=== PATIENT | male | born 1950 | race Caucasian/White ===

== ENCOUNTER 2019-11-10 11:35 | Inpatient (IN) ==
[2019-11-10] MEDS ORDERED: 0.9 % SODIUM CHLORIDE 1,000 ML IV ONE ×3 (11:50→14:37)
[2019-11-10] MEDS ORDERED: ONDANSETRON 4 MG/2 ML VIAL IV ONE (11:50)
[2019-11-10] MEDS ORDERED: HYDROmorphone 1 MG/ML SYRINGE IV ONE (11:50)
--- NOTE | 2019-11-10 12:04 | Emergency Department Note ---
HPI General Chief complaint: Rib Pain Stated complaint: rib pain Time Seen by Provider: 11/10/19 11:49 Source: patient and family Mode of arrival: ambulatory Limitations: no limitations History of Present Illness HPI Narrative: Narrative: Patient is a 69-year-old male who comes into the emergency department today by EMS. Patient has complaint of right-sided rib pain that developed 2 days ago. Patient is a poor historian, and he is not sure if he had fell or not. He does report drinking bourbon several times a week. Pain is aggravated with palpation of the area and taking a deep breath. He has not had any fevers or chills. He denies any nausea or vomiting. He has not had any constipation, melena, or he matochezia. He denies shortness of breath or difficulty breathing. Patient reports prior history of a CVA, but reports he is otherwise been doing well. He denies any headache, weakness, dizziness, or confusion. He describes his pain today as sharp, aggravating, and rates the pain 10 out of 10 on a 0-10 numerical pain scale. Related Data Home Medications Medication Instructions Recorded Confirmed aspirin 325 mg tablet 325 mg PO QDAY 04/13/18 02/15/19 felodipine 10 mg tablet,extended 10 mg PO QPM tab 04/13/18 02/15/19 release 24 hr metoprolol succinate 50 mg 50 mg PO QDAY 04/13/18 02/15/19 tablet,extended release 24 hr multivitamin PO QDAY 04/13/18 02/15/19 omeprazole 20 mg capsule,delayed 20 mg PO QDAY 04/13/18 02/15/19 release vitamin B complex 1 tab PO QDAY 04/13/18 02/15/19 duloxetine 60 mg capsule,delayed 60 mg PO QDAY 11/15/18 02/15/19 release ascorbate calcium (vitamin C) PO 01/03/19 02/15/19 Previous Rx's Medication Instructions Recorded finasteride 5 mg tablet 5 mg PO QDAY #90 tab 04/19/19 mirabegron 25 mg tablet,extended 25 mg PO QDAY #90 tab 04/19/19 release 24 hr tamsulosin 0.4 mg capsule 0.4 mg PO QDAY #90 cap 04/19/19 Allergies Allergy/AdvReac Type Severity Reaction Status Date / Time bee venom protein (honey bee) Allergy Unknown Unknown Verified 04/19/19 11:58 Review of Systems ROS Narrative: Narrative: Constitutional: Denies fever and chills Eyes: Denies vision change ENT ED: Denies ear pain and throat pain Cardiovascular: Denies chest pain, palpitations and dyspnea on exertion Respiratory: Denies shortness of breath, cough and hemoptysis Gastrointestinal: Denies abdominal pain, nausea and vomiting Genitourinary: Denies dysuria and frequency Musculoskeletal: Reports as per HPI; Denies back pain and joint swelling Integumentary: Denies rash and lesions Neurological: Denies headache, weakness and numbness Psychiatric: Denies anxiety and depression Endocrine: Denies fatigue and heat or cold intolerance Hematological/Lymphatic: Denies easy bleeding and easy bruising PFSH Narrative Patient History Narrative: Narrative: Medical/Surgical/Family History All Active Problems (Updated 11/10/19 @ 15:25 by THEE Watkins) Acute cholecystitis (Acute) Leukocytosis (Acute) Uses wheelchair (Chronic) Overweight (Chronic) Easy bruising (Chronic) Cold intolerance (Chronic) Fatigue (Chronic) Memory loss (Chronic) Sleep disturbance (Chronic) Change of skin color (Chronic) Change in nail appearance (Chronic) Dry skin (Chronic) Itchy skin (Chronic) Muscle ache (Chronic) Incomplete emptying of bladder (Chronic) Frequent diarrhea (Chronic) Nocturnal cough with wheeze (Chronic) Left ankle swelling (Chronic) Sore throat (Chronic) Ringing in right ear (Chronic) Hiatal hernia (Chronic) Pain of left hip joint (Chronic) Urge incontinence of urine (Chronic) Benign prostatic hyperplasia with urinary obstruction (Chronic) Chronic obstructive lung disease (Chronic) 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) (Chronic) Alcohol dependence (Chronic) Hypertriglyceridemia (Chronic) Apraxia (Chronic) Cannabis dependence (Chronic) Cigarette smoker (Chronic) Chronic depression (Chronic) Ankle instability (Chronic) Muscle tenderness (Chronic) Muscle contracture (Chronic) Dependent on walker for ambulation (Chronic) Runny nose (Chronic) Narcotic addiction (Chronic) Mood swings (Chronic) Alcohol abuse (Chronic) Neurologic gait dysfunction (Chronic) Severe headache (Chronic) Dizziness (Chronic) Numbness (Chronic) Weakness (Chronic) Difficulty walking (Chronic) Arthralgia of ankle (Chronic) Diarrhea (Chronic) History of appetite changes (Chronic) Abdominal pain (Chronic) Wheezing (Chronic) Ankle swelling (Chronic) Shortness of breath on exertion (Chronic) Ischemic stroke (Chronic 12/16/08) Trochanteric bursitis, left hip (Chronic) Hemiparesis (Chronic) Hemorrhagic stroke (Chronic 09/25/04) Dysarthria (Chronic 06/27/17) Low back pain (Chronic 09/12/17) Neck pain (Chronic 06/27/17) BPH (benign prostatic hyperplasia) (Chronic 06/27/17) Chronic kidney disease, stage 3 (Chronic 06/27/17) Acid reflux (Chronic 06/27/17) Essential hypertension (Chronic 06/27/17) Blurring of visual image (Chronic 06/27/17) Hemiplegia affecting nondominant side (Chronic 06/27/17) Depressive disorder (Chronic 06/27/17) Hyperlipidemia (Chronic 06/27/17) Urinary incontinence (Chronic 06/27/17) Medical History (Updated 11/10/19 @ 15:25 by THEE Watkins) Abdominal pain (Chronic) Acid reflux (Chronic 06/27/17) Alcohol abuse (Chronic) Alcohol dependence (Chronic) Ankle instability (Chronic) Ankle swelling (Chronic) Apraxia (Chronic) Arthralgia of ankle (Chronic) Benign prostatic hyperplasia with urinary obstruction (Chronic) Blurring of visual image (Chronic 06/27/17) BPH (benign prostatic hyperplasia) (Chronic 06/27/17) Cannabis dependence (Chronic) Change in nail appearance (Chronic) Change of skin color (Chronic) Chronic depression (Chronic) Chronic kidney disease, stage 3 (Chronic 06/27/17) Chronic obstructive lung disease (Chronic) Cigarette smoker (Chronic) Cold intolerance (Chronic) Dependent on walker for ambulation (Chronic) Depressive disorder (Chronic 06/27/17) Diarrhea (Chronic) Difficulty walking (Chronic) Dizziness (Chronic) Dry skin (Chronic) Dysarthria (Chronic 06/27/17) Easy bruising (Chronic) Essential hypertension (Chronic 06/27/17) Fatigue (Chronic) Frequent diarrhea (Chronic) Hemiparesis (Chronic) 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) (Chronic) Hemiplegia affecting nondominant side (Chronic 06/27/17) Hemorrhagic stroke (Chronic 09/25/04) Hiatal hernia (Chronic) History of appetite changes (Chronic) Hyperlipidemia (Chronic 06/27/17) Hypertriglyceridemia (Chronic) Incomplete emptying of bladder (Chronic) Ischemic stroke (Chronic 12/16/08) Itchy skin (Chronic) Left ankle swelling (Chronic) Low back pain (Chronic 09/12/17) Memory loss (Chronic) Mood swings (Chronic) Muscle ache (Chronic) Left Thigh Muscle contracture (Chronic) Muscle tenderness (Chronic) Narcotic addiction (Chronic) Neck pain (Chronic 06/27/17) Neurologic gait dysfunction (Chronic) Nocturnal cough with wheeze (Chronic) Numbness (Chronic) Overweight (Chronic) Pain of left hip joint (Chronic) Ringing in right ear (Chronic) Runny nose (Chronic) Severe headache (Chronic) Shortness of breath on exertion (Chronic) Sleep disturbance (Chronic) Sore throat (Chronic) Trochanteric bursitis, left hip (Chronic) Urge incontinence of urine (Chronic) Urinary incontinence (Chronic 06/27/17) Uses wheelchair (Chronic) Weakness (Chronic) Wheezing (Chronic) Surgical History History of dental surgery (Chronic) Full Extracted History of esophagogastroduodenoscopy (EGD) (Chronic ~07/2011) No pertinent past surgical history (Chronic) Family History Father Myocardial infarction Sister Malignant neoplasm of ovary Family/Other Diabetes mellitus Maternal Aunt Brother Hypertension Mother Stroke Diabetes mellitus Social History Smoking Status: Current every day smoker Alcohol Intake Frequency: 2+ drinks per day Substance Use: former substance user, marijuana and other Exam Narrative Narrative: Narrative: General Limitations: no limitations General appearance: alert and in no apparent distress Head Head: atraumatic, normocephalic and normal inspection Eye Eye: Present normal appearance and PERRL ENT ENT: Present mucous membranes dry Neck Neck: Present normal inspection and full ROM; Absent tenderness and lymphadenopathy Chest Chest: Present normal inspection and tenderness (Outpatient of right lower ribs) Respiratory Respiratory: Present normal lung sounds bilaterally and wheezes (Right lower lobe); Absent respiratory distress and accessory muscle use Cardiovascular Cardiovascular: Present regular rate and normal rhythm; Absent systolic murmur and diastolic murmur Adbominal Abdominal: Present soft and tenderness (Right upper quadrant near the base of the rib.); Absent distention Extremities Extremities: Present full ROM and normal capillary refill; Absent tenderness Back Back: Present normal inspection and full ROM; Absent CVA tenderness (R) and CVA tenderness (L) Neurological Neurological: Present alert and oriented X3 Psychiatric Psychiatric: Present normal affect and normal mood Skin Skin: Present warm, dry and normal color Course Reevaluation(s) Reevaluation #1: Patient received 1 mg of Dilaudid for pain and 4 mg of an answer of her nausea. He received a liter of normal saline. CT scan was completed that shows some inflammation around the gallbladder. I have ordered an ultrasound for further evaluation of the gallbladder and right upper quadrant. Labs currently pending at this time. Patient resting comfortably. Time: 13:23 Reevaluation #2: Zosyn 3.375 dose ordered IV. Patient resting at this time. Phone call consultation has been sent to general surgeon, Dr. Sorto. The ultrasound showed 6 mm hepatic duct, sludge in the gallbladder, a small amount of ascites. Common bile duct is not well visualized. Blood cultures and lactic acid drawn before antibiotic administration. Time: 14:01 Consultations Consultation #1: Consulted with Dr. Oliver Sorto today, and Dr. Sorto will look at the patient's imaging. Dr. Sorto recommended to add CRP, procalcitonin, and try to find source of infection for the leukocytosis. I will order a CT abdomen pelvis with contrast at this time. Time: 14:14 Time: 15:20 Consultation #3: Spoke with Dr. Sorto, and the CT scanning of the abdomen pelvis results were called to me by Dr. Mcnair. Patient has inflammation around the gallbladder and a little bit towards the jejunum. A little free fluid is seen in the right upper quadrant and trace amount in the lower abdomen. No abscesses. Dr. Sorto will accept patient to be admitted to [facility] for cholecystitis. Patient received 1 dose of Zosyn here in the emergency department. He will be admitted as observation at this time. Vital Signs Vital signs: Vital Signs Temperature 97.0 F 11/10/19 11:35 Pulse Rate 104 H 11/10/19 11:35 Respiratory Rate 26 H 11/10/19 11:35 Blood Pressure 144/111 11/10/19 11:35 Pulse Oximetry (%) 97 11/10/19 11:35 Temperature 97.7 F 11/10/19 11:39 Pulse Rate 99 H 11/10/19 12:24 Respiratory Rate 26 H 11/10/19 11:35 Blood Pressure 134/91 11/10/19 12:24 Pulse Oximetry (%) 94 11/10/19 12:24 MDM MDM Narrative Medical decision making narrative: Narrative: Patient's white count today 30.3. Patient resumed Dilaudid for pain management, 4 mg ondansetron, and a liter of normal saline. Pain had been controlled. CT of the chest did not show any abnormalities with rib or significant findings with the lung. Patient does have COPD which is not new for him. Patient has continued to have the right upper quadrant tenderness. Ultrasound was completed that showed some possible sludge and distention over the gallbladder area. Gallbladder wall measured up to 3 mm. I did consult with Dr. Oliver Sorto after the ultrasound was obtained, and Dr. Sorto had recommended CRP, pro calcitonin, lactic acid. Lactic acid today is normal. The CRP is elevated, and procalcitonin is rather unremarkable. He did recommend to proceed with a CT scan of the abdomen and which today shows cholecystitis findings with inflammation around the gallbladder and a little bit towards the jejunum. No abscess. Patient was given a dose of Zosyn here in the emergency department. Dr. Sorto did accept the patient for admission to the hospital, and he will see the patient on the floor today. Lab Data Lab results reviewed: Yes I reviewed the patient's lab results. Result diagrams: 11/10/19 11:58 11/10/19 13:04 Labs: Lab Results 11/10/19 11/10/19 11/10/19 Range/Units 11:58 11:58 13:04 WBC 30.3 H* (4.50-11.00) K/mcL RBC 5.52 (4.63-6.08) M/mcL Hgb 17.9 H (13.7-17.5) g/dL Hct 49.6 (40.1-51.0) % MCV 89.9 (80.0-100.0) fL MCH 32.4 (26.0-34.0) pg MCHC 36.1 H (31.0-36.0) g/dL RDW 12.3 (11.5-14.5) % Plt Count 392 (140-440) K/mcL MPV 12.8 H (7.4-10.4) fL Gran % 87.8 H (38.0-78.0) % Lymph % (Auto) 2.7 L (15.5-49.0) % [place] % (Auto) 9.2 (1.0-12.0) % Eos % (Auto) 0.1 (0.0-7.0) % Baso % (Auto) 0.2 (0.0-2.0) % Gran # 26.57 H (1.80-8.00) K/mcL Lymph # (Auto) 0.83 L (1.50-4.80) K/mcL [place] # (Auto) 2.77 H (0.10-0.90) K/mcL Eos # (Auto) 0.03 (0.00-0.70) K/mcL Baso # (Auto) 0.06 (0.00-0.30) K/mcL Sodium TNP 132 L Potassium TNP 3.9 Chloride TNP 99 Carbon Dioxide TNP 19 L Anion Gap TNP 14.0 BUN TNP 15 Creatinine TNP 1.5 H GFR Calculation TNP 47 Glucose TNP 137 H Calcium TNP 8.5 L Total Bilirubin TNP 0.9 AST TNP 33 ALT TNP 20 Alkaline Phosphatase TNP 101 Total Protein TNP 7.1 Albumin TNP 3.1 L Globulin TNP 4.0 H Albumin/Globulin Ratio TNP 0.8 L Lipase TNP Radiology Data Radiology results narrative: Chest CT without contrast was read by Dr. Mcnair. Dr. cMnair had called me with the results that shows distention and inflammation around the gallbladder, small amount of free fluid near the liver. No peritonitis. No abnormalities with the ribs. No pneumothorax. Lungs are rather unremarkable besides some emphysema. Ultrasound Report Signed Ordering Physician: Ramos Prieto Date of Service: 11/10/19 Procedure(s): US abdomen limited Accession Number(s): [id number] History: Fever, elevated white blood cell count, right upper quadrant pain FINDINGS: The patient was technically difficult to scan due to body habitus. The pancreas is not identified. There is also poor visualization of the liver. No gross mass or abscess are seen in the liver. There is a trace amount of ascites around the liver. The gallbladder is filled with sludge and is somewhat distended. Gallbladder wall measures up to 3 mm. Patient was diffusely tender over the right upper quadrant. A short segment common hepatic duct was visualized which measures 6 mm in diameter. Common bile duct is obscured. IMPRESSION: Sludge versus pus filling a distended gallbladder Small amount of ascites in the right upper quadrant Ramos Prieto was called with the results Interpreted and Authenticated by: Kirby Mcnair 11/10/19 Discharge Plan Patient/Caregiver Discharge Instructions Pt seen by [employer]/PA only: No Clinical Impression: Acute cholecystitis Leukocytosis Qualifiers: Leukocytosis type: unspecified Qualified Code(s): D72.829 - Elevated white blood cell count, unspecified Patient Disposition: Xfer As Outpt/Obs ([facility]) Condition: Fair Follow up with: Mindy Green MD [Primary Care Provider] - Prescriptions: No Action aspirin 325 mg tablet 325 mg PO QDAY RF: 0 felodipine 10 mg tablet extended release 24 hr 10 mg PO QPM RF: 0 metoprolol succinate 50 mg tablet extended release 24 hr 50 mg PO QDAY RF: 0 multivitamin PO QDAY RF: 0 omeprazole 20 mg capsule,delayed release(DR/EC) 20 mg PO QDAY RF: 0 vitamin B complex tablet 1 tab PO QDAY RF: 0 duloxetine 60 mg capsule,delayed release(DR/EC) 60 mg PO QDAY RF: 0 ascorbate calcium (vitamin C) PO RF: 0 mirabegron 25 mg tablet extended release 24 hr 25 mg PO QDAY Qty: 90 RF: 3 finasteride 5 mg tablet 5 mg PO QDAY Qty: 90 RF: 3 tamsulosin 0.4 mg capsule 0.4 mg PO QDAY Qty: 90 RF: 3
[2019-11-10 13:30] LABS: Basophils # (Auto) 0.06 K/mcL (0.00-0.30); Basophils % (Auto) 0.2 % (0.0-2.0); Eosinophils # (Auto) 0.03 K/mcL (0.00-0.70); Eosinophils % (Auto) 0.1 % (0.0-7.0); Granulocytes % (Auto) 87.8 % (38.0-78.0); Hematocrit 49.6 % (40.1-51.0); Hemoglobin 17.9 g/dL (13.7-17.5); Lymphocytes # (Auto) 0.83 K/mcL (1.50-4.80); Lymphocytes % (Auto) 2.7 % (15.5-49.0); Mean Cell Volume 89.9 fL (80.0-100.0); Mean Corpuscular HGB Conc 36.1 g/dL (31.0-36.0); Mean Platelet Volume 12.8 fL (7.4-10.4); Monocytes # (Auto) 2.77 K/mcL (0.10-0.90); Monocytes % (Auto) 9.2 % (1.0-12.0); Platelet Count 392 K/mcL (140-440); RBC 5.52 M/mcL (4.63-6.08); Red Cell Distribution Width 12.3 % (11.5-14.5); WBC 30.3 K/mcL (4.50-11.00)
[2019-11-10 13:49] LABS: ALT/SGPT 20 U/l (0-40); AST/SGOT 33 U/l (0-37); Albumin 3.1 gm/dL (3.2-5.2); Albumin/Globulin Ratio 0.8 (1.0-2.3); Alkaline Phosphatase 101 U/L (39-117); Bilirubin,Total 0.9 mg/dL (0.0-1.0); Blood Urea Nitrogen 15 mg/dl (8-23); Calcium 8.5 mg/dl (8.6-10.4); Carbon Dioxide 19 mmol/L (22-30); Chloride 99 mmol/L (96-108); Glomerular Filtration Rate 47; Glucose 137 mg/dL (70-105)
[2019-11-10] MEDS ORDERED: PIPERACILLIN SODIUM/TAZOBACTAM 3.375 GM in DEXTROSE 5% IN WATER 50 ML IV ONE (13:52)
--- NOTE | 2019-11-10 14:47 | Ultrasound Report ---
History: Fever, elevated white blood cell count, right upper quadrant pain FINDINGS: The patient was technically difficult to scan due to body habitus. The pancreas is not identified. There is also poor visualization of the liver. No gross mass or abscess are seen in the liver. There is a trace amount of ascites around the liver. The gallbladder is filled with sludge and is somewhat distended. Gallbladder wall measures up to 3 mm. Patient was diffusely tender over the right upper quadrant. A short segment common hepatic duct was visualized which measures 6 mm in diameter. Common bile duct is obscured. IMPRESSION: Sludge versus pus filling a distended gallbladder Small amount of ascites in the right upper quadrant Ramos Prieto was called with the results Interpreted and Authenticated by: Kirby Mcnair 11/10/19
[2019-11-10 14:48] LABS: C-Reactive Protein 11.5 mg/dl (0.0-0.8)
--- NOTE | 2019-11-10 14:50 | Cat Scan Report ---
History: Fever, elevated white blood cell count and tenderness in the right lower chest and right upper quadrant TECHNIQUE: The chest was imaged without contrast at 2.5 mm intervals. Sagittal, coronal and axial MIPS images were created. Radiation exposure was limited using dose reduction technology. FINDINGS: Patient has mild to moderate centrilobular emphysema with the greatest involvement in the upper lobes. There is mild pulmonary fibrosis posteriorly in the lower lobes, right greater than left and there is also a band of scar or atelectasis in the inferior segment of lingula. There is no consolidating pulmonary infiltrate. No pneumothorax or pleural effusion are present. There is no evidence of a lung mass. The ribs are normal and there is no evidence of a chest wall lesion. The aorta is normal in caliber. There are scattered plaques in the aorta and coronary arteries. The heart size is normal. Small hiatus hernia is present. There is circumferential thickening of the wall of the mid and distal thoracic esophagus. No discrete mass is seen. Proximal esophagus is not abnormally dilated. The gallbladder is over distended and there is stranding in the surrounding fat. No stones are seen within the lumen. Gallbladder is incompletely visualized. Trace amount of ascites is seen around the liver. IMPRESSION: COPD with mild pulmonary fibrosis Distended gallbladder with surrounding inflammation. Cholecystitis is suspected. Hiatus hernia with thickened esophageal wall. This is probably due to chronic esophagitis and less likely due to neoplasm. Ramos Prieto was called with results Interpreted and Authenticated by: Kirby Mcnair 11/10/19
--- NOTE | 2019-11-10 15:13 | Cat Scan Report ---
History: Fever, right upper quadrant pain, elevated white blood cell count and inflammation in the gallbladder seen on the preceding chest CT TECHNIQUE: The patient was imaged without contrast due to elevated BUN/creatinine, scanning from the diaphragm through the symphysis pubis. Sagittal and coronal reformats were created. The radiation exposure was limited using dose reduction technology. FINDINGS: The left lobe of liver has somewhat of a bulbous contour. The parenchyma appears homogeneous. The patient might have early cirrhosis. No varices are seen. The gallbladder is abnormally distended and there is a large amount of inflammation of the surrounding fat. The inflammation extends to the second portion the duodenum and there is minimal inflammation around the head of the pancreas. No calcified stones are seen within the lumen of the gallbladder. The bile ducts are nondilated. There are couple calcifications in the tail the pancreas which may be related to a prior episode of pancreatitis. Trace amount of ascites is seen around the liver and deep in the pelvis. No intra-abdominal abscess is seen. The bowel gas pattern is normal and there is no evidence of diverticulitis or bowel obstruction. Spleen is normal in size and homogeneous. The adrenals and kidneys are normal. Patient has a small hiatus hernia. The wall of the distal esophagus is thickened. Large amount calcified plaque is present in the arteries throughout the abdomen pelvis and both groin. IMPRESSION: Acute cholecystitis, without evidence of calcified gallstones Ramos Prieto was called with the results Interpreted and Authenticated by: Kirby Mcnair 11/10/19
[2019-11-10] MEDS ORDERED: ONDANSETRON 4 MG/2 ML VIAL IV PRN ×2 (15:25→18:06)
[2019-11-10] MEDS ORDERED: NALOXONE HCL 0.4 MG/ML VIAL IV PRN (15:25)
[2019-11-10] MEDS ORDERED: HYDROmorphone 0.5 MG/0.5 ML SYRINGE IV PRN (15:25)
[2019-11-10] MEDS: 0.9 % SODIUM CHLORIDE 1,000 ML IV SCH ×2 (16:21→22:54)
[2019-11-10 17:05] LABS: Appearance,Urine CLEAR; Bacteria,Urine 0 /hpf (0); Bilirubin,Urine NEG (NEG); Color,Urine AMBER; Culture Indicated,Urine NO; Glucose,Urine (UA) NEGATIVE (NEG); Ketones,Urine 5/TR mg/dL (NEG); Leukocyte Esterase,Urine NEG /uL (NEG); Mucus,Urine MOD /hpf (0); Nitrate,Urine NEG (NEG); Protein,Urine >=500 mg/dL (NEG); Specific Gravity,Urine 1.032 (1.000-1.035); Urine Blood 0.03 mg/dL (<0.03); Urine Hyaline Cast 8 /lpf (0-2); Urine RBC 1 /hpf (0-1); Urine Squamous Epithelial Cell 0 /hpf (0-4); Urine WBC 3 /hpf (0-4)
--- NOTE | 2019-11-10 17:49 | General Surg History&Physical ---
HPI History of Present Illness Patient information: Note initiated : 11/10/19 at 5:48 pm Service Date, if different from initiated Date: [] Patient: Priyank Dueñas a 69 y/o M admitted on 11/10/19 for rib pain. Chief Complaint: [] Chief complaint: abdominal pain History of present illness: Mr. Dueñas is a 69 year old M admitted with acute cholecystitis. The patient has a 3 day history of right upper quadrant pain with nausea and anorexia. It has become progressively worse and finally prompted him to come to the emergency room. He was found to have an edematous gallbladder with pericholecystic fluid. He also has a 30,000 white count. He is afebrile at the present time. Patient has a history of alcoholism and polys ubstance abuse. He is admitted tonight and will be treated with antibiotics with plans for laparoscopic cholecystectomy in the morning. Constitutional Constitutional: Present anorexia, fatigue, lethargy, malaise, weakness and weight loss EENT Eyes: Present blurry vision Ears: Present decreased hearing Nose, mouth and throat: Present abnormal hearing and headache(s) Cardiovascular Cardiovascular: Absent dyspnea on exertion, edema and orthopnea Respiratory Respiratory: Present cough, wheezing and other (shortness of breath) Gastrointestinal Gastrointestinal: Present abdominal pain, bloating, early satiety, heartburn and nausea Genitourinary Genitourinary: change in urinary stream, difficulty urinating, nocturia, post void dribbling, urinary frequency, urinary hesitancy, urinary incontinence and urinary urgency Musculoskeletal Musculoskeletal: Present abnormal gait, arthralgias, back pain, limited range of motion (major decrease range of motion of left upper and left lower extremity), muscle weakness, neck pain and numbness Integumentary Integumentary: Present dry skin and hirsutism Neurological Neurological: Present abnormal gait, abnormal hearing, abnormal movements, abnormal speech, behavioral changes, focal weakness (left hemiparesis with spastic procedure left upper extremity), frequent falls, lack of coordination, numbness and tremor(s) Psychiatric Psychiatric: Present abnormal sleep pattern, behavioral changes, confusion, memory loss and mood swings Hematologic/Lymphatic Hematologic/Lymphatic: Present easy bruising; Absent easy bleeding and lymphadenopathy Allergic/Immunologic Allergic/Immunologic: Absent tongue swelling, throat swelling, uticaria, wheezing and lip swelling [facility] Medical History (Updated 07/04/20 @ 18:04 by Cheyanne Sorto MD) Abdominal pain (Chronic) Acid reflux (Chronic 06/27/17) Alcohol abuse (Chronic) Alcohol dependence (Chronic) Ankle instability (Chronic) Ankle swelling (Chronic) Apraxia (Chronic) Arthralgia of ankle (Chronic) Benign prostatic hyperplasia with urinary obstruction (Chronic) Blurring of visual image (Chronic 06/27/17) BPH (benign prostatic hyperplasia) (Chronic 06/27/17) Cannabis dependence (Chronic) Change in nail appearance (Chronic) Change of skin color (Chronic) Chronic depression (Chronic) Chronic kidney disease, stage 3 (Chronic 06/27/17) Chronic obstructive lung disease (Chronic) Cigarette smoker (Chronic) Cold intolerance (Chronic) Dependent on walker for ambulation (Chronic) Depressive disorder (Chronic 06/27/17) Diarrhea (Chronic) Difficulty walking (Chronic) Dizziness (Chronic) Dry skin (Chronic) Dysarthria (Chronic 06/27/17) Easy bruising (Chronic) Essential hypertension (Chronic 06/27/17) Fatigue (Chronic) Frequent diarrhea (Chronic) Hemiparesis (Chronic) 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) (Chronic) Hemiplegia affecting nondominant side (Chronic 06/27/17) Hemorrhagic stroke (Chronic 09/25/04) Hiatal hernia (Chronic) History of appetite changes (Chronic) Hyperlipidemia (Chronic 06/27/17) Hypertriglyceridemia (Chronic) Incomplete emptying of bladder (Chronic) Ischemic stroke (Chronic 12/16/08) Itchy skin (Chronic) Left ankle swelling (Chronic) Low back pain (Chronic 09/12/17) Memory loss (Chronic) Mood swings (Chronic) Muscle ache (Chronic) Left Thigh Muscle contracture (Chronic) Muscle tenderness (Chronic) Narcotic addiction (Chronic) Neck pain (Chronic 06/27/17) Neurologic gait dysfunction (Chronic) Nocturnal cough with wheeze (Chronic) Numbness (Chronic) Overweight (Chronic) Pain of left hip joint (Chronic) Ringing in right ear (Chronic) Runny nose (Chronic) Severe headache (Chronic) Shortness of breath on exertion (Chronic) Sleep disturbance (Chronic) Sore throat (Chronic) Trochanteric bursitis, left hip (Chronic) Urge incontinence of urine (Chronic) Urinary incontinence (Chronic 06/27/17) Uses wheelchair (Chronic) Weakness (Chronic) Wheezing (Chronic) Surgical History History of dental surgery (Chronic) Full Extracted History of esophagogastroduodenoscopy (EGD) (Chronic ~07/2011) No pertinent past surgical history (Chronic) Family History Father Myocardial infarction Sister Malignant neoplasm of ovary Family/Other Diabetes mellitus Maternal Aunt Brother Hypertension Mother Stroke Diabetes mellitus Social History (Updated 04/19/19 @ 17:31 by THEE Fuentes) household members: alone marital status: 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 smoking status: Current every day smoker alcohol intake frequency: 2+ drinks per day substance use type: former substance user, marijuana and other seatbelt use: always MEDS/ALLERGIES Home Medications and Allergies Home Medications Medication Instructions Recorded Confirmed Type aspirin 325 mg tablet 325 mg PO QDAY 04/13/18 11/10/19 History felodipine 10 mg tablet,extended 10 mg PO QPM tab 04/13/18 11/10/19 History release 24 hr metoprolol succinate 50 mg 50 mg PO QDAY 04/13/18 11/10/19 History tablet,extended release 24 hr multivitamin 1 tab PO QDAY 04/13/18 11/10/19 History omeprazole 20 mg capsule,delayed 20 mg PO QDAY 04/13/18 11/10/19 History release vitamin B complex 1 tab PO QDAY 04/13/18 11/10/19 History ascorbate calcium (vitamin C) 1 tab PO QDAY 01/03/19 11/10/19 History finasteride 5 mg tablet 5 mg PO QDAY #90 tab 04/19/19 11/10/19 Rx mirabegron 25 mg tablet,extended 25 mg PO QDAY #90 tab 04/19/19 11/10/19 Rx release 24 hr tamsulosin 0.4 mg capsule 0.4 mg PO QDAY #90 cap 04/19/19 11/10/19 Rx fluoxetine 40 mg PO QDAY 11/10/19 11/10/19 History Allergies Allergy/AdvReac Type Severity Reaction Status Date / Time bee venom protein (honey bee) Allergy Unknown Unknown Verified 04/19/19 11:58 Physical Examination Vital Signs Vital signs: Temp Pulse Resp BP Pulse Ox 97.9 F 92 H 20 122/82 93 11/10/19 16:21 11/10/19 16:21 11/10/19 16:21 11/10/19 16:21 11/10/19 16:21 General physical appearance General physical exam: moderate distress, chronically ill and other (very poor body hygiene) Eyes Eye exam: PERRL, normal ocular movement and other (poor vision bilaterally) ENT ENT exam: decreased hearing and other (edentulous) Head Head exam IM: Present atraumatic, normal inspection and normocephalic Neck Neck exam: no masses, no bruits, trachea midline, no lymphadenopathy and no venous distension Cardiovascular Cardiovascular exam IM: Present normal rate and rhythm, RRR, +S1 and +S2; Absent gallop and JVD Respiratory Respiratory exam: other (bilateral coarse breath sounds with fine wheezes; decrease in air movement bilaterally) Abdomen Abdomen: Present tender (severe tenderness right upper quadrant and epigastrium) and bowel sounds (active bowel sounds) Integumentary Integumentary: Present no rash, no growths and no abnormal pigmentation Neurologic Neurologic: Present other (left hemiparesis greater in the left upper extremity than left lower extremity) Musculoskeletal Musculoskeletal: Present other (altered gait due to hematemesis) Psychiatric Psychiatric: Present oriented to time and oriented to person Results Labs Result diagrams: 11/10/19 11:58 11/10/19 13:04 Labs: Abnormal lab results 11/10/19 11/10/19 11/10/19 Range/Units 11:58 13:04 13:04 WBC 30.3 H* (4.50-11.00) K/mcL Hgb 17.9 H (13.7-17.5) g/dL MCHC 36.1 H (31.0-36.0) g/dL MPV 12.8 H (7.4-10.4) fL Gran % 87.8 H (38.0-78.0) % Lymph % (Auto) 2.7 L (15.5-49.0) % Gran # 26.57 H (1.80-8.00) K/mcL Lymph # (Auto) 0.83 L (1.50-4.80) K/mcL [place] # (Auto) 2.77 H (0.10-0.90) K/mcL Sodium 132 L (133-145) mmol/L Carbon Dioxide 19 L (22-30) mmol/L Creatinine 1.5 H (0.7-1.2) mg/dl Glucose 137 H (70-105) mg/dL Calcium 8.5 L (8.6-10.4) mg/dl C-Reactive Protein 11.5 H (0.0-0.8) mg/dl Albumin 3.1 L (3.2-5.2) gm/dL Globulin 4.0 H (2.2-3.7) gm/dL Albumin/Globulin Ratio 0.8 L (1.0-2.3) Urine Protein (NEG) mg/dL Urine Ketones (NEG) mg/dL Urine Occult Blood (<0.03) mg/dL Urine Urobilinogen (NEG) mg/dL Hyaline Casts (0-2) /lpf 11/10/19 Range/Units 16:17 WBC (4.50-11.00) K/mcL Hgb (13.7-17.5) g/dL MCHC (31.0-36.0) g/dL MPV (7.4-10.4) fL Gran % (38.0-78.0) % Lymph % (Auto) (15.5-49.0) % Gran # (1.80-8.00) K/mcL Lymph # (Auto) (1.50-4.80) K/mcL [place] # (Auto) (0.10-0.90) K/mcL Sodium (133-145) mmol/L Carbon Dioxide (22-30) mmol/L Creatinine (0.7-1.2) mg/dl Glucose (70-105) mg/dL Calcium (8.6-10.4) mg/dl C-Reactive Protein (0.0-0.8) mg/dl Albumin (3.2-5.2) gm/dL Globulin (2.2-3.7) gm/dL Albumin/Globulin Ratio (1.0-2.3) Urine Protein >=500 A (NEG) mg/dL Urine Ketones 5/tr A (NEG) mg/dL Urine Occult Blood 0.03 A (<0.03) mg/dL Urine Urobilinogen 2.0 A (NEG) mg/dL Hyaline Casts 8 H (0-2) /lpf Diabetes panel 11/10/19 11/10/19 Range/Units 11:58 13:04 Sodium TNP 132 L Potassium TNP 3.9 Chloride TNP 99 Carbon Dioxide TNP 19 L BUN TNP 15 Creatinine TNP 1.5 H Glucose TNP 137 H Calcium TNP 8.5 L AST TNP 33 ALT TNP 20 Alkaline Phosphatase TNP 101 Total Protein TNP 7.1 Albumin TNP 3.1 L Calcium panel 11/10/19 11/10/19 Range/Units 11:58 13:04 Calcium TNP 8.5 L Albumin TNP 3.1 L Pituitary panel 11/10/19 11/10/19 Range/Units 11:58 13:04 Sodium TNP 132 L Potassium TNP 3.9 Chloride TNP 99 Carbon Dioxide TNP 19 L BUN TNP 15 Creatinine TNP 1.5 H Glucose TNP 137 H Calcium TNP 8.5 L Adrenal panel 11/10/19 11/10/19 Range/Units 11:58 13:04 Sodium TNP 132 L Potassium TNP 3.9 Chloride TNP 99 Carbon Dioxide TNP 19 L BUN TNP 15 Creatinine TNP 1.5 H Glucose TNP 137 H Calcium TNP 8.5 L Total Bilirubin TNP 0.9 AST TNP 33 ALT TNP 20 Alkaline Phosphatase TNP 101 Total Protein TNP 7.1 Albumin TNP 3.1 L All other labs normal. A/P Assessment and plan (1) Sepsis: Status: Acute Qualifiers: Sepsis acute organ dysfunction status: with acute organ dysfunction Sepsis type: sepsis due to unspecified organism Severe sepsis shock status: without septic shock (2) Chronic kidney disease: Status: Acute Qualifiers: Chronic kidney disease stage: stage 3 (moderate) Qualified Code(s): N18.3 - Chronic kidney disease, stage 3 (moderate) (3) Hypertension: Status: Acute Qualifiers: Hypertension type: essential hypertension Qualified Code(s): I10 - Essential (primary) hypertension (4) Chronic obstructive lung disease: Status: Chronic Qualifiers: COPD type: chronic bronchitis Chronic bronchitis type: mucopurulent Qualified Code(s): J41.1 - Mucopurulent chronic bronchitis (5) 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): Status: Chronic (6) Alcohol dependence: Status: Chronic Qualifiers: Substance use status: uncomplicated Qualified Code(s): F10.20 - Alcohol dependence, uncomplicated (7) Essential hypertension: Status: Chronic Narrative A/P Narrative: Narrative:Zosyn 3.375 g IV every 6 hours DuoNeb's every 6 hours to night Laparoscopic cholecystectomy tomorrow Supplemental alcohol to prevent delirium tremens Romero catheter to control incontinence Time Spent With Patient Time: Total time spent is greater than 50% in coordination of care (as documented) at patient's floor/unit and/or counseling patient:
[2019-11-10 18:29] LABS: INR 1.1 (0.9-1.1); Prothrombin Time 14.4 sec (11.9-14.5)
[2019-11-10] MEDS ORDERED: NICOTINE 21 MG PATCH TOPICAL ONE (18:43)
[2019-11-10] MEDS: HYDROmorphone 0.5 MG/0.5 ML SYRINGE IV PRN ×2 (19:08→22:47)
[2019-11-10] MEDS: PIPERACILLIN SODIUM/TAZOBACTAM 3.375 GM in DEXTROSE 5% IN WATER 50 ML IV SCH (19:51)
[2019-11-10] MEDS ORDERED: FELODIPINE XR 5 MG TABLET PO SCH (21:00)
[2019-11-10] MEDS ORDERED: ZOLPIDEM 5 MG TABLET PO PRN (21:00)
[2019-11-10] MEDS: 0.9 % SODIUM CHLORIDE 10 ML SYRINGE IV SCH (22:12)
[2019-11-11] MEDS: PIPERACILLIN SODIUM/TAZOBACTAM 3.375 GM in DEXTROSE 5% IN WATER 50 ML IV SCH ×6 (01:24→23:53)
[2019-11-11] MEDS: 0.9 % SODIUM CHLORIDE 1,000 ML IV SCH ×5 (03:38→21:55)
[2019-11-11] MEDS: HYDROmorphone 0.5 MG/0.5 ML SYRINGE IV PRN ×4 (04:47→23:44)
[2019-11-11] MEDS: 0.9 % SODIUM CHLORIDE 10 ML SYRINGE IV SCH ×3 (05:07→23:44)
[2019-11-11] MEDS ORDERED: 0.9 % SODIUM CHLORIDE 2,000 ML IV ONE (06:20)
[2019-11-11 06:25] LABS: Basophils # (Auto) 0.04 K/mcL (0.00-0.30); Basophils % (Auto) 0.2 % (0.0-2.0); Eosinophils # (Auto) 0.03 K/mcL (0.00-0.70); Eosinophils % (Auto) 0.1 % (0.0-7.0); Granulocytes % (Auto) 86.6 % (38.0-78.0); Hematocrit 43.6 % (40.1-51.0); Hemoglobin 14.7 g/dL (13.7-17.5); Lymphocytes % (Auto) 3.4 % (15.5-49.0); Mean Cell Volume 95.8 fL (80.0-100.0); Mean Corpuscular HGB Conc 33.7 g/dL (31.0-36.0); Mean Platelet Volume 11.3 fL (7.4-10.4); Monocytes # (Auto) 2.58 K/mcL (0.10-0.90); Monocytes % (Auto) 9.7 % (1.0-12.0); Platelet Count 285 K/mcL (140-440); RBC 4.55 M/mcL (4.63-6.08); Red Cell Distribution Width 12.3 % (11.5-14.5); WBC 26.6 K/mcL (4.50-11.00)
[2019-11-11 06:45] LABS: ALT/SGPT 18 U/l (0-40); AST/SGOT 29 U/l (0-37); Albumin 2.7 gm/dL (3.2-5.2); Albumin/Globulin Ratio 0.7 (1.0-2.3); Alkaline Phosphatase 75 U/L (39-117); Bilirubin,Direct 0.7 mg/dL (0.0-0.3); Bilirubin,Total 0.9 mg/dL (0.0-1.0); Calcium 8.5 mg/dl (8.6-10.4); Carbon Dioxide 17 mmol/L (22-30); Chloride 103 mmol/L (96-108); Globulin 3.9 gm/dL (2.2-3.7); Glucose 98 mg/dL (70-105); Lactate Dehydrogenase 270 U/L (94-250); Triglycerides 62 mg/dl (<150); Uric Acid 8.5 mg/dL (2.5-8.0)
[2019-11-11 06:46] LABS: Blood Urea Nitrogen 25 mg/dl (8-23); Glomerular Filtration Rate 24
[2019-11-11] MEDS ORDERED: SCOPOLAMINE 1 PATCH PATCH TOPICAL PRN (07:00)
[2019-11-11] MEDS ORDERED: IPRATROPIUM/ALBUTEROL 3 ML AMPUL.NEB NEB PRN ×2 (07:00→10:12)
[2019-11-11] MEDS ORDERED: PANTOPRAZOLE 40 MG VIAL IV SCH (07:30)
[2019-11-11] MEDS ORDERED: METOPROLOL SUCCINATE 50 MG TAB.XL.24H PO SCH (09:00)
[2019-11-11] MEDS ORDERED: FLUoxetine HCL 20 MG CAPSULE PO SCH (09:00)
[2019-11-11] MEDS ORDERED: TAMSULOSIN 0.4 MG CAPSULE PO SCH (09:00)
[2019-11-11] MEDS ORDERED: ROCURONIUM 10 MG/ML ML IV ONE (09:15)
[2019-11-11] MEDS ORDERED: PROPOFOL 200 MG/20 ML VIAL IV ONE (09:15)
[2019-11-11] MEDS ORDERED: SUGAMMADEX SODIUM 200 MG/2 ML VIAL IV ONE (09:15)
[2019-11-11] MEDS ORDERED: ePHEDrine 50 MG/ML AMPUL IV ONE (09:15)
[2019-11-11] MEDS ORDERED: DEXAMETHASONE 10 MG/ML VIAL ONE (09:15)
[2019-11-11] MEDS ORDERED: KETAMINE HCL 50 MG/ML ML ONE (09:15)
[2019-11-11] MEDS ORDERED: fentaNYL 100 MCG/2 ML VIAL IV ONE (09:15)
[2019-11-11] MEDS ORDERED: GLYCOPYRROLATE 0.2 MG/ML VIAL IV ONE (09:15)
[2019-11-11] MEDS ORDERED: ONDANSETRON 4 MG/2 ML VIAL ONE (09:15)
[2019-11-11] MEDS ORDERED: LIDOCAINE HCL/PF 100 MG/5 ML SYRINGE IV ONE (09:15)
[2019-11-11] MEDS ORDERED: NICOTINE 21 MG PATCH TOPICAL SCH (10:00)
[2019-11-11] MEDS ORDERED: PROMETHAZINE 25 MG/ML VIAL IM PRN (10:12)
[2019-11-11] MEDS ORDERED: ONDANSETRON 4 MG/2 ML VIAL IV PRN ×2 (10:12→12:24)
[2019-11-11] MEDS ORDERED: NALOXONE HCL 0.4 MG/ML VIAL IV PRN (10:12)
[2019-11-11] MEDS ORDERED: PROMETHAZINE 25 MG/ML VIAL IV PRN (10:12)
[2019-11-11] MEDS ORDERED: MEPERIDINE 50 MG/ML INJECTION IM PRN (10:12)
[2019-11-11] MEDS ORDERED: diphenhydrAMINE 50 MG/ML VIAL IV PRN (10:12)
[2019-11-11] MEDS ORDERED: MEPERIDINE 25 MG/ML SYRINGE IV PRN (10:12)
[2019-11-11] MEDS ORDERED: LACTATED RINGERS 250 ML IV PRN (10:12)
[2019-11-11] MEDS ORDERED: ACETAMINOPHEN 1,000 MG/100 ML BOTTLE IV ONE (10:12)
[2019-11-11] MEDS ORDERED: LACTATED RINGERS 1,000 ML IV SCH (10:15)
[2019-11-11] MEDS ORDERED: morphine 4 MG/ML VIAL IV PRN ×2 (10:39→12:24)
--- NOTE | 2019-11-11 10:39 | Brief Operative Note ---
Brief Operative Note Date of procedure: 11/11/19 Pre-op diagnosis: acute cholecystitis Post-op diagnosis: other (acute necrotizing cholecystitis) Procedure: open cholecystectomy Grafts/Implants: No (kishore drains x2) Anesthesia: GETA Findings: acute severe necrotizing inflammation of entire gallbladder Complications: none Surgeon: Cheyanne Sorto Estimated blood loss (cc): 20 Specimens Removed/Pathology: other (gallbladder and bile cultures) Condition: stable Disposition: PACU
[2019-11-11] MEDS ORDERED: LORazepam 1 MG TABLET PO PRN ×2 (10:45→12:24)
[2019-11-11] MEDS ORDERED: 0.9 % SODIUM CHLORIDE 1,000 ML IV SCH (10:47)
[2019-11-11] MEDS: fentaNYL 100 MCG/2 ML VIAL IV PRN ×2 (11:14→11:16)
[2019-11-11] MEDS ORDERED: PATIENTS OWN MEDICATION 1 DOSE MISCELL PO SCH ×2 (11:37→17:00)
[2019-11-11] MEDS: IPRATROPIUM/ALBUTEROL 3 ML AMPUL.NEB NEB SCH ×2 (12:39→19:01)
[2019-11-11] MEDS ORDERED: 0.9 % SODIUM CHLORIDE 10 ML SYRINGE IV SCH ×2 (14:00)
[2019-11-11] MEDS ORDERED: METOPROLOL TARTRATE 5 MG/5 ML VIAL IV PRN (15:43)
[2019-11-11] MEDS ORDERED: POTASSIUM CHLORIDE 20 MEQ, MAGNESIUM SULFATE 16.24 MEQ, THIAMINE 100 MG, MVI, ADULT NO.... IV SCH ×2 (16:00)
[2019-11-11] MEDS: PANTOPRAZOLE 40 MG VIAL IV SCH (16:38)
[2019-11-11] MEDS: PATIENTS OWN MEDICATION 1 DOSE MISCELL PO SCH (20:14)
[2019-11-11] MEDS ORDERED: ZOLPIDEM 5 MG TABLET PO PRN (21:00)
[2019-11-11] MEDS ORDERED: FELODIPINE XR 5 MG TABLET PO SCH (21:00)
[2019-11-12] MEDS: IPRATROPIUM/ALBUTEROL 3 ML AMPUL.NEB NEB SCH ×4 (01:14→17:56)
[2019-11-12] MEDS: 0.9 % SODIUM CHLORIDE 1,000 ML IV SCH ×3 (02:11→13:50)
[2019-11-12] MEDS: 0.9 % SODIUM CHLORIDE 10 ML SYRINGE IV SCH ×3 (04:00→21:33)
[2019-11-12] MEDS: PIPERACILLIN SODIUM/TAZOBACTAM 3.375 GM in DEXTROSE 5% IN WATER 50 ML IV SCH ×2 (05:30→12:00)
[2019-11-12 06:23] LABS: Basophils # (Auto) 0.02 K/mcL (0.00-0.30); Basophils % (Auto) 0.1 % (0.0-2.0); Eosinophils # (Auto) 0 K/mcL (0.00-0.70); Eosinophils % (Auto) 0 % (0.0-7.0); Granulocytes % (Auto) 92.7 % (38.0-78.0); Hemoglobin 12.7 g/dL (13.7-17.5); Lymphocytes % (Auto) 1.5 % (15.5-49.0); Mean Cell Volume 97.9 fL (80.0-100.0); Mean Corpuscular HGB Conc 33.4 g/dL (31.0-36.0); Mean Platelet Volume 11.2 fL (7.4-10.4); Monocytes # (Auto) 1.12 K/mcL (0.10-0.90); Monocytes % (Auto) 5.7 % (1.0-12.0); Platelet Count 243 K/mcL (140-440); RBC 3.88 M/mcL (4.63-6.08); Red Cell Distribution Width 12.3 % (11.5-14.5); WBC 19.7 K/mcL (4.50-11.00)
[2019-11-12 06:46] LABS: ALT/SGPT 20 U/l (0-40); AST/SGOT 45 U/l (0-37); Albumin 2.2 gm/dL (3.2-5.2); Albumin/Globulin Ratio 0.6 (1.0-2.3); Alkaline Phosphatase 49 U/L (39-117); Bilirubin,Direct 0.3 mg/dL (0.0-0.3); Bilirubin,Total 0.4 mg/dL (0.0-1.0); Blood Urea Nitrogen 31 mg/dl (8-23); Calcium 7.8 mg/dl (8.6-10.4); Carbon Dioxide 16 mmol/L (22-30); Chloride 109 mmol/L (96-108); Globulin 3.8 gm/dL (2.2-3.7); Glomerular Filtration Rate 19; Glucose 101 mg/dL (70-105); Lactate Dehydrogenase 258 U/L (94-250); Phosphorous 3.8 mg/dL (2.7-4.5); Triglycerides 86 mg/dl (<150); Uric Acid 7.3 mg/dL (2.5-8.0)
[2019-11-12] MEDS: HYDROmorphone 0.5 MG/0.5 ML SYRINGE IV PRN ×3 (07:36→21:32)
[2019-11-12] MEDS: PANTOPRAZOLE 40 MG VIAL IV SCH ×2 (07:37→18:01)
[2019-11-12] MEDS: PATIENTS OWN MEDICATION 1 DOSE MISCELL PO SCH ×2 (08:27→12:00)
[2019-11-12] MEDS ORDERED: METOPROLOL SUCCINATE 50 MG TAB.XL.24H PO SCH (09:00)
[2019-11-12] MEDS ORDERED: TAMSULOSIN 0.4 MG CAPSULE PO SCH (09:00)
[2019-11-12] MEDS ORDERED: FLUoxetine HCL 20 MG CAPSULE PO SCH (09:00)
[2019-11-12] MEDS ORDERED: NICOTINE 21 MG PATCH TOPICAL SCH (10:00)
[2019-11-12] MEDS ORDERED: POTASSIUM CHLORIDE 20 MEQ, MAGNESIUM SULFATE 16.24 MEQ, THIAMINE 100 MG, MVI, ADULT NO.... IV SCH ×2 (10:00→16:22)
--- NOTE | 2019-11-12 11:14 | XRay Report ---
INDICATION: rule out pneumonitis TECHNIQUE: AP semiupright and lateral views. Examination is suboptimal as positioning was difficult. COMPARISON: Chest CT scan dated 11/10/2019 FINDINGS: Lungs: Lungs are not well evaluated due to shallow inspiration and suboptimal positioning. There is a right upper lobe infiltrate consistent with pneumonia. There is peripheral left upper lobe density may also be secondary to pneumonia. Clinical correlation and follow-up radiographs are recommended. Heart, vascular: No significant cardiomegaly. Pulmonary vascularity is normal. No pulmonary edema or pulmonary congestion Mediastinum, eleuterio: No mediastinal widening. No hilar mass Pleura:No definite pleural fluid Thoracic spine, ribs: Thoracic spine is not well-visualized IMPRESSION: 1. Limited evaluation as above 2. Bilateral upper lobe infiltrates consistent with pneumonia. Follow-up necessary Interpreted and Authenticated by: Les Jimenez 11/12/19
[2019-11-12] MEDS ORDERED: MAGNESIUM SULFATE 32.48 MEQ in DEXTROSE 5% IN WATER 50 ML IV ONE (13:01)
[2019-11-12] MEDS ORDERED: MAGNESIUM SULFATE 4 GM/100 ML BAG IV ONE (13:30)
--- NOTE | 2019-11-12 14:10 | Internal Medicine Consult Note ---
HPI Data of Consult Primary Care Provider: Mindy Green Consult Narrative Patient Information: Note initiated : 11/12/19 at 2:07 pm Service Date, if different from initiated Date: [] Patient: Priyank Dueñas 69 y/o M admitted on 11/11/19 for rib pain. Chief Complaint: 69-year-old with gangrenous cholecystitis/medical consult History of chief complaints 69-year-old with history of HTN/BPH/Lt sided CVA/ alcoholism presented with right-sided rib pain and was subsequently diagnosed with gangrenous cholecystitis/severe sepsis with white count over 30,000. Patient underwent open cholecystectomy on 11/10. During the 48-hour hospitalization patient received in excess of 10 L crystalloids. Severe sepsis and associated multiple organ dysfunction was noted including acute renal failure. He was started on broad-spectrum antibiotic. He was noted to be hypoxic and subsequent chest x- ray revealed bilateral upper lobe infiltrates requiring 8 to 10 L oxygen. Hospitalist service was consulted for evaluation of hypoxia/pneumonia. At the time of my evaluation patient is postop. Able to answer Some of the questions. Persistent abdominal discomfort. Currently being medicated on Dilaudid. History of left-sided hemiparesis.Romero is draining dark ur Wants to rest and unwilling to provide answers to review of system. Patient wants to be left alone. Minimal anxiety noted cc:: CC: Cheyanne Sorto MD Review of Systems Review of systems: A 10 point review system was attempted but due to patient's drowsy state and unwilling to cooperate not many details could be obtained. Dyspnea [facility] Medical History (Updated 11/12/19 @ 16:32 by Cheyanne Sorto MD) Abdominal pain (Chronic) Acid reflux (Chronic 06/27/17) Alcohol abuse (Chronic) Alcohol dependence (Chronic) Ankle instability (Chronic) Ankle swelling (Chronic) Apraxia (Chronic) Arthralgia of ankle (Chronic) Benign prostatic hyperplasia with urinary obstruction (Chronic) Blurring of visual image (Chronic 06/27/17) BPH (benign prostatic hyperplasia) (Chronic 06/27/17) Cannabis dependence (Chronic) Change in nail appearance (Chronic) Change of skin color (Chronic) Chronic depression (Chronic) Chronic kidney disease, stage 3 (Chronic 06/27/17) Chronic obstructive lung disease (Chronic) Cigarette smoker (Chronic) Cold intolerance (Chronic) Dependent on walker for ambulation (Chronic) Depressive disorder (Chronic 06/27/17) Diarrhea (Chronic) Difficulty walking (Chronic) Dizziness (Chronic) Dry skin (Chronic) Dysarthria (Chronic 06/27/17) Easy bruising (Chronic) Essential hypertension (Chronic 06/27/17) Fatigue (Chronic) Frequent diarrhea (Chronic) Hemiparesis (Chronic) 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) (Chronic) Hemiplegia affecting nondominant side (Chronic 06/27/17) Hemorrhagic stroke (Chronic 09/25/04) Hiatal hernia (Chronic) History of appetite changes (Chronic) Hyperlipidemia (Chronic 06/27/17) Hypertriglyceridemia (Chronic) Incomplete emptying of bladder (Chronic) Ischemic stroke (Chronic 12/16/08) Itchy skin (Chronic) Left ankle swelling (Chronic) Low back pain (Chronic 09/12/17) Memory loss (Chronic) Mood swings (Chronic) Muscle ache (Chronic) Left Thigh Muscle contracture (Chronic) Muscle tenderness (Chronic) Narcotic addiction (Chronic) Neck pain (Chronic 06/27/17) Neurologic gait dysfunction (Chronic) Nocturnal cough with wheeze (Chronic) Numbness (Chronic) Overweight (Chronic) Pain of left hip joint (Chronic) Ringing in right ear (Chronic) Runny nose (Chronic) Severe headache (Chronic) Shortness of breath on exertion (Chronic) Sleep disturbance (Chronic) Sore throat (Chronic) Trochanteric bursitis, left hip (Chronic) Urge incontinence of urine (Chronic) Urinary incontinence (Chronic 06/27/17) Uses wheelchair (Chronic) Weakness (Chronic) Wheezing (Chronic) Surgical History History of dental surgery (Chronic) Full Extracted History of esophagogastroduodenoscopy (EGD) (Chronic ~07/2011) No pertinent past surgical history (Chronic) Family History Father Myocardial infarction Sister Malignant neoplasm of ovary Family/Other Diabetes mellitus Maternal Aunt Brother Hypertension Mother Stroke Diabetes mellitus Social History household members: alone marital status: 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 smoking status: Current every day smoker alcohol intake frequency: 2+ drinks per day substance use type: former substance user, marijuana and other seatbelt use: always MEDS/ALLERGIES Home Medications and Allergies Home Medications Medication Instructions Recorded Confirmed Type aspirin 325 mg tablet 325 mg PO QDAY 04/13/18 11/10/19 History felodipine 10 mg tablet,extended 10 mg PO QPM tab 04/13/18 11/10/19 History release 24 hr metoprolol succinate 50 mg 50 mg PO QDAY 04/13/18 11/10/19 History tablet,extended release 24 hr multivitamin 1 tab PO QDAY 04/13/18 11/10/19 History omeprazole 20 mg capsule,delayed 20 mg PO QDAY 04/13/18 11/10/19 History release vitamin B complex 1 tab PO QDAY 04/13/18 11/10/19 History ascorbate calcium (vitamin C) 1 tab PO QDAY 01/03/19 11/10/19 History finasteride 5 mg tablet 5 mg PO QDAY #90 tab 04/19/19 11/10/19 Rx mirabegron 25 mg tablet,extended 25 mg PO QDAY #90 tab 04/19/19 11/10/19 Rx release 24 hr tamsulosin 0.4 mg capsule 0.4 mg PO QDAY #90 cap 04/19/19 11/10/19 Rx fluoxetine 40 mg PO QDAY 11/10/19 11/10/19 History Allergies Allergy/AdvReac Type Severity Reaction Status Date / Time bee venom protein (honey bee) Allergy Unknown Unknown Verified 04/19/19 11:58 EXAM Constitutional Vitals: Temp Pulse Resp BP Pulse Ox 99.1 F H 102 H 20 173/91 92 11/12/19 12:00 11/12/19 12:00 11/12/19 12:00 11/12/19 12:00 11/12/19 12:00 Anxious and labored Head normocephalic Oral cavity dry No ear nose discharge Eye movement symmetrical Oral cavity dry S1-S2 tachycardia Diminished breath sounds bases late inspiratory crackles, tachypneic around 25- 30 Abdomen minimal tender but nondistended, postop incision/MAGY drain Skin no suspicious lesion psych anxious and withdrawn No lymphedema cyanosis clubbing No joint swelling erythema Neuro nonfocal DATA Data Completed and Pending Labs on day of discharge: Labs from last 24 hours 11/12/19 11/12/1920 12:10 05:06 05:06 WBC RBC Hgb Hct MCV MCH MCHC RDW Plt Count MPV Gran % Lymph % (Auto) [place] % (Auto) Eos % (Auto) Baso % (Auto) Gran # Lymph # (Auto) [place] # (Auto) Eos # (Auto) Baso # (Auto) Sodium 138 Potassium 3.9 Chloride 109 H Carbon Dioxide 16 L Anion Gap 13.0 BUN 31 H Creatinine 3.2 H GFR Calculation 19 Glucose 101 Uric Acid 7.3 Calcium 7.8 L Phosphorus 3.8 Magnesium 2.0 Total Bilirubin 0.4 Direct Bilirubin 0.3 GGT 56 AST 45 H ALT 20 Alkaline Phosphatase 49 Lactate Dehydrogenase 258 H NT-Pro-B Natriuret Pep 2492.0 H TNP Total Protein 6.0 Albumin 2.2 L Globulin 3.8 H Albumin/Globulin Ratio 0.6 L Triglycerides 86 11/12/19 05:06 WBC 19.7 H RBC 3.88 L Hgb 12.7 L Hct 38.0 L MCV 97.9 MCH 32.7 MCHC 33.4 RDW 12.3 Plt Count 243 MPV 11.2 H Gran % 92.7 H Lymph % (Auto) 1.5 L [place] % (Auto) 5.7 Eos % (Auto) 0 Baso % (Auto) 0.1 Gran # 18.21 H Lymph # (Auto) 0.30 L [place] # (Auto) 1.12 H Eos # (Auto) 0 Baso # (Auto) 0.02 Sodium Potassium Chloride Carbon Dioxide Anion Gap BUN Creatinine GFR Calculation Glucose Uric Acid Calcium Phosphorus Magnesium Total Bilirubin Direct Bilirubin GGT AST ALT Alkaline Phosphatase Lactate Dehydrogenase NT-Pro-B Natriuret Pep Total Protein Albumin Globulin Albumin/Globulin Ratio Triglycerides Preliminary micro results at discharge 11/10/19 13:51 Blood Culture - Preliminary Blood 11/10/19 14:00 Blood Culture - Preliminary Blood A/P Time Spent With Patient Time: * Acute gangrenous cholecystitis postop day 1. Managed by surgery. Currently n.p.o. * Severe sepsis with endorgan dysfunction. On antibiotic coverage/crystalloids. WBC down from 30K-> 19. COntinue Broad Abx * Acute hypoxic respiratory failure secondary to bilateral pneumonia. Likely sepsis related acute sepsis related volume resuscitation and overload. Also high probability concurrent aspiration. Continue antibiotic coverage/aspiration precautions/elevate HOB. Start noninvasive ventilation in light of large AA gradient. Check ABGs. Initiate aggressive diuresis * ONEIL-creatinine 3.6. Neph consult, secondary to sepsis end organ dysfxn. Crystalloids, Avoid nephrotoxins. Romero's catheter * History of alcoholism monitor for withdrawals. COntinue MVI * H/o CVA- ASA once able to take p.o. * BPH- foleys * HTN- Use iV Antihtn meds once systolics >140 * Anxiety disorder. duloxitine once PO PLAN * Continue broad spectrum Abx * Noninvasive ventilation/serial ABG/chest imaging * Initiate diuresis * Renal consult * Asp precautions Total time spent is greater than 50% in coordination of care (as documented) at patient's floor/unit and/or counseling patient: Time spent on counseling excess of 70 minutes. Additional 35 minutes spent during the course of the day and management of hypoxic respiratory failure/ONEIL
--- NOTE | 2019-11-12 15:24 | Nephrology History & Physical ---
HPI History of Present Illness Patient information: Note initiated : 11/12/19 at 3:19 pm Service Date, if different from initiated Date: [] Patient: Priyank Dueñas a 69 y/o M admitted on 11/11/19 for rib pain. Chief Complaint: [] History of present illness: Mr. Dueñas is a 69 year old M who presented to the ED 11/10/2019 complaining of right-sided rib pain that started 2 days prior to the admission. He was admitted with sepsis/ acute cholecystitis. He was taken to the OR 11/11/2019 for open cholecystectomy with findings of severe necrotizing disease. He has a history of alcoholism and polysubstance abuse. He received at least 9 L fluids since admission. Poor UOP. Review of Systems ROS unobtainable: due to mental status Review of systems: incomplete ROS 2/2 SOB and mental status Cardiovascular Cardiovascular: Present leg edema Respiratory Respiratory: Present dyspnea and wheezing Gastrointestinal Gastrointestinal: Present abdominal pain Neurological Neurological: Present weakness [facility] Medical History (Updated 11/12/19 @ 16:32 by Cheyanne Sorto MD) Abdominal pain (Chronic) Acid reflux (Chronic 06/27/17) Alcohol abuse (Chronic) Alcohol dependence (Chronic) Ankle instability (Chronic) Ankle swelling (Chronic) Apraxia (Chronic) Arthralgia of ankle (Chronic) Benign prostatic hyperplasia with urinary obstruction (Chronic) Blurring of visual image (Chronic 06/27/17) BPH (benign prostatic hyperplasia) (Chronic 06/27/17) Cannabis dependence (Chronic) Change in nail appearance (Chronic) Change of skin color (Chronic) Chronic depression (Chronic) Chronic kidney disease, stage 3 (Chronic 06/27/17) Chronic obstructive lung disease (Chronic) Cigarette smoker (Chronic) Cold intolerance (Chronic) Dependent on walker for ambulation (Chronic) Depressive disorder (Chronic 06/27/17) Diarrhea (Chronic) Difficulty walking (Chronic) Dizziness (Chronic) Dry skin (Chronic) Dysarthria (Chronic 06/27/17) Easy bruising (Chronic) Essential hypertension (Chronic 06/27/17) Fatigue (Chronic) Frequent diarrhea (Chronic) Hemiparesis (Chronic) 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) (Chronic) Hemiplegia affecting nondominant side (Chronic 06/27/17) Hemorrhagic stroke (Chronic 09/25/04) Hiatal hernia (Chronic) History of appetite changes (Chronic) Hyperlipidemia (Chronic 06/27/17) Hypertriglyceridemia (Chronic) Incomplete emptying of bladder (Chronic) Ischemic stroke (Chronic 12/16/08) Itchy skin (Chronic) Left ankle swelling (Chronic) Low back pain (Chronic 09/12/17) Memory loss (Chronic) Mood swings (Chronic) Muscle ache (Chronic) Left Thigh Muscle contracture (Chronic) Muscle tenderness (Chronic) Narcotic addiction (Chronic) Neck pain (Chronic 06/27/17) Neurologic gait dysfunction (Chronic) Nocturnal cough with wheeze (Chronic) Numbness (Chronic) Overweight (Chronic) Pain of left hip joint (Chronic) Ringing in right ear (Chronic) Runny nose (Chronic) Severe headache (Chronic) Shortness of breath on exertion (Chronic) Sleep disturbance (Chronic) Sore throat (Chronic) Trochanteric bursitis, left hip (Chronic) Urge incontinence of urine (Chronic) Urinary incontinence (Chronic 06/27/17) Uses wheelchair (Chronic) Weakness (Chronic) Wheezing (Chronic) Surgical History History of dental surgery (Chronic) Full Extracted History of esophagogastroduodenoscopy (EGD) (Chronic ~07/2011) No pertinent past surgical history (Chronic) Family History Father Myocardial infarction Sister Malignant neoplasm of ovary Family/Other Diabetes mellitus Maternal Aunt Brother Hypertension Mother Stroke Diabetes mellitus Social History household members: alone marital status: 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 smoking status: Current every day smoker alcohol intake frequency: 2+ drinks per day substance use type: former substance user, marijuana and other seatbelt use: always MEDS/ALLERGIES Home Medications and Allergies Home Medications Medication Instructions Recorded Confirmed Type aspirin 325 mg tablet 325 mg PO QDAY 04/13/18 11/10/19 History felodipine 10 mg tablet,extended 10 mg PO QPM tab 04/13/18 11/10/19 History release 24 hr metoprolol succinate 50 mg 50 mg PO QDAY 04/13/18 11/10/19 History tablet,extended release 24 hr multivitamin 1 tab PO QDAY 04/13/18 11/10/19 History omeprazole 20 mg capsule,delayed 20 mg PO QDAY 04/13/18 11/10/19 History release vitamin B complex 1 tab PO QDAY 04/13/18 11/10/19 History ascorbate calcium (vitamin C) 1 tab PO QDAY 01/03/19 11/10/19 History finasteride 5 mg tablet 5 mg PO QDAY #90 tab 04/19/19 11/10/19 Rx mirabegron 25 mg tablet,extended 25 mg PO QDAY #90 tab 04/19/19 11/10/19 Rx release 24 hr tamsulosin 0.4 mg capsule 0.4 mg PO QDAY #90 cap 04/19/19 11/10/19 Rx fluoxetine 40 mg PO QDAY 11/10/19 11/10/19 History Allergies Allergy/AdvReac Type Severity Reaction Status Date / Time bee venom protein (honey bee) Allergy Unknown Unknown Verified 04/19/19 11:58 Physical Examination Vital Signs Vital signs: Temp Pulse Resp BP Pulse Ox 37.3 C H 111 H 20 173/91 92 11/12/19 12:00 11/12/19 14:00 11/12/19 14:00 11/12/19 12:00 11/12/19 12:00 General Appearance General appearance: well-developed, well-nourished and moderate distress EENT EENT: ATNC Respiratory Respiratory: wheezing Cardiovascular Cardiology: no rub and regular rate Gastrointestinal Gastrointestinal: tenderness Additional Exam Additional exam: respiratory - moderate resp distress, on 7L NC, wheezing, crackles extremities- +edema bilateral lower neuro - alert, trying to get out of the bed, probable delirium although can be reoriented and answers some questions appropriately. Results Lab Results Result Diagrams: 11/12/19 05:06 11/12/19 05:06 Lab results: Most recent lab results Calcium 7.8 mg/dl (8.6-10.4) L 11/12/19 05:06 Phosphorus 3.8 mg/dL (2.7-4.5) 11/12/19 05:06 Magnesium 2.0 mg/dL (1.6-2.5) 11/12/19 05:06 A/P Assessment and plan (1) Acute kidney injury superimposed on chronic kidney disease: Status: Acute Narrative A/P Narrative: SCR 3.2. rate of rise is decreasing. 1.5--> 2.6--> 3.2 Unsure about baseline creatinine, probably 1.5-1.6 most likely ATN (hemodynamic/ toxic in setting of sepsis). doubt infectious GN as no significant hematuria. 01/11/2020 UA positive protein, occult blood, 1 RBC. 8 hyaline casts. He has had proteinuria since at least December 2018 11/10/2019 CT abdomen and pelvis the patient might have early cirrhosis. Trace am ount of ascites. The kidneys are normal. 11/10/2019 CT of the chest COPD with mild pulmonary fibrosis. *continue strict I/O, daily weight *dose meds for eGFR below 15 Zosyn 2.25gram every 6 hours *daily renal function panel/ Mg check. *rec max 5mg zolpidem per day *if respiratory status worsens give furosemide 1mg per kg (start with 80mg iv x 1 dose) hemodynamics and volume Albumin 2.2. weight 90.7--> 98.8. BP 155-173/88-91 this afternoon. on 4L NC. pro BNP is inf luenced by renal function. Adjusted body weight 84 *can resume CCB, would start with 5mg daily and titrate as needed. agree to keep BP ~130-140 systolic. PRN meds for higher SBP acid-base Bicarbonate 16. within the limitation of no blood gas, metabolic acidosis 2/2 renal disease. * if respiratory status worsens, please check ABG. * if bicarbonate remains low, start 650mg bid bone-mineral metabolism Corrected calcium, phosphorus, magnesium at goal. BUN/ K 31/3.9 hematologic Hemoglobin 12.7. Time Spent With Patient Time: Total time spent is greater than 50% in coordination of care (as documented) at patient's floor/unit and/or counseling patient: Total time spent with greater than 50% in coordination of care (as documented) at patient's floor/unit and/or counseling patient:: 25 - 35 minutes
[2019-11-12] MEDS ORDERED: ONDANSETRON 4 MG/2 ML VIAL IV PRN (16:22)
[2019-11-12] MEDS ORDERED: LORazepam 1 MG TABLET PO PRN (16:22)
[2019-11-12] MEDS ORDERED: 0.9 % SODIUM CHLORIDE 1,000 ML IV SCH (16:22)
--- NOTE | 2019-11-12 16:33 | General Surgery Progress Note ---
SUBJECTIVE Subjective Patient information: Note initiated : 11/12/19 at 4:25 pm Service Date, if different from initiated Date: [] Patient: Priyank Dueñas 69 y/o M admitted on 11/11/19 for rib pain. Chief Complaint: [] Principal diagnosis: acute necrotizing cholecystitis Interval history: Narrative:the patient has done relatively well. His vitals have remained stable. He is at his baseline mentally with a babbling rambling type speech but when question he answers questions appropriately. He has had low-grade fever. He still has moderate hypoxemia which was his baseline on admission. He denies nausea. His appetite is poor . He denies nausea or vomiting. White blood count 19.7, hemoglobin 12.7, hematocrit 38, BUN 31, creatinine 3.2. Constitutional Vitals: Vital Signs Temp Pulse Resp BP Pulse Ox 99.1 F H 111 H 20 173/91 92 11/12/19 12:00 11/12/19 14:00 11/12/19 14:00 11/12/19 12:00 11/12/19 12:00 Period Temp Pulse Resp BP Sys/Paiz Pulse Ox Last 24 Hr 98.4 F-99.9 F 87-111 16-20 124-173/79-91 90-96 Intake and Output 11/12/19 11/12/19 11/12/19 05:59 13:59 21:59 Intake Total 1300 1580 1025 Output Total 370 100 Balance 930 1480 1025 Weight 217 lb 14.4 oz Patient Weight 11/13/19 05:59 Weight 217 lb 14.4 oz Intake & Output: Intake & Output 11/12/19 11/12/19 11/12/19 05:59 13:59 21:59 Intake Total 1300 1580 1025 Output Total 370 100 Balance 930 1480 1025 Weight 217 lb 14.4 oz Intake: IV 1050 1100 1025 Sodium Chloride 0.9% 1,000 ml @ 1000 1000 150 mls/hr IV .[id number] [facility] Rx#: [id number] Zosyn 3.375 gm In Dextrose 5% 50 100 in Water 50 ml @ 100 mls/hr IV Q6H [facility] Rx#:[id number] Potassium Chloride 20 Meq 1025 Magnesium Sulfate 16.24 Meq Vitamin B1 100 mg Infuvite Adult 10 ml In Sodium Chloride 0.9% 1,000 ml @ 100 mls/hr IV . [id number] [facility] Rx#:[id number] Oral 250 480 Output: Drainage 145 A (Abdomen) 65 B (abdomen) 80 Urine Catheter Amount 225 100 Other: Meal Breakfast Percent of Meal Consumed 0% Feeding Ability Assist with Tray Set Up Urine Appearance Sediment Uretheral (Romero) Sediment Urine Color Tea Colored Tea Colored Uretheral (Romero) Tea Colored Head Head exam: Present normocephalic Eye Eye exam: Present EOMI and normal appearance Pupils: Present normal accommodation and PERRL ENT ENT exam: Present mucous membranes moist and normal oropharynx Additional comments: edentulous Neck Neck exam: Present full ROM; Absent lymphadenopathy, tenderness and thyromegaly Respiratory Respiratory exam: Present rales, rhonchi and wheezes Additional comments: bilateral wheezes with a major decrease in breath sounds throughout both lung downing scattered rhonchi throughout Cardiovascular Cardiovascular exam: Present normal rate and rhythm, RRR, +S1 and +S2; Absent bradycardia and gallop GI/Abdominal GI/Abdominal exam: Present distended and tenderness (moderate tenderness to palp ation of the incision; hypoactive bowel sounds; dark drainage. MAGY) Extremities Exam Additional comments: left-sided hemiparesis; decreased lower extremity edema Neurological Exam Neurological exam: Present abnormal gait Additional comments: left-sided hemiparesis and wheelchair bound Psychiatric Psychiatric exam: Present agitated and anxious A/P Assessment and plan (1) Acute acalculous cholecystitis: Status: Acute (2) Acute kidney injury superimposed on chronic kidney disease: Status: Acute (3) Acute pneumonitis: Status: Acute (4) Sepsis: Status: Acute Qualifiers: Sepsis type: sepsis due to unspecified organism Sepsis acute organ dysfunction status: with acute organ dysfunction Severe sepsis shock status: without septic shock Narrative A/P Narrative: patient will continue on antibiotic therapy at reduced doses due to renal failure Nephrology consult will be obtained We'll ask hospitalist to evaluate the patient Level of consciousness is about the same. Time Spent With Patient Time: Total time spent is greater than 50% in coordination of care (as documented) at patient's floor/unit and/or counseling patient:
[2019-11-12] MEDS: PIPERACILLIN SODIUM/TAZOBACTAM 2.25 GM in DEXTROSE 5% IN WATER 50 ML IV SCH ×2 (17:00→23:24)
[2019-11-12] MEDS ORDERED: FUROSEMIDE 20 MG/2 ML VIAL IV STA (17:19)
[2019-11-12] MEDS ORDERED: FUROSEMIDE 20 MG/2 ML VIAL IV ONE (17:29)
[2019-11-12] MEDS ORDERED: IPRATROPIUM/ALBUTEROL 3 ML AMPUL.NEB NEB PRN (17:43)
[2019-11-12] MEDS ORDERED: FUROSEMIDE 100 MG/10 ML VIAL IV ONE (17:44)
[2019-11-12] MEDS: [UNRECOGNIZED DRUG - OTHER] PO SCH (18:05)
[2019-11-12] MEDS ORDERED: FUROSEMIDE 40 MG/4 ML VIAL IV ONE (18:10)
[2019-11-12] MEDS: ZOLPIDEM 5 MG TABLET PO PRN (21:32)
[2019-11-13] MEDS ORDERED: hydrALAZINE 20 MG/ML VIAL ONE (00:04)
[2019-11-13] MEDS: hydrALAZINE 20 MG/ML VIAL IV SCH ×2 (00:06→00:07)
[2019-11-13] MEDS ORDERED: hydrALAZINE 20 MG/ML VIAL IV PRN (00:06)
[2019-11-13] MEDS: HYDROmorphone 0.5 MG/0.5 ML SYRINGE IV PRN ×5 (00:55→19:13)
[2019-11-13] MEDS: IPRATROPIUM/ALBUTEROL 3 ML AMPUL.NEB NEB SCH ×4 (01:01→18:51)
[2019-11-13] MEDS: PIPERACILLIN SODIUM/TAZOBACTAM 2.25 GM in DEXTROSE 5% IN WATER 50 ML IV SCH ×3 (05:54→18:49)
[2019-11-13] MEDS: 0.9 % SODIUM CHLORIDE 10 ML SYRINGE IV SCH ×3 (05:54→21:29)
[2019-11-13 06:21] LABS: Basophils # (Auto) 0.02 K/mcL (0.00-0.30); Basophils % (Auto) 0.1 % (0.0-2.0); Eosinophils # (Auto) 0 K/mcL (0.00-0.70); Eosinophils % (Auto) 0 % (0.0-7.0); Granulocytes % (Auto) 90.8 % (38.0-78.0); Hematocrit 40.3 % (40.1-51.0); Hemoglobin 13.2 g/dL (13.7-17.5); Lymphocytes # (Auto) 0.61 K/mcL (1.50-4.80); Lymphocytes % (Auto) 3.1 % (15.5-49.0); Mean Cell Volume 98.1 fL (80.0-100.0); Mean Corpuscular HGB Conc 32.8 g/dL (31.0-36.0); Mean Platelet Volume 10.8 fL (7.4-10.4); Monocytes # (Auto) 1.19 K/mcL (0.10-0.90); Platelet Count 275 K/mcL (140-440); RBC 4.11 M/mcL (4.63-6.08); Red Cell Distribution Width 12.6 % (11.5-14.5); WBC 19.8 K/mcL (4.50-11.00)
[2019-11-13 06:38] LABS: ALT/SGPT 23 U/l (0-40); AST/SGOT 51 U/l (0-37); Albumin 2.5 gm/dL (3.2-5.2); Albumin/Globulin Ratio 0.6 (1.0-2.3); Alkaline Phosphatase 59 U/L (39-117); Bilirubin,Direct 0.3 mg/dL (0.0-0.3); Bilirubin,Total 0.4 mg/dL (0.0-1.0); Blood Urea Nitrogen 38 mg/dl (8-23); Calcium 8.3 mg/dl (8.6-10.4); Carbon Dioxide 15 mmol/L (22-30); Chloride 107 mmol/L (96-108); Glomerular Filtration Rate 15; Glucose 83 mg/dL (70-105); Lactate Dehydrogenase 315 U/L (94-250); Phosphorous 3.8 mg/dL (2.7-4.5); Triglycerides 114 mg/dl (<150); Uric Acid 7.6 mg/dL (2.5-8.0)
[2019-11-13] MEDS: PANTOPRAZOLE 40 MG VIAL IV SCH ×3 (07:20→18:49)
[2019-11-13] MEDS: METOPROLOL TARTRATE 5 MG/5 ML VIAL IV PRN ×2 (07:26→15:30)
[2019-11-13] MEDS ORDERED: FUROSEMIDE 20 MG/2 ML VIAL IV STA (09:27)
[2019-11-13] MEDS ORDERED: LORazepam 1 MG TABLET PO PRN (09:33)
--- NOTE | 2019-11-13 10:16 | Internal Med Progress Note ---
SUBJECTIVE Subjective Patient information: Note initiated : 11/13/19 at 10:10 am Service Date, if different from initiated Date: [] Patient: Priyank Dueñas 69 y/o M admitted on 11/11/19 for rib pain. Chief Complaint: [] Principal diagnosis: acute necrotizing cholecystitis Interval history: Narrative: 69-year-old with history of HTN/BPH/Lt sided CVA/ alcoholism presented with right-sided rib pain and was subsequently diagnosed with gangrenous cholecystitis/severe sepsis with white count over 30,000. Patient underwent o pen cholecystectomy on 11/10. During the 48-hour hospitalization patient received in excess of 10 L crystalloids. Severe sepsis and associated multiple organ dysfunction was noted including acute renal failure. He was started on broad- spectrum antibiotic. He was noted to be hypoxic and subsequent chest x-ray revealed bilateral upper lobe infiltrates requiring 8 to 10 L oxygen. Hospitalist service was consulted for evaluation of hypoxia/pneumonia. At the time of my evaluation patient is postop. Able to answer Some of the questions. Persistent abdominal discomfort. Currently being medicated on Dilaudid. History of left-sided hemiparesis.Romero is draining dark ur Wants to rest and unwilling to provide answers to review of system. Patient wants to be left alone. Minimal anxiety noted 11/12-patient remains critically ill. Currently on BiPAP. Tachypneic. On 8 L oxygen bleeding. Creatinine up to 3.9. 2000 cc urine output following 80 mg of Lasix yesterday. Discontinued all IV fluids. Nephrology on board. On antibiotic coverage. White count 19.8, bicarb 15. Remains critically ill. Repeat chest imaging/check ABG Constitutional Vitals: Vital Signs Temp Pulse Resp BP Pulse Ox 98.1 F 115 H 18 163/118 95 11/13/19 04:00 11/13/19 09:50 11/13/19 09:50 11/13/19 09:15 11/13/19 09:50 Period Temp Pulse Resp BP Sys/Paiz Pulse Ox Last 24 Hr 97.1 F-99.1 F 98-124 15-27 137-194/86-157 82-98 Intake and Output 11/12/19 11/13/19 11/13/19 21:59 05:59 13:59 Intake Total 4425 50 50 Output Total 350 1400 200 Balance 4075 -1350 -150 Weight 97.205 kg Respond to commands but appears withdrawn Anxious Tachycardic and tachypneic Romero is draining clear urine Minimal bowel sounds MAGY drain serosanguineous output Intake & Output: Intake & Output 11/12/19 11/13/19 11/13/19 21:59 05:59 13:59 Intake Total 4425 50 50 Output Total 350 1400 200 Balance 4075 -1350 -150 Weight 97.205 kg Intake: IV 4175 50 50 Sodium Chloride 0.9% 2,000 ml @ 3000 Wide Open IV [facility] Rx#: [id number] Zosyn 2.25 gm In Dextrose 5% in 50 50 50 Water 50 ml @ 100 mls/hr IV Q6H [facility] Rx#:[id number] Potassium Chloride 20 Meq 1025 Magnesium Sulfate 16.24 Meq Vitamin B1 100 mg Infuvite Adult 10 ml In Sodium Chloride 0.9% 1,000 ml @ 100 mls/hr IV . [id number] [facility] Rx#:[id number] Oral 250 Output: Drainage 40 A (Abdomen) 30 B (abdomen) 10 Drainage 60 50 A (Abdomen) 25 10 B (abdomen) 35 40 Urine Catheter Amount 250 1350 200 Other: Urine Appearance Clear Uretheral (Romero) Sediment Urine Color Straw Uretheral (Romero) Tea Colored OBJ DATA Labs CBC & Chem 7: 11/13/19 05:10 11/13/19 05:10 Labs: Abnormal Lab Results 11/13/19 11/13/19 11/12/19 05:10 05:10 12:10 WBC 19.8 H RBC 4.11 L Hgb 13.2 L Hct MCHC MPV 10.8 H Gran % 90.8 H Lymph % (Auto) 3.1 L Gran # 18.00 H Lymph # (Auto) 0.61 L [place] # (Auto) 1.19 H Sodium Chloride Carbon Dioxide 15 L Anion Gap 17.0 H BUN 38 H Creatinine 3.9 H Glucose Uric Acid Calcium 8.3 L Magnesium 3.0 H Direct Bilirubin GGT AST 51 H Lactate Dehydrogenase 315 H C-Reactive Protein NT-Pro-B Natriuret Pep 2492.0 H Albumin 2.5 L Globulin 4.0 H Albumin/Globulin Ratio 0.6 L Urine Protein Urine Ketones Urine Occult Blood Urine Urobilinogen Hyaline Casts 11/12/19 11/12/19 11/11/19 05:06 05:06 05:14 WBC 19.7 H RBC 3.88 L Hgb 12.7 L Hct 38.0 L MCHC MPV 11.2 H Gran % 92.7 H Lymph % (Auto) 1.5 L Gran # 18.21 H Lymph # (Auto) 0.30 L [place] # (Auto) 1.12 H Sodium Chloride 109 H Carbon Dioxide 16 L 17 L Anion Gap BUN 31 H 25 H Creatinine 3.2 H 2.6 H Glucose Uric Acid 8.5 H Calcium 7.8 L 8.5 L Magnesium Direct Bilirubin 0.7 H GGT 76 H AST 45 H Lactate Dehydrogenase 258 H 270 H C-Reactive Protein NT-Pro-B Natriuret Pep Albumin 2.2 L 2.7 L Globulin 3.8 H 3.9 H Albumin/Globulin Ratio 0.6 L 0.7 L Urine Protein Urine Ketones Urine Occult Blood Urine Urobilinogen Hyaline Casts 11/11/19 11/10/19 11/10/19 05:14 16:17 13:04 WBC 26.6 H RBC 4.55 L Hgb Hct MCHC MPV 11.3 H Gran % 86.6 H Lymph % (Auto) 3.4 L Gran # 23.04 H Lymph # (Auto) 0.90 L [place] # (Auto) 2.58 H Sodium Chloride Carbon Dioxide Anion Gap BUN Creatinine Glucose Uric Acid Calcium Magnesium Direct Bilirubin GGT AST Lactate Dehydrogenase C-Reactive Protein 11.5 H NT-Pro-B Natriuret Pep Albumin Globulin Albumin/Globulin Ratio Urine Protein >=500 A Urine Ketones 5/tr A Urine Occult Blood 0.03 A Urine Urobilinogen 2.0 A Hyaline Casts 8 H 11/10/19 11/10/19 13:04 11:58 WBC 30.3 H* RBC Hgb 17.9 H Hct MCHC 36.1 H MPV 12.8 H Gran % 87.8 H Lymph % (Auto) 2.7 L Gran # 26.57 H Lymph # (Auto) 0.83 L [place] # (Auto) 2.77 H Sodium 132 L Chloride Carbon Dioxide 19 L Anion Gap BUN Creatinine 1.5 H Glucose 137 H Uric Acid Calcium 8.5 L Magnesium Direct Bilirubin GGT AST Lactate Dehydrogenase C-Reactive Protein NT-Pro-B Natriuret Pep Albumin 3.1 L Globulin 4.0 H Albumin/Globulin Ratio 0.8 L Urine Protein Urine Ketones Urine Occult Blood Urine Urobilinogen Hyaline Casts Meds: Medications Albuterol/Ipratropium (Duoneb) 3 ml NEB Q6HRT [facility] Last Admin: 11/13/19 07:40 Dose: 3 ml Documented by: Albuterol/Ipratropium (Duoneb) 3 ml NEB Q6HP PRN PRN Reason: Shortness Of Breath Fluoxetine HCl (Prozac) 40 mg PO DAILY [facility] Hydralazine HCl (Apresoline) 10 - 20 mg IV Q4HP PRN PRN Reason: Hypertension Hydromorphone HCl (Dilaudid) 0.5 - 1 mg IV Q2HP PRN; Protocol PRN Reason: Per Pain Protocol Piperacillin Sod/Tazobactam (Sod 2.25 gm/ Dextrose) 50 mls @ 100 mls/hr IV Q6H [facility]; Protocol Last Infusion: 11/13/19 06:24 Dose: Infused Documented by: Metoprolol Tartrate (Lopressor) 5 mg IV Q4HP PRN PRN Reason: Tachyarrhythmias Last Admin: 11/13/19 07:26 Dose: 5 mg Documented by: Morphine Sulfate (Morphine) 4 mg IV Q4HP PRN; Protocol PRN Reason: Per Pain Protocol Nicotine (Nicoderm) 21 mg TOPICAL DAILY@1000 [facility] Ondansetron HCl (Zofran) 4 mg IV Q4HP PRN; Protocol PRN Reason: Nausea/Vomiting Pantoprazole Sodium (Protonix) 40 mg IV BIDAC [facility] Last Admin: 11/13/19 07:20 Dose: 40 mg Documented by: Pt Own Med (Otero) 1 dose PO TIDCC [facility] Last Admin: 11/12/19 18:05 Dose: 1 dose Documented by: Sodium Chloride (Saline Flush) 10 ml IV Q8 [facility] Last Admin: 11/13/19 05:54 Dose: 10 ml Documented by: Tamsulosin HCl (Flomax) 0.4 mg PO QDAY [facility] Zolpidem Tartrate (Ambien) 10 mg PO HSP PRN PRN Reason: Insomnia Last Admin: 11/12/19 21:32 Dose: 10 mg Documented by: A/P Time Spent With Patient Time: * Acute gangrenous cholecystitis postop day 1. Managed by surgery. Currently n.p.o. * Severe sepsis with endorgan dysfunction. On antibiotic coverage/crystalloids. WBC down from 30K-> 19. COntinue Broad Abx * Acute hypoxic respiratory failure secondary to bilateral pneumonia. Likely sepsis related acute sepsis related volume resuscitation and overload. Also high probability concurrent aspiration. Continue antibiotic coverage/aspiration precautions/elevate HOB. Start noninvasive ventilation in light of large AA gradient. * ONEIL-creatinine 3.9. Nephrology on board * History of alcoholism monitor for withdrawals. IV benzodiazepine as needed * H/o CVA- ASA once able to take p.o. * BPH-continue Foleys * HTN-use IV antihypertensives as indicated * Anxiety disorder. IV benzodiazepine as needed PLAN * ABG/imaging/antibiotic * Continue noninvasive ventilation * Continue gentle diuresis Critical care time in excess of 35 minutes QUALITY Stroke Symptom Onset Unknown: No VTE Deep Vein Thrombosis/Pulmonary Embolism Present on Admission: No
--- NOTE | 2019-11-13 10:46 | Nephrology Progress Note ---
SUBJECTIVE Subjective Patient information: Note initiated : 11/13/19 at 10:45 am Service Date, if different from initiated Date: [] Patient: Priyank Dueñas 69 y/o M admitted on 11/11/19 for rib pain. Chief Complaint: [] Principal diagnosis: acute necrotizing cholecystitis Interval history: Narrative: intermittently confused. on high flow oxygen, SOB. UOP improved with lasix, Scr. trending up Constitutional Vitals: Vital Signs Temp Pulse Resp BP Pulse Ox 36.7 C 111 H 18 154/141 94 11/13/19 04:00 11/13/19 10:00 11/13/19 09:50 11/13/19 10:00 11/13/19 10:00 Period Temp Pulse Resp BP Sys/Paiz Pulse Ox Last 24 Hr 36.2 C-37.3 C 98-124 15-27 137-194/86-157 82-98 Intake and Output 11/12/19 11/13/19 11/13/19 21:59 05:59 13:59 Intake Total 4425 50 50 Output Total 350 1400 200 Balance 4075 -1350 -150 Weight 97.205 kg Intake & Output: Intake & Output 11/12/19 11/13/19 11/13/19 21:59 05:59 13:59 Intake Total 4425 50 50 Output Total 350 1400 200 Balance 4075 -1350 -150 Weight 97.205 kg Intake: IV 4175 50 50 Sodium Chloride 0.9% 2,000 ml @ 3000 Wide Open IV [facility] Rx#: [id number] Zosyn 2.25 gm In Dextrose 5% in 50 50 50 Water 50 ml @ 100 mls/hr IV Q6H [facility] Rx#:[id number] Potassium Chloride 20 Meq 1025 Magnesium Sulfate 16.24 Meq Vitamin B1 100 mg Infuvite Adult 10 ml In Sodium Chloride 0.9% 1,000 ml @ 100 mls/hr IV . [id number] [facility] Rx#:[id number] Oral 250 Output: Drainage 40 A (Abdomen) 30 B (abdomen) 10 Drainage 60 50 A (Abdomen) 25 10 B (abdomen) 35 40 Urine Catheter Amount 250 1350 200 Other: Urine Appearance Clear Uretheral (Romero) Sediment Urine Color Straw Uretheral (Romero) Tea Colored Exam: General intermittently confused, mild distress secondary to shortness of breath Cardiovascular regular rate and rhythm, no rub Extremities bilateral lower extremity edema, +1/dependent Respiratory labored respirations, no supplemental oxygen 8 L at the time of my visit, difficult to hear breath sounds as patient is mumbling A/P Assessment and plan (1) Acute kidney injury superimposed on chronic kidney disease: Status: Acute (2) Mixed acid-base balance disorder: Status: Acute (3) Hypoalbuminemia: Status: Acute Narrative A/P Narrative: SCR 3.9, trending up. Nonoliguric with furosemide I/O 6L/ 1.8L Unsure about baseline creatinine, probably 1.5-1.6 most likely ATN (hemodynamic/ toxic in setting of sepsis). doubt infectious GN as no significant hematuria. 01/11/2020 UA positive protein, occult blood, 1 RBC. 8 hyaline casts. He has had proteinuria since at least December 2018 11/10/2019 CT abdomen and pelvis the patient might have early cirrhosis. Trace amount of ascites. The kidneys are normal. 11/10/2019 CT of the chest COPD with mild pulmonary fibrosis. *continue strict I/O, daily weight *dose meds for eGFR below 15 *daily renal function panel/ Mg check. *No acute need for dialysis * if urine output below 30mL/ hour or resp status worse, repeat lasix dose/ notify renal hemodynamics and volume Albumin 2.5, lower extremity edema. hypoxic respiratory failure. BP high normal 11/13/2019 CXR bilateral parenchymal infiltrates, left lung slightly less dense than previous exam. Consistent with pneumonia *Consider BiPAP *Breathing treatments *agree with iv medication hydralazine/ labetalol PRN until safe to swallow pills. * if respiratory status worsens, give another 60mg iv lasix acid-base Bicarbonate 15. pH 7.27, PCO2 35, PO2 65. mixed metabolic and respiratory acidosis, hopefully will improve with bipap *repeat RFP/ lactic acid tonight bone-mineral metabolism Corrected calcium, phosphorus within normal limits. Magnesium 3 *Avoid all magnesium containing drugs. consider plain thiamine. BUN/ K 38/4.1 severe sepsis with endorgan dysfunction Time Spent With Patient Time: Total time spent is greater than 50% in coordination of care (as documented) at patient's floor/unit and/or counseling patient:
[2019-11-13] MEDS: hydrALAZINE 20 MG/ML VIAL IV PRN ×2 (10:49→15:30)
--- NOTE | 2019-11-13 10:57 | XRay Report ---
INDICATION: hypoxia TECHNIQUE: AP portable chest x-ray COMPARISON: Previous chest x-ray dated 11/12/2019. FINDINGS: Bilateral infiltrates are again identified. There is right upper lobe infiltrate. There is peripheral infiltrate in the left lung. Filtrate in the left lung may be slightly improved and less dense than on previous examination. Etiology is not certain. Apparently this is a post operative patient. This could represent aspiration. Atypical pneumonias including viral are not excluded based on the radiographic appearance. No dense consolidation. No discrete mass. Heart size and vascularity are normal. No evidence for pleural fluid IMPRESSION: 1. Bilateral parenchymal infiltrates. Left lung infiltrates may be slightly less dense than on previous examination 2. Findings are consistent with pneumonia. The etiology is not certain Interpreted and Authenticated by: Les Jimenez 11/13/19
[2019-11-13] MEDS: TAMSULOSIN 0.4 MG CAPSULE PO SCH (11:03)
[2019-11-13] MEDS: [UNRECOGNIZED DRUG - OTHER] PO SCH ×4 (11:03→17:09)
[2019-11-13] MEDS: FLUoxetine HCL 20 MG CAPSULE PO SCH (11:04)
[2019-11-13] MEDS: NICOTINE 21 MG PATCH TOPICAL SCH (11:06)
--- NOTE | 2019-11-13 11:47 | Surgical Pathology Report ---
HISTOLOGY SPECIMEN MICROSCOPIC DIAGNOSIS GALLBLADDER, CHOLECYSTECTOMY: -- NECROTIZING ACUTE AND CHRONIC CHOLECYSTITIS. (DMT:sln) PROCEDURAL IMPRESSION Cholecystitis. GROSS DESCRIPTION Received in formalin labeled gallbladder, is 10.5 x 5 x 1.5 cm previously opened green-agustin gallbladder. There are no clips identified. The mucosa is dark green and velvety. The wall ranges in thickness from 0.1 to 0.8 cm. No stones are identified within the specimen or container. Geomatics Professor sections submitted - one cassette. (STS:adj) Electronically Signed by: John Friend M.D.
[2019-11-13] MEDS: LORazepam 2 MG/ML VIAL IV PRN (12:23)
--- NOTE | 2019-11-13 14:09 | General Surgery Progress Note ---
SUBJECTIVE Subjective Patient information: Note initiated : 11/13/19 at 2:04 pm Service Date, if different from initiated Date: [] Patient: Priyank Dueñas 69 y/o M admitted on 11/11/19 for rib pain. Chief Complaint: [] Principal diagnosis: acute necrotizing cholecystitis Interval history: the patient is clinically stable. Vital signs are stable as they have been since admission. He still has baseline hypoxemia and is pr esently on BiPAP. He awakens easily and answers questions appropriately. He states that his pain is well controlled. He denies nausea. White blood count 19.8, hemoglobin 13.2, hematocrit 40.3, BUN 38, creatinine 3.9, potassium 4.1, liver panel has essentially returned to normal. MAGY drainage is now serosanguineous. Blood gases shows respiratory acidosis. Urine output has increased with Lasix assistance and this is being monitored by nephrology. Constitutional Vitals: Vital Signs Temp Pulse Resp BP Pulse Ox 98.4 F 110 H 12 119/97 95 11/13/19 12:00 11/13/19 13:12 11/13/19 13:30 11/13/19 13:30 11/13/19 13:30 Period Temp Pulse Resp BP Sys/Paiz Pulse Ox Last 24 Hr 97.1 F-99.1 F 98-124 10-27 119-194/73-157 82-98 Intake and Output 11/13/19 11/13/19 11/13/19 05:59 13:59 21:59 Intake Total 50 50 Output Total 1400 615 Balance -1350 -565 Intake & Output: Intake & Output 11/13/19 11/13/19 11/13/19 05:59 13:59 21:59 Intake Total 50 50 Output Total 1400 615 Balance -1350 -565 Intake: IV 50 50 Zosyn 2.25 gm In Dextrose 5% in 50 50 Water 50 ml @ 100 mls/hr IV Q6H [facility] Rx#:[id number] Output: Drainage 50 A (Abdomen) 10 B (abdomen) 40 Urine Catheter Amount 1350 615 Other: Urine Appearance Clear Urine Color Straw Head Head exam: Present atraumatic, normal inspection and normocephalic Eye Eye exam: Present EOMI Pupils: Present PERRL ENT ENT exam: Present mucous membranes moist Additional comments: edentulous Neck Neck exam: Present full ROM; Absent lymphadenopathy, tenderness and thyromegaly Respiratory Respiratory exam: Present rales and rhonchi Additional comments: coarse tubular breath sounds Cardiovascular Cardiovascular exam: Present +S1 and +S2; Absent gallop and JVD GI/Abdominal GI/Abdominal exam: Present normal bowel sounds, distended and tenderness Additional comments: moderate incisional tenderness; MAGY drainage is serosanguineous rather than black Extremities Exam Extremities exam: Present pedal edema Neurological Exam Additional comments: left-sided hemiparesis is unchanged Psychiatric Psychiatric exam: Present agitated and anxious Additional comments: patient still has rambling speech but he will answer appropriate questions without difficulty. 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 His sepsis status has improved. Renal status is stable and urine output is augmented by a Lasix infusion Time Spent With Patient Time: Total time spent is greater than 50% in coordination of care (as documented) at patient's floor/unit and/or counseling patient:
[2019-11-13] MEDS ORDERED: POTASSIUM CHLORIDE 20 MEQ, MAGNESIUM SULFATE 16.24 MEQ, THIAMINE 100 MG, MVI, ADULT NO.... IV ONE (15:00)
[2019-11-13] MEDS ORDERED: THIAMINE 100 MG in 0.9 % SODIUM CHLORIDE 50 ML IV ONE (18:01)
[2019-11-13] MEDS ORDERED: THIAMINE 100 MG/ML VIAL ONE (18:58)
[2019-11-13 19:47] LABS: Albumin 2.5 gm/dL (3.2-5.2); Calcium 8.7 mg/dl (8.6-10.4); Phosphorous 3.1 mg/dL (2.7-4.5)
[2019-11-13] MEDS: ZOLPIDEM 5 MG TABLET PO PRN (22:09)
[2019-11-14] MEDS: LORazepam 2 MG/ML VIAL IV PRN ×3 (00:01→20:57)
[2019-11-14] MEDS: hydrALAZINE 20 MG/ML VIAL IV PRN ×2 (00:28→06:46)
[2019-11-14] MEDS: IPRATROPIUM/ALBUTEROL 3 ML AMPUL.NEB NEB SCH ×4 (01:53→19:10)
[2019-11-14] MEDS: METOPROLOL TARTRATE 5 MG/5 ML VIAL IV PRN ×4 (03:04→20:57)
[2019-11-14] MEDS: HYDROmorphone 0.5 MG/0.5 ML SYRINGE IV PRN (03:04)
[2019-11-14] MEDS: PIPERACILLIN SODIUM/TAZOBACTAM 2.25 GM in DEXTROSE 5% IN WATER 50 ML IV SCH ×4 (05:28→18:02)
[2019-11-14] MEDS: 0.9 % SODIUM CHLORIDE 10 ML SYRINGE IV SCH ×3 (05:28→21:02)
[2019-11-14] MEDS: PANTOPRAZOLE 40 MG VIAL IV SCH ×2 (06:45→18:05)
[2019-11-14 06:59] LABS: Basophils # (Auto) 0.03 K/mcL (0.00-0.30); Basophils % (Auto) 0.2 % (0.0-2.0); Eosinophils # (Auto) 0.29 K/mcL (0.00-0.70); Eosinophils % (Auto) 1.7 % (0.0-7.0); Granulocytes % (Auto) 86.3 % (38.0-78.0); Hematocrit 38.2 % (40.1-51.0); Hemoglobin 12.5 g/dL (13.7-17.5); Lymphocytes # (Auto) 0.71 K/mcL (1.50-4.80); Lymphocytes % (Auto) 4.2 % (15.5-49.0); Mean Cell Volume 97.2 fL (80.0-100.0); Mean Corpuscular HGB Conc 32.7 g/dL (31.0-36.0); Mean Platelet Volume 10.7 fL (7.4-10.4); Monocytes # (Auto) 1.28 K/mcL (0.10-0.90); Monocytes % (Auto) 7.6 % (1.0-12.0); Platelet Count 285 K/mcL (140-440); RBC 3.93 M/mcL (4.63-6.08); Red Cell Distribution Width 12.9 % (11.5-14.5); WBC 16.9 K/mcL (4.50-11.00)
[2019-11-14 07:07] LABS: ALT/SGPT 20 U/l (0-40); AST/SGOT 35 U/l (0-37); Albumin 2.4 gm/dL (3.2-5.2); Albumin/Globulin Ratio 0.6 (1.0-2.3); Alkaline Phosphatase 67 U/L (39-117); Bilirubin,Direct 0.3 mg/dL (0.0-0.3); Bilirubin,Total 0.5 mg/dL (0.0-1.0); Blood Urea Nitrogen 45 mg/dl (8-23); Calcium 8.7 mg/dl (8.6-10.4); Carbon Dioxide 16 mmol/L (22-30); Chloride 107 mmol/L (96-108); Globulin 3.9 gm/dL (2.2-3.7); Glomerular Filtration Rate 13; Glucose 81 mg/dL (70-105); Lactate Dehydrogenase 318 U/L (94-250); Triglycerides 92 mg/dl (<150); Uric Acid 8.8 mg/dL (2.5-8.0)
--- NOTE | 2019-11-14 08:15 | Nephrology Progress Note ---
SUBJECTIVE Subjective Patient information: Note initiated : 11/14/19 at 8:09 am Service Date, if different from initiated Date: [] Patient: Priyank Dueñas 69 y/o M admitted on 11/11/19 for rib pain. Chief Complaint: [] Principal diagnosis: acute necrotizing cholecystitis Interval history: Narrative: remained hemodynamically stable. good UOP with low dose furosemide. Total time of my visit he was on BiPAP, mumbling, drowsy but easy to arouse. Constitutional Vitals: Vital Signs Temp Pulse Resp BP Pulse Ox 36.9 C 115 H 23 H 168/96 92 11/14/19 08:00 11/14/19 07:11 11/14/19 08:00 11/14/19 08:00 11/14/19 08:00 Period Temp Pulse Resp BP Sys/Paiz Pulse Ox Last 24 Hr 36.8 C-37.4 C 101-119 10-30 119-179/73-141 87-98 Intake and Output 11/13/19 11/14/19 11/14/19 21:59 05:59 13:59 Intake Total 1354 50 50 Output Total 1049 530 Balance 305 -480 50 Weight 94.71 kg Intake & Output: Intake & Output 11/13/19 11/14/19 11/14/19 21:59 05:59 13:59 Intake Total 1354 50 50 Output Total 1049 530 Balance 305 -480 50 Weight 94.71 kg Intake: IV 1354 50 50 Sodium Chloride 0.9% 1,000 ml @ 1000 150 mls/hr IV .Q6H40M [facility] Rx#: [id number] Zosyn 2.25 gm In Dextrose 5% in 50 50 50 Water 50 ml @ 100 mls/hr IV Q6H [facility] Rx#:[id number] Potassium Chloride 20 Meq 253 Magnesium Sulfate 16.24 Meq Vitamin B1 100 mg Infuvite Adult 10 ml In Sodium Chloride 0.9% 1,000 ml @ 100 mls/hr IV ONCE ONE Rx#:[id number] Vitamin B1 100 mg In Sodium 51 Chloride 0.9% 50 ml @ 50 mls/hr IV ONCE ONE Rx#:[id number] Output: Drainage 50 A (Abdomen) 20 B (abdomen) 30 Drainage 50 A (Abdomen) 30 B (abdomen) 20 Urine Catheter Amount 999 Void Amount 480 Other: Urine Appearance Clear Clear Uretheral (Romero) Clear Urine Color Pale Bright Yellow Uretheral (Romero) Pale Dark Yellow Urine Odor Normal Uretheral (Romero) Normal Exam: HEENT head is normocephalic, atraumatic. BiPAP mask Cardiovascular regular rate and rhythm, difficult to accurately assess this patient is mumbling/coarse breath sounds secondary to BiPAP Respiratory on BiPAP, FiO2 45, IPAP 12/6, coarse breath sounds secondary to BiPAP Romero A/P Assessment and plan (1) Acute kidney injury superimposed on chronic kidney disease: Status: Acute (2) Hypertension: Status: Chronic Qualifiers: Hypertension type: essential hypertension Qualified Code(s): I10 - Essential (primary) hypertension (3) Hypoalbuminemia: Status: Acute (4) Mixed acid-base balance disorder: Status: Acute Narrative A/P Narrative: SCR 4.3, trending up. initially oliguric --> non oliguric with furosemide. Now acceptable UOP ~44cc/ hr without diuretic baseline creatinine probably 1.5-1.6 most likely ATN (hemodynamic/ toxic in setting of sepsis). doubt infectious GN as no significant hematuria. 01/11/2020 UA positive protein, occult blood, 1 RBC. 8 hyaline casts. He has had proteinuria since at least December 2018 11/10/2019 CT abdomen and pelvis the patient might have early cirrhosis. Trace amount of ascites. The kidneys are normal. 11/10/2019 CT of the chest COPD with mild pulmonary fibrosis. *continue strict I/O, daily weight; monitor UOP without diuretic; again, if respiratory status decline, check CXR and can give diuretic ~60mg furosemide iv *dose meds for eGFR below 15 *daily renal function panel/ Mg check. *No acute need for dialysis *avoid nephrotoxins *agree with SBP ~140 for renal recovery hemodynamics and volume Albumin 2.5 hypertensive on PRN meds iv, continue when save to swallow resume home dose felodipine. 11/13/2019 CXR bilateral parenchymal infiltrates, left lung slightly less dense than previous exam. Consistent with pneumonia *BiPAP *Breathing treatments *agree with iv medication hydralazine/ labetalol PRN until safe to swallow pills. acid-base Bicarbonate 16 - stable pH 7.27, PCO2 35, PO2 65. mixed metabolic and respiratory acidosis, hopefully will improve with bipap bone-mineral metabolism Corrected calcium, phosphorus within normal limits. Magnesium 3 *Avoid all magnesium containing drugs. consider plain thiamine/ folate BUN/ K 38/4.1 severe sepsis with endorgan dysfunction discussed with SHREDDER TENDER/ Dr. Mac Time Spent With Patient Time: Total time spent is greater than 50% in coordination of care (as documented) at patient's floor/unit and/or counseling patient: Total time spent with greater than 50% in coordination of care (as documented) at patient's floor/unit and/or counseling patient:: 25 - 35 minutes
[2019-11-14] MEDS: NICOTINE 21 MG PATCH TOPICAL SCH (08:45)
[2019-11-14] MEDS: [UNRECOGNIZED DRUG - OTHER] PO SCH ×4 (09:00→19:55)
--- NOTE | 2019-11-14 09:05 | Operative Note ---
DATE OF OPERATION: 11/11/2019 PREOPERATIVE DIAGNOSIS: Acute cholecystitis. POSTOPERATIVE DIAGNOSIS: Acute necrotizing cholecystitis. PROCEDURE: Open cholecystectomy. SURGEON: Cheyanne Sorto M.D. FINDINGS: Acute, severe, necrotizing inflammation of the entire gallbladder. DESCRIPTION OF PROCEDURE: Under general anesthesia, the patient's abdomen was prepped and draped in a sterile field. Supraumbilical incision was made. Veress needle was inserted uneventfully. He was insufflated with 2.5 liters of CO2. A 12 mm port was placed. There was a large mass in the right upper quadrant in the known position of the very distended gallbladder with dark-green fluid penetrating the omentum. The 12 mm port and 5 mm ports were placed in the right subcostal region under videoscopic guidance. The patient was placed in deep reverse Trendelenburg position. An attempt was made to try to separate the omentum from the inflamed gallbladder, but after trying for about 15 minutes I elected to open since it was felt that it would be very difficult to find the structures. The ports were removed and a new setup was placed. Right subcostal incision was made. [place] was placed in the abdomen. Using finger dissection, the omentum was from the gallbladder. The gallbladder was primarily black. It was severely inflamed and nearly necrotic. The omentum and the colon were also deeply stained from the necrotic gallbladder. The dome of the gallbladder was aspirated after which the gallbladder was grasped with a Jyoti clamp. The serosa close to the liver was scored and using finger dissection, I was able to dissect the gallbladder all the way down to the infundibulum without difficulty. There was no bleeding during this dissection. All the tissue that was transected did not have bleeding. The gallbladder was then dissected down to the cystic artery. It was clipped with five clips and divided. Cystic duct was followed up to the gallbladder and was clipped with four clips and divided. The gallbladder was passed off. Copious irrigation was used to irrigate the amount of purulence in the subhepatic space. Two drains were placed and brought out through separate stab incisions. Sponge, needle, instrument, and blade counts were verified as correct. The muscle and fascial layers were closed with running 0 Prolene. Subcutaneous tissue was irrigated and closed with 2-0 Monocryl. Skin was closed with duncan. Drains were secured with 2-0 nylon. The patient was awakened, transferred to a bed, and taken to the postanesthetic care unit in satisfactory condition. LCS:keke Job ID: [id number] Doc ID: [id number] Cheyanne Sorto M.D.
--- NOTE | 2019-11-14 09:18 | Internal Med Progress Note ---
SUBJECTIVE Subjective Patient information: Note initiated : 11/14/19 at 9:11 am Service Date, if different from initiated Date: [] Patient: Priyank Dueñas 69 y/o M admitted on 11/11/19 for rib pain. Chief Complaint: [] Principal diagnosis: acute necrotizing cholecystitis Interval history: 69-year-old with history of HTN/BPH/Lt sided CVA/ alcoholism presented with right-sided rib pain and was subsequently diagnosed with gangrenous cholecystitis/severe sepsis with white count over 30,000. Patient underwent open cholecystectomy on 11/10. During the 48-hour hospitalization patient received in excess of 10 L crystalloids. Severe sepsis and associated multiple organ dysfunction was noted including acute renal failure. He was started on broad-spectrum antibiotic. He was noted to be hypoxic and subsequent chest x-ray revealed bilateral upper lobe infiltrates requiring 8 to 10 L oxygen. Hospitalist service was consulted for evaluation of hypoxia/pneumonia. At the time of my evaluation patient is postop. Able to answer Some of the questions. Persistent abdominal discomfort. Currently being medicated on Dilau did. History of left-sided hemiparesis.Romero is draining dark ur Wants to rest and unwilling to provide answers to review of system. Patient wants to be left alone. Minimal anxiety noted 11/12-patient remains critically ill. Currently on BiPAP. Tachypneic. On 8 L oxygen bleeding. Creatinine up to 3.9. 2000 cc urine output following 80 mg of Lasix yesterday. Discontinued all IV fluids. Nephrology on board. On antibiotic coverage. White count 19.8, bicarb 15. Remains critically ill. R epeat chest imaging/check ABG 11/13-patient remains on BiPAP on 45% FiO2. Worsening ABGs. Worsening urine output. Creatinine 4.3. Nephrology on board. White count 16.9. Remains critically ill. On antibiotic coverage. Persistent chest infiltrates on imaging. Remains n.p.o. Systolics around 150s. Constitutional Vitals: Vital Signs Temp Pulse Resp BP Pulse Ox 98.4 F 121 H 20 143/87 94 11/14/19 08:00 11/14/19 08:00 11/14/19 09:00 11/14/19 09:00 11/14/19 09:00 Period Temp Pulse Resp BP Sys/Paiz Pulse Ox Last 24 Hr 98.2 F-99.3 F 105-121 10-30 119-179/73-141 90-98 Intake and Output 11/13/19 11/14/19 11/14/19 21:59 05:59 13:59 Intake Total 1354 50 50 Output Total 1049 530 Balance 305 -480 50 Weight 94.71 kg Poorly responsive On BiPAP Tachycardic Romero is draining minimal urine less than 30 cc/h Intake & Output: Intake & Output 11/13/19 11/14/19 11/14/19 21:59 05:59 13:59 Intake Total 1354 50 50 Output Total 1049 530 Balance 305 -480 50 Weight 94.71 kg Intake: IV 1354 50 50 Sodium Chloride 0.9% 1,000 ml @ 1000 150 mls/hr IV .Q6H40M [facility] Rx#: [id number] Zosyn 2.25 gm In Dextrose 5% in 50 50 50 Water 50 ml @ 100 mls/hr IV Q6H [facility] Rx#:[id number] Potassium Chloride 20 Meq 253 Magnesium Sulfate 16.24 Meq Vitamin B1 100 mg Infuvite Adult 10 ml In Sodium Chloride 0.9% 1,000 ml @ 100 mls/hr IV ONCE ONE Rx#:[id number] Vitamin B1 100 mg In Sodium 51 Chloride 0.9% 50 ml @ 50 mls/hr IV ONCE ONE Rx#:[id number] Output: Drainage 50 A (Abdomen) 20 B (abdomen) 30 Drainage 50 A (Abdomen) 30 B (abdomen) 20 Urine Catheter Amount 999 Void Amount 480 Other: Urine Appearance Clear Clear Uretheral (Romero) Clear Urine Color Pale Bright Yellow Dark Yellow Uretheral (Romero) Pale Dark Yellow Urine Odor Normal Normal Uretheral (Romero) Normal OBJ DATA Labs CBC & Chem 7: 11/14/19 05:00 11/14/19 05:00 Labs: Abnormal Lab Results 11/14/19 11/14/19 11/13/19 05:00 05:00 18:48 WBC 16.9 H RBC 3.93 L Hgb 12.5 L Hct 38.2 L MPV 10.7 H Gran % 86.3 H Lymph % (Auto) 4.2 L Gran # 14.59 H Lymph # (Auto) 0.71 L Bosque # (Auto) 1.28 H Chloride Carbon Dioxide 16 L 16 L Anion Gap 17.0 H BUN 45 H 42 H Creatinine 4.3 H 4.2 H Uric Acid 8.8 H Calcium Magnesium 2.7 H AST Lactate Dehydrogenase 318 H NT-Pro-B Natriuret Pep Albumin 2.4 L 2.5 L Globulin 3.9 H Albumin/Globulin Ratio 0.6 L 11/13/19 11/13/19 11/12/19 05:10 05:10 12:10 WBC 19.8 H RBC 4.11 L Hgb 13.2 L Hct MPV 10.8 H Gran % 90.8 H Lymph % (Auto) 3.1 L Gran # 18.00 H Lymph # (Auto) 0.61 L [place] # (Auto) 1.19 H Chloride Carbon Dioxide 15 L Anion Gap 17.0 H BUN 38 H Creatinine 3.9 H Uric Acid Calcium 8.3 L Magnesium 3.0 H AST 51 H Lactate Dehydrogenase 315 H NT-Pro-B Natriuret Pep 2492.0 H Albumin 2.5 L Globulin 4.0 H Albumin/Globulin Ratio 0.6 L 11/12/19 11/12/19 05:06 05:06 WBC 19.7 H RBC 3.88 L Hgb 12.7 L Hct 38.0 L MPV 11.2 H Gran % 92.7 H Lymph % (Auto) 1.5 L Gran # 18.21 H Lymph # (Auto) 0.30 L [place] # (Auto) 1.12 H Chloride 109 H Carbon Dioxide 16 L Anion Gap BUN 31 H Creatinine 3.2 H Uric Acid Calcium 7.8 L Magnesium AST 45 H Lactate Dehydrogenase 258 H NT-Pro-B Natriuret Pep Albumin 2.2 L Globulin 3.8 H Albumin/Globulin Ratio 0.6 L Meds: Medications Albuterol/Ipratropium (Duoneb) 3 ml NEB Q6HRT [facility] Last Admin: 11/14/19 07:05 Dose: 3 ml Documented by: Albuterol/Ipratropium (Duoneb) 3 ml NEB Q6HP PRN PRN Reason: Shortness Of Breath Fluoxetine HCl (Prozac) 40 mg PO DAILY [facility] Last Admin: 11/13/19 11:04 Dose: Not Given Documented by: Hydralazine HCl (Apresoline) 10 - 20 mg IV Q4HP PRN PRN Reason: Hypertension Last Admin: 11/14/19 06:46 Dose: 20 mg Documented by: Hydromorphone HCl (Dilaudid) 0.5 - 1 mg IV Q2HP PRN; Protocol PRN Reason: Per Pain Protocol Last Admin: 11/14/19 03:04 Dose: 1 mg Documented by: Piperacillin Sod/Tazobactam (Sod 2.25 gm/ Dextrose) 50 mls @ 100 mls/hr IV Q6H [facility]; Protocol Last Infusion: 11/14/19 06:00 Dose: Infused Documented by: Lorazepam (Ativan) 1 - 2 mg IV Q2HP PRN PRN Reason: Alcohol Withdrawal Last Admin: 11/14/19 00:01 Dose: 1 mg Documented by: Metoprolol Tartrate (Lopressor) 5 mg IV Q4HP PRN PRN Reason: Tachyarrhythmias Last Admin: 11/14/19 08:36 Dose: 5 mg Documented by: Morphine Sulfate (Morphine) 4 mg IV Q4HP PRN; Protocol PRN Reason: Per Pain Protocol Nicotine (Nicoderm) 21 mg TOPICAL DAILY@1000 [facility] Last Admin: 11/14/19 08:45 Dose: 21 mg Documented by: Ondansetron HCl (Zofran) 4 mg IV Q4HP PRN; Protocol PRN Reason: Nausea/Vomiting Pantoprazole Sodium (Protonix) 40 mg IV BIDAC [facility] Last Admin: 11/14/19 06:45 Dose: 40 mg Documented by: Pt Own Med ([place]) 1 dose PO TIDCC [facility] Last Admin: 11/13/19 17:09 Dose: 1 dose Documented by: Sodium Chloride (Saline Flush) 10 ml IV Q8 [facility] Last Admin: 11/14/19 05:28 Dose: 10 ml Documented by: Tamsulosin HCl (Flomax) 0.4 mg PO QDAY [facility] Last Admin: 11/13/19 11:03 Dose: Not Given Documented by: Zolpidem Tartrate (Ambien) 10 mg PO HSP PRN PRN Reason: Insomnia Last Admin: 11/13/19 22:09 Dose: 10 mg Documented by: A/P Time Spent With Patient Time: 35 minutes critical care time * Acute gangrenous cholecystitis postop day 3. Managed by surgery. Currently n.p.o. * Severe sepsis with endorgan dysfunction. On antibiotic coverage. WBC down from 30K-> 16. On antibiotic coverage * Acute hypoxic respiratory failure secondary to bilateral pneumonia. Continue noninvasive mechanical ventilation. ABG PO2 67 on 45% FiO2. * Bilateral pneumonia Continue antibiotic coverage/aspiration precautions/elevate HOB. * Acute renal failure, worsening, creatinine 4.3, nephrology on board. * History of alcoholism continue monitoring for withdrawals. IV benzodiazepine as needed * H/o CVA- ASA once able to take p.o. * Nutrition-consider TPN * BPH-continue Foleys * HTN- IV antihypertensives as indicated * Anxiety disorder. IV benzodiazepine as needed PLAN * Renal failure management per nephrology * continue antibiotic coverage * Continue noninvasive mechanical ventilation * Consider parenteral nutrition if approved by surgery QUALITY Stroke Symptom Onset Unknown: No VTE Deep Vein Thrombosis/Pulmonary Embolism Present on Admission: No
[2019-11-14] MEDS: TAMSULOSIN 0.4 MG CAPSULE PO SCH (09:48)
[2019-11-14] MEDS: morphine 4 MG/ML VIAL IV PRN ×3 (09:49→20:29)
[2019-11-14] MEDS: FLUoxetine HCL 20 MG CAPSULE PO SCH (09:49)
--- NOTE | 2019-11-14 16:42 | General Surgery Progress Note ---
SUBJECTIVE Subjective Patient information: Note initiated : 11/14/19 at 4:37 pm Service Date, if different from initiated Date: [] Patient: Priyank Dueñas 69 y/o M admitted on 11/11/19 for rib pain. Chief Complaint: [] Principal diagnosis: acute necrotizing cholecystitis Interval history: Narrative:patient is about the same. His mental status is unchanged. He still rambles in his speech however when pushed to speak plainly he answers questions appropriately. He had low-grade temperature earlier today 100.5. White blood count 16.9, hemoglobin 12.5, hematocrit 38.2, BUN 45 creatinine 4.3. Urine output is stable without Lasix supplementation. MAGY drainage is serosanguineous Constitutional Vitals: Vital Signs Temp Pulse Resp BP Pulse Ox 99.0 F 121 H 23 H 163/85 94 11/14/19 13:00 11/14/19 14:00 11/14/19 16:00 11/14/19 16:00 11/14/19 16:00 Period Temp Pulse Resp BP Sys/Paiz Pulse Ox Last 24 Hr 98.2 F-99.5 F 105-121 12-30 143-171/79-108 90-97 Intake and Output 11/14/19 11/14/19 11/14/19 05:59 13:59 21:59 Intake Total 50 100 Output Total 530 510 Balance -480 100 -510 Intake & Output: Intake & Output 11/14/19 11/14/19 11/14/19 05:59 13:59 21:59 Intake Total 50 100 Output Total 530 510 Balance -480 100 -510 Intake: IV 50 100 Zosyn 2.25 gm In Dextrose 5% in 50 100 Water 50 ml @ 100 mls/hr IV Q6H [facility] Rx#:[id number] Output: Drainage 50 60 A (Abdomen) 30 30 B (abdomen) 20 30 Urine Catheter Amount 450 Void Amount 480 Other: Urine Appearance Clear Clear Urine Color Bright Yellow Dark Yellow Dark Yellow Uretheral (Romero) Dark Yellow Dark Yellow Urine Odor Normal Normal Head Head exam: Present atraumatic, normal inspection and normocephalic Eye Eye exam: Present EOMI Pupils: Present PERRL ENT ENT exam: Present mucous membranes moist Additional comments: edentulous Neck Neck exam: Present full ROM; Absent lymphadenopathy, tenderness and thyromegaly Respiratory Respiratory exam: Present rales and rhonchi Additional comments: coarse tubular breath sounds Cardiovascular Cardiovascular exam: Present +S1 and +S2; Absent gallop and JVD GI/Abdominal GI/Abdominal exam: Present normal bowel sounds, distended and tenderness Additional comments: moderate incisional tenderness; MAGY drainage is serosanguineous rather than black Extremities Exam Extremities exam: Present pedal edema Neurological Exam Additional comments: left-sided hemiparesis is unchanged Psychiatric Psychiatric exam: Present agitated and anxious Additional comments: patient still has rambling speech but he will answer appropriate questions without difficulty. Skin Skin exam: Present dry; Absent cyanosis, pallor and rash A/P Assessment and plan (1) Acute acalculous cholecystitis: Status: Acute (2) Acute kidney injury superimposed on chronic kidney disease: Status: Acute (3) Acute pneumonitis: Assessment and plan: x-rays are clinically improving Status: Acute (4) Sepsis: Status: Acute Qualifiers: Sepsis type: sepsis due to unspecified organism Sepsis acute organ dysfunction status: with acute organ dysfunction Severe sepsis shock status: without septic shock (5) 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): Status: Chronic (6) Alcohol dependence: Assessment and plan: we'll continue to give patient alcohol 3-4 times a day Status: Chronic Qualifiers: Substance use status: uncomplicated Qualified Code(s): F10.20 - Alcohol dependence, uncomplicated Time Spent With Patient Time: Total time spent is greater than 50% in coordination of care (as documented) at patient's floor/unit and/or counseling patient:
[2019-11-14] MEDS ORDERED: FUROSEMIDE 40 MG/4 ML VIAL IV ONE ×2 (20:20→20:28)
[2019-11-15] MEDS: PIPERACILLIN SODIUM/TAZOBACTAM 2.25 GM in DEXTROSE 5% IN WATER 50 ML IV SCH ×2 (00:19→05:21)
[2019-11-15] MEDS: IPRATROPIUM/ALBUTEROL 3 ML AMPUL.NEB NEB SCH ×2 (00:20→07:15)
[2019-11-15] MEDS: hydrALAZINE 20 MG/ML VIAL IV PRN (00:29)
[2019-11-15] MEDS: METOPROLOL TARTRATE 5 MG/5 ML VIAL IV PRN ×2 (00:30→04:44)
[2019-11-15] MEDS: LORazepam 2 MG/ML VIAL IV PRN (02:09)
[2019-11-15] MEDS: morphine 4 MG/ML VIAL IV PRN (02:09)
[2019-11-15] MEDS: 0.9 % SODIUM CHLORIDE 10 ML SYRINGE IV SCH (05:21)
[2019-11-15 06:26] LABS: Basophils # (Auto) 0.06 K/mcL (0.00-0.30); Basophils % (Auto) 0.4 % (0.0-2.0); Eosinophils # (Auto) 0.01 K/mcL (0.00-0.70); Eosinophils % (Auto) 0.1 % (0.0-7.0); Granulocytes % (Auto) 88.4 % (38.0-78.0); Hematocrit 37.9 % (40.1-51.0); Hemoglobin 12.4 g/dL (13.7-17.5); Lymphocytes # (Auto) 0.51 K/mcL (1.50-4.80); Lymphocytes % (Auto) 3.5 % (15.5-49.0); Mean Cell Volume 97.7 fL (80.0-100.0); Mean Corpuscular HGB Conc 32.7 g/dL (31.0-36.0); Mean Platelet Volume 10.9 fL (7.4-10.4); Monocytes % (Auto) 7.6 % (1.0-12.0); Platelet Count 294 K/mcL (140-440); RBC 3.88 M/mcL (4.63-6.08); Red Cell Distribution Width 13.2 % (11.5-14.5); WBC 14.4 K/mcL (4.50-11.00)
[2019-11-15 06:44] LABS: ALT/SGPT 19 U/l (0-40); AST/SGOT 31 U/l (0-37); Albumin 2.6 gm/dL (3.2-5.2); Albumin/Globulin Ratio 0.7 (1.0-2.3); Alkaline Phosphatase 82 U/L (39-117); Bilirubin,Direct 0.3 mg/dL (0.0-0.3); Bilirubin,Total 0.5 mg/dL (0.0-1.0); Blood Urea Nitrogen 49 mg/dl (8-23); Calcium 8.8 mg/dl (8.6-10.4); Carbon Dioxide 18 mmol/L (22-30); Chloride 111 mmol/L (96-108); Globulin 3.9 gm/dL (2.2-3.7); Glomerular Filtration Rate 12; Glucose 67 mg/dL (70-105); Lactate Dehydrogenase 313 U/L (94-250); Phosphorous 4.5 mg/dL (2.7-4.5); Triglycerides 104 mg/dl (<150); Uric Acid 9.6 mg/dL (2.5-8.0)
[2019-11-15] MEDS: PANTOPRAZOLE 40 MG VIAL IV SCH (08:10)
[2019-11-15] MEDS: [UNRECOGNIZED DRUG - OTHER] PO SCH ×2 (08:11→12:00)
--- NOTE | 2019-11-15 09:22 | XRay Report ---
INDICATION: respiratoruy distress TECHNIQUE: AP portable upright chest x-ray COMPARISON: Chest x-rays dated 11/13/2019 and 11/12/2019. Chest CT scan dated 11/10/2019 FINDINGS:There are surgical drains in the right upper abdominal quadrant Lungs:Diffuse interstitial infiltrates are significantly worse than on 11/13/2019. Findings are consistent with interstitial pneumonia. Severe atypical pneumonia including viral pneumonia is possible. There is no parenchymal consolidation. No discrete parenchymal mass. Interstitial pulmonary edema is less likely as there is been no change in heart size and pulmonary vascularity is within normal limits. Heart, vascular:No significant cardiomegaly. Pulmonary vascularity is normal. No pulmonary edema or pulmonary congestion. No change in heart size or vascularity since prior examinations. Diffuse interstitial infiltrates are consistent with inflammatory disease rather than pulmonary edema Mediastinum, eleuterio:No mediastinal widening. No hilar mass Pleura:No pleural fluid. No pleural-based mass or calcification Skeletal:Negative IMPRESSION: 1. Diffuse interstitial infiltrates, increased since 11/13/2019 2. Findings are consistent with pneumonia and atypical pneumonia should be considered Interpreted and Authenticated by: Les Jimneez 11/15/19
[2019-11-15] MEDS ORDERED: PROPOFOL 1,000 MG in PREMIX 1 BAG IV SCH ×2 (09:30→10:45)
[2019-11-15] MEDS ORDERED: fentaNYL 2,500 MCG in 0.9 % SODIUM CHLORIDE 200 ML IV SCH ×2 (09:30→10:45)
--- NOTE | 2019-11-15 09:30 | Nephrology Progress Note ---
SUBJECTIVE Subjective Patient information: Note initiated : 11/15/19 at 9:26 am Service Date, if different from initiated Date: [] Patient: Priyank Dueñas 69 y/o M admitted on 11/11/19 for rib pain. Chief Complaint: [] Principal diagnosis: acute necrotizing cholecystitis Interval history: Narrative: labored respiration despite BiPap support and further diuresis. patient appears to be less responsive. BP 140-170/80s-100 I/O 200cc/1.9L (iv lasix 40mg) Constitutional Vitals: Vital Signs Temp Pulse Resp BP Pulse Ox 36.8 C 115 H 23 H 147/91 97 11/15/19 09:00 11/15/19 07:15 11/15/19 09:01 11/15/19 09:00 11/15/19 09:01 Period Temp Pulse Resp BP Sys/Paiz Pulse Ox Last 24 Hr 36.7 C-37.5 C 110-122 19-39 117-175/60-113 90-99 Intake and Output 11/14/19 11/15/19 11/15/19 21:59 05:59 13:59 Intake Total 50 50 Output Total 970 920 160 Balance -920 -870 -160 Weight 91.58 kg Intake & Output: Intake & Output 11/14/19 11/15/19 11/15/19 21:59 05:59 13:59 Intake Total 50 50 Output Total 970 920 160 Balance -920 -870 -160 Weight 91.58 kg Intake: IV 50 50 Zosyn 2.25 gm In Dextrose 5% in 50 50 Water 50 ml @ 100 mls/hr IV Q6H [facility] Rx#:[id number] Output: Drainage 60 60 A (Abdomen) 30 20 B (abdomen) 30 40 Urine Catheter Amount 910 860 160 Other: Urine Appearance Clear Clear Clear Urine Color Straw Bright Yellow Bright Yellow Uretheral (Romero) Dark Yellow Urine Odor Normal A/P Assessment and plan (1) Acute kidney injury superimposed on chronic kidney disease: Status: Acute (2) Sepsis: Status: Acute Qualifiers: Sepsis acute organ dysfunction status: with acute organ dysfunction Sepsis type: sepsis due to unspecified organism Severe sepsis shock status: without septic shock Narrative A/P Narrative: SCR 4.3 seems to plateau. initially oliguric --> non oliguric with furosemide. baseline creatinine probably 1.5-1.6 most likely ATN (hemodynamic/ toxic in setting of sepsis). doubt infectious GN as no significant hematuria. 01/11/2020 UA positive protein, occult blood, 1 RBC. 8 hyaline casts. He has had proteinuria since at least December 2018 11/10/2019 CT abdomen and pelvis the patient might have early cirrhosis. Trace amount of ascites. The kidneys are normal. 11/10/2019 CT chest COPD with mild pulmonary fibrosis. *respiratory status worsened 11/14/2019 so he received another dose of iv Lasix 40mg, good UOP *continue strict I/O, daily weight; *dose meds for eGFR below 15 *daily renal function panel/ Mg check. *No acute need for dialysis *avoid nephrotoxins *agree with SBP ~140 for renal recovery hemodynamics and volume Albumin 2.6 hypertensive on PRN meds iv, continue. bilateral lung infiltrates/ pneumonia P repeat CXR 11/13/2019 CXR bilateral parenchymal infiltrates, left lung slightly less dense than previous exam. Consistent with pneumonia *has been on BiPap, continues to have labored respirations, Fio2 increased. concern for fatigue. The patient would benefit from intubation. *Breathing treatments *agree with iv medication hydralazine/ labetalol PRN. consider OG tube if intubated, then nutrition support to be coordinated with primary team. acid-base Bicarbonate 18, slight improvement. 11/14/2019 ABG 7.36/29/64 11/13/2019 ABG pH 7.27, PCO2 35, PO2 65. mixed metabolic and respiratory acidosis, hopefully will improve with bipap bone-mineral metabolism calcium within lab reference range. Magnesium 2.6 *Avoid all magnesium containing drugs. consider plain thiamine/ folate BUN/ K 49/3.8 severe sepsis with endorgan dysfunction Time Spent With Patient Time: Total time spent is greater than 50% in coordination of care (as documented) at patient's floor/unit and/or counseling patient: Total time spent with greater than 50% in coordination of care (as documented) at patient's floor/unit and/or counseling patient:: Greater than 35 minutes
--- NOTE | 2019-11-15 09:55 | Transfer Summary ---
Discharge Provider Provider Patient information: Note initiated : 11/15/19 at 9:49 am Service Date, if different from initiated Date: [] Patient: Priyank Dueñas 69 y/o M admitted on 11/11/19 for rib pain. Chief Complaint: Admitted with gangrenous cholecystitis and sepsis with multiple endorgan dysfunction Date of admission: 11/11/19 10:40 Discharge date: 11/15/19 Primary care physician: Mindy Green Discharge Meds Discharge Medications Active and Home Medications: Home Medications aspirin 325 mg tablet 325 mg PO QDAY 04/13/18 [History Confirmed 11/10/19 Last Taken 11/10/19] felodipine 10 mg tablet,extended release 24 hr 10 mg PO QPM tab 04/13/18 [Hi story Confirmed 11/10/19 Last Taken 11/10/19] metoprolol succinate 50 mg tablet,extended release 24 hr 50 mg PO QDAY 04/13/18 [History Confirmed 11/10/19 Last Taken 11/10/19] multivitamin 1 tab PO QDAY 04/13/18 [History Confirmed 11/10/19 Last Taken 11/10/19] omeprazole 20 mg capsule,delayed release 20 mg PO QDAY 04/13/18 [History Confirmed 11/10/19 Last Taken Unknown] vitamin B complex 1 tab PO QDAY 04/13/18 [History Confirmed 11/10/19 Last Taken Unknown] ascorbate calcium (vitamin C) 1 tab PO QDAY 01/03/19 [History Confirmed 11/10/19 Last Taken 11/10/19] finasteride 5 mg tablet 5 mg PO QDAY #90 tab 04/19/19 [Rx Confirmed 11/10/19 Last Taken 11/10/19] mirabegron 25 mg tablet,extended release 24 hr 25 mg PO QDAY #90 tab 04/19/19 [Rx Confirmed 11/10/19 Last Taken 11/10/19] tamsulosin 0.4 mg capsule 0.4 mg PO QDAY #90 cap 04/19/19 [Rx Confirmed 11/10/19 Last Taken Unknown] fluoxetine 40 mg PO QDAY 11/10/19 [History Confirmed 11/10/19 Last Taken 11/10/19] COURSE Hospital Course Discharge diagnosis: Hypoxic respiratory failure Time Spent with Patient Time attestation: Transfer diagnosis -Acute gangrenous cholecystitis postop day 4. Managed by surgery. -Severe sepsis with multiple endorgan dysfunction. On renally dosed Zosyn. WBC down from 30K-> 15. Secondary to multifocal pneumonia/ Gangrenous cholecystitis -Acute hypoxic respiratory failure secondary to bilateral pneumonia/ALI/early ARDS with Pao2/Fio2: 120. Worsening respiratory status now requiring >50% FiO2 breathing at 40 per minute. Initiate mechanical ventilation.-Sedation on fentanyl/propofol. Post intubation ABG 7.2/43/67 on 60% FiO2 -Bilateral multifocal pneumonia likely aspiration/ ALI/Early ARDS. Continue elevated HOB/aspiration precautions -Acute renal failure, worsening, creatinine 4.4, no urgent need for hemodialysis per nephrology. -Acute change mental status. Secondary to sepsis endorgan dysfunction -History of alcoholism continue monitoring for withdrawals. IV benzodiazepine as needed. No evidence of DT. On multivitamin -H/o CVA- ASA once able to take p.o. -Nutrition-consider TF post intubation -BPH-continue Foleys -HTN- IV antihypertensives as indicated -Anxiety disorder. IV benzodiazepine as needed Brief hospital course 69-year-old with history of HTN/BPH/Lt sided CVA/ alcoholism presented with right-sided rib pain and was subsequently diagnosed with gangrenous cholecystitis/severe sepsis with white count over 30,000. Patient underwent open cholecystectomy on 11/10. During the 48-hour hospitalization patient received in excess of 10 L crystalloids. Severe sepsis and associated multiple organ dysfunction was noted including acute renal failure. He was started on broad-spectrum antibiotic. He was noted to be hypoxic and subsequent chest x- ray revealed bilateral upper lobe infiltrates requiring 8 to 10 L oxygen. Hospitalist service was consulted for evaluation of hypoxia/pneumonia. At the time of my evaluation patient is postop. Able to answer Some of the questions. Persistent abdominal discomfort, MAGY drains in place. Currently being medicated on Dilaudid. History of left-sided hemiparesis.Romero is draining dark urine. Pt wants to rest and unwilling to provide answers to review of system. Patient wishes to be left alone. Minimal anxiety noted. LAbs and ABG/imaging ordered 11/12-patient remains critically ill. Currently on BiPAP. Tachypneic. On 8 L oxygen bleeding. Creatinine up to 3.9. 2000 cc urine output following 80 mg of Lasix yesterday. Discontinued all IV fluids. Nephrology consulted and on board. On antibiotic coverage. White count 19.8, bicarb 15. Remains critically ill. Repeat chest imaging/check ABG 11/13-patient remains on BiPAP on 45% FiO2. Worsening ABGs. Worsening urine output. Creatinine 4.3. Nephrology on board. White count 16.9. Remains critically ill. On antibiotic coverage. Persistent chest infiltrates on imaging. Remains n.p.o. Systolics around 150s. 11/14-patient clinically deteriorating. Worsening hypoxic respiratory failure requiring over 50% FiO2 breathing at 40-minute. Encephalopathic. Initiate mechanical ventilation for airway protection and worsening hypoxic respiratory failure. Continue antibiotic coverage. Case discussed with surgery and nephrology in light of deteriorating condition and the need for emergent transfer to tertiary center for further management. Case discussed with [place] payroll accounting specialist. Appreciate help in accepting this patient for further management. Please contact our hospitalist cell phone direct line [phone] for any questions EXAM Constitutional Vitals: Temp Pulse Resp BP Pulse Ox 98.3 F 115 H 23 H 147/91 97 11/15/19 09:00 11/15/19 07:15 11/15/19 09:01 11/15/19 09:00 11/15/19 09:01 Discharge Data Data Completed and Pending Labs on day of discharge: Labs from last 24 hours 11/15/19 11/15/19 05:00 05:00 WBC 14.4 H RBC 3.88 L Hgb 12.4 L Hct 37.9 L MCV 97.7 MCH 32.0 MCHC 32.7 RDW 13.2 Plt Count 294 MPV 10.9 H Gran % 88.4 H Lymph % (Auto) 3.5 L Ritchie % (Auto) 7.6 Eos % (Auto) 0.1 Baso % (Auto) 0.4 Gran # 12.76 H Lymph # (Auto) 0.51 L Ritchie # (Auto) 1.10 H Eos # (Auto) 0.01 Baso # (Auto) 0.06 Sodium 145 Potassium 3.8 Chloride 111 H Carbon Dioxide 18 L Anion Gap 16.0 BUN 49 H Creatinine 4.5 H GFR Calculation 12 Glucose 67 L Uric Acid 9.6 H Calcium 8.8 Phosphorus 4.5 Magnesium 2.6 H Total Bilirubin 0.5 Direct Bilirubin 0.3 GGT 69 H AST 31 ALT 19 Alkaline Phosphatase 82 Lactate Dehydrogenase 313 H Total Protein 6.5 Albumin 2.6 L Globulin 3.9 H Albumin/Globulin Ratio 0.7 L Triglycerides 104 Preliminary micro results at discharge 11/10/19 13:51 Blood Culture - Preliminary Blood 11/10/19 14:00 Blood Culture - Preliminary Blood Discharge Plan Patient/Caregiver Discharge Instructions Prescriptions: No Action aspirin 325 mg tablet 325 mg PO QDAY RF: 0 felodipine 10 mg tablet extended release 24 hr 10 mg PO QPM RF: 0 metoprolol succinate 50 mg tablet extended release 24 hr 50 mg PO QDAY RF: 0 multivitamin 1 tab PO QDAY RF: 0 omeprazole 20 mg capsule,delayed release(DR/EC) 20 mg PO QDAY RF: 0 vitamin B complex tablet 1 tab PO QDAY RF: 0 fluoxetine 40 mg capsule 40 mg PO QDAY RF: 0 ascorbate calcium (vitamin C) 1 tab PO QDAY RF: 0 mirabegron 25 mg tablet extended release 24 hr 25 mg PO QDAY Qty: 90 RF: 3 finasteride 5 mg tablet 5 mg PO QDAY Qty: 90 RF: 3 tamsulosin 0.4 mg capsule 0.4 mg PO QDAY Qty: 90 RF: 3 Follow Up Plan Follow up with: Mindy Green MD [Primary Care Provider] - Patient Disposition: [facility] Prognosis: Fair Rehab Potential: Critical Overall status at discharge: patient is not back to baseline Discharge Orders: Discharge Order (Routine); Ordered 11/15/19 Ordered By: Harlan MCKEON VTE Deep Vein Thrombosis/Pulmonary Embolism Present on Admission: No
[2019-11-15] MEDS: NICOTINE 21 MG PATCH TOPICAL SCH (10:00)
[2019-11-15] MEDS ORDERED: PROPOFOL 200 MG/20 ML VIAL IV ONE (10:00)
[2019-11-15] MEDS ORDERED: 0.9 % SODIUM CHLORIDE 250 ML IV SCH (10:30)
--- NOTE | 2019-11-15 10:33 | XRay Report ---
INDICATION: ETT Placement TECHNIQUE: AP portable semiupright chest x-ray COMPARISON: Previous chest x-ray dated 11/15/2019, 11/13/2019 FINDINGS: Interval placement and endotracheal tube. Tube tip is 2 cm above the kameron. There is an esophagogastric tube off the plane of this film Again demonstrated are bilateral diffuse interstitial infiltrates which are worse since 11/13/2019 IMPRESSION: Endotracheal tube tip 2 cm above the kameron Interpreted and Authenticated by: Les Jimenez 11/15/19
--- NOTE | 2019-11-15 10:35 | XRay Report ---
INDICATION: og placement TECHNIQUE: Supine abdomen. COMPARISON: None FINDINGS:Esophagogastric tube in the body of the stomach. Prominent gas filled small and large bowel. There are surgical clips in the right upper quadrant. There is a surgical drain in the right upper quadrant. IMPRESSION: Esophagogastric tube within the stomach Interpreted and Authenticated by: Les Jimenez 11/15/19
--- NOTE | 2019-11-15 10:40 | Procedure Note ---
Procedures - Intubation Time out performed: Yes Date of Procedure: 11/15/19 Sedative: Ketamine Mg given: 200 (Propofol 50 mg) Paralytic: Rocuronium ETT: ETCO2, BBS Mg given: 100 Laryngoscope: 4 Vocal Cord View: 2 ET tube size: 8 ET tube uncuffed: No Tube secured location: lips Tube placement confirmation: visualized tube passing through cords, equal breath sounds bilaterally, no breath sounds over epigastrium, confirmation by capnometry # of Attempts: 2 Patient tolerated procedure: well Intubation complications: difficult intubation (Urgent intubation, hospitalist request, multisystem, sepsis, resp failure. On arrival pt hypoxic, rapid RR,post intubation hypotension treated), hypotension
[2019-11-15] MEDS ORDERED: HEPARIN/NS 500 ML IV SCH (10:45)
[2019-11-15] MEDS: TAMSULOSIN 0.4 MG CAPSULE PO SCH (11:04)
[2019-11-15] MEDS: FLUoxetine HCL 20 MG CAPSULE PO SCH (11:05)
[2019-11-15] MEDS ORDERED: PIPERACILLIN SODIUM/TAZOBACTAM 2.25 GM in DEXTROSE 5% IN WATER 50 ML IV SCH (14:00)
[2019-11-15] MEDS ORDERED: CHLORHEXIDINE GLUCONATE 1 ML ORAL.SOL SWABMOUTH SCH ×2 (21:00)
== END 2019-11-15 12:05 | disposition short-term general hospital (02) | DRG 853 ==
LOC: ED 11:35 → MEDSUR 11:35 → ICU 11-12 16:14
PROVIDERS: ADMIT Family Medicine Adult Medicine; ATTEND Family Medicine Adult Medicine

== ENCOUNTER 2022-07-10 17:41 | Inpatient (IN) ==
[2022-07-10] MEDS ORDERED: 0.9 % SODIUM CHLORIDE 1,000 ML IV ONE ×2 (17:58→18:02)
--- NOTE | 2022-07-10 18:10 | Emergency Department Note ---
HPI General Chief complaint: Weakness Stated complaint: Hypotension, weakness Time Seen by Provider: 07/10/22 17:47 Source: EMS Mode of arrival: EMS History of Present Illness HPI Narrative: Narrative: Patient is a 71-year-old male with a history of CHF, hypertension, CKD, CVA, and hyperlipidemia who presents to the emergency department due to weakness. It was reported the patient was released from rehab today and that soon after getting home he was very weak and was found sleeping on the floor. Patient's son states that he was on the floor for maybe 20 minutes. He states that he seemed to be more fatigued than typical, but otherwise seemed like his normal self. Patient's son denies any known symptoms, and patient denies any symptoms at this time. Related Data Home Medications Medication Instructions Recorded Confirmed aspirin 325 mg tablet 325 mg PO QDAY 04/13/18 11/10/19 felodipine 10 mg tablet,extended 10 mg PO QPM 04/13/18 11/10/19 release 24 hr metoprolol succinate 50 mg 50 mg PO QDAY 04/13/18 11/10/19 tablet,extended release 24 hr multivitamin [Multivitamins FC] 1 tab PO QDAY 04/13/18 11/10/19 omeprazole 20 mg capsule,delayed 20 mg PO QDAY 04/13/18 11/10/19 release vitamin B complex 1 tab PO QDAY 04/13/18 11/10/19 ascorbate calcium (vitamin C) 1 tab PO QDAY 01/03/19 11/10/19 fluoxetine 40 mg capsule 40 mg PO QDAY 11/10/19 11/10/19 Previous Rx's Medication Instructions Recorded finasteride 5 mg tablet 5 mg PO QDAY #90 tabs 04/19/19 mirabegron 25 mg tablet,extended 25 mg PO QDAY #90 tabs 04/19/19 release 24 hr tamsulosin 0.4 mg capsule 0.4 mg PO QDAY #90 caps 04/19/19 Allergies Allergy/AdvReac Type Severity Reaction Status Date / Time bee venom protein (honey bee) Allergy Unknown Unknown Verified 06/04/22 08:34 Review of Systems ROS ROS Narrative: Narrative: Constitutional: Reports weakness (Generalized); Denies fever Eyes: Denies eye pain or vision change ENT ED: Denies throat pain, hearing loss or rhinorrhea Cardiovascular: Denies chest pain, dyspnea on exertion, orthopnea or edema Respiratory: Denies shortness of breath or cough Gastrointestinal: Denies abdominal pain, nausea, vomiting, diarrhea, constipation, hematochezia or melena Genitourinary: Denies dysuria, frequency, hematuria or incontinence Musculoskeletal: Denies back pain or myalgia Integumentary: Denies rash or lesions Neurological: Reports weakness (Generalized); Denies headache, numbness, confusion, abnormal gait or dizziness Endocrine: Reports fatigue; Denies polyuria Hematological/Lymphatic: Denies easy bleeding or easy bruising PFSH Narrative Patient History Narrative: Narrative: Medical/Surgical/Family History All Active Problems (Updated 07/10/22 @ 19:27 by Bruce Hughes MD) Sprain of foot, left (Acute) Contusion of ankle or foot, left (Acute) Closed fracture of left hip (Acute) Acute renal failure (ARF) (Acute) Sepsis (Acute) CHF exacerbation (Acute) Weakness (Acute) Hypotension (Acute) Hypoalbuminemia (Acute) Mixed acid-base balance disorder (Acute) S/P cholecystectomy (Acute) Acute pneumonitis (Acute) Acute acalculous cholecystitis (Acute) Acute kidney injury superimposed on chronic kidney disease (Acute) Hypertension (Chronic) Chronic kidney disease (Acute) Sepsis (Acute) Acute cholecystitis (Acute) Leukocytosis (Acute) Uses wheelchair (Chronic) Overweight (Chronic) Easy bruising (Chronic) Cold intolerance (Chronic) Fatigue (Chronic) Memory loss (Chronic) Sleep disturbance (Chronic) Change of skin color (Chronic) Change in nail appearance (Chronic) Dry skin (Chronic) Itchy skin (Chronic) Muscle ache (Chronic) Incomplete emptying of bladder (Chronic) Frequent diarrhea (Chronic) Nocturnal cough with wheeze (Chronic) Left ankle swelling (Chronic) Sore throat (Chronic) Ringing in right ear (Chronic) Hiatal hernia (Chronic) Pain of left hip joint (Chronic) Urge incontinence of urine (Chronic) Benign prostatic hyperplasia with urinary obstruction (Chronic) Chronic obstructive lung disease (Chronic) 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) (Chronic) Alcohol dependence (Chronic) Hypertriglyceridemia (Chronic) Apraxia (Chronic) Cannabis dependence (Chronic) Cigarette smoker (Chronic) Chronic depression (Chronic) Ankle instability (Chronic) Muscle tenderness (Chronic) Muscle contracture (Chronic) Dependent on walker for ambulation (Chronic) Runny nose (Chronic) Narcotic addiction (Chronic) Mood swings (Chronic) Alcohol abuse (Chronic) Neurologic gait dysfunction (Chronic) Severe headache (Chronic) Dizziness (Chronic) Numbness (Chronic) Weakness (Chronic) Difficulty walking (Chronic) Arthralgia of ankle (Chronic) Diarrhea (Chronic) History of appetite changes (Chronic) Abdominal pain (Chronic) Wheezing (Chronic) Ankle swelling (Chronic) Shortness of breath on exertion (Chronic) Ischemic stroke (Chronic 12/16/08) Trochanteric bursitis, left hip (Chronic) Hemiparesis (Chronic) Hemorrhagic stroke (Chronic 09/25/04) Dysarthria (Chronic 06/27/17) Low back pain (Chronic 09/12/17) Neck pain (Chronic 06/27/17) BPH (benign prostatic hyperplasia) (Chronic 06/27/17) Chronic kidney disease, stage 3 (Chronic 06/27/17) Acid reflux (Chronic 06/27/17) Essential hypertension (Chronic 06/27/17) Blurring of visual image (Chronic 06/27/17) Hemiplegia affecting nondominant side (Chronic 06/27/17) Depressive disorder (Chronic 06/27/17) Hyperlipidemia (Chronic 06/27/17) Urinary incontinence (Chronic 06/27/17) Medical History (Updated 07/10/22 @ 19:27 by Bruce Hughes MD) Abdominal pain Acid reflux (06/27/17) Alcohol abuse Alcohol dependence Ankle instability Ankle swelling Apraxia Arthralgia of ankle Benign prostatic hyperplasia with urinary obstruction Blurring of visual image (06/27/17) BPH (benign prostatic hyperplasia) (06/27/17) Cannabis dependence Change in nail appearance Change of skin color Chronic depression Chronic kidney disease, stage 3 (06/27/17) Chronic obstructive lung disease Cigarette smoker Cold intolerance Dependent on walker for ambulation Depressive disorder (06/27/17) Diarrhea Difficulty walking Dizziness Dry skin Dysarthria (06/27/17) Easy bruising Essential hypertension (06/27/17) Fatigue Frequent diarrhea Hemiparesis 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) Hemiplegia affecting nondominant side (06/27/17) Hemorrhagic stroke (09/25/04) Hiatal hernia History of appetite changes Hyperlipidemia (06/27/17) Hypertriglyceridemia Incomplete emptying of bladder Ischemic stroke (12/16/08) Itchy skin Left ankle swelling Low back pain (09/12/17) Memory loss Mood swings Muscle ache Left Thigh Muscle contracture Muscle tenderness Narcotic addiction Neck pain (06/27/17) Neurologic gait dysfunction Nocturnal cough with wheeze Numbness Overweight Pain of left hip joint Ringing in right ear Runny nose Severe headache Shortness of breath on exertion Sleep disturbance Sore throat Trochanteric bursitis, left hip Urge incontinence of urine Urinary incontinence (06/27/17) Uses wheelchair Weakness Wheezing Surgical History History of dental surgery Full Extracted History of esophagogastroduodenoscopy (EGD) (~07/2011) No pertinent past surgical history Family History Father Myocardial infarction Sister Malignant neoplasm of ovary Family/Other Diabetes mellitus Maternal Aunt Brother Hypertension Mother Stroke Diabetes mellitus Social History Smoking Status: Former smoker Alcohol Intake Frequency: 2+ drinks per day Substance Use: former substance user, marijuana and other Exam Narrative Narrative: Narrative: General General appearance: Present alert and in no apparent distress; Absent anxious, appears intoxicated or sleepy Head Head: Present atraumatic and normocephalic Eye Eye: Present PERRL and EOMI; Absent scleral icterus or nystagmus ENT ENT: Present mucous membranes moist; Absent nasal congestion Neck Neck: Present full ROM and trachea midline Chest Chest: Present normal inspection and symmetric chest wall rise; Absent tenderness Respiratory Respiratory: Present normal lung sounds bilaterally; Absent respiratory distress, rales/crackles, wheezes, stridor or accessory muscle use Cardiovascular Cardiovascular: Present regular rate, normal rhythm and normal heart sounds Adbominal Abdominal: Present soft and normal bowel sounds; Absent distention, tenderness, guarding, rebound or rigidity Extremities Extremities: Present normal inspection and full ROM; Absent tenderness, pedal edema or pretibial edema Back Back: Present normal inspection and full ROM; Absent tenderness Neurological Neurological: Present alert and oriented X3 Psychiatric Psychiatric: Present normal affect and normal mood Skin Skin: Present warm (WNL), dry and normal color Course Vital Signs Vital signs: Vital Signs Temperature 96.9 F L 07/10/22 17:46 Pulse Rate 70 07/10/22 17:46 Respiratory Rate 15 07/10/22 17:46 Blood Pressure 63/47 07/10/22 17:46 Pulse Oximetry (%) 86 L 07/10/22 17:46 Oxygen Delivery Method Room Air 07/10/22 17:46 Temperature 96.9 F L 07/10/22 17:46 Pulse Rate 65 07/10/22 19:01 Respiratory Rate 15 07/10/22 19:01 Blood Pressure 105/58 07/10/22 19:01 Pulse Oximetry (%) 95 07/10/22 19:01 Oxygen Delivery Method Nasal Cannula 07/10/22 17:55 Oxygen Flow Rate (L/min) 2 07/10/22 17:55 MDM MDM Narrative Medical decision making narrative: Narrative: Patient is a 71-year-old male with a complex history who presents to the emergen cy department due to generalized weakness. Differential diagnoses include sepsis with an unknown source at this time, pneumonia, urinary tract infection bleed although patient was just released from rehab and there is no history provided of bleeding by patient or patient's son, heart failure exacerbation. Patient's pressures were initially in the systolics of 60s. 2 lines were started and patient had 2 L of fluid running. This did improve patient's pressures, but they were slowly improving. Patient was started on Levophed. I performed a bedside ultrasound which did not demonstrate signs of fluid overload in the lungs, but showed very little variability of the IVC. He was not found to have intra-abdominal fluid, and aorto did not have increased diameter. Labs and images are pending at this time. Patient has been signed out to Dr. Porter. Lab Data 07/10/22 18:17 Labs: Lab Results 07/10/22 07/10/22 07/10/22 Range/Units 18:00 18:05 18:08 WBC (4.5-11.0) K/mcL RBC (4.63-6.08) M/mcL Hgb (13.7-17.5) g/dL Hct (40.1-51.0) % POC Hct 35.0 L (41-55) MCV (80.0-100.0) fL MCH (26.0-34.0) pg MCHC (31.0-36.0) g/dL RDW (11.5-14.5) % Plt Count (140-440) K/mcL MPV (8.8-12.5) fL Immature Gran % (Auto) (0.0-0.5) % Neut % (Auto) (38.0-78.0) % Lymph % (Auto) (15.5-49.0) % Bond % (Auto) (1.0-12.0) % Eos % (Auto) (0.0-7.0) % Baso % (Auto) (0.0-2.0) % Lymph # (Auto) (1.50-4.80) K/mcL Bond # (Auto) (0.10-0.90) K/mcL Eos # (Auto) (0.00-0.70) K/mcL Baso # (Auto) (0.00-0.30) K/mcL Immature Gran # (0.00-0.05) K/mcl Absolute Neutrophils (1.80-8.00) K/mcL POC VBG pH 7.38 (7.32-7.42) POC VBG pCO2 at Temp 28.6 L (41-51) POC VBG pO2 36 (25-40) POC VBG HCO3 17.1 L (24-28) POC VBG Total CO2 18.0 L (25-29) POC Venous O2 Sat 69.0 (40-70) POC VBG Base Excess -8.0 L (-2-2) VBG Lactic Acid 1.6 (0.5-2) POC Sodium 130 L (133-145) POC Potassium 4.5 (3.3-5.1) POC Chloride 102 (96-108) POC Total CO2 19.0 L (22-30) POC BUN 76 H (6-20) POC Creatinine 4.5 H (0.6-1.2) POC Glucose 114 H (70-105) POC WB Ioniz Calcium 1.01 L (1.16-1.32) NT-Pro-B Natriuret Pep (<125.0) pg/mL POC Troponin I 0.02 (0.00-0.08) 07/10/22 07/10/22 Range/Units 18:16 18:17 WBC 11.2 H (4.5-11.0) K/mcL RBC 3.75 L (4.63-6.08) M/mcL Hgb 11.4 L (13.7-17.5) g/dL Hct 33.7 L (40.1-51.0) % POC Hct (41-55) MCV 89.9 (80.0-100.0) fL MCH 30.4 (26.0-34.0) pg MCHC 33.8 (31.0-36.0) g/dL RDW 13.3 (11.5-14.5) % Plt Count 271 (140-440) K/mcL MPV 11.6 (8.8-12.5) fL Immature Gran % (Auto) 1.1 H (0.0-0.5) % Neut % (Auto) 83.2 H (38.0-78.0) % Lymph % (Auto) 8.4 L (15.5-49.0) % Bond % (Auto) 7.0 (1.0-12.0) % Eos % (Auto) 0.1 (0.0-7.0) % Baso % (Auto) 0.2 (0.0-2.0) % Lymph # (Auto) 0.94 L (1.50-4.80) K/mcL Bond # (Auto) 0.79 (0.10-0.90) K/mcL Eos # (Auto) 0.01 (0.00-0.70) K/mcL Baso # (Auto) 0.02 (0.00-0.30) K/mcL Immature Gran # 0.12 H (0.00-0.05) K/mcl Absolute Neutrophils 9.35 H (1.80-8.00) K/mcL POC VBG pH (7.32-7.42) POC VBG pCO2 at Temp (41-51) POC VBG pO2 (25-40) POC VBG HCO3 (24-28) POC VBG Total CO2 (25-29) POC Venous O2 Sat (40-70) POC VBG Base Excess (-2-2) VBG Lactic Acid (0.5-2) POC Sodium (133-145) POC Potassium (3.3-5.1) POC Chloride (96-108) POC Total CO2 (22-30) POC BUN (6-20) POC Creatinine (0.6-1.2) POC Glucose (70-105) POC WB Ioniz Calcium (1.16-1.32) NT-Pro-B Natriuret Pep 1404.0 H (<125.0) pg/mL POC Troponin I (0.00-0.08) Discharge Plan Patient/Caregiver Discharge Instructions Pt seen by SENIOR IT SECURITY ANALYST/PA only: No Clinical Impression: Weakness, Hypotension Patient Disposition: Still a Patient Follow up with: Mindy Green MD [Primary Care Provider] - Prescriptions: No Action aspirin 325 mg tablet 325 mg PO QDAY felodipine 10 mg tablet extended release 24 hr 10 mg PO QPM metoprolol succinate 50 mg tablet extended release 24 hr 50 mg PO QDAY multivitamin 1 tab PO QDAY Rx Instructions: pt unsure of dosage, but reports one daily omeprazole 20 mg capsule,delayed release(DR/EC) 20 mg PO QDAY Patient Comments: Take 1/2 hour before a meal. vitamin B complex tablet 1 tab PO QDAY fluoxetine 40 mg capsule 40 mg PO QDAY ascorbate calcium (vitamin C) 1 tab PO QDAY Rx Instructions: pt unsure of dosage, but reports he takes one tablet of this daily. mirabegron 25 mg tablet extended release 24 hr 25 mg PO QDAY Qty: 90 3RF finasteride 5 mg tablet 5 mg PO QDAY Qty: 90 3RF tamsulosin 0.4 mg capsule 0.4 mg PO QDAY Qty: 90 3RF
[2022-07-10 18:21] LABS: POC Calcium, Ionized 1.01 (1.16-1.32); POC Creatinine 4.5 (0.6-1.2); POC Potassium 4.5 (3.3-5.1)
[2022-07-10] MEDS: NOREPINEPHRINE BITARTRATE 8 MG in 0.9 % SODIUM CHLORIDE 242 ML IV SCH (18:26)
[2022-07-10 19:03] LABS: Basophils # (Auto) 0.02 K/mcL (0.00-0.30); Basophils % (Auto) 0.2 % (0.0-2.0); Eosinophils # (Auto) 0.01 K/mcL (0.00-0.70); Eosinophils % (Auto) 0.1 % (0.0-7.0); Hematocrit 33.7 % (40.1-51.0); Hemoglobin 11.4 g/dL (13.7-17.5); Lymphocytes # (Auto) 0.94 K/mcL (1.50-4.80); Lymphocytes % (Auto) 8.4 % (15.5-49.0); Mean Cell Volume 89.9 fL (80.0-100.0); Mean Corpuscular HGB Conc 33.8 g/dL (31.0-36.0); Mean Platelet Volume 11.6 fL (8.8-12.5); Monocytes # (Auto) 0.79 K/mcL (0.10-0.90); Neutrophils % (Auto) 83.2 % (38.0-78.0); Platelet Count 271 K/mcL (140-440); RBC 3.75 M/mcL (4.63-6.08); Red Cell Distribution Width 13.3 % (11.5-14.5); WBC 11.2 K/mcL (4.5-11.0)
--- NOTE | 2022-07-10 20:59 | Emergency Department Note ---
ED Note Addendum Note Addendum: 71-year-old male presented to the emergency department with hypotension and weakness. Received IV fluid bolus but continued to be hypotensive so required Levophed. On 8 mics presently. Also was hypoxic with room air PO2 of 86% and is requiring 3 L/min. Seen by my colleague Dr. Levy Hughes. Patient will require admission. I discussed the case with Dr. Harding with the on-call physician for admissions. I said we would let him go home as soon as he was well enough. ons. He requested a D-dimer and a CT without contrast of the chest abdomen and pelvis. I discussed with the patient. He wants to go home. I explained to the patient and his son that he was too sick to go home with the hypoxia and the low blood pressure requiring Levophed. The son clearly understands that the patient needs to be hospitalized and states that if he took his day at home we just have to bring him right back. I have advised the patient that he will need to be admitted and he asked me how long the patient will need to be in the hospital. I said we would want him to go home as soon as he was well enough. D-dimer came back elevated at 1.41. CT scan of the chest abdomen pelvis without contrast was unremarkable. Possible dependent atelectasis in the bilateral lower lobes. Case discussed with Dr. Harding. The hypotension was unexplained and consideration was given to a pulmonary embolus. Because of the patient's creatinine of 4.5 he was not a candidate for contrast CT of the lungs so would require a VQ scan to rule this out. I reviewed the chart from [facility] where the patient was admitted on June 04. At that time he had a BUN of 37 and a creatinine of 2.6 and a D-dimer that was elevated at 3.16. He was transferred for possible pulmonary embolus. A Doppler venous ultrasound lower extremity was performed and was negative for DVT. Chest x-ray was notable for new moderate left pleural effusion and a small right pleural effusion. CT scan of the chest could not be performed because of the stage III CKD. A stat VQ scan was completed without evidence of pulmonary embolus. The patient's other medical problems included sepsis, unclear source, cellulitis versus GI, diarrhea which turned out to be C. difficile, CHF exacerbation, acute kidney injury on CKD stage III, cirrhosis, BPH, alcohol use disorder, hypertension, GERD, Patient presented to our emergency department today with a POLST. The patient had do not attempt resuscitation. Patient had selective treatment. In view of the above I discussed with Dr. Harding our performing a bilateral lower extremity ultrasound to further stratify the risk of pulmonary embolus in view of the patient wishing to go home and not be transferred to any other hospital for further studies. Bilateral lower extremity ultrasound was performed and it did not show any clot. Patient's O2 demand had diminished while here in the emergency department. He was 91% O2 saturation off of supplemental O2. Based on the patient having a POLST requesting DNR status and selective treatment along with his refusal to be transferred to another hospital along with negative bilateral lower extremity ultrasound, along with previous elevated D-dimer of twice is high corresponding with a negative VQ scan in view of the patient having been on heparin prophylaxis while hospitalized at [facility], and in view of having a pulse ox of 91% on room air, Dr. Harding and I felt it was reasonable to admit him to the hospital here for management of his hypertension. Patient was on 8 mcg of Levophed with a blood pressure in the range of 110/70 down to 100/60. Patient was left on this dose and admitted to the ICU. Dr. Harding will assume care of the patient. Patient agreed to spend the night in our hospital and the son was in agreement as well.
--- NOTE | 2022-07-10 22:26 | Internal Med History&Physical ---
HPI History of Present Illness Patient information: Note initiated : 07/10/22 at 10:09 pm Service Date, if different from initiated Date: [] Patient: Priyank Dueñas a 71 y/o M admitted on for Hypotension, weakness. Chief Complaint: [] History of present illness: Mr. Dueñas is a 71 year old M [facility] All Active Problems (Updated 07/10/22 @ 19:27 by Bruce Hughes MD) Sprain of foot, left (Acute) Contusion of ankle or foot, left (Acute) Closed fracture of left hip (Acute) Acute renal failure (ARF) (Acute) Sepsis (Acute) CHF exacerbation (Acute) Weakness (Acute) Hypotension (Acute) Hypoalbuminemia (Acute) Mixed acid-base balance disorder (Acute) S/P cholecystectomy (Acute) Acute pneumonitis (Acute) Acute acalculous cholecystitis (Acute) Acute kidney injury superimposed on chronic kidney disease (Acute) Hypertension (Chronic) Chronic kidney disease (Acute) Sepsis (Acute) Acute cholecystitis (Acute) Leukocytosis (Acute) Uses wheelchair (Chronic) Overweight (Chronic) Easy bruising (Chronic) Cold intolerance (Chronic) Fatigue (Chronic) Memory loss (Chronic) Sleep disturbance (Chronic) Change of skin color (Chronic) Change in nail appearance (Chronic) Dry skin (Chronic) Itchy skin (Chronic) Muscle ache (Chronic) Incomplete emptying of bladder (Chronic) Frequent diarrhea (Chronic) Nocturnal cough with wheeze (Chronic) Left ankle swelling (Chronic) Sore throat (Chronic) Ringing in right ear (Chronic) Hiatal hernia (Chronic) Pain of left hip joint (Chronic) Urge incontinence of urine (Chronic) Benign prostatic hyperplasia with urinary obstruction (Chronic) Chronic obstructive lung disease (Chronic) 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) (Chronic) Alcohol dependence (Chronic) Hypertriglyceridemia (Chronic) Apraxia (Chronic) Cannabis dependence (Chronic) Cigarette smoker (Chronic) Chronic depression (Chronic) Ankle instability (Chronic) Muscle tenderness (Chronic) Muscle contracture (Chronic) Dependent on walker for ambulation (Chronic) Runny nose (Chronic) Narcotic addiction (Chronic) Mood swings (Chronic) Alcohol abuse (Chronic) Neurologic gait dysfunction (Chronic) Severe headache (Chronic) Dizziness (Chronic) Numbness (Chronic) Weakness (Chronic) Difficulty walking (Chronic) Arthralgia of ankle (Chronic) Diarrhea (Chronic) History of appetite changes (Chronic) Abdominal pain (Chronic) Wheezing (Chronic) Ankle swelling (Chronic) Shortness of breath on exertion (Chronic) Ischemic stroke (Chronic 12/16/08) Trochanteric bursitis, left hip (Chronic) Hemiparesis (Chronic) Hemorrhagic stroke (Chronic 09/25/04) Dysarthria (Chronic 06/27/17) Low back pain (Chronic 09/12/17) Neck pain (Chronic 06/27/17) BPH (benign prostatic hyperplasia) (Chronic 06/27/17) Chronic kidney disease, stage 3 (Chronic 06/27/17) Acid reflux (Chronic 06/27/17) Essential hypertension (Chronic 06/27/17) Blurring of visual image (Chronic 06/27/17) Hemiplegia affecting nondominant side (Chronic 06/27/17) Depressive disorder (Chronic 06/27/17) Hyperlipidemia (Chronic 06/27/17) Urinary incontinence (Chronic 06/27/17) Medical History (Updated 07/10/22 @ 19:27 by Bruce Hughes MD) Abdominal pain Acid reflux (06/27/17) Alcohol abuse Alcohol dependence Ankle instability Ankle swelling Apraxia Arthralgia of ankle Benign prostatic hyperplasia with urinary obstruction Blurring of visual image (06/27/17) BPH (benign prostatic hyperplasia) (06/27/17) Cannabis dependence Change in nail appearance Change of skin color Chronic depression Chronic kidney disease, stage 3 (06/27/17) Chronic obstructive lung disease Cigarette smoker Cold intolerance Dependent on walker for ambulation Depressive disorder (06/27/17) Diarrhea Difficulty walking Dizziness Dry skin Dysarthria (06/27/17) Easy bruising Essential hypertension (06/27/17) Fatigue Frequent diarrhea Hemiparesis 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) Hemiplegia affecting nondominant side (06/27/17) Hemorrhagic stroke (09/25/04) Hiatal hernia History of appetite changes Hyperlipidemia (06/27/17) Hypertriglyceridemia Incomplete emptying of bladder Ischemic stroke (12/16/08) Itchy skin Left ankle swelling Low back pain (09/12/17) Memory loss Mood swings Muscle ache Left Thigh Muscle contracture Muscle tenderness Narcotic addiction Neck pain (06/27/17) Neurologic gait dysfunction Nocturnal cough with wheeze Numbness Overweight Pain of left hip joint Ringing in right ear Runny nose Severe headache Shortness of breath on exertion Sleep disturbance Sore throat Trochanteric bursitis, left hip Urge incontinence of urine Urinary incontinence (06/27/17) Uses wheelchair Weakness Wheezing Surgical History History of dental surgery Full Extracted History of esophagogastroduodenoscopy (EGD) (~07/2011) No pertinent past surgical history Family History Father Myocardial infarction Sister Malignant neoplasm of ovary Family/Other Diabetes mellitus Maternal Aunt Brother Hypertension Mother Stroke Diabetes mellitus Social History household members: alone marital status: 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 smoking status: Former smoker alcohol intake frequency: 2+ drinks per day substance use type: former substance user, marijuana and other seatbelt use: always MEDS/ALLERGIES Home Medications and Allergies Home Medications Medication Instructions Recorded Confirmed Type aspirin 325 mg tablet 325 mg PO QDAY 04/13/18 11/10/19 History felodipine 10 mg tablet,extended 10 mg PO QPM 04/13/18 11/10/19 History release 24 hr metoprolol succinate 50 mg 50 mg PO QDAY 04/13/18 11/10/19 History tablet,extended release 24 hr multivitamin [Multivitamins FC] 1 tab PO QDAY 04/13/18 11/10/19 History omeprazole 20 mg capsule,delayed 20 mg PO QDAY 04/13/18 11/10/19 History release vitamin B complex 1 tab PO QDAY 04/13/18 11/10/19 History ascorbate calcium (vitamin C) 1 tab PO QDAY 01/03/19 11/10/19 History finasteride 5 mg tablet 5 mg PO QDAY #90 tabs 04/19/19 11/10/19 Rx mirabegron 25 mg tablet,extended 25 mg PO QDAY #90 tabs 04/19/19 11/10/19 Rx release 24 hr tamsulosin 0.4 mg capsule 0.4 mg PO QDAY #90 caps 04/19/19 11/10/19 Rx fluoxetine 40 mg capsule 40 mg PO QDAY 11/10/19 11/10/19 History Allergies Allergy/AdvReac Type Severity Reaction Status Date / Time bee venom protein (honey bee) Allergy Unknown Unknown Verified 06/04/22 08:34 EXAM Constitutional Vitals: Temp Pulse Resp BP Pulse Ox O2 Del Method O2 Flow Rate 96.9 F L 70 15 106/53 95 Nasal Cannula 3 07/10/22 17:46 07/10/22 21:51 07/10/22 21:51 07/10/22 21:51 07/10/22 21:51 07/10/22 19:25 07/10/22 19:25 DATA Data Completed and Pending Labs: Labs from last 24 hours 07/10/22 07/10/22 07/10/22 21:07 18:17 18:16 WBC 11.2 H RBC 3.75 L Hgb 11.4 L Hct 33.7 L POC Hct MCV 89.9 MCH 30.4 MCHC 33.8 RDW 13.3 Plt Count 271 MPV 11.6 Immature Gran % (Auto) 1.1 H Neut % (Auto) 83.2 H Lymph % (Auto) 8.4 L Duc[place] % (Auto) 7.0 Eos % (Auto) 0.1 Baso % (Auto) 0.2 Lymph # (Auto) 0.94 L [place] # (Auto) 0.79 Eos # (Auto) 0.01 Baso # (Auto) 0.02 Immature Gran # 0.12 H Absolute Neutrophils 9.35 H D-Dimer 1.41 H POC VBG pH POC VBG pCO2 at Temp POC VBG pO2 POC VBG HCO3 POC VBG Total CO2 POC Venous O2 Sat POC VBG Base Excess VBG Lactic Acid POC Sodium POC Potassium POC Chloride POC Total CO2 POC BUN POC Creatinine POC Glucose POC WB Ioniz Calcium NT-Pro-B Natriuret Pep 1404.0 H Procalcitonin POC Troponin I 07/10/22 07/10/22 07/10/22 18:16 18:08 18:05 WBC RBC Hgb Hct POC Hct MCV MCH MCHC RDW Plt Count MPV Immature Gran % (Auto) Neut % (Auto) Lymph % (Auto) [place]ne % (Auto) Eos % (Auto) Baso % (Auto) Lymph # (Auto) [place]ne # (Auto) Eos # (Auto) Baso # (Auto) Immature Gran # Absolute Neutrophils D-Dimer POC VBG pH 7.38 POC VBG pCO2 at Temp 28.6 L POC VBG pO2 36 POC VBG HCO3 17.1 L POC VBG Total CO2 18.0 L POC Venous O2 Sat 69.0 POC VBG Base Excess -8.0 L VBG Lactic Acid 1.6 POC Sodium POC Potassium POC Chloride POC Total CO2 POC BUN POC Creatinine POC Glucose POC WB Ioniz Calcium NT-Pro-B Natriuret Pep Procalcitonin 0.36 H POC Troponin I 0.02 07/10/22 18:00 WBC RBC Hgb Hct POC Hct 35.0 L MCV MCH MCHC RDW Plt Count MPV Immature Gran % (Auto) Neut % (Auto) Lymph % (Auto) [place] % (Auto) Eos % (Auto) Baso % (Auto) Lymph # (Auto) [place]ne # (Auto) Eos # (Auto) Baso # (Auto) Immature Gran # Absolute Neutrophils D-Dimer POC VBG pH POC VBG pCO2 at Temp POC VBG pO2 POC VBG HCO3 POC VBG Total CO2 POC Venous O2 Sat POC VBG Base Excess VBG Lactic Acid POC Sodium 130 L POC Potassium 4.5 POC Chloride 102 POC Total CO2 19.0 L POC BUN 76 H POC Creatinine 4.5 H POC Glucose 114 H POC WB Ioniz Calcium 1.01 L NT-Pro-B Natriuret Pep Procalcitonin POC Troponin I A/P Time Spent With Patient Time: Total time spent is greater than 50% in coordination of care (as documented) at patient's floor/unit and/or counseling patient:
[2022-07-10 23:09] LABS: Band Neutrophils % 7 % (0-10); Lymphocytes % 10 % (15-49); Monocytes % (Manual) 9 % (1-12); Platelet Estimate NORMAL (Normal); RBC Morphology NORMAL (Normal); Segmented Neutrophils % 74 % (38-78)
[2022-07-10] MEDS ORDERED: VANCOMYCIN 1,000 MG in 0.9 % SODIUM CHLORIDE 250 ML IV SCH (23:15)
[2022-07-10] MEDS: PIPERACILLIN SODIUM/TAZOBACTAM 3.375 GM in DEXTROSE 5% IN WATER 50 ML IV SCH ×2 (23:55)
[2022-07-11] MEDS ORDERED: DEXTROSE 5%-1/2NS 1,000 ML IV SCH (00:45)
[2022-07-11 01:25] LABS: Appearance,Urine HAZY (Clear); Bilirubin,Urine Negative (Negative); Color,Urine AMBER; Culture Indicated,Urine yes; Glucose,Urine (UA) Negative (Negative); Ketones,Urine Negative (Negative); Leukocyte Esterase,Urine 250 /uL (Negative); Mucus,Urine FEW /hpf; Nitrate,Urine Negative (Negative); Protein,Urine 100 mg/dL (Negative); Specific Gravity,Urine 1.015 (1.000-1.035); Urine Blood Negative (Negative); Urine Budding Yeast MOD /hpf; Urine Hyaline Cast 4 /lph (0-2); Urine RBC 3 /hpf (0-3); Urine Squamous Epithelial Cell < 1 /hpf (0-4); Urine WBC 35 /hpf (0-4); Urobilinogen,Urine Negative
[2022-07-11] MEDS ORDERED: LACTATED RINGERS 250 ML IV SCH ×2 (03:45→06:00)
--- NOTE | 2022-07-11 04:25 | Ultrasound Report ---
CLINICAL INFORMATION: Recent hip surgery with leg pain COMPARISON: None. FINDINGS: The entire deep venous system of both lower extremities including the common femoral, superficial femoral, popliteal and paired trifurcation calf veins are easily compressible and show normal venous blood flow on color and spectral Doppler. No evidence of thrombus IMPRESSION: Negative exam - no evidence of deep vein thrombosis in either lower extremity. Interpreted and Authenticated by: Les Jama 07/11/22
--- NOTE | 2022-07-11 04:30 | XRay Report ---
CLINICAL INFORMATION: Hypoxia COMPARISON: 06/04/2022 TECHNIQUE: Portable FINDINGS: The heart size, mediastinum and pulmonary vessels are unremarkable. Mild COPD changes are stable.. There are no effusions. The bones and soft tissues are within normal limits. IMPRESSION: Mild stable COPD. No acute disease Interpreted and Authenticated by: Les Jama 07/11/22
[2022-07-11] MEDS: 0.9 % SODIUM CHLORIDE 10 ML SYRINGE IV SCH ×3 (05:26→21:46)
--- NOTE | 2022-07-11 05:49 | Cat Scan Report ---
CLINICAL INFORMATION: Generalized weakness. History of COPD COMPARISON: None. TECHNIQUE: 0.625 mm helical slices were obtained from the lung apices through the subtrochanteric regions of the femurs. Following reconstruction, 2.5 mm sagittal, coronal and axial reformatted images were processed and reviewed at multiple windows and levels. 7 mm MIP reconstructions were obtained through the lungs to optimize nodule detection.The exam was performed using radiation dose optimization techniques including, but not limited to, automated exposure control, adjustment of the mA and/or kV according to patient size and use of iterative reconstruction technique. FINDINGS: Pulmonary parenchymal windows show moderate centrilobular and paraseptal emphysema featuring chronic bronchitis with elevated lung volumes and wall thickening of bronchi and multiple bullae predominantly within the upper lobes, but and also in the periphery of the lower and right middle lobes. Scattered fibrosis present in both lungs. Moderate airspace disease is seen in the periphery of the lower lobes. There is associated segmental subsegmental bronchiectasis. While this may represent subsegmental atelectasis, may also represent developing infiltrate or aspiration. A 5 mm nodule adjacent to the right major fissure on image 56 is stable and should represent a benign subpulmonic lymph node. No evidence of pulmonary malignancy.. Pleural spaces are unremarkable-no effusions. Mediastinal windows show the heart is grossly normal in size and configuration. There is moderate calcific plaque scattered within the coronary arteries. The noncontrasted thoracic aorta and pulmonary arteries are normal. There is no adenopathy in the mediastinal, hilar or axillary region. Esophagus is grossly normal. Thyroid is unremarkable. Images should the abdomen show moderate cirrhosis featuring decrease in liver size, irregular cortical surface, asymmetric caudate lobe enlargement and inhomogeneous attenuation. The pancreas, both adrenal glands, kidneys, spleen and aorta are normal in size configuration and attenuation without focal lesion. There is no free air, free fluid or adenopathy. Pelvic images show prostate and seminal vesicles are normal prostate 3.8 cm. Mild diffuse wall thickening urinary bladder is likely artifact of underdistention. The stomach, small bowel, appendix region and large bowel are grossly normal. The bone windows show ORIF proximal left femoral fracture which is incompletely united but anatomically aligned. Old left-sided rib fractures are nondisplaced. No soft tissue abnormalities. IMPRESSION: 1. Moderate airspace disease in the posterior peripheral lower lobes. Suspect developing infiltrates or possibly aspiration. There is associated bronchiectasis in the segmental and subsegmental bronchi. Suggest plain film follow-up in one to two days 2. Moderate centrilobular and paraseptal emphysema. 3. Mild wall thickening of the urinary bladder is likely an artifact of underdistention. Please correlate with urinalysis to exclude cystitis. 4. ORIF proximal femoral fracture with inguinal including united. Old ununited left lower rib fractures Interpreted and Authenticated by: Les Jama 07/11/22
--- NOTE | 2022-07-11 07:03 | Internal Med History&Physical ---
HPI History of Present Illness Patient information: Note initiated : 07/11/22 at 7:01 am Service Date, if different from initiated Date: [] Patient: Priyank Dueñas a 71 y/o M admitted on 07/11/22 for Hypotension, weakness. Chief Complaint: [] History of present illness: Mr. Dueñas is a 71 year old M Presents from home with weakness generalized as well as hypotension. Patient was released from a rehab tuesday after being admitted for a broken hip repair. History is obtained from the chart as patient has confusion at baseline. Patient became increasingly weak and family unable to care for the patient. Patient was found sleeping on the floor. However other than seeming more fatigued than usual he otherwise acted normal. Patient also had diarrhea and he says had it for about a month. He denies any coughing. He has chronic shortness of breath and unable to tell if it is any worse than usual. Patient says has been in bed for 2 months since he had a stroke. Patient is a poor historian. Patient states that he has had discussions about getting on hemodialysis in the past but he refuses. In ED he is found have a blood pressure of 63/47 and oxygen saturation of 86% on room air. In the ED patient was started on IV fluids and Levophed. Bedside ultrasound showed no fluid overload. The patient was wanting to go home but it was explained to him and the family that he was too critical to go home. Patient was afebrile and other vital signs were stable as well, with the exception of the blood pressure as previously discussed. White blood cell count was borderline high and manual differential is pending. Lactate okay. Chemistry shows a hyponatremia as well as a acute on chronic kidney injury with a BUN of 4.5. Procalcitonin mildly elevated 0.36 Urinalysis suspected source of infection CT chest abdomen pelvis with lower lobe infiltrates versus atelectasis. There is bronchiectasis as well, moderate emphysema. Venous ultrasound lower extremities revealed no DVTs. Patient was able to nearly be weaned off oxygen. Continued on Levophed. Review of Systems: Pertinent positives as above. Denies headache/fever/chills/nausea/vomiting/chest or abdominal pain/cough/dyspnea/ Remaining 10 point review of system reviewed negative PHYSICAL EXAM General: Awake, No acute Distress Eyes/N/T: EOMI, no scleral icterus, PERRL, dry MM Head/Neck: neck supple, full ROM, normocephalic atraumatic CV: RRR, No murmurs, normal s1/s2 Pulm: mildly diminished at bases b/l, no wheezing/rhonchi/rales, no respiratory distress Abd: soft, nontender, +BS x4 Ext: no clubbing/cyanosis/edema, nontender Neuro: Alert, left hemiplegia, CN 2-12 grossly intact, sensations intact b/l upper/lower, follows commands Psychiatric: Skin: warm/dry, normal color PFSH PFSH All Active Problems (Updated 07/10/22 @ 19:27 by Bruce Hughes MD) Sprain of foot, left (Acute) Contusion of ankle or foot, left (Acute) Closed fracture of left hip (Acute) Acute renal failure (ARF) (Acute) Sepsis (Acute) CHF exacerbation (Acute) Weakness (Acute) Hypotension (Acute) Hypoalbuminemia (Acute) Mixed acid-base balance disorder (Acute) S/P cholecystectomy (Acute) Acute pneumonitis (Acute) Acute acalculous cholecystitis (Acute) Acute kidney injury superimposed on chronic kidney disease (Acute) Hypertension (Chronic) Chronic kidney disease (Acute) Sepsis (Acute) Acute cholecystitis (Acute) Leukocytosis (Acute) Uses wheelchair (Chronic) Overweight (Chronic) Easy bruising (Chronic) Cold intolerance (Chronic) Fatigue (Chronic) Memory loss (Chronic) Sleep disturbance (Chronic) Change of skin color (Chronic) Change in nail appearance (Chronic) Dry skin (Chronic) Itchy skin (Chronic) Muscle ache (Chronic) Incomplete emptying of bladder (Chronic) Frequent diarrhea (Chronic) Nocturnal cough with wheeze (Chronic) Left ankle swelling (Chronic) Sore throat (Chronic) Ringing in right ear (Chronic) Hiatal hernia (Chronic) Pain of left hip joint (Chronic) Urge incontinence of urine (Chronic) Benign prostatic hyperplasia with urinary obstruction (Chronic) Chronic obstructive lung disease (Chronic) 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) (Chronic) Alcohol dependence (Chronic) Hypertriglyceridemia (Chronic) Apraxia (Chronic) Cannabis dependence (Chronic) Cigarette smoker (Chronic) Chronic depression (Chronic) Ankle instability (Chronic) Muscle tenderness (Chronic) Muscle contracture (Chronic) Dependent on walker for ambulation (Chronic) Runny nose (Chronic) Narcotic addiction (Chronic) Mood swings (Chronic) Alcohol abuse (Chronic) Neurologic gait dysfunction (Chronic) Severe headache (Chronic) Dizziness (Chronic) Numbness (Chronic) Weakness (Chronic) Difficulty walking (Chronic) Arthralgia of ankle (Chronic) Diarrhea (Chronic) History of appetite changes (Chronic) Abdominal pain (Chronic) Wheezing (Chronic) Ankle swelling (Chronic) Shortness of breath on exertion (Chronic) Ischemic stroke (Chronic 12/16/08) Trochanteric bursitis, left hip (Chronic) Hemiparesis (Chronic) Hemorrhagic stroke (Chronic 09/25/04) Dysarthria (Chronic 06/27/17) Low back pain (Chronic 09/12/17) Neck pain (Chronic 06/27/17) BPH (benign prostatic hyperplasia) (Chronic 06/27/17) Chronic kidney disease, stage 3 (Chronic 06/27/17) Acid reflux (Chronic 06/27/17) Essential hypertension (Chronic 06/27/17) Blurring of visual image (Chronic 06/27/17) Hemiplegia affecting nondominant side (Chronic 06/27/17) Depressive disorder (Chronic 06/27/17) Hyperlipidemia (Chronic 06/27/17) Urinary incontinence (Chronic 06/27/17) Medical History (Updated 07/10/22 @ 19:27 by Bruce Hughes MD) Abdominal pain Acid reflux (06/27/17) Alcohol abuse Alcohol dependence Ankle instability Ankle swelling Apraxia Arthralgia of ankle Benign prostatic hyperplasia with urinary obstruction Blurring of visual image (06/27/17) BPH (benign prostatic hyperplasia) (06/27/17) Cannabis dependence Change in nail appearance Change of skin color Chronic depression Chronic kidney disease, stage 3 (06/27/17) Chronic obstructive lung disease Cigarette smoker Cold intolerance Dependent on walker for ambulation Depressive disorder (06/27/17) Diarrhea Difficulty walking Dizziness Dry skin Dysarthria (06/27/17) Easy bruising Essential hypertension (06/27/17) Fatigue Frequent diarrhea Hemiparesis 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) Hemiplegia affecting nondominant side (06/27/17) Hemorrhagic stroke (09/25/04) Hiatal hernia History of appetite changes Hyperlipidemia (06/27/17) Hypertriglyceridemia Incomplete emptying of bladder Ischemic stroke (12/16/08) Itchy skin Left ankle swelling Low back pain (09/12/17) Memory loss Mood swings Muscle ache Left Thigh Muscle contracture Muscle tenderness Narcotic addiction Neck pain (06/27/17) Neurologic gait dysfunction Nocturnal cough with wheeze Numbness Overweight Pain of left hip joint Ringing in right ear Runny nose Severe headache Shortness of breath on exertion Sleep disturbance Sore throat Trochanteric bursitis, left hip Urge incontinence of urine Urinary incontinence (06/27/17) Uses wheelchair Weakness Wheezing Surgical History History of dental surgery Full Extracted History of esophagogastroduodenoscopy (EGD) (~07/2011) No pertinent past surgical history Family History Father Myocardial infarction Sister Malignant neoplasm of ovary Family/Other Diabetes mellitus Maternal Aunt Brother Hypertension Mother Stroke Diabetes mellitus Social History household members: alone marital status: 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 smoking status: Current every day smoker alcohol intake frequency: 2+ drinks per day substance use type: former substance user, marijuana and other seatbelt use: always MEDS/ALLERGIES Home Medications and Allergies Home Medications Medication Instructions Recorded Confirmed Type aspirin 325 mg tablet 325 mg PO QDAY 04/13/18 11/10/19 History felodipine 10 mg tablet,extended 10 mg PO QPM 04/13/18 11/10/19 History release 24 hr metoprolol succinate 50 mg 50 mg PO QDAY 04/13/18 11/10/19 History tablet,extended release 24 hr multivitamin [Multivitamins FC] 1 tab PO QDAY 04/13/18 11/10/19 History omeprazole 20 mg capsule,delayed 20 mg PO QDAY 04/13/18 11/10/19 History release vitamin B complex 1 tab PO QDAY 04/13/18 11/10/19 History ascorbate calcium (vitamin C) 1 tab PO QDAY 01/03/19 11/10/19 History finasteride 5 mg tablet 5 mg PO QDAY #90 tabs 04/19/19 11/10/19 Rx mirabegron 25 mg tablet,extended 25 mg PO QDAY #90 tabs 04/19/19 11/10/19 Rx release 24 hr tamsulosin 0.4 mg capsule 0.4 mg PO QDAY #90 caps 04/19/19 11/10/19 Rx fluoxetine 40 mg capsule 40 mg PO QDAY 11/10/19 11/10/19 History Allergies Allergy/AdvReac Type Severity Reaction Status Date / Time bee venom protein (honey bee) Allergy Unknown Unknown Verified 06/04/22 08:34 EXAM Constitutional Vitals: Temp Pulse Resp BP Pulse Ox O2 Del Method O2 Flow Rate 98.4 F 75 14 112/66 98 Nasal Cannula 1 07/11/22 06:03 07/11/22 06:03 07/11/22 06:03 07/11/22 06:00 07/11/22 06:03 07/11/22 06:00 07/11/22 06:00 DATA Data Completed and Pending Labs: Labs from last 24 hours 07/11/22 07/10/22 07/10/22 00:49 22:20 21:07 WBC RBC Hgb Hct POC Hct MCV MCH MCHC RDW Plt Count MPV Immature Gran % (Auto) Neut % (Auto) Lymph % (Auto) Daggett % (Auto) Eos % (Auto) Baso % (Auto) Lymph # (Auto) Daggett # (Auto) Eos # (Auto) Baso # (Auto) Seg Neutrophils % 74 Band Neutrophils % 7 Lymphocytes % 10 L Monocytes % (Manual) 9 Immature Gran # Absolute Neutrophils Platelet Estimate Normal RBC Morphology Normal D-Dimer 1.41 H POC VBG pH POC VBG pCO2 at Temp POC VBG pO2 POC VBG HCO3 POC VBG Total CO2 POC Venous O2 Sat POC VBG Base Excess VBG Lactic Acid POC Sodium POC Potassium POC Chloride POC Total CO2 POC BUN POC Creatinine POC Glucose POC WB Ioniz Calcium NT-Pro-B Natriuret Pep Procalcitonin Urine Color Ledy Urine Appearance Hazy A Urine pH 5.0 Ur Specific Alba 1.015 Urine Protein 100 A Urine Glucose (UA) Negative Urine Ketones Negative Urine Occult Blood Negative Urine Nitrate Negative Urine Bilirubin Negative Urine Urobilinogen Negative Ur Leukocyte Esterase 250 A Urine RBC 3 Urine WBC 35 H Ur Squamous Epith Cells < 1 Urine Bacteria None Hyaline Casts 4 H Urine Mucus Few A Urine Yeast (Budding) Mod A Ur Culture Indicated? yes POC Troponin I 07/10/22 07/10/22 07/10/22 18:17 18:16 18:16 WBC 11.2 H RBC 3.75 L Hgb 11.4 L Hct 33.7 L POC Hct MCV 89.9 MCH 30.4 MCHC 33.8 RDW 13.3 Plt Count 271 MPV 11.6 Immature Gran % (Auto) 1.1 H Neut % (Auto) 83.2 H Lymph % (Auto) 8.4 L Daggett % (Auto) 7.0 Eos % (Auto) 0.1 Baso % (Auto) 0.2 Lymph # (Auto) 0.94 L Daggett # (Auto) 0.79 Eos # (Auto) 0.01 Baso # (Auto) 0.02 Seg Neutrophils % Band Neutrophils % Lymphocytes % Monocytes % (Manual) Immature Gran # 0.12 H Absolute Neutrophils 9.35 H Platelet Estimate RBC Morphology D-Dimer POC VBG pH POC VBG pCO2 at Temp POC VBG pO2 POC VBG HCO3 POC VBG Total CO2 POC Venous O2 Sat POC VBG Base Excess VBG Lactic Acid POC Sodium POC Potassium POC Chloride POC Total CO2 POC BUN POC Creatinine POC Glucose POC WB Ioniz Calcium NT-Pro-B Natriuret Pep 1404.0 H Procalcitonin 0.36 H Urine Color Urine Appearance Urine pH Ur Specific Alba Urine Protein Urine Glucose (UA) Urine Ketones Urine Occult Blood Urine Nitrate Urine Bilirubin Urine Urobilinogen Ur Leukocyte Esterase Urine RBC Urine WBC Ur Squamous Epith Cells Urine Bacteria Hyaline Casts Urine Mucus Urine Yeast (Budding) Ur Culture Indicated? POC Troponin I 07/10/22 07/10/22 07/10/22 18:08 18:05 18:00 WBC RBC Hgb Hct POC Hct 35.0 L MCV MCH MCHC RDW Plt Count MPV Immature Gran % (Auto) Neut % (Auto) Lymph % (Auto) Daggett % (Auto) Eos % (Auto) Baso % (Auto) Lymph # (Auto) Daggett # (Auto) Eos # (Auto) Baso # (Auto) Seg Neutrophils % Band Neutrophils % Lymphocytes % Monocytes % (Manual) Immature Gran # Absolute Neutrophils Platelet Estimate RBC Morphology D-Dimer POC VBG pH 7.38 POC VBG pCO2 at Temp 28.6 L POC VBG pO2 36 POC VBG HCO3 17.1 L POC VBG Total CO2 18.0 L POC Venous O2 Sat 69.0 POC VBG Base Excess -8.0 L VBG Lactic Acid 1.6 POC Sodium 130 L POC Potassium 4.5 POC Chloride 102 POC Total CO2 19.0 L POC BUN 76 H POC Creatinine 4.5 H POC Glucose 114 H POC WB Ioniz Calcium 1.01 L NT-Pro-B Natriuret Pep Procalcitonin Urine Color Urine Appearance Urine pH Ur Specific Alba Urine Protein Urine Glucose (UA) Urine Ketones Urine Occult Blood Urine Nitrate Urine Bilirubin Urine Urobilinogen Ur Leukocyte Esterase Urine RBC Urine WBC Ur Squamous Epith Cells Urine Bacteria Hyaline Casts Urine Mucus Urine Yeast (Budding) Ur Culture Indicated? POC Troponin I 0.02 A/P Narrative A/P Narrative: A: *Septic Shock: vs Pulm *PNA(?aspiration): *UTI( ): *Acute hypoxic respiratory failure: -in ED, now on room air *Covid(+): on room air *Encephalopathy: *ONEIL on CKD V: -poor uop *Metabolic acidosis. *Volume depletion: *Hyponatremia/hypomagnesemia:: *COPD ( ): *h/o CVA w/left hemiplegia: *Dementia, likely vascular: *Anemia, chronic: *HTN: *GERD: *BPH: cont home meds *Depression/anxiety: cont SSRI *Diarrhea: previously treated for c. diff P: -levophed wean off -IVF, monitor uop, -monreal and and strict I/O -IV abx, pending BC/SC/UC -pt suspected of have c. diff colitis infection, which would be a 2nd recurrence requiring vanco tapered and pulsed regimen -Monitor renal function, avoid nephrotoxic medications -f/u sodium, trend and replace electrolytes -O2 supp, wean as able -IS/Acapella, prn nebs, RT -stool studies -hold ccb/bb for hypotension -Home medication reconciliation -PT/OT, ST eval -Smoking cessation counseling >3 min, nicotine patch -CM for placement needs -ppx: Heparin / ppi Time Spent With Patient Time: Total time spent is greater than 50% in coordination of care (as documented) at patient's floor/unit and/or counseling patient: Critical Care Time: Yes Total Critical Care Time: 70
[2022-07-11] MEDS: PIPERACILLIN SODIUM/TAZOBACTAM 3.375 GM in DEXTROSE 5% IN WATER 50 ML IV SCH ×2 (07:43)
[2022-07-11] MEDS: PANTOPRAZOLE 40 MG TABLET PO SCH (08:26)
[2022-07-11] MEDS: NICOTINE 21 MG PATCH TOPICAL SCH (08:28)
[2022-07-11] MEDS ORDERED: IPRATROPIUM/ALBUTEROL 3 ML AMPUL.NEB NEB PRN (08:40)
[2022-07-11] MEDS ORDERED: POTASSIUM CHLORIDE 20 MEQ TABLET PO PRN (08:40)
[2022-07-11] MEDS ORDERED: POTASSIUM CHLORIDE 40 MEQ in DEXTROSE 5% IN WATER 500 ML IV PRN (08:40)
[2022-07-11] MEDS ORDERED: SENNOSIDES 1 TABLET PO PRN (08:40)
[2022-07-11] MEDS ORDERED: ONDANSETRON 4 MG/2 ML VIAL IV PRN (08:40)
[2022-07-11] MEDS ORDERED: POLYETHYLENE GLYCOL 3350 17 GM PACKET PO PRN (08:40)
[2022-07-11] MEDS ORDERED: 0.9 % SODIUM CHLORIDE 1,000 ML IV SCH (08:45)
[2022-07-11] MEDS ORDERED: ENOXAPARIN 30 MG/0.3 ML SYRINGE SQ SCH (09:00)
[2022-07-11] MEDS: PIPERACILLIN SODIUM/TAZOBACTAM 2.25 GM in DEXTROSE 5% IN WATER 50 ML IV SCH ×3 (09:00→21:45)
[2022-07-11] MEDS ORDERED: VANCOMYCIN PER PHARMACY IV SCH (09:00)
[2022-07-11] MEDS ORDERED: HEPARIN 5,000 UNIT/ML VIAL SQ SCH (09:00)
[2022-07-11] MEDS: DOCUSATE SODIUM 100 MG CAPSULE PO SCH ×2 (09:01→21:45)
[2022-07-11] MEDS: NOREPINEPHRINE BITARTRATE 8 MG in 0.9 % SODIUM CHLORIDE 242 ML IV SCH (09:01)
[2022-07-11 09:40] LABS: Hematocrit 36.1 % (40.1-51.0); Hemoglobin 11.8 g/dL (13.7-17.5); Mean Cell Volume 93.3 fL (80.0-100.0); Mean Corpuscular HGB Conc 32.7 g/dL (31.0-36.0); Mean Platelet Volume 10.6 fL (8.8-12.5); Platelet Count 213 K/mcL (140-440); RBC 3.87 M/mcL (4.63-6.08); Red Cell Distribution Width 13.2 % (11.5-14.5); WBC 9.9 K/mcL (4.5-11.0)
[2022-07-11 09:50] LABS: Vancomycin,Random 11.8 ug/mL
[2022-07-11 09:50] LABS: ALT/SGPT 38 U/L (<40); AST/SGOT 68 U/L (<40); Albumin 2.2 gm/dL (3.2-5.2); Albumin/Globulin Ratio 0.5 (1.0-2.3); Alkaline Phosphatase 485 U/L (39-117); Bilirubin,Direct 0.2 mg/dL (<0.3); Bilirubin,Total 0.3 mg/dL (0.1-1.0); Blood Urea Nitrogen 54 mg/dL (8-23); Calcium 7.4 mg/dL (8.6-10.4); Carbon Dioxide 16 mmol/L (22-30); Chloride 101 mmol/L (96-108); Globulin 4.5 gm/dL (2.2-3.7); Glomerular Filtration Rate 18; Glucose 84 mg/dL (70-105); Lactate Dehydrogenase 208 U/L (135-225); Phosphorous 3.6 mg/dL (2.5-4.5); Triglycerides 216 mg/dL (<150); Uric Acid 13.9 mg/dL (2.5-8.0)
[2022-07-11] MEDS: MAGNESIUM SULFATE 2 GM/50 ML BAG IV PRN (10:08)
[2022-07-11 10:35] LABS: Basophils % (Manual) 1 % (0-2); Eosinophils % (Manual) 1 % (0-7); Lymphocytes % 8 % (15-49); Monocytes % (Manual) 7 % (1-12); Myelocytes % 1 %; Platelet Estimate NORMAL (Normal); RBC Morphology NORMAL (Normal); Segmented Neutrophils % 82 % (38-78)
[2022-07-11] MEDS ORDERED: MAGNESIUM SULFATE 8.12 MEQ in DEXTROSE 5% IN WATER 50 ML IV ONE (10:42)
[2022-07-11] MEDS: POTASSIUM CHLORIDE 20 MEQ TABLET PO PRN (11:19)
[2022-07-11] MEDS: SODIUM BICARBONATE 650 MG TABLET PO SCH ×3 (11:23→21:45)
[2022-07-11] MEDS: VANCOMYCIN 125 MG CAPSULE PO SCH ×4 (11:53→21:44)
[2022-07-11] MEDS ORDERED: NOREPINEPHRINE BITARTRATE 8 MG in 0.9 % SODIUM CHLORIDE 242 ML IV PRN (12:16)
[2022-07-11] MEDS ORDERED: VANCOMYCIN 1,000 MG in 0.9 % SODIUM CHLORIDE 250 ML IV SCH (13:00)
[2022-07-11] MEDS: ACETAMINOPHEN 325 MG TABLET PO PRN (17:56)
--- NOTE | 2022-07-11 20:36 | EKG ---
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
[2022-07-11] MEDS ORDERED: LACTATED RINGERS 500 ML IV SCH (21:15)
[2022-07-11] MEDS: HEPARIN 5,000 UNIT/ML VIAL SQ SCH (21:44)
[2022-07-12] MEDS: ACETAMINOPHEN 325 MG TABLET PO PRN ×2 (02:54→21:08)
[2022-07-12] MEDS: 0.9 % SODIUM CHLORIDE 10 ML SYRINGE IV SCH ×3 (05:36→21:41)
[2022-07-12] MEDS: PIPERACILLIN SODIUM/TAZOBACTAM 2.25 GM in DEXTROSE 5% IN WATER 50 ML IV SCH (05:36)
[2022-07-12 06:30] LABS: Basophils # (Auto) 0.04 K/mcL (0.00-0.30); Basophils % (Auto) 0.4 % (0.0-2.0); Eosinophils # (Auto) 0.03 K/mcL (0.00-0.70); Eosinophils % (Auto) 0.3 % (0.0-7.0); Hemoglobin 10.7 g/dL (13.7-17.5); Lymphocytes # (Auto) 0.89 K/mcL (1.50-4.80); Lymphocytes % (Auto) 8.6 % (15.5-49.0); Mean Cell Volume 94.6 fL (80.0-100.0); Mean Corpuscular HGB Conc 32.4 g/dL (31.0-36.0); Mean Platelet Volume 11.1 fL (8.8-12.5); Monocytes # (Auto) 0.74 K/mcL (0.10-0.90); Monocytes % (Auto) 7.1 % (1.0-12.0); Neutrophils % (Auto) 82.3 % (38.0-78.0); Platelet Count 197 K/mcL (140-440); RBC 3.49 M/mcL (4.63-6.08); Red Cell Distribution Width 13.3 % (11.5-14.5); WBC 10.4 K/mcL (4.5-11.0)
[2022-07-12] MEDS: DOCUSATE SODIUM 100 MG CAPSULE PO SCH ×2 (07:07→21:01)
[2022-07-12 07:10] LABS: ALT/SGPT 28 U/L (<40); AST/SGOT 47 U/L (<40); Albumin/Globulin Ratio 0.5 (1.0-2.3); Alkaline Phosphatase 391 U/L (39-117); Bilirubin,Direct < 0.2 mg/dL (0-0.3); Bilirubin,Total 0.3 mg/dL (0.1-1.0); Blood Urea Nitrogen 46 mg/dL (8-23); Calcium 7.5 mg/dL (8.6-10.4); Carbon Dioxide 16 mmol/L (22-30); Chloride 104 mmol/L (96-108); Glomerular Filtration Rate 22; Glucose 77 mg/dL (70-105); Lactate Dehydrogenase 198 U/L (135-225); Phosphorous 2.5 mg/dL (2.5-4.5); Triglycerides 174 mg/dL (<150); Uric Acid 13.5 mg/dL (2.5-8.0)
--- NOTE | 2022-07-12 08:02 | Internal Med Progress Note ---
SUBJECTIVE Subjective Patient information: Note initiated : 07/12/22 at 7:50 am Service Date, if different from initiated Date: [] Patient: Priyank Dueñas a 71 y/o M admitted on 07/11/22 for Hypotension, weakness. Chief Complaint: [] Interval history: History of present illness: Mr. Dueñas is a 71 year old M Presents from home with weakness generalized as well as hypotension. Patient was released from a rehab tuesday after being admitted for a broken hip repair. History is obtained from the chart as patient has confusion at baseline. Patient became increasingly weak and family unable to care for the patient. Patient was found sleeping on the floor. However other than seeming more fatigued than usual he otherwise acted normal. Patient also had diarrhea and he says had it for about a month. He denies any coughing. He has chronic shortness of breath and unable to tell if it is any worse than usual. Patient says has been in bed for 2 months since he had a stroke. Patient is a poor historian. Patient states that he has had discussions about getting on hemodialysis in the past but he refuses. In ED he is found have a blood pressure of 63/47 and oxygen saturation of 86% on room air. In the ED patient was started on IV fluids and Levophed. Bedside ultrasound showed no fluid overload. The patient was wanting to go home but it was explained to him and the family that he was too critical to go home. Patient was afebrile and other vital signs were stable as well, with the exception of the blood pressure as previously discussed. White blood cell count was borderline high and manual differential is pending. Lactate okay. Chemistry shows a hyponatremia as well as a acute on chronic kidney injury with a BUN of 4.5. Procalcitonin mildly elevated 0.36 Urinalysis suspected source of infection CT chest abdomen pelvis with lower lobe infiltrates versus atelectasis. There is bronchiectasis as well, moderate emphysema. Venous ultrasound lower extremities revealed no DVTs. Patient was able to nearly be weaned off oxygen. Continued on Levophed. 3/6 tmax 100.1 o/n. Found to be COVID-positive. pt off/on oxygen, suspect component of aspiration C. difficile positive Patient says he just wants to sleep. Hyponatremia, metabolic acidosis. Renal function slowly improving. Off Levophed since yesterday. Oral vancomycin started yesterday. Complains of chills but other no other complaints. Review of Systems: Denies headache/fever/chills/nausea/vomiting/chest or abdominal pain. Otherwise as above PHYSICAL EXAM General: Awake, No acute Distress Eyes/N/T: EOMI, no scleral icterus, Head/Neck: neck supple, full ROM, CV: RRR, No murmurs, normal s1/s2 Pulm: mildl b/l wheezing, no rhonchi, no respiratory distress Abd: soft, nontender, +BS x4 Ext: no clubbing/cyanosis/edema, nontender Neuro: Alert, left hemiplegia, sensations intact b/l upper/lower, follows commands Psychiatric: Skin: warm/dry, normal color Constitutional Vitals: Vital Signs Temp Pulse Resp BP Pulse Ox O2 Del Method O2 Flow Rate 98.3 F 79 29 H 144/74 98 Room Air 0 07/12/22 07:00 07/12/22 07:00 07/12/22 07:00 07/12/22 07:00 07/12/22 07:00 07/12/22 07:00 07/12/22 06:26 Period Temp Pulse Resp BP Sys/Paiz Pulse Ox O2 Del Method O2 Flow Rate Last 24 Hr 98.2 F-100.1 F 70-92 12-43 108-149/63-100 93-100 Room Air-Room Air 0-0 Intake and Output 07/11/22 07/12/22 07/12/22 19:59 03:59 11:59 Intake Total 236 183 8981 Output Total 260 395 219 Balance 580 555 831 Weight 72.575 kg Intake & Output: Intake & Output 07/11/22 07/12/22 07/12/22 19:59 03:59 11:59 Intake Total 752 841 4819 Output Total 260 395 219 Balance 580 555 831 Weight 72.575 kg Intake: IV 393 601 2146 Sodium Chloride 0.9% 1,000 ml @ 1000 75 mls/hr IV .[id number] [facility] Rx#: [id number] Lactated Ringers 500 ml @ 500 500 mls/hr IV .Q1H [facility] Rx#: [id number] Levophed 8 mg In Sodium 0 Chloride 0.9% 242 ml @ 10 MCG/ MIN 18.75 mls/hr IV Q14H [facility] Rx #:[id number] Zosyn 2.25 gm In Dextrose 5% in 50 50 50 Water 50 ml @ 100 mls/hr IV Q8H [facility] Rx#:[id number] Vancomycin 1,000 mg In Sodium 250 Chloride 0.9% 250 ml @ 250 mls/ hr IV ONCE [facility] Rx#:[id number] Oral 540 400 Output: Urine Catheter Amount 260 395 219 Other: Urine Appearance Clear Clear Clear Uretheral ([place]) Cloudy Clear Urine Color Dark Yellow Yellow Yellow Uretheral ([place]) Yellow Bright Yellow Stool Size Large Large Stool Color Yellow Brown Stool Consistency Liquid Loose # Bowel Movements 1 1 # of times incontinent of 1 1 Bowels OBJ DATA Labs 07/12/22 05:38 07/12/22 05:38 Labs: Abnormal Lab Results 07/12/22 07/12/22 07/12/22 05:38 05:38 05:38 WBC RBC 3.49 L Hgb 10.7 L Hct 33.0 L POC Hct Immature Gran % (Auto) 1.3 H Neut % (Auto) 82.3 H Lymph % (Auto) 8.6 L Lymph # (Auto) 0.89 L Seg Neutrophils % Lymphocytes % Immature Gran # 0.14 H Absolute Neutrophils 8.54 H D-Dimer POC VBG pCO2 at Temp POC VBG HCO3 POC VBG Total CO2 POC VBG Base Excess POC Sodium Sodium 132 L Carbon Dioxide 16 L POC Total CO2 POC BUN BUN 46 H Creatinine 2.8 H POC Creatinine POC Glucose Uric Acid 13.5 H Calcium 7.5 L POC WB Ioniz Calcium Magnesium GGT 430 H AST 47 H Alkaline Phosphatase 391 H NT-Pro-B Natriuret Pep Albumin 2.0 L Globulin 4.0 H Albumin/Globulin Ratio 0.5 L Triglycerides 174 H Procalcitonin 0.32 H Urine Appearance Urine Protein Ur Leukocyte Esterase Urine WBC Hyaline Casts Urine Mucus Urine Yeast (Budding) 07/11/22 07/11/22 07/11/22 08:52 08:52 00:49 WBC RBC 3.87 L Hgb 11.8 L Hct 36.1 L POC Hct Immature Gran % (Auto) Neut % (Auto) Lymph % (Auto) Lymph # (Auto) Seg Neutrophils % 82 H Lymphocytes % 8 L Immature Gran # Absolute Neutrophils D-Dimer POC VBG pCO2 at Temp POC VBG HCO3 POC VBG Total CO2 POC VBG Base Excess POC Sodium Sodium 132 L Carbon Dioxide 16 L POC Total CO2 POC BUN BUN 54 H Creatinine 3.2 H POC Creatinine POC Glucose Uric Acid 13.9 H Calcium 7.4 L POC WB Ioniz Calcium Magnesium 1.3 L GGT 526 H AST 68 H Alkaline Phosphatase 485 H NT-Pro-B Natriuret Pep Albumin 2.2 L Globulin 4.5 H Albumin/Globulin Ratio 0.5 L Triglycerides 216 H Procalcitonin Urine Appearance Hazy A Urine Protein 100 A Ur Leukocyte Esterase 250 A Urine WBC 35 H Hyaline Casts 4 H Urine Mucus Few A Urine Yeast (Budding) Mod A 07/10/22 07/10/22 07/10/22 22:20 21:07 18:17 WBC 11.2 H RBC 3.75 L Hgb 11.4 L Hct 33.7 L POC Hct Immature Gran % (Auto) 1.1 H Neut % (Auto) 83.2 H Lymph % (Auto) 8.4 L Lymph # (Auto) 0.94 L Seg Neutrophils % Lymphocytes % 10 L Immature Gran # 0.12 H Absolute Neutrophils 9.35 H D-Dimer 1.41 H POC VBG pCO2 at Temp POC VBG HCO3 POC VBG Total CO2 POC VBG Base Excess POC Sodium Sodium Carbon Dioxide POC Total CO2 POC BUN BUN Creatinine POC Creatinine POC Glucose Uric Acid Calcium POC WB Ioniz Calcium Magnesium GGT AST Alkaline Phosphatase NT-Pro-B Natriuret Pep Albumin Globulin Albumin/Globulin Ratio Triglycerides Procalcitonin Urine Appearance Urine Protein Ur Leukocyte Esterase Urine WBC Hyaline Casts Urine Mucus Urine Yeast (Budding) 07/10/22 07/10/22 07/10/22 18:16 18:16 18:05 WBC RBC Hgb Hct POC Hct Immature Gran % (Auto) Neut % (Auto) Lymph % (Auto) Lymph # (Auto) Seg Neutrophils % Lymphocytes % Immature Gran # Absolute Neutrophils D-Dimer POC VBG pCO2 at Temp 28.6 L POC VBG HCO3 17.1 L POC VBG Total CO2 18.0 L POC VBG Base Excess -8.0 L POC Sodium Sodium Carbon Dioxide POC Total CO2 POC BUN BUN Creatinine POC Creatinine POC Glucose Uric Acid Calcium POC WB Ioniz Calcium Magnesium GGT AST Alkaline Phosphatase NT-Pro-B Natriuret Pep 1404.0 H Albumin Globulin Albumin/Globulin Ratio Triglycerides Procalcitonin 0.36 H Urine Appearance Urine Protein Ur Leukocyte Esterase Urine WBC Hyaline Casts Urine Mucus Urine Yeast (Budding) 07/10/22 18:00 WBC RBC Hgb Hct POC Hct 35.0 L Immature Gran % (Auto) Neut % (Auto) Lymph % (Auto) Lymph # (Auto) Seg Neutrophils % Lymphocytes % Immature Gran # Absolute Neutrophils D-Dimer POC VBG pCO2 at Temp POC VBG HCO3 POC VBG Total CO2 POC VBG Base Excess POC Sodium 130 L Sodium Carbon Dioxide POC Total CO2 19.0 L POC BUN 76 H BUN Creatinine POC Creatinine 4.5 H POC Glucose 114 H Uric Acid Calcium POC WB Ioniz Calcium 1.01 L Magnesium GGT AST Alkaline Phosphatase NT-Pro-B Natriuret Pep Albumin Globulin Albumin/Globulin Ratio Triglycerides Procalcitonin Urine Appearance Urine Protein Ur Leukocyte Esterase Urine WBC Hyaline Casts Urine Mucus Urine Yeast (Budding) Meds: Medications Acetaminophen (Acetaminophen 325 Mg Tablet) 650 mg PO Q6HP PRN; Protocol PRN Reason: Per Pain Protocol/Fever > 101 Last Admin: 07/12/22 02:54 Dose: 650 mg Albuterol/Ipratropium (Ipratropium/Albuterol 3 Ml Ampul.Neb) 3 ml NEB Q4HP PRN PRN Reason: Shortness Of Breath Docusate Sodium (Docusate Sodium 100 Mg Capsule) 100 mg PO BID [facility] Last Admin: 07/12/22 07:07 Dose: Not Given Heparin Sodium (Porcine) (Heparin 5,000 Unit/Ml Vial) 5,000 unit SQ Q12 [facility] Last Admin: 07/11/22 21:44 Dose: 5,000 unit Piperacillin Sod/Tazobactam (Sod 2.25 gm/ Dextrose) 50 mls @ 100 mls/hr IV Q8H [facility] Last Infusion: 07/12/22 06:33 Dose: Infused Potassium Chloride 40 meq/ (Dextrose) 520 mls @ 130 mls/hr IV UD PRN PRN Reason: Potassium < 3 Magnesium Sulfate (Magnesium Sulfate) 2 gm in 50 mls @ 50 mls/hr IV UD PRN PRN Reason: Magnesium </= 1.6 Last Infusion: 07/11/22 11:16 Dose: Infused Norepinephrine Bitartrate 8 mg (/ Sodium Chloride) 250 mls @ 18.75 mls/hr IV PRN PRN; Protocol PRN Reason: Hypotension Nicotine (Nicotine 21 Mg Patch) 21 mg TOPICAL DAILY@1000 [facility] Last Admin: 07/11/22 08:28 Dose: 21 mg Ondansetron HCl (Ondansetron 4 Mg/2 Ml Vial) 4 mg IV Q4HP PRN PRN Reason: Nausea And Vomiting Pantoprazole Sodium (Pantoprazole 40 Mg Tablet) 40 mg PO QAMAC [facility] Last Admin: 07/11/22 08:26 Dose: 40 mg Polyethylene Glycol (Polyethylene Glycol 3350 17 Gm Packet) 17 gm PO DAILYP PRN PRN Reason: Constipation Potassium Chloride (Potassium Chloride 20 Meq Tablet) 40 meq PO UD PRN PRN Reason: Potssium is 3-3.5 Last Admin: 07/11/22 11:19 Dose: 40 meq Potassium Chloride (Potassium Chloride 20 Meq Tablet) 40 meq PO UD PRN PRN Reason: Potassium < 3 Senna (Sennosides 1 Tablet) 2 tab PO DAILYP PRN PRN Reason: Constipation Sodium Chloride (0.9 % Sodium Chloride 10 Ml Syringe) 10 ml IV Q8 [facility] Last Admin: 07/12/22 05:36 Dose: 10 ml Vancomycin HCl (Vancomycin 125 Mg Capsule) 125 mg PO QID [facility]; Protocol Last Admin: 07/11/22 21:44 Dose: 125 mg A/P Narrative A/P Narrative: A: *Septic Shock: vs Pulm -off vasopressors *PNA(?aspiration): *Covid(+): on room air *Acute hypoxic respiratory failure: -in ED, now on room air but was on O2 for a few hours this morning *UTI( ): *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 diff P: -levophed off -IVF's, monitor uop, -monreal and and strict I/O -zosyn to rocephin, pending BC/SC/UC -PO Vanco tapered and pulsed regimen -we do not have fidaxomicin -Monitor renal function, avoid nephrotoxic medications -f/u sodium, trend and replace electrolytes -O2 supp prn, wean as able -IS/Acapella, prn nebs, RT, IH's -hold arb for hypotension and oneil, restart bb at lower dose and titrate up as needed -hold lasix/hctz for now -Home medication reconciliation -PT/OT, ST eval -Smoking cessation counseling, nicotine patch -CM for placement needs -ppx: Heparin / ppi Time Spent With Patient Time: Total time spent is greater than 50% in coordination of care (as documented) at patient's floor/unit and/or counseling patient: Subsequent: Total time with patient: 50 - 65 Minutes QUALITY VTE Deep Vein Thrombosis/Pulmonary Embolism Present on Admission: No
[2022-07-12] MEDS ORDERED: DEXAMETHASONE 4 MG TABLET PO SCH (09:00)
[2022-07-12] MEDS: HEPARIN 5,000 UNIT/ML VIAL SQ SCH ×2 (09:17→21:09)
[2022-07-12] MEDS: SODIUM BICARBONATE 650 MG TABLET PO SCH ×3 (09:17→21:08)
[2022-07-12] MEDS: PANTOPRAZOLE 40 MG TABLET PO SCH (09:17)
[2022-07-12] MEDS: NICOTINE 21 MG PATCH TOPICAL SCH (09:18)
[2022-07-12] MEDS: VANCOMYCIN 125 MG CAPSULE PO SCH ×4 (09:24→21:08)
[2022-07-12] MEDS: cefTRIAXone 2 GM in DEXTROSE 5% IN WATER 50 ML IV SCH (10:45)
--- NOTE | 2022-07-12 13:17 | Internal Med Progress Note ---
SUBJECTIVE Subjective Patient information: Note initiated : 07/12/22 at 1:16 pm Service Date, if different from initiated Date: [] Patient: Priyank Dueñas a 71 y/o M admitted on 07/11/22 for Hypotension, weakness. Chief Complaint: [] Interval history: History of present illness: Mr. Dueñas is a 71 year old M Presents from home with weakness generalized as well as hypotension. Patient was released from a rehab tuesday after being admitted for a broken hip repair. History is obtained from the chart as patient has confusion at baseline. Patient became increasingly weak and family unable to care for the patient. Patient was found sleeping on the floor. However other than seeming more fatigued than usual he otherwise acted normal. Patient also had diarrhea and he says had it for about a month. He denies any coughing. He has chronic shortness of breath and unable to tell if it is any worse than usual. Patient says has been in bed for 2 months since he had a stroke. Patient is a poor historian. Patient states that he has had discussions about getting on hemodialysis in the past but he refuses. In ED he is found have a blood pressure of 63/47 and oxygen saturation of 86% on room air. In the ED patient was started on IV fluids and Levophed. Bedside ultrasound showed no fluid overload. The patient was wanting to go home but it was explained to him and the family that he was too critical to go home. Patient was afebrile and other vital signs were stable as well, with the exception of the blood pressure as previously discussed. White blood cell count was borderline high and manual differential is pending. Lactate okay. Chemistry shows a hyponatremia as well as a acute on chronic kidney injury with a BUN of 4.5. Procalcitonin mildly elevated 0.36 Urinalysis suspected source of infection CT chest abdomen pelvis with lower lobe infiltrates versus atelectasis. There is bronchiectasis as well, moderate emphysema. Venous ultrasound lower extremities revealed no DVTs. Patient was able to nearly be weaned off oxygen. Continued on Levophed. 3/6 tmax 100.1 o/n. Found to be COVID-positive. pt off/on oxygen, suspect component of aspiration C. difficile positive Patient says he just wants to sleep. Hyponatremia, metabolic acidosis. Renal function slowly improving. Off Levophed since yesterday. Oral vancomycin started yesterday. Complains of chills but other no other complaints. 07/13 No significant events overnight, on room air. Diarrhea appears to be improving with oral vancomycin. Plan is to complete 5 days of antibiotic treat for pneumonia then 10 days of oral vancomycin followed by a taper for recurrent C. difficile colitis. Wound care following for right and left hip wounds that were present on admission. Physical exam Head: Atraumatic, normal inspection. Eyes: normal appearance, no scleral icterus. Neck: full ROM Respiratory: no respiratory distress. Cardiovascular: normal rate and rhythm, S1, S2. GI/Abdominal: soft, nontender, no guarding. Extremities: full range of motion, nontender. Neurological: CN II-XII intact, intact motor, intact sensation. Psychiatric: normal mood. Skin: Right and left hip wounds Constitutional Vitals: Vital Signs Temp Pulse Resp BP Pulse Ox O2 Del Method O2 Flow Rate 98.1 F 83 18 130/67 96 Room Air 0 07/12/22 12:02 07/12/22 12:02 07/12/22 12:02 07/12/22 12:02 07/12/22 12:02 07/12/22 12:02 07/12/22 08:00 Period Temp Pulse Resp BP Sys/Paiz Pulse Ox O2 Del Method O2 Flow Rate Last 24 Hr 98.0 F-100.1 F 74-100 12-43 114-155/67-96 92-100 Room Air-Room Air 0-0 Intake and Output 07/12/22 07/12/22 07/12/22 03:59 11:59 19:59 Intake Total 950 1050 Output Total 395 459 Balance 555 591 Weight 72.575 kg Intake & Output: Intake & Output 07/12/22 07/12/22 07/12/22 03:59 11:59 19:59 Intake Total 950 1050 Output Total 395 459 Balance 555 591 Weight 72.575 kg Intake: IV 550 1050 Sodium Chloride 0.9% 1,000 ml @ 1000 75 mls/hr IV .[id number] [facility] Rx#: [id number] Lactated Ringers 500 ml @ 500 500 mls/hr IV .Q1H [facility] Rx#: [id number] Zosyn 2.25 gm In Dextrose 5% in 50 50 Water 50 ml @ 100 mls/hr IV Q8H [facility] Rx#:[id number] Oral 400 Output: Urine Catheter Amount 395 459 Other: Meal Breakfast Percent of Meal Consumed 50% Feeding Ability Assist with Tray Set Up Urine Appearance Clear Clear Uretheral (Romero) Clear Clear Urine Color Yellow Yellow Uretheral (Romero) Bright Yellow Yellow Stool Size Large Stool Color Brown Stool Consistency Loose # Bowel Movements 1 # of times incontinent of 1 Bowels OBJ DATA Labs 07/12/22 05:38 07/12/22 05:38 Labs: Abnormal Lab Results 07/12/22 07/12/22 07/12/22 05:38 05:38 05:38 WBC RBC 3.49 L Hgb 10.7 L Hct 33.0 L POC Hct Immature Gran % (Auto) 1.3 H Neut % (Auto) 82.3 H Lymph % (Auto) 8.6 L Lymph # (Auto) 0.89 L Seg Neutrophils % Lymphocytes % Immature Gran # 0.14 H Absolute Neutrophils 8.54 H D-Dimer POC VBG pCO2 at Temp POC VBG HCO3 POC VBG Total CO2 POC VBG Base Excess POC Sodium Sodium 132 L Carbon Dioxide 16 L POC Total CO2 POC BUN BUN 46 H Creatinine 2.8 H POC Creatinine POC Glucose Uric Acid 13.5 H Calcium 7.5 L POC WB Ioniz Calcium Magnesium GGT 430 H AST 47 H Alkaline Phosphatase 391 H NT-Pro-B Natriuret Pep Albumin 2.0 L Globulin 4.0 H Albumin/Globulin Ratio 0.5 L Triglycerides 174 H Procalcitonin 0.32 H Urine Appearance Urine Protein Ur Leukocyte Esterase Urine WBC Hyaline Casts Urine Mucus Urine Yeast (Budding) 07/11/22 07/11/22 07/11/22 08:52 08:52 00:49 WBC RBC 3.87 L Hgb 11.8 L Hct 36.1 L POC Hct Immature Gran % (Auto) Neut % (Auto) Lymph % (Auto) Lymph # (Auto) Seg Neutrophils % 82 H Lymphocytes % 8 L Immature Gran # Absolute Neutrophils D-Dimer POC VBG pCO2 at Temp POC VBG HCO3 POC VBG Total CO2 POC VBG Base Excess POC Sodium Sodium 132 L Carbon Dioxide 16 L POC Total CO2 POC BUN BUN 54 H Creatinine 3.2 H POC Creatinine POC Glucose Uric Acid 13.9 H Calcium 7.4 L POC WB Ioniz Calcium Magnesium 1.3 L GGT 526 H AST 68 H Alkaline Phosphatase 485 H NT-Pro-B Natriuret Pep Albumin 2.2 L Globulin 4.5 H Albumin/Globulin Ratio 0.5 L Triglycerides 216 H Procalcitonin Urine Appearance Hazy A Urine Protein 100 A Ur Leukocyte Esterase 250 A Urine WBC 35 H Hyaline Casts 4 H Urine Mucus Few A Urine Yeast (Budding) Mod A 07/10/22 07/10/22 07/10/22 22:20 21:07 18:17 WBC 11.2 H RBC 3.75 L Hgb 11.4 L Hct 33.7 L POC Hct Immature Gran % (Auto) 1.1 H Neut % (Auto) 83.2 H Lymph % (Auto) 8.4 L Lymph # (Auto) 0.94 L Seg Neutrophils % Lymphocytes % 10 L Immature Gran # 0.12 H Absolute Neutrophils 9.35 H D-Dimer 1.41 H POC VBG pCO2 at Temp POC VBG HCO3 POC VBG Total CO2 POC VBG Base Excess POC Sodium Sodium Carbon Dioxide POC Total CO2 POC BUN BUN Creatinine POC Creatinine POC Glucose Uric Acid Calcium POC WB Ioniz Calcium Magnesium GGT AST Alkaline Phosphatase NT-Pro-B Natriuret Pep Albumin Globulin Albumin/Globulin Ratio Triglycerides Procalcitonin Urine Appearance Urine Protein Ur Leukocyte Esterase Urine WBC Hyaline Casts Urine Mucus Urine Yeast (Budding) 07/10/22 07/10/22 07/10/22 18:16 18:16 18:05 WBC RBC Hgb Hct POC Hct Immature Gran % (Auto) Neut % (Auto) Lymph % (Auto) Lymph # (Auto) Seg Neutrophils % Lymphocytes % Immature Gran # Absolute Neutrophils D-Dimer POC VBG pCO2 at Temp 28.6 L POC VBG HCO3 17.1 L POC VBG Total CO2 18.0 L POC VBG Base Excess -8.0 L POC Sodium Sodium Carbon Dioxide POC Total CO2 POC BUN BUN Creatinine POC Creatinine POC Glucose Uric Acid Calcium POC WB Ioniz Calcium Magnesium GGT AST Alkaline Phosphatase NT-Pro-B Natriuret Pep 1404.0 H Albumin Globulin Albumin/Globulin Ratio Triglycerides Procalcitonin 0.36 H Urine Appearance Urine Protein Ur Leukocyte Esterase Urine WBC Hyaline Casts Urine Mucus Urine Yeast (Budding) 07/10/22 18:00 WBC RBC Hgb Hct POC Hct 35.0 L Immature Gran % (Auto) Neut % (Auto) Lymph % (Auto) Lymph # (Auto) Seg Neutrophils % Lymphocytes % Immature Gran # Absolute Neutrophils D-Dimer POC VBG pCO2 at Temp POC VBG HCO3 POC VBG Total CO2 POC VBG Base Excess POC Sodium 130 L Sodium Carbon Dioxide POC Total CO2 19.0 L POC BUN 76 H BUN Creatinine POC Creatinine 4.5 H POC Glucose 114 H Uric Acid Calcium POC WB Ioniz Calcium 1.01 L Magnesium GGT AST Alkaline Phosphatase NT-Pro-B Natriuret Pep Albumin Globulin Albumin/Globulin Ratio Triglycerides Procalcitonin Urine Appearance Urine Protein Ur Leukocyte Esterase Urine WBC Hyaline Casts Urine Mucus Urine Yeast (Budding) Meds: Medications Acetaminophen (Acetaminophen 325 Mg Tablet) 650 mg PO Q6HP PRN; Protocol PRN Reason: Per Pain Protocol/Fever > 101 Last Admin: 07/12/22 02:54 Dose: 650 mg Albuterol/Ipratropium (Ipratropium/Albuterol 3 Ml Ampul.Neb) 3 ml NEB Q4HP PRN PRN Reason: Shortness Of Breath Docusate Sodium (Docusate Sodium 100 Mg Capsule) 100 mg PO BID [facility] Last Admin: 07/12/22 07:07 Dose: Not Given Fluoxetine HCl (Fluoxetine Hcl 20 Mg Capsule) 40 mg PO DAILY [facility] Heparin Sodium (Porcine) (Heparin 5,000 Unit/Ml Vial) 5,000 unit SQ Q12 [facility] Last Admin: 07/12/22 09:17 Dose: 5,000 unit Potassium Chloride 40 meq/ (Dextrose) 520 mls @ 130 mls/hr IV UD PRN PRN Reason: Potassium < 3 Magnesium Sulfate (Magnesium Sulfate) 2 gm in 50 mls @ 50 mls/hr IV UD PRN PRN Reason: Magnesium </= 1.6 Last Infusion: 07/11/22 11:16 Dose: Infused Norepinephrine Bitartrate 8 mg (/ Sodium Chloride) 250 mls @ 18.75 mls/hr IV PRN PRN; Protocol PRN Reason: Hypotension Ceftriaxone Sodium 2 gm/ (Dextrose) 50 mls @ 100 mls/hr IV Q24H [facility]; Protocol Last Admin: 07/12/22 10:45 Dose: 100 mls/hr Metoprolol Tartrate (Metoprolol Tartrate 25 Mg Tablet) 25 mg PO BID [facility] Nicotine (Nicotine 21 Mg Patch) 21 mg TOPICAL DAILY@1000 [facility] Last Admin: 07/12/22 09:18 Dose: 21 mg Ondansetron HCl (Ondansetron 4 Mg/2 Ml Vial) 4 mg IV Q4HP PRN PRN Reason: Nausea And Vomiting Pantoprazole Sodium (Pantoprazole 40 Mg Tablet) 40 mg PO QAMAC [facility] Last Admin: 07/12/22 09:17 Dose: 40 mg Polyethylene Glycol (Polyethylene Glycol 3350 17 Gm Packet) 17 gm PO DAILYP PRN PRN Reason: Constipation Potassium Chloride (Potassium Chloride 20 Meq Tablet) 40 meq PO UD PRN PRN Reason: Potssium is 3-3.5 Last Admin: 07/11/22 11:19 Dose: 40 meq Potassium Chloride (Potassium Chloride 20 Meq Tablet) 40 meq PO UD PRN PRN Reason: Potassium < 3 Senna (Sennosides 1 Tablet) 2 tab PO DAILYP PRN PRN Reason: Constipation Sodium Bicarbonate (Sodium Bicarbonate 650 Mg Tablet) 1,300 mg PO TID [facility] Stop: 07/12/22 21:01 Last Admin: 07/12/22 09:17 Dose: 1,300 mg Sodium Chloride (0.9 % Sodium Chloride 10 Ml Syringe) 10 ml IV Q8 [facility] Last Admin: 07/12/22 05:36 Dose: 10 ml Tamsulosin HCl (Tamsulosin 0.4 Mg Capsule) 0.4 mg PO QDAY [facility] Vancomycin HCl (Vancomycin 125 Mg Capsule) 125 mg PO QID [facility]; Protocol Last Admin: 07/12/22 09:24 Dose: 125 mg A/P Narrative A/P Narrative: Assessment: 71-year-old male with a history of hypertension, chronic anemia, 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 difficile colitis, chronic kidney disease stage V, COPD, bronchiectasis, GERD, depression, anxiety, BPH, dementia admitted for a septic shock probably secondary to aspiration pneumonia and complicated by acute hypoxic respiratory failure and acute kidney injury. The patient's hospital course was complicated by recurrent C. difficile colitis. *Resolved septic Shock: vs Pulm -off vasopressors *PNA(?aspiration): *Covid(+): on room air *Resolved acute hypoxic respiratory failure: *C. dfficile colitis: 2nd recurrence this year *Encephalopathy: improving *ONEIL on CKD V: -poor uop improving *Metabolic acidosis: Likely from CKD and possibly contributed by bicarbonate loss from diarrhea *Volume depletion: improving *COPD ( )/Bronchiectasis: *h/o CVA w/left hemiplegia: *Dementia, likely vascular: *Anemia, chronic: *HTN: *GERD: *BPH: cont home meds *Depression/anxiety: cont SSRI *Diarrhea: previously treated for c. diff *Wounds on bilateral hips and left forearm, present on admission P: -Ceftriaxone for pneumonia, complete 5 to 10 days treatment. -PO Vanco tapered and pulsed regimen -Fidaxomicin is not formulary. -Monitor renal function, avoid nephrotoxic medications -Replace electrolytes as needed -O2 supp prn, wean as able -IS/Acapella, prn nebs, RT, IH's -Sodium bicarbonate tablets for metabolic acidosis associated with CKD. -hold arb for hypotension and oneil, restart bb at lower dose and titrate up as needed -hold lasix/hctz for now -PT/OT, ST eval -Wound care consulted. -Smoking cessation counseling, nicotine patch -CM for placement needs -Consideration of fecal orthodox therapy versus FMT after discharge. -ppx: Heparin / ppi -CODE STATUS: DNR/DNI -Disposition: Current PCU status. Anticipate low intensity rehab at discharge. Time Spent With Patient Time: Total time spent is greater than 50% in coordination of care (as documented) at patient's floor/unit and/or counseling patient: QUALITY VTE Deep Vein Thrombosis/Pulmonary Embolism Present on Admission: No
[2022-07-12] MEDS: POTASSIUM CHLORIDE 20 MEQ TABLET PO PRN (15:53)
[2022-07-12] MEDS: METOPROLOL TARTRATE 25 MG TABLET PO SCH (21:09)
[2022-07-13] MEDS: 0.9 % SODIUM CHLORIDE 10 ML SYRINGE IV SCH ×3 (05:41→22:17)
[2022-07-13 07:34] LABS: ALT/SGPT 26 U/L (<40); AST/SGOT 43 U/L (<40); Albumin 2.2 gm/dL (3.2-5.2); Albumin/Globulin Ratio 0.5 (1.0-2.3); Alkaline Phosphatase 370 U/L (39-117); Bilirubin,Direct < 0.2 mg/dL (0-0.3); Bilirubin,Total 0.2 mg/dL (0.1-1.0); Blood Urea Nitrogen 39 mg/dL (8-23); Calcium 7.7 mg/dL (8.6-10.4); Carbon Dioxide 17 mmol/L (22-30); Chloride 105 mmol/L (96-108); Globulin 4.1 gm/dL (2.2-3.7); Glomerular Filtration Rate 27; Glucose 89 mg/dL (70-105); Lactate Dehydrogenase 219 U/L (135-225); Phosphorous 1.6 mg/dL (2.5-4.5); Triglycerides 142 mg/dL (<150); Uric Acid 12.3 mg/dL (2.5-8.0)
[2022-07-13] MEDS: FLUoxetine HCL 20 MG CAPSULE PO SCH (08:31)
[2022-07-13] MEDS: TAMSULOSIN 0.4 MG CAPSULE PO SCH (08:31)
[2022-07-13] MEDS: PANTOPRAZOLE 40 MG TABLET PO SCH (08:31)
[2022-07-13] MEDS: VANCOMYCIN 125 MG CAPSULE PO SCH ×4 (08:31→20:40)
[2022-07-13] MEDS: HEPARIN 5,000 UNIT/ML VIAL SQ SCH ×2 (08:32→20:39)
[2022-07-13] MEDS: DOCUSATE SODIUM 100 MG CAPSULE PO SCH ×2 (08:32→20:35)
[2022-07-13] MEDS: MAGNESIUM SULFATE 2 GM/50 ML BAG IV PRN (08:34)
[2022-07-13] MEDS: METOPROLOL TARTRATE 25 MG TABLET PO SCH ×2 (08:36→20:40)
[2022-07-13] MEDS: NICOTINE 21 MG PATCH TOPICAL SCH (08:36)
[2022-07-13] MEDS: cefTRIAXone 2 GM in DEXTROSE 5% IN WATER 50 ML IV SCH (10:23)
[2022-07-13] MEDS: ACETAMINOPHEN 325 MG TABLET PO PRN ×2 (11:44→20:40)
[2022-07-13] MEDS: SODIUM BICARBONATE 650 MG TABLET PO SCH (20:40)
[2022-07-14] MEDS: 0.9 % SODIUM CHLORIDE 10 ML SYRINGE IV SCH ×4 (05:40→20:17)
[2022-07-14] MEDS: DOCUSATE SODIUM 100 MG CAPSULE PO SCH ×2 (07:25→19:20)
[2022-07-14] MEDS: PANTOPRAZOLE 40 MG TABLET PO SCH (07:25)
[2022-07-14] MEDS: NICOTINE 21 MG PATCH TOPICAL SCH (08:16)
[2022-07-14] MEDS: METOPROLOL TARTRATE 25 MG TABLET PO SCH ×2 (08:17→20:13)
[2022-07-14] MEDS: VANCOMYCIN 125 MG CAPSULE PO SCH ×4 (08:17→20:13)
[2022-07-14] MEDS: ACETAMINOPHEN 325 MG TABLET PO PRN (08:17)
[2022-07-14] MEDS: SODIUM BICARBONATE 650 MG TABLET PO SCH ×2 (08:17→20:13)
[2022-07-14] MEDS: HEPARIN 5,000 UNIT/ML VIAL SQ SCH ×2 (08:18→20:13)
[2022-07-14] MEDS: FLUoxetine HCL 20 MG CAPSULE PO SCH (08:18)
[2022-07-14] MEDS: TAMSULOSIN 0.4 MG CAPSULE PO SCH (08:19)
[2022-07-14 08:22] LABS: ALT/SGPT 33 U/L (<40); AST/SGOT 56 U/L (<40); Albumin 2.3 gm/dL (3.2-5.2); Albumin/Globulin Ratio 0.5 (1.0-2.3); Alkaline Phosphatase 426 U/L (39-117); Bilirubin,Direct < 0.2 mg/dL (0-0.3); Bilirubin,Total 0.3 mg/dL (0.1-1.0); Blood Urea Nitrogen 33 mg/dL (8-23); Carbon Dioxide 19 mmol/L (22-30); Chloride 105 mmol/L (96-108); Globulin 4.3 gm/dL (2.2-3.7); Glomerular Filtration Rate 31; Glucose 73 mg/dL (70-105); Lactate Dehydrogenase 240 U/L (135-225); Phosphorous 1.2 mg/dL (2.5-4.5); Triglycerides 205 mg/dL (<150); Uric Acid 12.1 mg/dL (2.5-8.0)
--- NOTE | 2022-07-14 09:28 | General Surgery Consult Note ---
HPI Date of Consult Consult Date: 07/14/22 Requesting physician: Samuel Harding Primary Care Provider: Mindy Green Family Provider: I saw this gentleman in ICU Room 120/C along with Aracelis Flores RN (wound care) POC reviewed with Felicia FOREMAN taking care of this patient. Consult Narrative Patient Information: Note initiated : 07/14/22 at 9:25 am Service Date, if different from initiated Date: [] Patient: Priyank Dueñas 71 y/o M admitted on 07/11/22 for Hypotension, weakness. Chief Complaint: [] cc:: CC: Samuel Harding Integumentary Additional comments: Skin wounds RIGHT and LEFT hip anterior / lateral (? surgery sites. Open wound with dry adherent eschar LEFT anterior lateral upper forearm (h/o CVA) PFSH PFSH All Active Problems Sprain of foot, left (Acute) Contusion of ankle or foot, left (Acute) Closed fracture of left hip (Acute) Acute renal failure (ARF) (Acute) Sepsis (Acute) CHF exacerbation (Acute) Weakness (Acute) Hypotension (Acute) Hypoalbuminemia (Acute) Mixed acid-base balance disorder (Acute) S/P cholecystectomy (Acute) Acute pneumonitis (Acute) Acute acalculous cholecystitis (Acute) Acute kidney injury superimposed on chronic kidney disease (Acute) Hypertension (Chronic) Chronic kidney disease (Acute) Sepsis (Acute) Acute cholecystitis (Acute) Leukocytosis (Acute) Uses wheelchair (Chronic) Overweight (Chronic) Easy bruising (Chronic) Cold intolerance (Chronic) Fatigue (Chronic) Memory loss (Chronic) Sleep disturbance (Chronic) Change of skin color (Chronic) Change in nail appearance (Chronic) Dry skin (Chronic) Itchy skin (Chronic) Muscle ache (Chronic) Incomplete emptying of bladder (Chronic) Frequent diarrhea (Chronic) Nocturnal cough with wheeze (Chronic) Left ankle swelling (Chronic) Sore throat (Chronic) Ringing in right ear (Chronic) Hiatal hernia (Chronic) Pain of left hip joint (Chronic) Urge incontinence of urine (Chronic) Benign prostatic hyperplasia with urinary obstruction (Chronic) Chronic obstructive lung disease (Chronic) 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) (Chronic) Alcohol dependence (Chronic) Hypertriglyceridemia (Chronic) Apraxia (Chronic) Cannabis dependence (Chronic) Cigarette smoker (Chronic) Chronic depression (Chronic) Ankle instability (Chronic) Muscle tenderness (Chronic) Muscle contracture (Chronic) Dependent on walker for ambulation (Chronic) Runny nose (Chronic) Narcotic addiction (Chronic) Mood swings (Chronic) Alcohol abuse (Chronic) Neurologic gait dysfunction (Chronic) Severe headache (Chronic) Dizziness (Chronic) Numbness (Chronic) Weakness (Chronic) Difficulty walking (Chronic) Arthralgia of ankle (Chronic) Diarrhea (Chronic) History of appetite changes (Chronic) Abdominal pain (Chronic) Wheezing (Chronic) Ankle swelling (Chronic) Shortness of breath on exertion (Chronic) Ischemic stroke (Chronic 12/16/08) Trochanteric bursitis, left hip (Chronic) Hemiparesis (Chronic) Hemorrhagic stroke (Chronic 09/25/04) Dysarthria (Chronic 06/27/17) Low back pain (Chronic 09/12/17) Neck pain (Chronic 06/27/17) BPH (benign prostatic hyperplasia) (Chronic 06/27/17) Chronic kidney disease, stage 3 (Chronic 06/27/17) Acid reflux (Chronic 06/27/17) Essential hypertension (Chronic 06/27/17) Blurring of visual image (Chronic 06/27/17) Hemiplegia affecting nondominant side (Chronic 06/27/17) Depressive disorder (Chronic 06/27/17) Hyperlipidemia (Chronic 06/27/17) Urinary incontinence (Chronic 06/27/17) Medical History Abdominal pain Acid reflux (06/27/17) Alcohol abuse Alcohol dependence Ankle instability Ankle swelling Apraxia Arthralgia of ankle Benign prostatic hyperplasia with urinary obstruction Blurring of visual image (06/27/17) BPH (benign prostatic hyperplasia) (06/27/17) Cannabis dependence Change in nail appearance Change of skin color Chronic depression Chronic kidney disease, stage 3 (06/27/17) Chronic obstructive lung disease Cigarette smoker Cold intolerance Dependent on walker for ambulation Depressive disorder (06/27/17) Diarrhea Difficulty walking Dizziness Dry skin Dysarthria (06/27/17) Easy bruising Essential hypertension (06/27/17) Fatigue Frequent diarrhea Hemiparesis 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) Hemiplegia affecting nondominant side (06/27/17) Hemorrhagic stroke (09/25/04) Hiatal hernia History of appetite changes Hyperlipidemia (06/27/17) Hypertriglyceridemia Incomplete emptying of bladder Ischemic stroke (12/16/08) Itchy skin Left ankle swelling Low back pain (09/12/17) Memory loss Mood swings Muscle ache Left Thigh Muscle contracture Muscle tenderness Narcotic addiction Neck pain (06/27/17) Neurologic gait dysfunction Nocturnal cough with wheeze Numbness Overweight Pain of left hip joint Ringing in right ear Runny nose Severe headache Shortness of breath on exertion Sleep disturbance Sore throat Trochanteric bursitis, left hip Urge incontinence of urine Urinary incontinence (06/27/17) Uses wheelchair Weakness Wheezing Surgical History History of dental surgery Full Extracted History of esophagogastroduodenoscopy (EGD) (~07/2011) No pertinent past surgical history Family History Father Myocardial infarction Sister Malignant neoplasm of ovary Family/Other Diabetes mellitus Maternal Aunt Brother Hypertension Mother Stroke Diabetes mellitus Social History household members: alone marital status: 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 smoking status: Current every day smoker alcohol intake frequency: 2+ drinks per day substance use type: former substance user, marijuana and other seatbelt use: always MEDS/ALLERGIES Home Medications and Allergies Home Medications Medication Instructions Recorded Confirmed Type vitamin B complex 1 tab PO QDAY 04/13/18 07/12/22 History tamsulosin 0.4 mg capsule 0.4 mg PO QDAY #90 caps 04/19/19 07/12/22 Rx fluoxetine 40 mg capsule 40 mg PO QDAY 11/10/19 07/12/22 History Multiple Vitamins Daily 1 tab PO DAILY 07/12/22 07/12/22 History aspirin 325 mg tablet 325 mg PO DAILY 07/12/22 07/12/22 History furosemide 40 mg tablet 40 mg PO QAM 07/12/22 07/12/22 History hydrochlorothiazide 25 mg tablet 25 mg PO QDAY 07/12/22 07/12/22 History hydrocodone 5 mg-acetaminophen 325 1 tab PO Q4H PRN Pain 07/12/22 07/12/22 History mg tablet ipratropium 0.5 mg-albuterol 3 mg 3 ml inhalation Q4H 07/12/22 07/12/22 History (2.5 mg base)/3 mL nebulization soln isosorbide dinitrate 10 mg tablet 10 mg PO TID 07/12/22 07/12/22 History losartan 100 mg tablet 100 mg PO QDAY 07/12/22 07/12/22 History metoprolol tartrate 50 mg tablet 50 mg PO BID 07/12/22 07/12/22 History pantoprazole 40 mg tablet,delayed 40 mg PO DAILY 07/12/22 07/12/22 History release Allergies Allergy/AdvReac Type Severity Reaction Status Date / Time bee venom protein (honey bee) Allergy Unknown Unknown Verified 06/04/22 08:34 Physical Examination Vital Signs Vital signs: Temp Pulse Resp BP Pulse Ox O2 Del Method O2 Flow Rate 99.3 F H 78 20 168/98 96 Room Air 1 07/14/22 08:01 07/14/22 08:01 07/14/22 08:01 07/14/22 08:01 07/14/22 08:01 07/14/22 08:01 07/14/22 04:00 General physical appearance General physical exam: well developed, well nourished, no distress and other (In discomfort when dressings were taken down. Appropriate. Monitor NSR, Os Sats > 90%) Eyes Eye exam: PERRL and normal ocular movement ENT ENT exam: normal pinna, normal nares and other ((?Decreased hearing)) Head Head exam IM: Present atraumatic and normocephalic Neck Neck exam: no masses and no venous distension Cardiovascular Cardiovascular exam IM: Present normal rate and rhythm Respiratory Respiratory exam: normal respiratory effort and other (O2 sats > 90% Supplemental O2. ) Abdomen Abdomen: Present soft, non tender and bowel sounds Integumentary Integumentary: Present other (Stage 3 wounds (?Surgical site vs PU) along LEFT and RIGHT anterior lateral hip. LEFT uppr lateral forearm. Periwound skin and sub q structure / texture at baseline) Neurologic Neurologic: Present other (Prior LEFT sided CVA residua. LUE flaccid.) Musculoskeletal Musculoskeletal: Present other (Patient supine in bed.) Psychiatric Psychiatric: Present oriented to time, oriented to place and other (Obeys commands. Appropriate response. H/O Left sided CVA. ) Results Labs 07/12/22 05:38 07/14/22 07:03 Labs: Abnormal lab results 07/14/22 Range/Units 07:03 Sodium 132 L (133-145) mmol/L Carbon Dioxide 19 L (22-30) mmol/L BUN 33 H (8-23) mg/dL Creatinine 2.1 H (0.7-1.2) mg/dL Uric Acid 12.1 H (2.5-8.0) mg/dL Calcium 8.0 L (8.6-10.4) mg/dL Phosphorus 1.2 L (2.5-4.5) mg/dL GGT 524 H (8-61) U/L AST 56 H (<40) U/L Alkaline Phosphatase 426 H (39-117) U/L Lactate Dehydrogenase 240 H (135-225) U/L Albumin 2.3 L (3.2-5.2) gm/dL Globulin 4.3 H (2.2-3.7) gm/dL Albumin/Globulin Ratio 0.5 L (1.0-2.3) Triglycerides 205 H (<150) mg/dL Diabetes panel 07/14/22 Range/Units 07:03 Sodium 132 L (133-145) mmol/L Potassium 3.9 (3.3-5.1) mmol/L Chloride 105 (96-108) mmol/L Carbon Dioxide 19 L (22-30) mmol/L BUN 33 H (8-23) mg/dL Creatinine 2.1 H (0.7-1.2) mg/dL Glucose 73 (70-105) mg/dL Calcium 8.0 L (8.6-10.4) mg/dL AST 56 H (<40) U/L ALT 33 (<40) U/L Alkaline Phosphatase 426 H (39-117) U/L Total Protein 6.6 (5.9-8.4) gm/dL Albumin 2.3 L (3.2-5.2) gm/dL Triglycerides 205 H (<150) mg/dL Calcium panel 07/14/22 Range/Units 07:03 Calcium 8.0 L (8.6-10.4) mg/dL Phosphorus 1.2 L (2.5-4.5) mg/dL Albumin 2.3 L (3.2-5.2) gm/dL Pituitary panel 07/14/22 Range/Units 07:03 Sodium 132 L (133-145) mmol/L Potassium 3.9 (3.3-5.1) mmol/L Chloride 105 (96-108) mmol/L Carbon Dioxide 19 L (22-30) mmol/L BUN 33 H (8-23) mg/dL Creatinine 2.1 H (0.7-1.2) mg/dL Glucose 73 (70-105) mg/dL Calcium 8.0 L (8.6-10.4) mg/dL Adrenal panel 07/14/22 Range/Units 07:03 Sodium 132 L (133-145) mmol/L Potassium 3.9 (3.3-5.1) mmol/L Chloride 105 (96-108) mmol/L Carbon Dioxide 19 L (22-30) mmol/L BUN 33 H (8-23) mg/dL Creatinine 2.1 H (0.7-1.2) mg/dL Glucose 73 (70-105) mg/dL Calcium 8.0 L (8.6-10.4) mg/dL Total Bilirubin 0.3 (0.1-1.0) mg/dL AST 56 H (<40) U/L ALT 33 (<40) U/L Alkaline Phosphatase 426 H (39-117) U/L Total Protein 6.6 (5.9-8.4) gm/dL Albumin 2.3 L (3.2-5.2) gm/dL All other labs normal. A/P Narrative A/P Narrative: Assessment: Open wounds LEFT and RIGHT anterior lateral hip region. (PU vs Surgical) Need to check old records LEFT anterior lateral upper arm with slough. Chronic PU. Resolving Sepsis / Hypotension ONEIL on CKI improving UTI on IV antibiotics. ?? Aspiration / atelectasis / pleural effusion. H/o CHF / Cirrhosis. Open skin wounds as above. Plan of Treatment: Plan: Will follow patient. Conservative wound care at this time. Silvasorb and Mepilex border foam dressings. Will need debridement when stable and out of ICU Await transfer to Step down vs Med/Surg floor. Spoke with Dr. Jason Schilling MD Hospitalist Physician. Thanks for the consult. Time Spent With Patient Time: Total time spent is greater than 50% in coordination of care (as documented) at patient's floor/unit and/or counseling patient: Initial: Total time with patient: Less than 40 minutes
[2022-07-14] MEDS: cefTRIAXone 2 GM in DEXTROSE 5% IN WATER 50 ML IV SCH (09:49)
[2022-07-14] MEDS ORDERED: POTASSIUM PHOSPHATE 20 MEQ in DEXTROSE 5% IN WATER 250 ML IV ONE (10:39)
--- NOTE | 2022-07-14 13:11 | Internal Med Progress Note ---
SUBJECTIVE Subjective Patient information: Note initiated : 07/14/22 at 1:09 pm Service Date, if different from initiated Date: [] Patient: Priyank Dueñas a 71 y/o M admitted on 07/11/22 for Hypotension, weakness. Chief Complaint: [] Interval history: History of present illness: Mr. Dueñas is a 71 year old M Presents from home with weakness generalized as well as hypotension. Patient was released from a rehab tuesday after being admitted for a broken hip repair. History is obtained from the chart as patient has confusion at baseline. Patient became increasingly weak and family unable to care for the patient. Patient was found sleeping on the floor. However other than seeming more fatigued than usual he otherwise acted normal. Patient also had diarrhea and he says had it for about a month. He denies any coughing. He has chronic shortness of breath and unable to tell if it is any worse than usual. Patient says has been in bed for 2 months since he had a stroke. Patient is a poor historian. Patient states that he has had discussions about getting on hemodialysis in the past but he refuses. In ED he is found have a blood pressure of 63/47 and oxygen saturation of 86% on room air. In the ED patient was started on IV fluids and Levophed. Bedside ultrasound showed no fluid overload. The patient was wanting to go home but it was explained to him and the family that he was too critical to go home. Patient was afebrile and other vital signs were stable as well, with the exception of the blood pressure as previously discussed. White blood cell count was borderline high and manual differential is pending. Lactate okay. Chemistry shows a hyponatremia as well as a acute on chronic kidney injury with a BUN of 4.5. Procalcitonin mildly elevated 0.36 Urinalysis suspected source of infection CT chest abdomen pelvis with lower lobe infiltrates versus atelectasis. There is bronchiectasis as well, moderate emphysema. Venous ultrasound lower extremities revealed no DVTs. Patient was able to nearly be weaned off oxygen. Continued on Levophed. 3/6 tmax 100.1 o/n. Found to be COVID-positive. pt off/on oxygen, suspect component of aspiration C. difficile positive Patient says he just wants to sleep. Hyponatremia, metabolic acidosis. Renal function slowly improving. Off Levophed since yesterday. Oral vancomycin started yesterday. Complains of chills but other no other complaints. 07/13 No significant events overnight, on room air. Diarrhea appears to be improving with oral vancomycin. Plan is to complete 5 days of antibiotic treat for pneumonia then 10 days of oral vancomycin followed by a taper for recurrent C. difficile colitis. Wound care following for right and left hip wounds that were present on admission. 07/14 No significant events overnight, continues to be on room air. Completing IV ant ibiotic treatment today, continues on oral vancomycin. Transition to MedSurg status. Resume home Lasix, isosorbide dinitrate, Protonix. Physical exam Head: Atraumatic, normal inspection. Eyes: normal appearance, no scleral icterus. Neck: full ROM Respiratory: no respiratory distress. Cardiovascular: normal rate and rhythm, S1, S2. GI/Abdominal: soft, nontender, no guarding. Extremities: full range of motion, nontender. Neurological: CN II-XII intact, intact motor, intact sensation. Psychiatric: normal mood. Skin: Right and left hip wounds Constitutional Vitals: Vital Signs Temp Pulse Resp BP Pulse Ox O2 Del Method O2 Flow Rate 98.7 F 62 19 156/84 96 Room Air 1 07/14/22 12:07/14/22 12:07/14/22 12:07/14/22 12:07/14/22 12:07/14/22 12:07/14/22 04:00 Period Temp Pulse Resp BP Sys/Paiz Pulse Ox O2 Del Method O2 Flow Rate Last 24 Hr 97.8 F-99.3 F 62-78 10-26 127-178/78-98 91-98 Room Air-Room Air 1 Intake and Output 07/14/22 07/14/22 07/14/22 03:59 11:59 19:59 Intake Total 480 476 9 Output Total 440 500 Balance 40 -24 9 Weight 73.799 kg Intake & Output: Intake & Output 07/14/22 07/14/22 07/14/22 03:59 11:59 19:59 Intake Total 480 476 9 Output Total 440 500 Balance 40 -24 9 Weight 73.799 kg Intake: IV 116 9 Potassium Phosphate 20 Meq In 66 9 Dextrose 5% in Water 250 ml @ 127.273 mls/hr IV ONCE ONE Rx#: [id number] Rocephin 2 gm In Dextrose 5% in 50 Water 50 ml @ 100 mls/hr IV Q24H [facility] Rx#:[id number] Oral 480 360 Output: Urine Catheter Amount 440 500 Other: Meal Breakfast Percent of Meal Consumed 100% Feeding Ability Assist with Tray Set Up Urine Appearance Clear Uretheral (Romero) Clear Clear Urine Color Yellow Yellow Uretheral (Romero) Yellow Yellow Stool Size Moderate Moderate Stool Color Brown Brown Stool Consistency Loose Soft Loose # Bowel Movements 0 # of times incontinent of 1 Bowels OBJ DATA Labs 07/12/22 05:38 07/14/22 07:03 Labs: Abnormal Lab Results 07/14/22 07/13/22 07/12/22 07:03 05:24 05:38 RBC Hgb Hct Immature Gran % (Auto) Neut % (Auto) Lymph % (Auto) Lymph # (Auto) Immature Gran # Absolute Neutrophils Sodium 132 L Carbon Dioxide 19 L 17 L BUN 33 H 39 H Creatinine 2.1 H 2.3 H Uric Acid 12.1 H 12.3 H Calcium 8.0 L 7.7 L Phosphorus 1.2 L 1.6 L Magnesium 1.5 L GGT 524 H 432 H AST 56 H 43 H Alkaline Phosphatase 426 H 370 H Lactate Dehydrogenase 240 H Albumin 2.3 L 2.2 L Globulin 4.3 H 4.1 H Albumin/Globulin Ratio 0.5 L 0.5 L Triglycerides 205 H Procalcitonin 0.32 H 07/12/22 07/12/22 05:38 05:38 RBC 3.49 L Hgb 10.7 L Hct 33.0 L Immature Gran % (Auto) 1.3 H Neut % (Auto) 82.3 H Lymph % (Auto) 8.6 L Lymph # (Auto) 0.89 L Immature Gran # 0.14 H Absolute Neutrophils 8.54 H Sodium 132 L Carbon Dioxide 16 L BUN 46 H Creatinine 2.8 H Uric Acid 13.5 H Calcium 7.5 L Phosphorus Magnesium GGT 430 H AST 47 H Alkaline Phosphatase 391 H Lactate Dehydrogenase Albumin 2.0 L Globulin 4.0 H Albumin/Globulin Ratio 0.5 L Triglycerides 174 H Procalcitonin Meds: Medications Acetaminophen (Acetaminophen 325 Mg Tablet) 650 mg PO Q6HP PRN; Protocol PRN Reason: Per Pain Protocol/Fever > 101 Last Admin: 07/14/22 08:17 Dose: 650 mg Albuterol/Ipratropium (Ipratropium/Albuterol 3 Ml Ampul.Neb) 3 ml NEB Q4HP PRN PRN Reason: Shortness Of Breath Docusate Sodium (Docusate Sodium 100 Mg Capsule) 100 mg PO BID [facility] Last Admin: 07/14/22 07:25 Dose: Not Given Fluoxetine HCl (Fluoxetine Hcl 20 Mg Capsule) 40 mg PO DAILY [facility] Last Admin: 07/14/22 08:18 Dose: 40 mg Heparin Sodium (Porcine) (Heparin 5,000 Unit/Ml Vial) 5,000 unit SQ Q12 [facility] Last Admin: 07/14/22 08:18 Dose: 5,000 unit Potassium Chloride 40 meq/ (Dextrose) 520 mls @ 130 mls/hr IV UD PRN PRN Reason: Potassium < 3 Magnesium Sulfate (Magnesium Sulfate) 2 gm in 50 mls @ 50 mls/hr IV UD PRN PRN Reason: Magnesium </= 1.6 Last Infusion: 07/13/22 09:34 Dose: Infused Metoprolol Tartrate (Metoprolol Tartrate 25 Mg Tablet) 25 mg PO BID [facility] Last Admin: 07/14/22 08:17 Dose: 25 mg Nicotine (Nicotine 21 Mg Patch) 21 mg TOPICAL DAILY@1000 [facility] Last Admin: 07/14/22 08:16 Dose: 21 mg Ondansetron HCl (Ondansetron 4 Mg/2 Ml Vial) 4 mg IV Q4HP PRN PRN Reason: Nausea And Vomiting Pantoprazole Sodium (Pantoprazole 40 Mg Tablet) 40 mg PO QAMAC [facility] Last Admin: 07/14/22 07:25 Dose: 40 mg Polyethylene Glycol (Polyethylene Glycol 3350 17 Gm Packet) 17 gm PO DAILYP PRN PRN Reason: Constipation Potassium Chloride (Potassium Chloride 20 Meq Tablet) 40 meq PO UD PRN PRN Reason: Potssium is 3-3.5 Last Admin: 07/12/22 15:53 Dose: 40 meq Potassium Chloride (Potassium Chloride 20 Meq Tablet) 40 meq PO UD PRN PRN Reason: Potassium < 3 Senna (Sennosides 1 Tablet) 2 tab PO DAILYP PRN PRN Reason: Constipation Sodium Bicarbonate (Sodium Bicarbonate 650 Mg Tablet) 650 mg PO BID [facility] Last Admin: 07/14/22 08:17 Dose: 650 mg Sodium Chloride (0.9 % Sodium Chloride 10 Ml Syringe) 10 ml IV Q8 [facility] Last Admin: 07/14/22 12:02 Dose: 10 ml Tamsulosin HCl (Tamsulosin 0.4 Mg Capsule) 0.4 mg PO QDAY [facility] Last Admin: 07/14/22 08:19 Dose: 0.4 mg Vancomycin HCl (Vancomycin 125 Mg Capsule) 125 mg PO QID [facility]; Protocol Last Admin: 07/14/22 08:17 Dose: 125 mg A/P Narrative A/P Narrative: Assessment: 71-year-old male with a history of hypertension, chronic anemia, 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 difficile colitis, chronic kidney disease stage V, COPD, bronchiectasis, GERD, depression, anxiety, BPH, dementia admitted for a septic shock probably secondary to aspiration pneumonia and complicated by acute hypoxic respiratory failure and acute kidney injury. The patient's hospital course was complicated by recurrent C. difficile colitis. *Resolved septic Shock: vs Pulm -off vasopressors *PNA(?aspiration): *Covid(+): on room air *Resolved acute hypoxic respiratory failure: *C. dfficile colitis: 2nd recurrence this year *Encephalopathy: improving *ONEIL on CKD V: improving -poor uop improving *Metabolic acidosis: Likely from CKD and possibly contributed by bicarbonate loss from diarrhea *Volume depletion: improving *COPD ( )/Bronchiectasis: *h/o CVA w/left hemiplegia: *Dementia, likely vascular: *Anemia, chronic: *HTN: *GERD: *BPH: cont home meds *Depression/anxiety: cont SSRI *Diarrhea: previously treated for c. diff *Wounds on bilateral hips and left forearm, present on admission P: -Ceftriaxone for pneumonia, complete 5 to 10 days treatment. -PO Vanco tapered and pulsed regimen -Fidaxomicin is not formulary. -Monitor renal function, avoid nephrotoxic medications -Replace electrolytes as needed -O2 supp prn, wean as able -IS/Acapella, prn nebs, RT, IH's -Sodium bicarbonate tablets for metabolic acidosis associated with CKD. -Continue metoprolol -Resume home Lasix, isosorbide dinitrate, Protonix. -hold arb for hypotension and oneil. -hold hctz for now -PT/OT, ST eval -Wound care consulted. -Nicotine replacement. -CM for placement needs -Consideration of fecal hinduism therapy versus FMT after discharge. -ppx: Heparin / ppi -CODE STATUS: DNR/DNI -Disposition: Change to MedSur status. CM working on placement for low intensity rehab. Plan of Treatment: Plan: Will follow patient. Conservative wound care at this time. Silvasorb and Mepilex border foam dressings. Will need debridement when stable and out of ICU Await transfer to Step down vs Med/Surg floor. Spoke with Dr. Jason Schilling MD Hospitalist Physician. Thanks for the consult. Time Spent With Patient Time: Total time spent is greater than 50% in coordination of care (as documented) at patient's floor/unit and/or counseling patient: QUALITY VTE Deep Vein Thrombosis/Pulmonary Embolism Present on Admission: No
[2022-07-14] MEDS: ISOSORBIDE DINITRATE 10 MG TABLET PO SCH ×2 (13:37→20:13)
[2022-07-14] MEDS: FUROSEMIDE 40 MG TABLET PO SCH (13:37)
[2022-07-14] MEDS: NEUTRA PHOS 1 PACKET PO SCH ×2 (15:51→20:13)
[2022-07-15] MEDS: 0.9 % SODIUM CHLORIDE 10 ML SYRINGE IV SCH ×3 (04:57→21:06)
[2022-07-15 07:00] LABS: ALT/SGPT 30 U/L (<40); AST/SGOT 57 U/L (<40); Albumin 2.2 gm/dL (3.2-5.2); Albumin/Globulin Ratio 0.5 (1.0-2.3); Alkaline Phosphatase 422 U/L (39-117); Bilirubin,Direct < 0.2 mg/dL (0-0.3); Bilirubin,Total 0.3 mg/dL (0.1-1.0); Blood Urea Nitrogen 27 mg/dL (8-23); Calcium 7.8 mg/dL (8.6-10.4); Carbon Dioxide 20 mmol/L (22-30); Chloride 105 mmol/L (96-108); Globulin 4.2 gm/dL (2.2-3.7); Glomerular Filtration Rate 35; Glucose 79 mg/dL (70-105); Lactate Dehydrogenase 335 U/L (135-225); Phosphorous 1.9 mg/dL (2.5-4.5); Triglycerides 214 mg/dL (<150); Uric Acid 11.8 mg/dL (2.5-8.0)
[2022-07-15] MEDS: NEUTRA PHOS 1 PACKET PO SCH ×3 (08:54→20:41)
[2022-07-15] MEDS: SODIUM BICARBONATE 650 MG TABLET PO SCH ×2 (08:55→20:42)
[2022-07-15] MEDS: FLUoxetine HCL 20 MG CAPSULE PO SCH (08:55)
[2022-07-15] MEDS: TAMSULOSIN 0.4 MG CAPSULE PO SCH (08:55)
[2022-07-15] MEDS: VANCOMYCIN 125 MG CAPSULE PO SCH ×4 (08:55→20:42)
[2022-07-15] MEDS: ISOSORBIDE DINITRATE 10 MG TABLET PO SCH ×3 (08:55→20:42)
[2022-07-15] MEDS: HEPARIN 5,000 UNIT/ML VIAL SQ SCH ×2 (08:55→20:41)
[2022-07-15] MEDS: PANTOPRAZOLE 40 MG TABLET PO SCH (08:55)
[2022-07-15] MEDS: METOPROLOL TARTRATE 25 MG TABLET PO SCH ×2 (08:55→20:42)
[2022-07-15] MEDS: DOCUSATE SODIUM 100 MG CAPSULE PO SCH ×2 (08:56→20:41)
[2022-07-15] MEDS: FUROSEMIDE 40 MG TABLET PO SCH (08:56)
[2022-07-15] MEDS: NICOTINE 21 MG PATCH TOPICAL SCH (08:58)
[2022-07-15] MEDS: ACETAMINOPHEN 325 MG TABLET PO PRN (12:53)
--- NOTE | 2022-07-15 13:18 | Internal Med Progress Note ---
SUBJECTIVE Subjective Patient information: Note initiated : 07/15/22 at 1:12 pm Service Date, if different from initiated Date: [] Patient: Priyank Dueñas a 71 y/o M admitted on 07/11/22 for Hypotension, weakness. Chief Complaint: [] Interval history: History of present illness: Mr. Dueñas is a 71 year old M Presents from home with weakness generalized as well as hypotension. Patient was released from a rehab tuesday after being admitted for a broken hip repair. History is obtained from the chart as patient has confusion at baseline. Patient became increasingly weak and family unable to care for the patient. Patient was found sleeping on the floor. However other than seeming more fatigued than usual he otherwise acted normal. Patient also had diarrhea and he says had it for about a month. He denies any coughing. He has chronic shortness of breath and unable to tell if it is any worse than usual. Patient says has been in bed for 2 months since he had a stroke. Patient is a poor historian. Patient states that he has had discussions about getting on hemodialysis in the past but he refuses. In ED he is found have a blood pressure of 63/47 and oxygen saturation of 86% on room air. In the ED patient was started on IV fluids and Levophed. Bedside ultrasound showed no fluid overload. The patient was wanting to go home but it was explained to him and the family that he was too critical to go home. Patient was afebrile and other vital signs were stable as well, with the exception of the blood pressure as previously discussed. White blood cell count was borderline high and manual differential is pending. Lactate okay. Chemistry shows a hyponatremia as well as a acute on chronic kidney injury with a BUN of 4.5. Procalcitonin mildly elevated 0.36 Urinalysis suspected source of infection CT chest abdomen pelvis with lower lobe infiltrates versus atelectasis. There is bronchiectasis as well, moderate emphysema. Venous ultrasound lower extremities revealed no DVTs. Patient was able to nearly be weaned off oxygen. Continued on Levophed. 3/6 tmax 100.1 o/n. Found to be COVID-positive. pt off/on oxygen, suspect component of aspiration C. difficile positive Patient says he just wants to sleep. Hyponatremia, metabolic acidosis. Renal function slowly improving. Off Levophed since yesterday. Oral vancomycin started yesterday. Complains of chills but other no other complaints. 07/13 No significant events overnight, on room air. Diarrhea appears to be improving with oral vancomycin. Plan is to complete 5 days of antibiotic treat for pneumonia then 10 days of oral vancomycin followed by a taper for recurrent C. difficile colitis. Wound care following for right and left hip wounds that were present on admission. 07/14 No significant events overnight, continues to be on room air. Completing IV ant ibiotic treatment today, continues on oral vancomycin. Transition to MedSurg status. Resume home Lasix, isosorbide dinitrate, Protonix. 07/15 Vital stable overnight. The patient got upset last night because he wanted to go home, he called the police for that reason. Discharge to home at this point does not appear to be safe as the patient will require significant assistance and is requiring 2 for maximum assistance currently to get to sitting at the edge of the bed. Remove Romero catheter today. Dr. Kendalled following for the patient's chronic wounds. Case management following to assist with discharge planning. Physical exam Head: Atraumatic, normal inspection. Eyes: normal appearance, no scleral icterus. Neck: full ROM Respiratory: no respiratory distress. Cardiovascular: normal rate and rhythm, S1, S2. GI/Abdominal: soft, nontender, no guarding. Extremities: full range of motion, nontender. Neurological: CN II-XII intact, intact motor, intact sensation. Psychiatric: normal mood. Skin: Right and left hip wounds Constitutional Vitals: Vital Signs Temp Pulse Resp BP Pulse Ox O2 Del Method O2 Flow Rate 97.2 F 74 16 105/73 94 Room Air 1 07/15/22 12:00 07/15/22 11:44 07/15/22 12:00 07/15/22 11:44 07/15/22 11:44 07/15/22 12:00 07/15/22 05:56 Period Temp Pulse Resp BP Sys/Paiz Pulse Ox O2 Del Method O2 Flow Rate Last 24 Hr 97.2 F-99.8 F 67-83 16-20 105-181/73-98 93-98 Room Air-Room Air 1 Intake and Output 07/15/22 07/15/22 07/15/22 03:59 11:59 19:59 Intake Total 240 580 Output Total 860 Balance 240 -280 Weight 72.393 kg Intake & Output: Intake & Output 07/15/22 07/15/22 07/15/22 03:59 11:59 19:59 Intake Total 240 580 Output Total 860 Balance 240 -280 Weight 72.393 kg Intake: Nourishment/Supplement quantity 120 (ml) Oral 240 460 Output: Urine Catheter Amount 860 Other: Meal Nourishment/Supplement Percent of Meal Consumed 25% Feeding Ability Assist with Tray Set Up Nourishment/Supplement name Ensure Urine Appearance Clear Uretheral (Romero) Clear Clear Urine Color Yellow Pale Uretheral (Romero) Yellow Yellow Urine Odor Normal Stool Size Large Stool Color Brown Stool Consistency Loose # Bowel Movements 1 # of times incontinent of 1 Bowels OBJ DATA Labs 07/12/22 05:38 07/15/22 05:40 Labs: Abnormal Lab Results 07/15/22 07/14/22 07/13/22 05:40 07:03 05:24 Sodium 132 L Carbon Dioxide 20 L 19 L 17 L BUN 27 H 33 H 39 H Creatinine 1.9 H 2.1 H 2.3 H Uric Acid 11.8 H 12.1 H 12.3 H Calcium 7.8 L 8.0 L 7.7 L Phosphorus 1.9 L 1.2 L 1.6 L Magnesium 1.5 L 1.5 L GGT 539 H 524 H 432 H AST 57 H 56 H 43 H Alkaline Phosphatase 422 H 426 H 370 H Lactate Dehydrogenase 335 H 240 H Albumin 2.2 L 2.3 L 2.2 L Globulin 4.2 H 4.3 H 4.1 H Albumin/Globulin Ratio 0.5 L 0.5 L 0.5 L Triglycerides 214 H 205 H Meds: Medications Acetaminophen (Acetaminophen 325 Mg Tablet) 650 mg PO Q6HP PRN; Protocol PRN Reason: Per Pain Protocol/Fever > 101 Last Admin: 07/15/22 12:53 Dose: 650 mg Albuterol/Ipratropium (Ipratropium/Albuterol 3 Ml Ampul.Neb) 3 ml NEB Q4HP PRN PRN Reason: Shortness Of Breath Docusate Sodium (Docusate Sodium 100 Mg Capsule) 100 mg PO BID [facility] Last Admin: 07/15/22 08:56 Dose: Not Given Fluoxetine HCl (Fluoxetine Hcl 20 Mg Capsule) 40 mg PO DAILY [facility] Last Admin: 07/15/22 08:55 Dose: 40 mg Furosemide (Furosemide 40 Mg Tablet) 40 mg PO QAM [facility] Last Admin: 07/15/22 08:56 Dose: 40 mg Heparin Sodium (Porcine) (Heparin 5,000 Unit/Ml Vial) 5,000 unit SQ Q12 [facility] Last Admin: 07/15/22 08:55 Dose: 5,000 unit Potassium Chloride 40 meq/ (Dextrose) 520 mls @ 130 mls/hr IV UD PRN PRN Reason: Potassium < 3 Magnesium Sulfate (Magnesium Sulfate) 2 gm in 50 mls @ 50 mls/hr IV UD PRN PRN Reason: Magnesium </= 1.6 Last Infusion: 07/13/22 09:34 Dose: Infused Isosorbide Dinitrate (Isosorbide Dinitrate 10 Mg Tablet) 10 mg PO TID [facility] Last Admin: 07/15/22 08:55 Dose: 10 mg Metoprolol Tartrate (Metoprolol Tartrate 25 Mg Tablet) 25 mg PO BID [facility] Last Admin: 07/15/22 08:55 Dose: 25 mg Nicotine (Nicotine 21 Mg Patch) 21 mg TOPICAL DAILY@1000 [facility] Last Admin: 07/15/22 08:58 Dose: 21 mg Ondansetron HCl (Ondansetron 4 Mg/2 Ml Vial) 4 mg IV Q4HP PRN PRN Reason: Nausea And Vomiting Pantoprazole Sodium (Pantoprazole 40 Mg Tablet) 40 mg PO DAILY [facility] Last Admin: 07/15/22 08:55 Dose: 40 mg Polyethylene Glycol (Polyethylene Glycol 3350 17 Gm Packet) 17 gm PO DAILYP PRN PRN Reason: Constipation Potassium Chloride (Potassium Chloride 20 Meq Tablet) 40 meq PO UD PRN PRN Reason: Potssium is 3-3.5 Last Admin: 07/12/22 15:53 Dose: 40 meq Potassium Chloride (Potassium Chloride 20 Meq Tablet) 40 meq PO UD PRN PRN Reason: Potassium < 3 Potassium/Phosphorus/Sodium (Neutra Phos 1 Packet) 1 packet PO TID [facility] Stop: 07/16/22 09:01 Last Admin: 07/15/22 08:54 Dose: 1 packet Senna (Sennosides 1 Tablet) 2 tab PO DAILYP PRN PRN Reason: Constipation Sodium Bicarbonate (Sodium Bicarbonate 650 Mg Tablet) 650 mg PO BID [facility] Last Admin: 03/09/23 08:55 Dose: 650 mg Sodium Chloride (0.9 % Sodium Chloride 10 Ml Syringe) 10 ml IV Q8 [facility] Last Admin: 07/15/22 04:57 Dose: 10 ml Tamsulosin HCl (Tamsulosin 0.4 Mg Capsule) 0.4 mg PO QDAY [facility] Last Admin: 07/15/22 08:55 Dose: 0.4 mg Vancomycin HCl (Vancomycin 125 Mg Capsule) 125 mg PO QID [facility]; Protocol Last Admin: 07/15/22 12:52 Dose: 125 mg A/P Narrative A/P Narrative: Assessment: 71-year-old male with a history of hypertension, chronic anemia, 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 difficile colitis, chronic kidney disease stage V, COPD, bronchiectasis, GERD, depression, anxiety, BPH, dementia admitted for a septic shock probably secondary to aspiration pneumonia and complicated by acute hypoxic respiratory failure and acute kidney injury. The patient's hospital course was complicated by recurrent C. difficile colitis. *Resolved septic shock: vs Pulm *PNA(possible aspiration): Resolved *Covid(+): on room air *Resolved acute hypoxic respiratory failure: *C. dfficile colitis: 2nd recurrence this year *Encephalopathy: improving *ONEIL on CKD V: improving -poor uop improving *Metabolic acidosis: Likely from CKD and possibly contributed by bicarbonate loss from diarrhea *COPD ( )/Bronchiectasis: *h/o CVA w/left hemiplegia: *Dementia, likely vascular: *Anemia, chronic: *HTN: *GERD: *BPH: cont home meds *Depression/anxiety: cont SSRI *Diarrhea: previously treated for c. diff *Wounds on bilateral hips and left forearm, present on admission P: -Completed antibiotics for pneumonia. -PO Vanco for 10 days followed by tapered and pulsed regimen -Monitor renal function, avoid nephrotoxic medications -Replace electrolytes as needed -O2 supp prn, wean as able -IS/Acapella, prn nebs, RT, IH's -Sodium bicarbonate tablets for metabolic acidosis associated with CKD. -Continue metoprolol, home Lasix, isosorbide dinitrate, Protonix. -hold arb for hypotension and oneil. -hold hctz for now -PT/OT, ST eval -Wound care consulted. -Nicotine replacement. -CM for placement needs -Consideration of fecal bahai therapy versus FMT after discharge. -ppx: Heparin / ppi -CODE STATUS: DNR/DNI -Disposition: Inpatient MedSurg status. Working on discharge planning. The patient is medically stable to discharge to a alf facility however discharge to home would not be safe at this time. Plan of Treatment: Plan: Will follow patient. Conservative wound care at this time. Silvasorb and Mepilex border foam dressings. Will need debridement when stable and out of ICU Await transfer to Step down vs Med/Surg floor. Spoke with Dr. Jason Schilling MD Hospitalist Physician. Thanks for the consult. Time Spent With Patient Time: Total time spent is greater than 50% in coordination of care (as documented) at patient's floor/unit and/or counseling patient: QUALITY VTE Deep Vein Thrombosis/Pulmonary Embolism Present on Admission: No
[2022-07-15] MEDS: MAGNESIUM SULFATE 2 GM/50 ML BAG IV PRN (16:56)
[2022-07-16] MEDS: 0.9 % SODIUM CHLORIDE 10 ML SYRINGE IV SCH ×3 (05:26→20:42)
[2022-07-16 07:09] LABS: ALT/SGPT 28 U/L (<40); AST/SGOT 51 U/L (<40); Albumin/Globulin Ratio 0.5 (1.0-2.3); Alkaline Phosphatase 413 U/L (39-117); Bilirubin,Direct < 0.2 mg/dL (0-0.3); Bilirubin,Total 0.3 mg/dL (0.1-1.0); Blood Urea Nitrogen 27 mg/dL (8-23); Calcium 7.9 mg/dL (8.6-10.4); Carbon Dioxide 21 mmol/L (22-30); Chloride 106 mmol/L (96-108); Globulin 4.4 gm/dL (2.2-3.7); Glomerular Filtration Rate 35; Glucose 94 mg/dL (70-105); Lactate Dehydrogenase 225 U/L (135-225); Phosphorous 2.2 mg/dL (2.5-4.5); Triglycerides 176 mg/dL (<150); Uric Acid 11.3 mg/dL (2.5-8.0)
[2022-07-16] MEDS: METOPROLOL TARTRATE 25 MG TABLET PO SCH ×2 (09:25→20:42)
[2022-07-16] MEDS: PANTOPRAZOLE 40 MG TABLET PO SCH (09:25)
[2022-07-16] MEDS: NEUTRA PHOS 1 PACKET PO SCH (09:25)
[2022-07-16] MEDS: ISOSORBIDE DINITRATE 10 MG TABLET PO SCH ×3 (09:25→20:41)
[2022-07-16] MEDS: NICOTINE 21 MG PATCH TOPICAL SCH (09:25)
[2022-07-16] MEDS: HEPARIN 5,000 UNIT/ML VIAL SQ SCH ×2 (09:25→20:41)
[2022-07-16] MEDS: FUROSEMIDE 40 MG TABLET PO SCH (09:25)
[2022-07-16] MEDS: amLODIPine 10 MG TABLET PO SCH (09:26)
[2022-07-16] MEDS: FLUoxetine HCL 20 MG CAPSULE PO SCH (09:26)
[2022-07-16] MEDS: ACETAMINOPHEN 325 MG TABLET PO PRN (09:26)
[2022-07-16] MEDS: TAMSULOSIN 0.4 MG CAPSULE PO SCH (09:26)
[2022-07-16] MEDS: DOCUSATE SODIUM 100 MG CAPSULE PO SCH ×2 (09:26→20:41)
[2022-07-16] MEDS: SODIUM BICARBONATE 650 MG TABLET PO SCH ×2 (09:26→20:41)
[2022-07-16] MEDS: VANCOMYCIN 125 MG CAPSULE PO SCH ×4 (09:26→20:41)
--- NOTE | 2022-07-16 12:20 | Internal Med Progress Note ---
SUBJECTIVE Subjective Patient information: Note initiated : 07/16/22 at 12:19 pm Service Date, if different from initiated Date: [] Patient: Priyank Dueñas a 71 y/o M admitted on 07/11/22 for Hypotension, weakness. Chief Complaint: [] Interval history: History of present illness: Mr. Dueñas is a 71 year old M Presents from home with weakness generalized as well as hypotension. Patient was released from a rehab tuesday after being admitted for a broken hip repair. History is obtained from the chart as patient has confusion at baseline. Patient became increasingly weak and family unable to care for the patient. Patient was found sleeping on the floor. However other than seeming more fatigued than usual he otherwise acted normal. Patient also had diarrhea and he says had it for about a month. He denies any coughing. He has chronic s hortness of breath and unable to tell if it is any worse than usual. Patient says has been in bed for 2 months since he had a stroke. Patient is a poor historian. Patient states that he has had discussions about getting on hemodialysis in the past but he refuses. In ED he is found have a blood pressure of 63/47 and oxygen saturation of 86% on room air. In the ED patient was started on IV fluids and Levophed. Bedside ultrasound showed no fluid overload. The patient was wanting to go home but it was explained to him and the family that he was too critical to go home. Patient was afebrile and other vital signs were stable as well, with the exception of the blood pressure as previously discussed. White blood cell count was borderline high and manual differential is pending. Lactate okay. Chemistry shows a hyponatremia as well as a acute on chronic kidney injury with a BUN of 4.5. Procalcitonin mildly elevated 0.36 Urinalysis suspected source of infection CT chest abdomen pelvis with lower lobe infiltrates versus atelectasis. There is bronchiectasis as well, moderate emphysema. Venous ultrasound lower extremities revealed no DVTs. Patient was able to nearly be weaned off oxygen. Continued on Levophed. 3/6 tmax 100.1 o/n. Found to be COVID-positive. pt off/on oxygen, suspect component of aspiration C. difficile positive Patient says he just wants to sleep. Hyponatremia, metabolic acidosis. Renal function slowly improving. Off Levophed since yesterday. Oral vancomycin started yesterday. Complains of chills but other no other complaints. 07/13 No significant events overnight, on room air. Diarrhea appears to be improving with oral vancomycin. Plan is to complete 5 days of antibiotic treat for pneumonia then 10 days of oral vancomycin followed by a taper for recurrent C. difficile colitis. Wound care following for right and left hip wounds that were present on admission. 07/14 No significant events overnight, continues to be on room air. Completing IV an tibiotic treatment today, continues on oral vancomycin. Transition to MedSurg status. Resume home Lasix, isosorbide dinitrate, Protonix. 07/15 Vital stable overnight. The patient got upset last night because he wanted to go home, he called the police for that reason. Discharge to home at this point does not appear to be safe as the patient will require significant assistance and is requiring 2 for maximum assistance currently to get to sitting at the edge of the bed. Remove Romero catheter today. Dr. Kendalled following for the patient's chronic wounds. Case management following to assist with discharge planning. 07/16 Vital stable overnight, no significant agitation issues overnight. Blood pressure elevated this morning, added Norvasc 10 mg daily. Case management working on placement. Physical exam Head: Atraumatic, normal inspection. Eyes: normal appearance, no scleral icterus. Neck: full ROM Respiratory: no respiratory distress. Cardiovascular: normal rate and rhythm, S1, S2. GI/Abdominal: soft, nontender, no guarding. Extremities: full range of motion, nontender. Neurological: CN II-XII intact, intact motor, intact sensation. Psychiatric: normal mood. Skin: Right and left hip wounds Constitutional Vitals: Vital Signs Temp Pulse Resp BP Pulse Ox O2 Del Method O2 Flow Rate 97.6 F 77 16 178/97 96 Room Air 1 07/16/22 08:00 07/16/22 08:05 07/16/22 08:00 07/16/22 08:01 07/16/22 08:05 07/16/22 08:00 07/16/22 04:00 Period Temp Pulse Resp BP Sys/Paiz Pulse Ox O2 Del Method O2 Flow Rate Last 24 Hr 97.1 F-98.3 F 65-78 11-16 108-178/75-109 91-98 Room Air-Room Air 1-1 Intake and Output 07/16/22 07/16/22 07/16/22 03:59 11:59 19:59 Intake Total 220 220 Output Total 103 3 Balance 117 217 Weight 72.983 kg Intake & Output: Intake & Output 07/16/22 07/16/22 07/16/22 03:59 11:59 19:59 Intake Total 220 220 Output Total 103 3 Balance 117 217 Weight 72.983 kg Intake: Oral 220 220 Output: Urine Catheter Amount 100 # of times incontinent of urine 3 2 Stool 1 Other: Meal Nourishment/Supplement Breakfast Percent of Meal Consumed 100% 25% Feeding Ability Independent Independent Urine Appearance Clear Clear Urine Color Light Ledy Yellow Urine Odor Normal Stool Size Small Moderate Stool Color Brown Brown Stool Consistency Soft Loose Liquid # of times incontinent of 1 1 Bowels OBJ DATA Labs 07/12/22 05:38 07/16/22 05:43 Labs: Abnormal Lab Results 07/16/22 07/15/22 07/14/22 05:43 05:40 07:03 Sodium 132 L Carbon Dioxide 21 L 20 L 19 L BUN 27 H 27 H 33 H Creatinine 1.9 H 1.9 H 2.1 H Uric Acid 11.3 H 11.8 H 12.1 H Calcium 7.9 L 7.8 L 8.0 L Phosphorus 2.2 L 1.9 L 1.2 L Magnesium 1.5 L GGT 533 H 539 H 524 H AST 51 H 57 H 56 H Alkaline Phosphatase 413 H 422 H 426 H Lactate Dehydrogenase 335 H 240 H Albumin 2.0 L 2.2 L 2.3 L Globulin 4.4 H 4.2 H 4.3 H Albumin/Globulin Ratio 0.5 L 0.5 L 0.5 L Triglycerides 176 H 214 H 205 H Meds: Medications Acetaminophen (Acetaminophen 325 Mg Tablet) 650 mg PO Q6HP PRN; Protocol PRN Reason: Per Pain Protocol/Fever > 101 Last Admin: 07/16/22 09:26 Dose: 650 mg Albuterol/Ipratropium (Ipratropium/Albuterol 3 Ml Ampul.Neb) 3 ml NEB Q4HP PRN PRN Reason: Shortness Of Breath Amlodipine Besylate (Amlodipine 10 Mg Tablet) 10 mg PO DAILY CORAZON Last Admin: 07/16/22 09:26 Dose: 10 mg Docusate Sodium (Docusate Sodium 100 Mg Capsule) 100 mg PO BID [facility] Last Admin: 07/16/22 09:26 Dose: Not Given Fluoxetine HCl (Fluoxetine Hcl 20 Mg Capsule) 40 mg PO DAILY [facility] Last Admin: 07/16/22 09:26 Dose: 40 mg Furosemide (Furosemide 40 Mg Tablet) 40 mg PO QAM [facility] Last Admin: 07/16/22 09:25 Dose: 40 mg Heparin Sodium (Porcine) (Heparin 5,000 Unit/Ml Vial) 5,000 unit SQ Q12 [facility] Last Admin: 07/16/22 09:25 Dose: 5,000 unit Potassium Chloride 40 meq/ (Dextrose) 520 mls @ 130 mls/hr IV UD PRN PRN Reason: Potassium < 3 Magnesium Sulfate (Magnesium Sulfate) 2 gm in 50 mls @ 50 mls/hr IV UD PRN PRN Reason: Magnesium </= 1.6 Last Infusion: 07/15/22 17:55 Dose: Infused Isosorbide Dinitrate (Isosorbide Dinitrate 10 Mg Tablet) 10 mg PO TID [facility] Last Admin: 07/16/22 09:25 Dose: 10 mg Metoprolol Tartrate (Metoprolol Tartrate 25 Mg Tablet) 25 mg PO BID [facility] Last Admin: 07/16/22 09:25 Dose: 25 mg Nicotine (Nicotine 21 Mg Patch) 21 mg TOPICAL DAILY@1000 [facility] Last Admin: 07/16/22 09:25 Dose: 21 mg Ondansetron HCl (Ondansetron 4 Mg/2 Ml Vial) 4 mg IV Q4HP PRN PRN Reason: Nausea And Vomiting Pantoprazole Sodium (Pantoprazole 40 Mg Tablet) 40 mg PO DAILY [facility] Last Admin: 07/16/22 09:25 Dose: 40 mg Polyethylene Glycol (Polyethylene Glycol 3350 17 Gm Packet) 17 gm PO DAILYP PRN PRN Reason: Constipation Potassium Chloride (Potassium Chloride 20 Meq Tablet) 40 meq PO UD PRN PRN Reason: Potssium is 3-3.5 Last Admin: 07/12/22 15:53 Dose: 40 meq Potassium Chloride (Potassium Chloride 20 Meq Tablet) 40 meq PO UD PRN PRN Reason: Potassium < 3 Senna (Sennosides 1 Tablet) 2 tab PO DAILYP PRN PRN Reason: Constipation Sodium Bicarbonate (Sodium Bicarbonate 650 Mg Tablet) 650 mg PO BID [facility] Last Admin: 07/16/22 09:26 Dose: 650 mg Sodium Chloride (0.9 % Sodium Chloride 10 Ml Syringe) 10 ml IV Q8 [facility] Last Admin: 07/16/22 05:26 Dose: 10 ml Tamsulosin HCl (Tamsulosin 0.4 Mg Capsule) 0.4 mg PO QDAY [facility] Last Admin: 07/16/22 09:26 Dose: 0.4 mg Vancomycin HCl (Vancomycin 125 Mg Capsule) 125 mg PO QID [facility]; Protocol Last Admin: 07/16/22 09: Dose: 125 mg A/P Narrative A/P Narrative: Assessment: 71-year-old male with a history of hypertension, chronic anemia, 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 difficile colitis, chronic kidney disease stage V, COPD, bronchiectasis, GERD, depression, anxiety, BPH, dementia admitted for a septic shock probably secondary to aspiration pneumonia and complicated by acute hypoxic respiratory failure and acute kidney injury. The patient's hospital course was complicated by recurrent C. difficile colitis. *Resolved septic shock: vs pneumonia *Possible aspiration pneumonia: Treated *Covid illness: on room air *Resolved acute hypoxic respiratory failure: *C. dfficile colitis: 2nd recurrence this year *Resolved encephalopathy *Resolved ONEIL on CKD V: *Metabolic acidosis: Likely from CKD and possibly contributed by bicarbonate loss from diarrhea *COPD/Bronchiectasis: Stable *h/o CVA w/left hemiplegia: *Dementia, likely vascular: *Anemia, chronic: *HTN: *GERD: *BPH: cont home meds *Depression/anxiety: cont SSRI *Diarrhea: previously treated for c. diff *Wounds on bilateral hips and left forearm, present on admission P: -Awaiting placement. -PO Vanco for 10 days followed by tapered and pulsed regimen. -Monitor renal function periodically, avoid nephrotoxic medications -Replace electrolytes as needed -Sodium bicarbonate tablets for metabolic acidosis associated with CKD. -Continue metoprolol, home Lasix, isosorbide dinitrate, Protonix. -Start Norvasc 10 mg daily. -hold arb for hypotension and oneil. -hold hctz for now -PT/OT, ST eval -Wound care team following. -Nicotine replacement. -CM for placement needs -Consideration of fecal mormon therapy versus FMT after discharge. -ppx: Heparin / ppi -CODE STATUS: DNR/DNI -Disposition: Inpatient MedSurg status. The patient is medically stable to discharge to a [place] [facility] facility however discharge to home would not be safe at this time. Plan of Treatment: Plan: Will follow patient. Conservative wound care at this time. Silvasorb and Mepilex border foam dressings. Will need debridement when stable and out of ICU Await transfer to Step down vs Med/Surg floor. Spoke with Dr. Jason Schilling MD Hospitalist Physician. Thanks for the consult. Time Spent With Patient Time: Total time spent is greater than 50% in coordination of care (as documented) at patient's floor/unit and/or counseling patient: QUALITY VTE Deep Vein Thrombosis/Pulmonary Embolism Present on Admission: No
--- NOTE | 2022-07-16 14:28 | General Surgery Progress Note ---
SUBJECTIVE Subjective Patient information: Note initiated : 07/16/22 at 2:21 pm Service Date, if different from initiated Date: [] Patient: Priyank Dueñas 71 y/o M admitted on 07/11/22 for Hypotension, weakness. Chief Complaint: [] Additional PMFSH (Level 3 Only): Patient seen with Leonor RN More alert and responsive. Reviewed progress thus far and saw CT scan of Pelvis. Hardware RIGHT hip. LEFT lateral forearm wound will be debrided at bedside. Constitutional Vitals: Vital Signs Temp Pulse Resp BP Pulse Ox O2 Del Method O2 Flow Rate 97.6 F 77 16 178/97 96 Room Air 1 07/16/22 08:00 07/16/22 08:05 07/16/22 08:00 07/16/22 08:01 07/16/22 08:05 07/16/22 08:00 07/16/22 04:00 Period Temp Pulse Resp BP Sys/Paiz Pulse Ox O2 Del Method O2 Flow Rate Last 24 Hr 97.1 F-98.3 F 65-78 11-16 108-178/75-109 91-98 Room Air-Room Air 1-1 Intake and Output 07/16/22 07/16/22 07/16/22 03:59 11:59 19:59 Intake Total 220 220 Output Total 103 3 Balance 117 217 Weight 160 lb 14.4 oz Intake & Output: Intake & Output 07/16/22 07/16/22 07/16/22 03:59 11:59 19:59 Intake Total 220 220 Output Total 103 3 Balance 117 217 Weight 160 lb 14.4 oz Intake: Oral 220 220 Output: Urine Catheter Amount 100 # of times incontinent of urine 3 2 Stool 1 Other: Meal Nourishment/Supplement Breakfast Percent of Meal Consumed 100% 25% Feeding Ability Independent Independent Urine Appearance Clear Clear Urine Color Light Ledy Yellow Urine Odor Normal Stool Size Small Moderate Stool Color Brown Brown Stool Consistency Soft Loose Liquid # of times incontinent of 1 1 Bowels Exam: Comfortable. Conversational. NO distress NSR. HD stable O2 sats > 90% LEFT upper lateral forearm PU (present on admission) A/P Narrative Plan of Treatment: Plan: Will follow patient. Conservative wound care at this time. Silvasorb and Mepilex border foam dressings. Bedside debridement of wound LEFT forearm. Awaits transfer to Step down vs Med/Surg floor. Spoke with Dr. Jason Schilling MD Hospitalist Physician. Thanks for the consult. Time Spent With Patient Time: Total time spent is greater than 50% in coordination of care (as documented) at patient's floor/unit and/or counseling patient: Initial: Total time with patient: 40 - 54 minutes
--- NOTE | 2022-07-16 14:34 | General Surgery Procedure Note ---
Date of procedure: Note initiated : 07/16/22 at 2:28 pm Service Date, if different from initiated Date: [] Pre-op diagnosis: Pressure ulcer LEFT upper forearm. Post-op diagnosis: same Procedure: Selective debridement at bedside LEFT forearm wound Findings: Stage 3 PU present on admission. H/O Left sided CVA. Anesthesia: none Surgeon: Chong Ramos Estimated blood loss: 0 Description of procedure: Selective debridement . Procedure well tolerated. Condition: stable Disposition: ICU
--- NOTE | 2022-07-16 14:35 | General Surgery Procedure Note ---
Date of procedure: Note initiated : 07/16/22 at 2:35 pm Service Date, if different from initiated Date: []
--- NOTE | 2022-07-16 14:43 | Operative Note ---
DATE OF OPERATION: 07/16/2022 DATE OF PROCEDURE: 07/16/2022 PREOPERATIVE DIAGNOSES: 1. Past history of CVA, left-sided. 2. Pressure ulcer, left upper lateral forearm, stage III. POSTOPERATIVE DIAGNOSES: 1. History of CVA, left-sided. 2. Pressure ulcer, left upper lateral forearm, stage III. PROCEDURE: Bedside selective debridement. ANESTHESIA: None. SURGEON: Dr. Chong Ramos PROCEDURE NOTE: After obtaining informed verbal consent, I proceeded to carry out this procedure at the bedside with the help of Leonor Registered Nurse. The left forearm area was widely cleaned with chlorhexidine swab, prepped, and draped in the standard fashion. Using a pickup and scissors, the adherent slough at the wound base was excised in stages until all the nonviable tissue was removed from the wound bed. Bright red oozing was noted from the wound bed and edges. Selective sample was obtained with a wound swab. It was sent for Gram stain and cultures, aerobic and anaerobic. Dressings consisted of SilvaSorb ointment and Mepilex border foam. VD:genevieve Job ID: [id number] Doc ID: [id number] Chong Ramos MD [email or web address]
[2022-07-16 17:17] LABS: Legionella pneumophilia Ag, Ur NOT DETECTED
[2022-07-16] MEDS: QUEtiapine 25 MG TABLET PO SCH (20:41)
[2022-07-17] MEDS: 0.9 % SODIUM CHLORIDE 10 ML SYRINGE IV SCH ×3 (05:58→20:03)
[2022-07-17] MEDS: DOCUSATE SODIUM 100 MG CAPSULE PO SCH ×2 (07:07→20:02)
[2022-07-17] MEDS: SODIUM BICARBONATE 650 MG TABLET PO SCH ×2 (08:13→20:03)
[2022-07-17] MEDS: VANCOMYCIN 125 MG CAPSULE PO SCH ×4 (08:13→20:02)
[2022-07-17] MEDS: FUROSEMIDE 40 MG TABLET PO SCH (08:13)
[2022-07-17] MEDS: PANTOPRAZOLE 40 MG TABLET PO SCH (08:14)
[2022-07-17] MEDS: FLUoxetine HCL 20 MG CAPSULE PO SCH (08:14)
[2022-07-17] MEDS: amLODIPine 10 MG TABLET PO SCH (08:15)
[2022-07-17] MEDS: METOPROLOL TARTRATE 25 MG TABLET PO SCH ×2 (08:15→20:02)
[2022-07-17] MEDS: TAMSULOSIN 0.4 MG CAPSULE PO SCH (08:15)
[2022-07-17] MEDS: HEPARIN 5,000 UNIT/ML VIAL SQ SCH ×2 (08:17→20:02)
[2022-07-17] MEDS: ISOSORBIDE DINITRATE 10 MG TABLET PO SCH ×3 (08:21→20:02)
[2022-07-17] MEDS: NICOTINE 21 MG PATCH TOPICAL SCH (08:29)
--- NOTE | 2022-07-17 10:16 | Internal Med Progress Note ---
SUBJECTIVE Subjective Patient information: Note initiated : 07/17/22 at 10:14 am Service Date, if different from initiated Date: [] Patient: Priyank Dueñas a 71 y/o M admitted on 07/11/22 for Hypotension, weakness. Chief Complaint: [] Interval history: History of present illness: Mr. Dueñas is a 71 year old M Presents from home with weakness generalized as well as hypotension. Patient was released from a rehab tuesday after being admitted for a broken hip repair. History is obtained from the chart as patient has confusion at baseline. Patient became increasingly weak and family unable to care for the patient. Patient was found sleeping on the floor. However other than seeming more fatigued than usual he otherwise acted normal. Patient also had diarrhea and he says had it for about a month. He denies any coughing. He has chronic s hortness of breath and unable to tell if it is any worse than usual. Patient says has been in bed for 2 months since he had a stroke. Patient is a poor historian. Patient states that he has had discussions about getting on hemodialysis in the past but he refuses. In ED he is found have a blood pressure of 63/47 and oxygen saturation of 86% on room air. In the ED patient was started on IV fluids and Levophed. Bedside ultrasound showed no fluid overload. The patient was wanting to go home but it was explained to him and the family that he was too critical to go home. Patient was afebrile and other vital signs were stable as well, with the exception of the blood pressure as previously discussed. White blood cell count was borderline high and manual differential is pending. Lactate okay. Chemistry shows a hyponatremia as well as a acute on chronic kidney injury with a BUN of 4.5. Procalcitonin mildly elevated 0.36 Urinalysis suspected source of infection CT chest abdomen pelvis with lower lobe infiltrates versus atelectasis. There is bronchiectasis as well, moderate emphysema. Venous ultrasound lower extremities revealed no DVTs. Patient was able to nearly be weaned off oxygen. Continued on Levophed. 3/6 tmax 100.1 o/n. Found to be COVID-positive. pt off/on oxygen, suspect component of aspiration C. difficile positive Patient says he just wants to sleep. Hyponatremia, metabolic acidosis. Renal function slowly improving. Off Levophed since yesterday. Oral vancomycin started yesterday. Complains of chills but other no other complaints. 07/13 No significant events overnight, on room air. Diarrhea appears to be improving with oral vancomycin. Plan is to complete 5 days of antibiotic treat for pneumonia then 10 days of oral vancomycin followed by a taper for recurrent C. difficile colitis. Wound care following for right and left hip wounds that were present on admission. 07/14 No significant events overnight, continues to be on room air. Completing IV an tibiotic treatment today, continues on oral vancomycin. Transition to MedSurg status. Resume home Lasix, isosorbide dinitrate, Protonix. 07/15 Vital stable overnight. The patient got upset last night because he wanted to go home, he called the police for that reason. Discharge to home at this point does not appear to be safe as the patient will require significant assistance and is requiring 2 for maximum assistance currently to get to sitting at the edge of the bed. Remove Romero catheter today. Dr. Kendalled following for the patient's chronic wounds. Case management following to assist with discharge planning. 07/16 Vital stable overnight, no significant agitation issues overnight. Blood pressure elevated this morning, added Norvasc 10 mg daily. Case management working on placement. 07/17 Vitals stable overnight. Seroquel added yesterday evening to good effect overnight. The patient feels like he slept better. Continues on QID oral vancomycin for C diff. Awaiting placement. Physical exam Head: Atraumatic, normal inspection. Eyes: normal appearance, no scleral icterus. Neck: full ROM Respiratory: no respiratory distress. Cardiovascular: normal rate and rhythm, S1, S2. GI/Abdominal: soft, nontender, no guarding. Extremities: full range of motion, nontender. Neurological: CN II-XII intact, intact motor, intact sensation. Psychiatric: normal mood. Skin: Right and left hip wounds Constitutional Vitals: Vital Signs Temp Pulse Resp BP Pulse Ox O2 Del Method O2 Flow Rate 97.3 F 72 18 148/95 92 Room Air 96 07/17/22 07:05 07/17/22 07:05 07/17/22 07:05 07/17/22 07:05 07/17/22 07:05 07/17/22 07:05 07/17/22 07:05 Period Temp Pulse Resp BP Sys/Paiz Pulse Ox O2 Del Method O2 Flow Rate Last 24 Hr 97.3 F-98.9 F 63-81 16-18 109-164/63-95 91-98 Room Air-Room Air 96 Intake and Output 07/16/22 07/17/22 07/17/22 19:59 03:59 11:59 Intake Total 640 150 Output Total 4 302 301 Balance 636 -302 -151 Weight 69.116 kg Intake & Output: Intake & Output 07/16/22 07/17/22 07/17/22 19:59 03:59 11:59 Intake Total 640 150 Output Total 4 302 301 Balance 636 -302 -151 Weight 69.116 kg Intake: Oral 640 150 Output: Void Amount 300 300 # of times incontinent of urine 4 2 1 Other: Meal Dinner Percent of Meal Consumed 25% Feeding Ability Independent Urine Appearance Clear Clear Urine Color Yellow Yellow Yellow Stool Size Moderate Moderate Stool Color Brown Brown Stool Consistency Loose Liquid # of times incontinent of 2 1 Bowels OBJ DATA Labs 07/12/22 05:38 07/16/22 05:43 Labs: Abnormal Lab Results 07/16/22 07/15/22 05:43 05:40 Carbon Dioxide 21 L 20 L BUN 27 H 27 H Creatinine 1.9 H 1.9 H Uric Acid 11.3 H 11.8 H Calcium 7.9 L 7.8 L Phosphorus 2.2 L 1.9 L Magnesium 1.5 L GGT 533 H 539 H AST 51 H 57 H Alkaline Phosphatase 413 H 422 H Lactate Dehydrogenase 335 H Albumin 2.0 L 2.2 L Globulin 4.4 H 4.2 H Albumin/Globulin Ratio 0.5 L 0.5 L Triglycerides 176 H 214 H Meds: Medications Acetaminophen (Acetaminophen 325 Mg Tablet) 650 mg PO Q6HP PRN; Protocol PRN Reason: Per Pain Protocol/Fever > 101 Last Admin: 07/16/22 09:26 Dose: 650 mg Albuterol/Ipratropium (Ipratropium/Albuterol 3 Ml Ampul.Neb) 3 ml NEB Q4HP PRN PRN Reason: Shortness Of Breath Amlodipine Besylate (Amlodipine 10 Mg Tablet) 10 mg PO DAILY REPLACED BY [facility] Last Admin: 07/17/22 08:15 Dose: 10 mg Docusate Sodium (Docusate Sodium 100 Mg Capsule) 100 mg PO BID REPLACED BY [facility] Last Admin: 07/17/22 07:07 Dose: Not Given Fluoxetine HCl (Fluoxetine Hcl 20 Mg Capsule) 40 mg PO DAILY REPLACED BY [facility] Last Admin: 07/17/22 08:14 Dose: 40 mg Furosemide (Furosemide 40 Mg Tablet) 40 mg PO QAM REPLACED BY [facility] Last Admin: 07/17/22 08:13 Dose: 40 mg Heparin Sodium (Porcine) (Heparin 5,000 Unit/Ml Vial) 5,000 unit SQ Q12 REPLACED BY [facility] Last Admin: 07/17/22 08:17 Dose: 5,000 unit Potassium Chloride 40 meq/ (Dextrose) 520 mls @ 130 mls/hr IV UD PRN PRN Reason: Potassium < 3 Magnesium Sulfate (Magnesium Sulfate) 2 gm in 50 mls @ 50 mls/hr IV UD PRN PRN Reason: Magnesium </= 1.6 Last Infusion: 07/15/22 17:55 Dose: Infused Isosorbide Dinitrate (Isosorbide Dinitrate 10 Mg Tablet) 10 mg PO TID REPLACED BY [facility] Last Admin: 07/17/22 08:21 Dose: 10 mg Metoprolol Tartrate (Metoprolol Tartrate 25 Mg Tablet) 25 mg PO BID REPLACED BY [facility] Last Admin: 07/17/22 08:15 Dose: 25 mg Nicotine (Nicotine 21 Mg Patch) 21 mg TOPICAL DAILY@1000 REPLACED BY [facility] Last Admin: 07/17/22 08:29 Dose: 21 mg Ondansetron HCl (Ondansetron 4 Mg/2 Ml Vial) 4 mg IV Q4HP PRN PRN Reason: Nausea And Vomiting Pantoprazole Sodium (Pantoprazole 40 Mg Tablet) 40 mg PO DAILY REPLACED BY [facility] Last Admin: 07/17/22 08:14 Dose: 40 mg Polyethylene Glycol (Polyethylene Glycol 3350 17 Gm Packet) 17 gm PO DAILYP PRN PRN Reason: Constipation Potassium Chloride (Potassium Chloride 20 Meq Tablet) 40 meq PO UD PRN PRN Reason: Potssium is 3-3.5 Last Admin: 07/12/22 15:53 Dose: 40 meq Potassium Chloride (Potassium Chloride 20 Meq Tablet) 40 meq PO UD PRN PRN Reason: Potassium < 3 Quetiapine Fumarate (Quetiapine 25 Mg Tablet) 25 mg PO HS REPLACED BY [facility] Last Admin: 07/16/22 20:41 Dose: 25 mg Senna (Sennosides 1 Tablet) 2 tab PO DAILYP PRN PRN Reason: Constipation Sodium Bicarbonate (Sodium Bicarbonate 650 Mg Tablet) 650 mg PO BID REPLACED BY [facility] Last Admin: 07/17/22 08:13 Dose: 650 mg Sodium Chloride (0.9 % Sodium Chloride 10 Ml Syringe) 10 ml IV Q8 REPLACED BY [facility] Last Admin: 07/17/22 05:58 Dose: 10 ml Tamsulosin HCl (Tamsulosin 0.4 Mg Capsule) 0.4 mg PO QDAY REPLACED BY [facility] Last Admin: 07/17/22 08:15 Dose: 0.4 mg Vancomycin HCl (Vancomycin 125 Mg Capsule) 125 mg PO QID REPLACED BY [facility]; Protocol Last Admin: 07/17/22 08:13 Dose: 125 mg A/P Narrative A/P Narrative: Assessment: 71-year-old male with a history of hypertension, chronic anemia, 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 difficile colitis, chronic kidney disease stage V, COPD, bronchiectasis, GERD, depression, anxiety, BPH, dementia admitted for a septic shock probably secondary to aspiration pneumonia and complicated by acute hypoxic respiratory failure and acute kidney injury. The patient's hospital course was complicated by recurrent C. difficile colitis. The patient is now clinically stable and awaiting placement for low intensity rehab. *Resolved septic shock: vs pneumonia *Possible aspiration pneumonia: Treated *Covid illness: on room air *Resolved acute hypoxic respiratory failure: *C. dfficile colitis: 2nd recurrence this year *Resolved encephalopathy *Resolved ONEIL on CKD V: *Metabolic acidosis: Likely from CKD and possibly contributed by bicarbonate loss from diarrhea *COPD/Bronchiectasis: Stable *h/o CVA w/left hemiplegia: *Dementia, likely vascular: *Anemia, chronic: *HTN: *GERD: *BPH: cont home meds *Depression/anxiety: cont SSRI *Diarrhea: previously treated for c. diff *Wounds on bilateral hips and left forearm, present on admission *Insomnia: Seroquel HS P: -Awaiting placement. -PO Vanco for 10 days followed by tapered and pulsed regimen. -Monitor renal function periodically, avoid nephrotoxic medications -Replace electrolytes as needed -Sodium bicarbonate tablets for metabolic acidosis associated with CKD. -Continue metoprolol, home Lasix, isosorbide dinitrate, Protonix. -Start Norvasc 10 mg daily. -hold arb for hypotension and oneil. -hold hctz for now -PT/OT, ST eval -Wound care team following. -Nicotine replacement. -CM for placement needs -Consideration of fecal oriental orthodox therapy versus FMT after discharge. -ppx: Heparin / ppi -CODE STATUS: DNR/DNI -Disposition: Inpatient MedSurg status. The patient is medically stable to discharge to a fdc facility however discharge to home would not be safe at this time. Plan of Treatment: Plan: Will follow patient. Conservative wound care at this time. Silvasorb and Mepilex border foam dressings. Bedside debridement of wound LEFT forearm. Awaits transfer to Step down vs Med/Surg floor. Spoke with Dr. Jason Schilling MD Hospitalist Physician. Thanks for the consult. Time Spent With Patient Time: Total time spent is greater than 50% in coordination of care (as documented) at patient's floor/unit and/or counseling patient: QUALITY VTE Deep Vein Thrombosis/Pulmonary Embolism Present on Admission: No
--- NOTE | 2022-07-17 15:33 | Event Note ---
Event Note Event Note: Progress reviewed with ICU and Med Surg nurses. Patient is now out of ICU and transferred to floor. Currently he is asleep. Dressings were changed by nurse earlier as instructed, I will see patient on Tuesday07/19/2022 morning.
[2022-07-17] MEDS: QUEtiapine 25 MG TABLET PO SCH (20:03)
[2022-07-18] MEDS: 0.9 % SODIUM CHLORIDE 10 ML SYRINGE IV SCH ×3 (05:25→21:05)
--- NOTE | 2022-07-18 08:32 | Internal Med Progress Note ---
SUBJECTIVE Subjective Patient information: Note initiated : 07/18/22 at 8:30 am Service Date, if different from initiated Date: [] Patient: Priyank Dueñas a 71 y/o M admitted on 07/11/22 for Hypotension, weakness. Chief Complaint: [] Interval history: History of present illness: Mr. Dueñas is a 71 year old M Presents from home with weakness generalized as well as hypotension. Patient was released from a rehab tuesday after being admitted for a broken hip repair. History is obtained from the chart as patient has confusion at baseline. Patient became increasingly weak and family unable to care for the patient. Patient was found sleeping on the floor. However other than seeming more fatigued than usual he otherwise acted normal. Patient also had diarrhea and he says had it for about a month. He denies any coughing. He has chronic shortness of breath and unable to tell if it is any worse than usual. Patient says has been in bed for 2 months since he had a stroke. Patient is a poor historian. Patient states that he has had discussions about getting on hemodialysis in the past but he refuses. In ED he is found have a blood pressure of 63/47 and oxygen saturation of 86% on room air. In the ED patient was started on IV fluids and Levophed. Bedside ultrasound showed no fluid overload. The patient was wanting to go home but it was explained to him and the family that he was too critical to go home. Patient was afebrile and other vital signs were stable as well, with the exception of the blood pressure as previously discussed. White blood cell count was borderline high and manual differential is pending. Lactate okay. Chemistry shows a hyponatremia as well as a acute on chronic kidney injury with a BUN of 4.5. Procalcitonin mildly elevated 0.36 Urinalysis suspected source of infection CT chest abdomen pelvis with lower lobe infiltrates versus atelectasis. There is bronchiectasis as well, moderate emphysema. Venous ultrasound lower extremities revealed no DVTs. Patient was able to nearly be weaned off oxygen. Continued on Levophed. 3/6 tmax 100.1 o/n. Found to be COVID-positive. pt off/on oxygen, suspect component of aspiration C. difficile positive Patient says he just wants to sleep. Hyponatremia, metabolic acidosis. Renal function slowly improving. Off Levophed since yesterday. Oral vancomycin started yesterday. Complains of chills but other no other complaints. 07/13 No significant events overnight, on room air. Diarrhea appears to be improving with oral vancomycin. Plan is to complete 5 days of antibiotic treat for pneumonia then 10 days of oral vancomycin followed by a taper for recurrent C. difficile colitis. Wound care following for right and left hip wounds that were present on admission. 07/14 No significant events overnight, continues to be on room air. Completing IV ant ibiotic treatment today, continues on oral vancomycin. Transition to MedSurg status. Resume home Lasix, isosorbide dinitrate, Protonix. 07/15 Vital stable overnight. The patient got upset last night because he wanted to go home, he called the police for that reason. Discharge to home at this point does not appear to be safe as the patient will require significant assistance and is requiring 2 for maximum assistance currently to get to sitting at the edge of the bed. Remove Romero catheter today. Dr. Syed following for the patient's chronic wounds. Case management following to assist with discharge planning. 07/16 Vital stable overnight, no significant agitation issues overnight. Blood pressure elevated this morning, added Norvasc 10 mg daily. Renal function at baseline now. Case management working on placement. 07/17 Vitals stable overnight. Seroquel added yesterday evening to good effect overnight. The patient feels like he slept better. Continues on QID oral vancomycin for C diff. Awaiting placement. 07/18 No significant events overnight, the patient's behaviors have improved since adding Seroquel at bedtime a couple nights ago. Awaiting placement. Physical exam Head: Atraumatic, normal inspection. Eyes: normal appearance, no scleral icterus. Neck: full ROM Respiratory: no respiratory distress. Cardiovascular: normal rate and rhythm, S1, S2. GI/Abdominal: soft, nontender, no guarding. Extremities: full range of motion, nontender. Neurological: CN II-XII intact, intact motor, intact sensation. Psychiatric: normal mood. Skin: Right and left hip wounds Constitutional Vitals: Vital Signs Temp Pulse Resp BP Pulse Ox O2 Del Method O2 Flow Rate 98.2 F 82 20 145/82 95 Room Air 0 07/18/22 07:36 07/18/22 07:36 07/18/22 08:00 07/18/22 07:36 07/18/22 08:00 07/18/22 08:00 07/18/22 08:00 Period Temp Pulse Resp BP Sys/Paiz Pulse Ox O2 Del Method O2 Flow Rate Last 24 Hr 96.9 F-98.2 F 67-82 16-20 120-158/72-90 92-95 Room Air-Room Air 0-0 Intake and Output 07/17/22 07/18/22 07/18/22 18:59 03:59 11:59 Intake Total Output Total 1 Balance -1 Weight Intake & Output: Intake & Output 07/17/22 07/18/22 07/18/22 18:59 03:59 11:59 Intake Total Output Total 1 Balance -1 Weight Intake: Oral Output: Void Amount # of times incontinent of urine 1 Other: Meal Percent of Meal Consumed Urine Appearance Clear Urine Color Bright Yellow Urine Odor Normal Stool Size Moderate Stool Color Brown Stool Consistency Soft Liquid # Voids # Bowel Movements # of times incontinent of 1 Bowels OBJ DATA Labs 07/12/22 05:38 07/16/22 05:43 Labs: Abnormal Lab Results 07/16/22 05:43 Carbon Dioxide 21 L BUN 27 H Creatinine 1.9 H Uric Acid 11.3 H Calcium 7.9 L Phosphorus 2.2 L GGT 533 H AST 51 H Alkaline Phosphatase 413 H Albumin 2.0 L Globulin 4.4 H Albumin/Globulin Ratio 0.5 L Triglycerides 176 H Meds: Medications Acetaminophen (Acetaminophen 325 Mg Tablet) 650 mg PO Q6HP PRN; Protocol PRN Reason: Per Pain Protocol/Fever > 101 Last Admin: 07/16/22 09:26 Dose: 650 mg Albuterol/Ipratropium (Ipratropium/Albuterol 3 Ml Ampul.Neb) 3 ml NEB Q4HP PRN PRN Reason: Shortness Of Breath Amlodipine Besylate (Amlodipine 10 Mg Tablet) 10 mg PO DAILY [facility] Last Admin: 07/17/22 08:15 Dose: 10 mg Docusate Sodium (Docusate Sodium 100 Mg Capsule) 100 mg PO BID [facility] Last Admin: 07/17/22 20:02 Dose: Not Given Fluoxetine HCl (Fluoxetine Hcl 20 Mg Capsule) 40 mg PO DAILY [facility] Last Admin: 07/17/22 08:14 Dose: 40 mg Furosemide (Furosemide 40 Mg Tablet) 40 mg PO QAM [facility] Last Admin: 07/17/22 08:13 Dose: 40 mg Heparin Sodium (Porcine) (Heparin 5,000 Unit/Ml Vial) 5,000 unit SQ Q12 [facility] Last Admin: 07/17/22 20:02 Dose: 5,000 unit Potassium Chloride 40 meq/ (Dextrose) 520 mls @ 130 mls/hr IV UD PRN PRN Reason: Potassium < 3 Magnesium Sulfate (Magnesium Sulfate) 2 gm in 50 mls @ 50 mls/hr IV UD PRN PRN Reason: Magnesium </= 1.6 Last Infusion: 07/15/22 17:55 Dose: Infused Isosorbide Dinitrate (Isosorbide Dinitrate 10 Mg Tablet) 10 mg PO TID [facility] Last Admin: 07/17/22 20:02 Dose: 10 mg Metoprolol Tartrate (Metoprolol Tartrate 25 Mg Tablet) 25 mg PO BID [facility] Last Admin: 07/17/22 20:02 Dose: 25 mg Nicotine (Nicotine 21 Mg Patch) 21 mg TOPICAL DAILY@1000 [facility] Last Admin: 07/17/22 08:29 Dose: 21 mg Ondansetron HCl (Ondansetron 4 Mg/2 Ml Vial) 4 mg IV Q4HP PRN PRN Reason: Nausea And Vomiting Pantoprazole Sodium (Pantoprazole 40 Mg Tablet) 40 mg PO DAILY [facility] Last Admin: 07/17/22 08:14 Dose: 40 mg Polyethylene Glycol (Polyethylene Glycol 3350 17 Gm Packet) 17 gm PO DAILYP PRN PRN Reason: Constipation Potassium Chloride (Potassium Chloride 20 Meq Tablet) 40 meq PO UD PRN PRN Reason: Potssium is 3-3.5 Last Admin: 07/12/22 15:53 Dose: 40 meq Potassium Chloride (Potassium Chloride 20 Meq Tablet) 40 meq PO UD PRN PRN Reason: Potassium < 3 Quetiapine Fumarate (Quetiapine 25 Mg Tablet) 25 mg PO HS [facility] Last Admin: 07/17/22 20:03 Dose: 25 mg Senna (Sennosides 1 Tablet) 2 tab PO DAILYP PRN PRN Reason: Constipation Sodium Bicarbonate (Sodium Bicarbonate 650 Mg Tablet) 650 mg PO BID [facility] Last Admin: 07/17/22 20:03 Dose: 650 mg Sodium Chloride (0.9 % Sodium Chloride 10 Ml Syringe) 10 ml IV Q8 [facility] Last Admin: 07/18/22 05:25 Dose: 10 ml Tamsulosin HCl (Tamsulosin 0.4 Mg Capsule) 0.4 mg PO QDAY [facility] Last Admin: 07/17/22 08:15 Dose: 0.4 mg Vancomycin HCl (Vancomycin 125 Mg Capsule) 125 mg PO QID [facility]; Protocol Last Admin: 07/17/22 20:02 Dose: 125 mg A/P Narrative A/P Narrative: Assessment: 71-year-old male with a history of hypertension, chronic anemia, 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 difficile colitis, chronic kidney disease stage V, COPD, bronchiectasis, GERD, depression, anxiety, BPH, dementia admitted for a septic shock probably secondary to aspiration pneumonia and complicated by acute hypoxic respiratory failure and acute kidney injury. Hypoxia resolved, the patient's acute kidney injury resolved. The patient's hospital course was further complicated by recurrent C. difficile colitis which has responded to oral vancomycin. The patient is currently clinically stable and awaiting placement for low intensity rehab. *Resolved septic shock: vs pneumonia *Treated possible aspiration pneumonia *Covid illness: on room air *Resolved acute hypoxic respiratory failure: *C. dfficile colitis: 2nd recurrence this year *Resolved encephalopathy *Resolved ONEIL on CKD V: *Improved metabolic acidosis *COPD/Bronchiectasis: Stable *h/o CVA w/left hemiplegia: *Dementia, likely vascular: *Anemia, chronic: *HTN: *GERD: *BPH: cont home meds *Depression/anxiety: cont SSRI *Diarrhea: previously treated for c. diff *Wounds on bilateral hips and left forearm, present on admission *Insomnia: Seroquel HS P: -Awaiting placement. -PO Vanco for 10 days followed by tapered and pulsed regimen and bezlotoxumab if available outpatient and covered by insurance. -Monitor renal function periodically, avoid nephrotoxic medications -Sodium bicarbonate tablets for metabolic acidosis associated with CKD. -Continue metoprolol, home Lasix, isosorbide dinitrate, Protonix. -Hold Norvasc 10 mg daily. -hold arb for recent ONEIL on CKD. -hold hctz for recent ONEIL on CKD. -PT/OT, ST eval -Wound care team following. -Nicotine replacement. -CM for placement needs -Consideration of fecal moravian therapy after completing treatment for C. difficile to reduce the risk of recurrent infection. -ppx: Heparin / ppi -CODE STATUS: DNR/DNI -Disposition: Currently inpatient MedSurg status, awaiting placement for low intensity rehab. Plan of Treatment: Plan: Will follow patient. Conservative wound care at this time. Silvasorb and Mepilex border foam dressings. Bedside debridement of wound LEFT forearm. Awaits transfer to Step down vs Med/Surg floor. Spoke with Dr. Jason Schilling MD Hospitalist Physician. Thanks for the consult. Time Spent With Patient Time: Total time spent is greater than 50% in coordination of care (as documented) at patient's floor/unit and/or counseling patient: QUALITY VTE Deep Vein Thrombosis/Pulmonary Embolism Present on Admission: No
[2022-07-18] MEDS: ACETAMINOPHEN 325 MG TABLET PO PRN (08:44)
[2022-07-18] MEDS: METOPROLOL TARTRATE 25 MG TABLET PO SCH ×2 (08:45→21:04)
[2022-07-18] MEDS: FLUoxetine HCL 20 MG CAPSULE PO SCH (08:45)
[2022-07-18] MEDS: VANCOMYCIN 125 MG CAPSULE PO SCH ×4 (08:45→21:04)
[2022-07-18] MEDS: SODIUM BICARBONATE 650 MG TABLET PO SCH ×2 (08:45→21:04)
[2022-07-18] MEDS: ISOSORBIDE DINITRATE 10 MG TABLET PO SCH ×3 (08:45→21:15)
[2022-07-18] MEDS: TAMSULOSIN 0.4 MG CAPSULE PO SCH (08:45)
[2022-07-18] MEDS: FUROSEMIDE 40 MG TABLET PO SCH (08:45)
[2022-07-18] MEDS: PANTOPRAZOLE 40 MG TABLET PO SCH (08:45)
[2022-07-18] MEDS: amLODIPine 10 MG TABLET PO SCH (08:45)
[2022-07-18] MEDS: DOCUSATE SODIUM 100 MG CAPSULE PO SCH ×2 (08:46→21:05)
[2022-07-18] MEDS: HEPARIN 5,000 UNIT/ML VIAL SQ SCH ×2 (08:46→21:04)
[2022-07-18] MEDS: NICOTINE 21 MG PATCH TOPICAL SCH (10:47)
[2022-07-18] MEDS: QUEtiapine 25 MG TABLET PO SCH (21:04)
[2022-07-19] MEDS: 0.9 % SODIUM CHLORIDE 10 ML SYRINGE IV SCH ×4 (03:39→21:53)
[2022-07-19 07:08] LABS: Basophils # (Auto) 0.03 K/mcL (0.00-0.30); Basophils % (Auto) 0.4 % (0.0-2.0); Eosinophils # (Auto) 0.16 K/mcL (0.00-0.70); Eosinophils % (Auto) 2.2 % (0.0-7.0); Hematocrit 31.3 % (40.1-51.0); Hemoglobin 10.2 g/dL (13.7-17.5); Lymphocytes # (Auto) 1.78 K/mcL (1.50-4.80); Lymphocytes % (Auto) 24.6 % (15.5-49.0); Mean Cell Volume 91.3 fL (80.0-100.0); Mean Corpuscular HGB Conc 32.6 g/dL (31.0-36.0); Mean Platelet Volume 10.9 fL (8.8-12.5); Monocytes # (Auto) 0.62 K/mcL (0.10-0.90); Monocytes % (Auto) 8.6 % (1.0-12.0); Neutrophils % (Auto) 62.4 % (38.0-78.0); Platelet Count 294 K/mcL (140-440); RBC 3.43 M/mcL (4.63-6.08); Red Cell Distribution Width 13.5 % (11.5-14.5); WBC 7.3 K/mcL (4.5-11.0)
[2022-07-19 07:25] LABS: ALT/SGPT 31 U/L (<40); AST/SGOT 60 U/L (<40); Albumin 2.1 gm/dL (3.2-5.2); Albumin/Globulin Ratio 0.5 (1.0-2.3); Alkaline Phosphatase 410 U/L (39-117); Bilirubin,Direct < 0.2 mg/dL (0-0.3); Bilirubin,Total 0.3 mg/dL (0.1-1.0); Blood Urea Nitrogen 18 mg/dL (8-23); Calcium 7.6 mg/dL (8.6-10.4); Carbon Dioxide 22 mmol/L (22-30); Chloride 104 mmol/L (96-108); Globulin 4.3 gm/dL (2.2-3.7); Glomerular Filtration Rate 46; Glucose 79 mg/dL (70-105); Lactate Dehydrogenase 239 U/L (135-225); Phosphorous 2.3 mg/dL (2.5-4.5); Triglycerides 150 mg/dL (<150); Uric Acid 10.4 mg/dL (2.5-8.0)
[2022-07-19] MEDS: amLODIPine 10 MG TABLET PO SCH (08:25)
[2022-07-19] MEDS: TAMSULOSIN 0.4 MG CAPSULE PO SCH (08:25)
[2022-07-19] MEDS: FUROSEMIDE 40 MG TABLET PO SCH (08:25)
[2022-07-19] MEDS: DOCUSATE SODIUM 100 MG CAPSULE PO SCH ×2 (08:25→21:47)
[2022-07-19] MEDS: ISOSORBIDE DINITRATE 10 MG TABLET PO SCH ×3 (08:25→21:52)
[2022-07-19] MEDS: PANTOPRAZOLE 40 MG TABLET PO SCH (08:26)
[2022-07-19] MEDS: METOPROLOL TARTRATE 25 MG TABLET PO SCH ×2 (08:26→21:52)
[2022-07-19] MEDS: FLUoxetine HCL 20 MG CAPSULE PO SCH (08:26)
[2022-07-19] MEDS: SODIUM BICARBONATE 650 MG TABLET PO SCH ×2 (08:26→21:52)
[2022-07-19] MEDS: HEPARIN 5,000 UNIT/ML VIAL SQ SCH ×2 (08:26→21:52)
[2022-07-19] MEDS: VANCOMYCIN 125 MG CAPSULE PO SCH ×4 (08:26→21:52)
[2022-07-19] MEDS: MAGNESIUM SULFATE 2 GM/50 ML BAG IV PRN (08:27)
[2022-07-19] MEDS: NICOTINE 21 MG PATCH TOPICAL SCH (08:28)
--- NOTE | 2022-07-19 11:14 | Internal Med Progress Note ---
SUBJECTIVE Subjective Patient information: Note initiated : 07/19/22 at 11:13 am Service Date, if different from initiated Date: [] Patient: Priyank Dueñas 71 y/o M admitted on 07/11/22 for Hypotension, weakness. Chief Complaint: [Sepsis] Principal diagnosis: Sepsis Interval history: Clinically, the patient is stable. He is wanting to return home however it is unclear if that would be a safe environment given that he lives alone, and has left-sided hemiplegia. There is also underlying concerns for possible cognitive impairment. He may benefit from placement at a [facility] facility. Constitutional Vitals: Vital Signs Temp Pulse Resp BP Pulse Ox O2 Del Method O2 Flow Rate 97.9 F 74 20 157/88 93 Room Air 0 07/19/22 08:00 07/19/22 08:00 07/19/22 08:00 07/19/22 08:00 07/19/22 08:00 07/19/22 08:00 07/18/22 16:00 Period Temp Pulse Resp BP Sys/Paiz Pulse Ox O2 Del Method O2 Flow Rate Last 24 Hr 97.6 F-98.3 F 72-86 16-20 117-157/66-105 93-96 Room Air-Room Air 0-0 Intake and Output 07/18/22 07/19/22 07/19/22 19:59 03:59 11:59 Intake Total 840 240 50 Output Total 652 150 Balance 188 90 50 Weight 70.817 kg Intake & Output: Intake & Output 07/18/22 07/19/22 07/19/22 19:59 03:59 11:59 Intake Total 840 240 50 Output Total 652 150 Balance 188 90 50 Weight 70.817 kg Intake: IV 50 Oral 840 240 0 Output: Void Amount 650 100 # of times incontinent of urine 2 50 Other: Meal Lunch Dinner Percent of Meal Consumed 50% 90 Feeding Ability Assist with Tray Set Up Urine Appearance Clear Urine Color Bright Yellow Urine Odor Normal Stool Size Large Small Stool Color Brown Brown Stool Consistency Liquid # Voids 1 # Bowel Movements 1 # of times incontinent of 1 2 Bowels Head Head exam: Present atraumatic and normal inspection Eye Eye exam: Present normal appearance ENT ENT exam: Present mucous membranes moist, normal exam and normal external ear exam Neck Neck exam: Present normal inspection Respiratory Respiratory exam: Present prolonged expiratory phase and rhonchi Cardiovascular Cardiovascular exam: Present normal rate and rhythm GI/Abdominal GI/Abdominal exam: Present normal bowel sounds Back Exam Back exam: Present normal inspection Neurological Exam Neurological exam: Present alert and oriented X3 Skin Skin exam: Present intact and warm OBJ DATA Labs 07/19/22 05:38 07/19/22 05:43 Labs: Abnormal Lab Results 07/19/22 07/19/22 05:43 05:38 RBC 3.43 L Hgb 10.2 L Hct 31.3 L Immature Gran % (Auto) 1.8 H Immature Gran # 0.13 H Creatinine 1.5 H Uric Acid 10.4 H Calcium 7.6 L Phosphorus 2.3 L Magnesium 1.3 L GGT 559 H AST 60 H Alkaline Phosphatase 410 H Lactate Dehydrogenase 239 H Albumin 2.1 L Globulin 4.3 H Albumin/Globulin Ratio 0.5 L Triglycerides 150 H Meds: Medications Acetaminophen (Acetaminophen 325 Mg Tablet) 650 mg PO Q6HP PRN; Protocol PRN Reason: Per Pain Protocol/Fever > 101 Last Admin: 07/18/22 08:44 Dose: 650 mg Albuterol/Ipratropium (Ipratropium/Albuterol 3 Ml Ampul.Neb) 3 ml NEB Q4HP PRN PRN Reason: Shortness Of Breath Amlodipine Besylate (Amlodipine 10 Mg Tablet) 10 mg PO DAILY [facility] Last Admin: 07/19/22 08:25 Dose: 10 mg Docusate Sodium (Docusate Sodium 100 Mg Capsule) 100 mg PO BID [facility] Last Admin: 07/19/22 08:25 Dose: 100 mg Fluoxetine HCl (Fluoxetine Hcl 20 Mg Capsule) 40 mg PO DAILY [facility] Last Admin: 07/19/22 08:26 Dose: 40 mg Furosemide (Furosemide 40 Mg Tablet) 40 mg PO QAM [facility] Last Admin: 07/19/22 08:25 Dose: 40 mg Heparin Sodium (Porcine) (Heparin 5,000 Unit/Ml Vial) 5,000 unit SQ Q12 [facility] Last Admin: 07/19/22 08:26 Dose: 5,000 unit Potassium Chloride 40 meq/ (Dextrose) 520 mls @ 130 mls/hr IV UD PRN PRN Reason: Potassium < 3 Magnesium Sulfate (Magnesium Sulfate) 2 gm in 50 mls @ 50 mls/hr IV UD PRN PRN Reason: Magnesium </= 1.6 Last Infusion: 07/19/22 09:27 Dose: Infused Isosorbide Dinitrate (Isosorbide Dinitrate 10 Mg Tablet) 10 mg PO TID [facility] Last Admin: 07/19/22 08:25 Dose: 10 mg Metoprolol Tartrate (Metoprolol Tartrate 25 Mg Tablet) 25 mg PO BID [facility] Last Admin: 07/19/22 08:26 Dose: 25 mg Nicotine (Nicotine 21 Mg Patch) 21 mg TOPICAL DAILY@1000 [facility] Last Admin: 07/19/22 08:28 Dose: 21 mg Ondansetron HCl (Ondansetron 4 Mg/2 Ml Vial) 4 mg IV Q4HP PRN PRN Reason: Nausea And Vomiting Pantoprazole Sodium (Pantoprazole 40 Mg Tablet) 40 mg PO DAILY [facility] Last Admin: 07/19/22 08:26 Dose: 40 mg Polyethylene Glycol (Polyethylene Glycol 3350 17 Gm Packet) 17 gm PO DAILYP PRN PRN Reason: Constipation Potassium Chloride (Potassium Chloride 20 Meq Tablet) 40 meq PO UD PRN PRN Reason: Potssium is 3-3.5 Last Admin: 07/12/22 15:53 Dose: 40 meq Potassium Chloride (Potassium Chloride 20 Meq Tablet) 40 meq PO UD PRN PRN Reason: Potassium < 3 Quetiapine Fumarate (Quetiapine 25 Mg Tablet) 25 mg PO HS [facility] Last Admin: 07/18/22 21:04 Dose: 25 mg Senna (Sennosides 1 Tablet) 2 tab PO DAILYP PRN PRN Reason: Constipation Sodium Bicarbonate (Sodium Bicarbonate 650 Mg Tablet) 650 mg PO BID [facility] Last Admin: 07/19/22 08:26 Dose: 650 mg Sodium Chloride (0.9 % Sodium Chloride 10 Ml Syringe) 10 ml IV Q8 [facility] Last Admin: 07/19/22 04:45 Dose: Not Given Tamsulosin HCl (Tamsulosin 0.4 Mg Capsule) 0.4 mg PO QDAY [facility] Last Admin: 07/19/22 08:25 Dose: 0.4 mg Vancomycin HCl (Vancomycin 125 Mg Capsule) 125 mg PO QID [facility]; Protocol Last Admin: 07/19/22 08:26 Dose: 125 mg A/P Narrative A/P Narrative: Assessment: 71-year-old male with a history of hypertension, chronic anemia, 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 difficile colitis, chronic kidney disease stage V, COPD, bronchiectasis, GERD, depression, anxiety, BPH, dementia admitted for a septic shock probably secondary to aspiration pneumonia and complicated by acute hypoxic respiratory failure and acute kidney injury. Hypoxia resolved, the patient's acute kidney injury resolved. The patient's hospital course was further complicated by recurrent C. difficile colitis which has responded to oral vancomycin. The patient is currently clinica lly stable and awaiting placement for low intensity rehab. *Resolved septic shock: vs pneumonia *Treated possible aspiration pneumonia *Covid illness: on room air *Resolved acute hypoxic respiratory failure: *C. dfficile colitis: 2nd recurrence this year *Resolved encephalopathy *Resolved ONEIL on CKD V: *Improved metabolic acidosis *COPD/Bronchiectasis: Stable *h/o CVA w/left hemiplegia: *Dementia, likely vascular: *Anemia, chronic: *HTN: *GERD: *BPH: cont home meds *Depression/anxiety: cont SSRI *Diarrhea: previously treated for c. diff *Wounds on bilateral hips and left forearm, present on admission *Insomnia: Seroquel HS P: -Awaiting placement. -PO Vanco for 10 days followed by tapered and pulsed regimen and bezlotoxumab if available outpatient and covered by insurance. -Monitor renal function periodically, avoid nephrotoxic medications -Sodium bicarbonate tablets for metabolic acidosis associated with CKD. -Continue metoprolol, home Lasix, isosorbide dinitrate, Protonix. -Hold Norvasc 10 mg daily. -hold arb for recent ONEIL on CKD. -hold hctz for recent ONEIL on CKD. -PT/OT, ST eval -Wound care team following. -Nicotine replacement. -CM for placement needs -Consideration of fecal yarsanism therapy after completing treatment for C. difficile to reduce the risk of recurrent infection. -ppx: Heparin / ppi -CODE STATUS: DNR/DNI -Disposition: Currently inpatient MedSurg status, awaiting placement for low intensity rehab. Plan of Treatment: Plan: Time Spent With Patient Time: Total time spent is greater than 50% in coordination of care (as documented) at patient's floor/unit and/or counseling patient: QUALITY VTE Deep Vein Thrombosis/Pulmonary Embolism Present on Admission: No
--- NOTE | 2022-07-19 15:00 | General Surgery Progress Note ---
SUBJECTIVE Subjective Patient information: Note initiated : 07/19/22 at 2:52 pm Service Date, if different from initiated Date: [] Patient: Priyank Dueñas 71 y/o M admitted on 07/11/22 for Hypotension, weakness. Chief Complaint: [] Principal diagnosis: Sepsis Additional PMFSH (Level 3 Only): Patient seen in Room 111, [facility] Surg floor along with Aracelis Flores RNethanol maintenance mechanic Nurse Dairy Equipment Installer. Constitutional Vitals: Vital Signs Temp Pulse Resp BP Pulse Ox O2 Del Method O2 Flow Rate 97.4 F 64 20 97/66 93 Room Air 0 07/19/22 12:00 07/19/22 12:00 07/19/22 12:00 07/19/22 12:00 07/19/22 12:00 07/19/22 12:00 07/18/22 16:00 Period Temp Pulse Resp BP Sys/Paiz Pulse Ox O2 Del Method O2 Flow Rate Last 24 Hr 97.4 F-98.3 F 64-83 16-20 97-157/66-105 93-96 Room Air-Room Air 0 Intake and Output 07/19/22 07/19/22 07/19/22 03:59 11:59 19:59 Intake Total 240 530 Output Total 150 Balance 90 530 Weight 156 lb 2 oz Intake & Output: Intake & Output 07/19/22 07/19/22 07/19/22 03:59 11:59 19:59 Intake Total 240 530 Output Total 150 Balance 90 530 Weight 156 lb 2 oz Intake: IV 50 Oral 240 480 Output: Void Amount 100 # of times incontinent of urine 50 Other: Meal Dinner Breakfast Percent of Meal Consumed 90 75% Feeding Ability Independent Stool Size Small Stool Color Brown Stool Consistency Liquid # Voids 1 # Bowel Movements 1 # of times incontinent of 2 Bowels Exam: AVSS. Alert. Irritable, but compliant with wound check. Patient removed his own dressings for us to see. RIGHT and LEFT thigh wound sites are Stage 3 wounds. Granulating base, Periwound with intact skin and sub q texture Minimal drainage and NO warmth / No odor. LEFT lateral upper elbow wound with granulation over 70% Demarcating slough. Serous drainage. A/P Narrative A/P Narrative: Assessment; Satisfactory progress from wound care point of view. Patient awaits D/C planing to Rehab. Plan of Treatment: Plan: Wound Care orders reviewed. Clean with Vashe, Exufiber Ag / Mepilex x 3 week. Following patient along with Hospitalist Physician. Time Spent With Patient Time: Total time spent is greater than 50% in coordination of care (as documented) at patient's floor/unit and/or counseling patient:
[2022-07-19] MEDS: QUEtiapine 25 MG TABLET PO SCH (21:53)
[2022-07-20] MEDS: 0.9 % SODIUM CHLORIDE 10 ML SYRINGE IV SCH ×3 (04:10→20:30)
[2022-07-20] MEDS: TAMSULOSIN 0.4 MG CAPSULE PO SCH (08:08)
[2022-07-20] MEDS: ISOSORBIDE DINITRATE 10 MG TABLET PO SCH ×3 (08:08→20:30)
[2022-07-20] MEDS: SODIUM BICARBONATE 650 MG TABLET PO SCH ×2 (08:08→20:30)
[2022-07-20] MEDS: DOCUSATE SODIUM 100 MG CAPSULE PO SCH ×2 (08:08→20:30)
[2022-07-20] MEDS: FLUoxetine HCL 20 MG CAPSULE PO SCH (08:08)
[2022-07-20] MEDS: PANTOPRAZOLE 40 MG TABLET PO SCH (08:08)
[2022-07-20] MEDS: VANCOMYCIN 125 MG CAPSULE PO SCH ×4 (08:08→20:30)
[2022-07-20] MEDS: amLODIPine 10 MG TABLET PO SCH (08:08)
[2022-07-20] MEDS: METOPROLOL TARTRATE 25 MG TABLET PO SCH ×2 (08:09→20:30)
[2022-07-20] MEDS: HEPARIN 5,000 UNIT/ML VIAL SQ SCH ×2 (08:09→20:30)
[2022-07-20] MEDS: FUROSEMIDE 40 MG TABLET PO SCH (08:09)
[2022-07-20] MEDS: ACETAMINOPHEN 325 MG TABLET PO PRN ×3 (08:11→21:00)
--- NOTE | 2022-07-20 09:25 | Internal Med Progress Note ---
SUBJECTIVE Subjective Patient information: Note initiated : 07/20/22 at 9:24 am Service Date, if different from initiated Date: [] Patient: Priyank Dueñas 71 y/o M admitted on 07/11/22 for Hypotension, weakness. Chief Complaint: [] Principal diagnosis: Sepsis Interval history: Clinically stable awaiting safe discharge plan per Case management and social work. Constitutional Vitals: Vital Signs Temp Pulse Resp BP Pulse Ox O2 Del Method O2 Flow Rate 97.8 F 70 18 174/90 96 Room Air 0 07/20/22 07:00 07/20/22 07:00 07/20/22 07:00 07/20/22 07:00 07/20/22 07:00 07/20/22 04:00 07/20/22 04:00 Period Temp Pulse Resp BP Sys/Paiz Pulse Ox O2 Del Method O2 Flow Rate Last 24 Hr 97.0 F-97.8 F 64-78 18-22 97-174/66-90 93-97 Room Air-Room Air 0 Intake and Output 07/19/22 07/20/22 07/20/22 19:59 03:59 11:59 Intake Total 150 0 Output Total 275 153 Balance -275 -3 0 Weight 69.853 kg Intake & Output: Intake & Output 07/19/22 07/20/22 07/20/22 19:59 03:59 11:59 Intake Total 150 0 Output Total 275 153 Balance -275 -3 0 Weight 69.853 kg Intake: Oral 150 0 Output: Void Amount 275 150 # of times incontinent of urine 3 Other: Urine Appearance Clear Clear Urine Color Yellow Yellow Stool Size Large Stool Color Brown Yellow Stool Consistency Soft Loose Head Head exam: Present atraumatic and normal inspection Eye Eye exam: Present normal appearance ENT ENT exam: Present mucous membranes moist, normal exam and normal external ear exam Neck Neck exam: Present normal inspection Respiratory Respiratory exam: Present normal respiratory exam Cardiovascular Cardiovascular exam: Present normal rate and rhythm GI/Abdominal GI/Abdominal exam: Present normal bowel sounds Back Exam Back exam: Present normal inspection Neurological Exam Neurological exam: Present alert and oriented X3 Skin Skin exam: Present intact and warm OBJ DATA Labs 07/19/22 05:38 07/19/22 05:43 Labs: Abnormal Lab Results 07/19/22 07/19/22 05:43 05:38 RBC 3.43 L Hgb 10.2 L Hct 31.3 L Immature Gran % (Auto) 1.8 H Immature Gran # 0.13 H Creatinine 1.5 H Uric Acid 10.4 H Calcium 7.6 L Phosphorus 2.3 L Magnesium 1.3 L GGT 559 H AST 60 H Alkaline Phosphatase 410 H Lactate Dehydrogenase 239 H Albumin 2.1 L Globulin 4.3 H Albumin/Globulin Ratio 0.5 L Triglycerides 150 H Meds: Medications Acetaminophen (Acetaminophen 325 Mg Tablet) 650 mg PO Q6HP PRN; Protocol PRN Reason: Per Pain Protocol/Fever > 101 Last Admin: 07/20/22 08:11 Dose: 650 mg Albuterol/Ipratropium (Ipratropium/Albuterol 3 Ml Ampul.Neb) 3 ml NEB Q4HP PRN PRN Reason: Shortness Of Breath Amlodipine Besylate (Amlodipine 10 Mg Tablet) 10 mg PO DAILY [facility] Last Admin: 07/20/22 08:08 Dose: 10 mg Docusate Sodium (Docusate Sodium 100 Mg Capsule) 100 mg PO BID [facility] Last Admin: 07/20/22 08:08 Dose: 100 mg Fluoxetine HCl (Fluoxetine Hcl 20 Mg Capsule) 40 mg PO DAILY [facility] Last Admin: 07/20/22 08:08 Dose: 40 mg Furosemide (Furosemide 40 Mg Tablet) 40 mg PO QAM [facility] Last Admin: 07/20/22 08:09 Dose: 40 mg Heparin Sodium (Porcine) (Heparin 5,000 Unit/Ml Vial) 5,000 unit SQ Q12 [facility] Last Admin: 07/20/22 08:09 Dose: 5,000 unit Potassium Chloride 40 meq/ (Dextrose) 520 mls @ 130 mls/hr IV UD PRN PRN Reason: Potassium < 3 Magnesium Sulfate (Magnesium Sulfate) 2 gm in 50 mls @ 50 mls/hr IV UD PRN PRN Reason: Magnesium </= 1.6 Last Infusion: 07/19/22 09:27 Dose: Infused Isosorbide Dinitrate (Isosorbide Dinitrate 10 Mg Tablet) 10 mg PO TID [facility] Last Admin: 07/20/22 08:08 Dose: 10 mg Metoprolol Tartrate (Metoprolol Tartrate 25 Mg Tablet) 25 mg PO BID [facility] Last Admin: 07/20/22 08:09 Dose: 25 mg Nicotine (Nicotine 21 Mg Patch) 21 mg TOPICAL DAILY@1000 [facility] Last Admin: 07/19/22 08:28 Dose: 21 mg Ondansetron HCl (Ondansetron 4 Mg/2 Ml Vial) 4 mg IV Q4HP PRN PRN Reason: Nausea And Vomiting Pantoprazole Sodium (Pantoprazole 40 Mg Tablet) 40 mg PO DAILY [facility] Last Admin: 07/20/22 08:08 Dose: 40 mg Polyethylene Glycol (Polyethylene Glycol 3350 17 Gm Packet) 17 gm PO DAILYP PRN PRN Reason: Constipation Potassium Chloride (Potassium Chloride 20 Meq Tablet) 40 meq PO UD PRN PRN Reason: Potssium is 3-3.5 Last Admin: 07/12/22 15:53 Dose: 40 meq Potassium Chloride (Potassium Chloride 20 Meq Tablet) 40 meq PO UD PRN PRN Reason: Potassium < 3 Quetiapine Fumarate (Quetiapine 25 Mg Tablet) 25 mg PO HS [facility] Last Admin: 07/19/22 21:53 Dose: 25 mg Senna (Sennosides 1 Tablet) 2 tab PO DAILYP PRN PRN Reason: Constipation Sodium Bicarbonate (Sodium Bicarbonate 650 Mg Tablet) 650 mg PO BID [facility] Last Admin: 07/20/22 08:08 Dose: 650 mg Sodium Chloride (0.9 % Sodium Chloride 10 Ml Syringe) 10 ml IV Q8 [facility] Last Admin: 07/20/22 04:10 Dose: 10 ml Tamsulosin HCl (Tamsulosin 0.4 Mg Capsule) 0.4 mg PO QDAY [facility] Last Admin: 07/20/22 08:08 Dose: 0.4 mg Vancomycin HCl (Vancomycin 125 Mg Capsule) 125 mg PO QID [facility]; Protocol Last Admin: 07/20/22 08:08 Dose: 125 mg A/P Narrative A/P Narrative: Assessment: 71-year-old male with a history of hypertension, chronic anemia, 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 difficile colitis, chronic kidney disease stage V, COPD, bronchiectasis, GERD, depression, anxiety, BPH, dementia admitted for a septic shock probably secondary to aspiration pne umonia and complicated by acute hypoxic respiratory failure and acute kidney injury. Hypoxia resolved, the patient's acute kidney injury resolved. The patient's hospital course was further complicated by recurrent C. difficile colitis which has responded to oral vancomycin. The patient is currently clinically stable and awaiting placement for low intensity rehab. *Resolved septic shock: vs pneumonia *Treated possible aspiration pneumonia *Covid illness: on room air *Resolved acute hypoxic respiratory failure: *C. dfficile colitis: 2nd recurrence this year *Resolved encephalopathy *Resolved ONEIL on CKD V: *Improved metabolic acidosis *COPD/Bronchiectasis: Stable *h/o CVA w/left hemiplegia: *Dementia, likely vascular: *Anemia, chronic: *HTN: *GERD: *BPH: cont home meds *Depression/anxiety: cont SSRI *Diarrhea: previously treated for c. diff *Wounds on bilateral hips and left forearm, present on admission *Insomnia: Seroquel HS P: -Awaiting placement. -PO Vanco for 10 days followed by tapered and pulsed regimen and bezlotoxumab if available outpatient and covered by insurance. -Monitor renal function periodically, avoid nephrotoxic medications -Sodium bicarbonate tablets for metabolic acidosis associated with CKD. -Continue metoprolol, home Lasix, isosorbide dinitrate, Protonix. -Hold Norvasc 10 mg daily. -hold arb for recent ONEIL on CKD. -hold hctz for recent ONEIL on CKD. -PT/OT, ST eval -Wound care team following. -Nicotine replacement. -CM for placement needs -Consideration of fecal scientology therapy after completing treatment for C. difficile to reduce the risk of recurrent infection. -ppx: Heparin / ppi -CODE STATUS: DNR/DNI -Disposition: Currently inpatient MedSurg status, awaiting placement for low intensity rehab. Plan of Treatment: Plan: Wound Care orders reviewed. Clean with Vashe, Exufiber Ag / Mepilex x 3 week. Following patient along with Hospitalist Physician. Time Spent With Patient Time: Total time spent is greater than 50% in coordination of care (as documented) at patient's floor/unit and/or counseling patient: QUALITY VTE Deep Vein Thrombosis/Pulmonary Embolism Present on Admission: No
[2022-07-20] MEDS: NICOTINE 21 MG PATCH TOPICAL SCH (10:25)
[2022-07-20] MEDS: QUEtiapine 25 MG TABLET PO SCH (20:30)
[2022-07-21] MEDS: 0.9 % SODIUM CHLORIDE 10 ML SYRINGE IV SCH ×3 (05:30→21:39)
[2022-07-21] MEDS: VANCOMYCIN 125 MG CAPSULE PO SCH ×4 (08:47→21:38)
[2022-07-21] MEDS: HEPARIN 5,000 UNIT/ML VIAL SQ SCH ×2 (08:47→21:38)
[2022-07-21] MEDS: TAMSULOSIN 0.4 MG CAPSULE PO SCH (08:47)
[2022-07-21] MEDS: METOPROLOL TARTRATE 25 MG TABLET PO SCH ×2 (08:48→21:38)
[2022-07-21] MEDS: PANTOPRAZOLE 40 MG TABLET PO SCH (08:48)
[2022-07-21] MEDS: SODIUM BICARBONATE 650 MG TABLET PO SCH ×2 (08:48→21:38)
[2022-07-21] MEDS: FUROSEMIDE 40 MG TABLET PO SCH (08:48)
[2022-07-21] MEDS: amLODIPine 10 MG TABLET PO SCH (08:48)
[2022-07-21] MEDS: FLUoxetine HCL 20 MG CAPSULE PO SCH (08:48)
[2022-07-21] MEDS: ISOSORBIDE DINITRATE 10 MG TABLET PO SCH ×3 (08:48→21:38)
[2022-07-21] MEDS: DOCUSATE SODIUM 100 MG CAPSULE PO SCH ×2 (08:51→21:38)
[2022-07-21] MEDS: ACETAMINOPHEN 325 MG TABLET PO PRN (08:52)
--- NOTE | 2022-07-21 09:13 | Internal Med Progress Note ---
SUBJECTIVE Subjective Patient information: Note initiated : 07/21/22 at 9:13 am Service Date, if different from initiated Date: [] Patient: Priyank Dueñas 71 y/o M admitted on 07/11/22 for Hypotension, weakness. Chief Complaint: [] Principal diagnosis: Sepsis Interval history: Clinically stable, awaiting discharge placement. Constitutional Vitals: Vital Signs Temp Pulse Resp BP Pulse Ox O2 Del Method O2 Flow Rate 97.5 F 69 18 140/83 95 Room Air 0 07/21/22 07:49 07/21/22 07:49 07/21/22 07:49 07/21/22 07:49 07/21/22 07:49 07/21/22 07:49 07/20/22 04:00 Period Temp Pulse Resp BP Sys/Paiz Pulse Ox O2 Del Method O2 Flow Rate Last 24 Hr 96.8 F-98.7 F 58-72 16-20 110-168/78-89 95-98 Room Air-Room Air Intake and Output 07/20/22 07/21/22 07/21/22 19:59 03:59 11:59 Intake Total 480 Output Total 201 150 Balance 480 -201 -150 Weight 69.853 kg 69.127 kg Intake & Output: Intake & Output 07/20/22 07/21/22 07/21/22 19:59 03:59 11:59 Intake Total 480 Output Total 201 150 Balance 480 -201 -150 Weight 69.853 kg 69.127 kg Intake: Oral 480 Output: Void Amount 100 150 # of times incontinent of urine 1 Urine/Stool Mix 100 Other: Meal Lunch Dinner Percent of Meal Consumed 50% 75% Feeding Ability Assist with Tray Set Up Independent Urine Appearance Clear Urine Color Dark Yellow Dark Yellow Stool Size Moderate Stool Color Brown Yellow Stool Consistency Soft Liquid # of times incontinent of 1 Bowels Head Head exam: Present atraumatic and normal inspection Eye Eye exam: Present normal appearance ENT ENT exam: Present mucous membranes moist, normal exam and normal external ear exam Neck Neck exam: Present normal inspection Respiratory Respiratory exam: Present normal respiratory exam Cardiovascular Cardiovascular exam: Present normal rate and rhythm GI/Abdominal GI/Abdominal exam: Present normal bowel sounds Back Exam Back exam: Present normal inspection Neurological Exam Neurological exam: Present alert and oriented X3 Skin Skin exam: Present intact and warm OBJ DATA Labs 07/19/22 05:38 07/19/22 05:43 Labs: Abnormal Lab Results 07/19/22 07/19/22 05:43 05:38 RBC 3.43 L Hgb 10.2 L Hct 31.3 L Immature Gran % (Auto) 1.8 H Immature Gran # 0.13 H Creatinine 1.5 H Uric Acid 10.4 H Calcium 7.6 L Phosphorus 2.3 L Magnesium 1.3 L GGT 559 H AST 60 H Alkaline Phosphatase 410 H Lactate Dehydrogenase 239 H Albumin 2.1 L Globulin 4.3 H Albumin/Globulin Ratio 0.5 L Triglycerides 150 H Meds: Medications Acetaminophen (Acetaminophen 325 Mg Tablet) 650 mg PO Q6HP PRN; Protocol PRN Reason: Per Pain Protocol/Fever > 101 Last Admin: 07/21/22 08:52 Dose: 650 mg Albuterol/Ipratropium (Ipratropium/Albuterol 3 Ml Ampul.Neb) 3 ml NEB Q4HP PRN PRN Reason: Shortness Of Breath Amlodipine Besylate (Amlodipine 10 Mg Tablet) 10 mg PO DAILY [facility] Last Admin: 07/21/22 08:48 Dose: 10 mg Docusate Sodium (Docusate Sodium 100 Mg Capsule) 100 mg PO BID [facility] Last Admin: 07/21/22 08:51 Dose: Not Given Fluoxetine HCl (Fluoxetine Hcl 20 Mg Capsule) 40 mg PO DAILY [facility] Last Admin: 07/21/22 08:48 Dose: 40 mg Furosemide (Furosemide 40 Mg Tablet) 40 mg PO QAM [facility] Last Admin: 07/21/22 08:48 Dose: 40 mg Heparin Sodium (Porcine) (Heparin 5,000 Unit/Ml Vial) 5,000 unit SQ Q12 [facility] Last Admin: 07/21/22 08:47 Dose: 5,000 unit Potassium Chloride 40 meq/ (Dextrose) 520 mls @ 130 mls/hr IV UD PRN PRN Reason: Potassium < 3 Magnesium Sulfate (Magnesium Sulfate) 2 gm in 50 mls @ 50 mls/hr IV UD PRN PRN Reason: Magnesium </= 1.6 Last Infusion: 07/19/22 09:27 Dose: Infused Isosorbide Dinitrate (Isosorbide Dinitrate 10 Mg Tablet) 10 mg PO TID [facility] Last Admin: 07/21/22 08:48 Dose: 10 mg Metoprolol Tartrate (Metoprolol Tartrate 25 Mg Tablet) 25 mg PO BID [facility] Last Admin: 07/21/22 08:48 Dose: 25 mg Nicotine (Nicotine 21 Mg Patch) 21 mg TOPICAL DAILY@1000 [facility] Last Admin: 07/20/22 10:25 Dose: 21 mg Ondansetron HCl (Ondansetron 4 Mg/2 Ml Vial) 4 mg IV Q4HP PRN PRN Reason: Nausea And Vomiting Pantoprazole Sodium (Pantoprazole 40 Mg Tablet) 40 mg PO DAILY [facility] Last Admin: 07/21/22 08:48 Dose: 40 mg Polyethylene Glycol (Polyethylene Glycol 3350 17 Gm Packet) 17 gm PO DAILYP PRN PRN Reason: Constipation Potassium Chloride (Potassium Chloride 20 Meq Tablet) 40 meq PO UD PRN PRN Reason: Potssium is 3-3.5 Last Admin: 07/12/22 15:53 Dose: 40 meq Potassium Chloride (Potassium Chloride 20 Meq Tablet) 40 meq PO UD PRN PRN Reason: Potassium < 3 Quetiapine Fumarate (Quetiapine 25 Mg Tablet) 25 mg PO HS [facility] Last Admin: 07/20/22 20:30 Dose: 25 mg Senna (Sennosides 1 Tablet) 2 tab PO DAILYP PRN PRN Reason: Constipation Sodium Bicarbonate (Sodium Bicarbonate 650 Mg Tablet) 650 mg PO BID [facility] Last Admin: 07/21/22 08:48 Dose: 650 mg Sodium Chloride (0.9 % Sodium Chloride 10 Ml Syringe) 10 ml IV Q8 [facility] Last Admin: 07/21/22 05:30 Dose: 10 ml Tamsulosin HCl (Tamsulosin 0.4 Mg Capsule) 0.4 mg PO QDAY [facility] Last Admin: 07/21/22 08:47 Dose: 0.4 mg Vancomycin HCl (Vancomycin 125 Mg Capsule) 125 mg PO QID [facility]; Protocol Last Admin: 07/21/22 08:47 Dose: 125 mg A/P Narrative A/P Narrative: Assessment: 71-year-old male with a history of hypertension, chronic anemia, 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 difficile colitis, chronic kidney disease stage V, COPD, bronchiectasis, GERD, depression, anxiety, BPH, dementia admitted for a septic shock probably secondary to aspiration pneumonia and complicated by acute hypoxic respiratory failure and acute kidney injury. Hypoxia resolved, the patient's acute kidney injury resolved. The patient's hospital course was further complicated by recurrent C. difficile colitis which has responded to oral vancomycin. The patient is currently clinica lly stable and awaiting placement for low intensity rehab. *Resolved septic shock: vs pneumonia *Treated possible aspiration pneumonia *Covid illness: on room air *Resolved acute hypoxic respiratory failure: *C. dfficile colitis: 2nd recurrence this year *Resolved encephalopathy *Resolved ONEIL on CKD V: *Improved metabolic acidosis *COPD/Bronchiectasis: Stable *h/o CVA w/left hemiplegia: *Dementia, likely vascular: *Anemia, chronic: *HTN: *GERD: *BPH: cont home meds *Depression/anxiety: cont SSRI *Diarrhea: previously treated for c. diff *Wounds on bilateral hips and left forearm, present on admission *Insomnia: Seroquel HS P: -Awaiting placement. -PO Vanco for 10 days followed by tapered and pulsed regimen and bezlotoxumab if available outpatient and covered by insurance. -Monitor renal function periodically, avoid nephrotoxic medications -Sodium bicarbonate tablets for metabolic acidosis associated with CKD. -Continue metoprolol, home Lasix, isosorbide dinitrate, Protonix. -Hold Norvasc 10 mg daily. -hold arb for recent ONEIL on CKD. -hold hctz for recent ONEIL on CKD. -PT/OT, ST eval -Wound care team following. -Nicotine replacement. -CM for placement needs -Consideration of fecal buddhism therapy after completing treatment for C. difficile to reduce the risk of recurrent infection. -ppx: Heparin / ppi -CODE STATUS: DNR/DNI -Disposition: Currently inpatient MedSur status, awaiting placement for low intensity rehab. Plan of Treatment: Plan: Wound Care orders reviewed. Clean with Vashe Exufiber Ag / Mepilex x 3 week. Following patient along with Hospitalist Physician. Time Spent With Patient Time: Total time spent is greater than 50% in coordination of care (as documented) at patient's floor/unit and/or counseling patient: QUALITY VTE Deep Vein Thrombosis/Pulmonary Embolism Present on Admission: No
--- NOTE | 2022-07-21 10:15 | General Surgery Progress Note ---
SUBJECTIVE Subjective Patient information: Note initiated : 07/21/22 at 10:10 am Service Date, if different from initiated Date: [] Patient: Priyank Dueñas 71 y/o M admitted on 07/11/22 for Hypotension, weakness. Chief Complaint: [] Principal diagnosis: Sepsis Additional PMFSH (Level 3 Only): Patient seen with Aracelis Flores RN Wounds examined. Progress and D/C plans reviewed. Constitutional Vitals: Vital Signs Temp Pulse Resp BP Pulse Ox O2 Del Method O2 Flow Rate 97.5 F 69 18 140/83 95 Room Air 0 07/21/22 07:49 07/21/22 07:49 07/21/22 07:49 07/21/22 07:49 07/21/22 07:49 07/21/22 07:49 07/20/22 04:00 Period Temp Pulse Resp BP Sys/Paiz Pulse Ox O2 Del Method O2 Flow Rate Last 24 Hr 96.8 F-98.7 F 58-72 16-20 110-168/78-89 95-98 Room Air-Room Air Intake and Output 07/20/22 07/21/22 07/21/22 19:59 03:59 11:59 Intake Total 480 Output Total 201 150 Balance 480 -201 -150 Weight 154 lb 152 lb 6.4 oz Intake & Output: Intake & Output 07/20/22 07/21/22 07/21/22 19:59 03:59 11:59 Intake Total 480 Output Total 201 150 Balance 480 -201 -150 Weight 154 lb 152 lb 6.4 oz Intake: Oral 480 Output: Void Amount 100 150 # of times incontinent of urine 1 Urine/Stool Mix 100 Other: Meal Lunch Dinner Percent of Meal Consumed 50% 75% Feeding Ability Assist with Tray Set Up Independent Urine Appearance Clear Urine Color Dark Yellow Dark Yellow Stool Size Moderate Stool Color Brown Yellow Stool Consistency Soft Liquid # of times incontinent of 1 Bowels Exam: No changes ALONDRA. Wounds of both upper lateral thighs and LEFT forearm are improving. A/P Narrative A/P Narrative: Assessment: Satisfactory progress. Plan of Treatment: Plan: Continue present treatment. Wound Care orders reviewed. Clean with Vashe, Exufiber Ag / Mepilex x 3 week. Awaits D/C planning. Please schedule wound care clinic appointment in 1 week after D/C. Thanks. Time Spent With Patient Time: Total time spent is greater than 50% in coordination of care (as documented) at patient's floor/unit and/or counseling patient: Initial: Total time with patient: Less than 40 minutes
[2022-07-21] MEDS: NICOTINE 21 MG PATCH TOPICAL SCH (12:56)
[2022-07-21] MEDS: QUEtiapine 25 MG TABLET PO SCH (21:38)
[2022-07-22] MEDS: 0.9 % SODIUM CHLORIDE 10 ML SYRINGE IV SCH ×3 (05:32→20:45)
--- NOTE | 2022-07-22 08:09 | Internal Med Progress Note ---
SUBJECTIVE Subjective Patient information: Note initiated : 07/22/22 at 8:09 am Service Date, if different from initiated Date: [] Patient: Priyank Dueñas 71 y/o M admitted on 07/11/22 for Hypotension, weakness. Chief Complaint: [] Principal diagnosis: Sepsis Interval history: Patient is clinically status quo and is still awaiting insurance authorization per my discussion with social work today. Constitutional Vitals: Vital Signs Temp Pulse Resp BP Pulse Ox O2 Del Method O2 Flow Rate 97.0 F 68 12 150/101 100 Room Air 0 07/22/22 07:00 07/22/22 07:00 07/22/22 07:00 07/22/22 07:00 07/22/22 07:00 07/22/22 07:00 07/20/22 04:00 Period Temp Pulse Resp BP Sys/Paiz Pulse Ox O2 Del Method O2 Flow Rate Last 24 Hr 96.7 F-97.3 F 62-77 12-18 105-150/70-101 95-100 Room Air-Room Air Intake and Output 07/21/22 07/22/22 07/22/22 19:59 03:59 11:59 Intake Total 480 240 Output Total 176 200 100 Balance 304 -200 140 Weight 68.946 kg Intake & Output: Intake & Output 07/21/22 07/22/22 07/22/22 19:59 03:59 11:59 Intake Total 480 240 Output Total 176 200 100 Balance 304 -200 140 Weight 68.946 kg Intake: Oral 480 240 Output: Void Amount 175 200 100 # of times incontinent of urine 1 Other: Meal Dinner Percent of Meal Consumed 75% Feeding Ability Independent Urine Appearance Clear Clear Clear Urine Color Yellow Yellow Yellow Urine Odor Normal Stool Size Small Small Small Stool Color Brown Brown Brown Yellow Yellow Yellow Stool Consistency Liquid Loose Liquid Loose Loose # Bowel Movements 1 # of times incontinent of 1 1 Bowels Head Head exam: Present atraumatic and normal inspection Eye Eye exam: Present normal appearance ENT ENT exam: Present mucous membranes moist, normal exam and normal external ear exam Neck Neck exam: Present normal inspection Respiratory Respiratory exam: Present normal respiratory exam Cardiovascular Cardiovascular exam: Present normal rate and rhythm GI/Abdominal GI/Abdominal exam: Present normal bowel sounds Back Exam Back exam: Present normal inspection Neurological Exam Neurological exam: Present alert and oriented X3 Skin Skin exam: Present intact and warm OBJ DATA Labs 07/19/22 05:38 07/19/22 05:43 Meds: Medications Acetaminophen (Acetaminophen 325 Mg Tablet) 650 mg PO Q6HP PRN; Protocol PRN Reason: Per Pain Protocol/Fever > 101 Last Admin: 07/21/22 08:52 Dose: 650 mg Albuterol/Ipratropium (Ipratropium/Albuterol 3 Ml Ampul.Neb) 3 ml NEB Q4HP PRN PRN Reason: Shortness Of Breath Amlodipine Besylate (Amlodipine 10 Mg Tablet) 10 mg PO DAILY [facility] Last Admin: 07/21/22 08:48 Dose: 10 mg Docusate Sodium (Docusate Sodium 100 Mg Capsule) 100 mg PO BID [facility] Last Admin: 07/21/22 21:38 Dose: 100 mg Fluoxetine HCl (Fluoxetine Hcl 20 Mg Capsule) 40 mg PO DAILY [facility] Last Admin: 07/21/22 08:48 Dose: 40 mg Furosemide (Furosemide 40 Mg Tablet) 40 mg PO QAM [facility] Last Admin: 07/21/22 08:48 Dose: 40 mg Heparin Sodium (Porcine) (Heparin 5,000 Unit/Ml Vial) 5,000 unit SQ Q12 [facility] Last Admin: 07/21/22 21:38 Dose: 5,000 unit Potassium Chloride 40 meq/ (Dextrose) 520 mls @ 130 mls/hr IV UD PRN PRN Reason: Potassium < 3 Magnesium Sulfate (Magnesium Sulfate) 2 gm in 50 mls @ 50 mls/hr IV UD PRN PRN Reason: Magnesium </= 1.6 Last Infusion: 07/19/22 09:27 Dose: Infused Isosorbide Dinitrate (Isosorbide Dinitrate 10 Mg Tablet) 10 mg PO TID [facility] Last Admin: 07/21/22 21:38 Dose: 10 mg Metoprolol Tartrate (Metoprolol Tartrate 25 Mg Tablet) 25 mg PO BID [facility] Last Admin: 07/21/22 21:38 Dose: 25 mg Nicotine (Nicotine 21 Mg Patch) 21 mg TOPICAL DAILY@1000 [facility] Last Admin: 07/21/22 12:56 Dose: 21 mg Ondansetron HCl (Ondansetron 4 Mg/2 Ml Vial) 4 mg IV Q4HP PRN PRN Reason: Nausea And Vomiting Pantoprazole Sodium (Pantoprazole 40 Mg Tablet) 40 mg PO DAILY [facility] Last Admin: 07/21/22 08:48 Dose: 40 mg Polyethylene Glycol (Polyethylene Glycol 3350 17 Gm Packet) 17 gm PO DAILYP PRN PRN Reason: Constipation Potassium Chloride (Potassium Chloride 20 Meq Tablet) 40 meq PO UD PRN PRN Reason: Potssium is 3-3.5 Last Admin: 07/12/22 15:53 Dose: 40 meq Potassium Chloride (Potassium Chloride 20 Meq Tablet) 40 meq PO UD PRN PRN Reason: Potassium < 3 Quetiapine Fumarate (Quetiapine 25 Mg Tablet) 25 mg PO HS [facility] Last Admin: 07/21/22 21:38 Dose: 25 mg Senna (Sennosides 1 Tablet) 2 tab PO DAILYP PRN PRN Reason: Constipation Sodium Bicarbonate (Sodium Bicarbonate 650 Mg Tablet) 650 mg PO BID [facility] Last Admin: 07/21/22 21:38 Dose: 650 mg Sodium Chloride (0.9 % Sodium Chloride 10 Ml Syringe) 10 ml IV Q8 [facility] Last Admin: 07/22/22 05:32 Dose: 10 ml Tamsulosin HCl (Tamsulosin 0.4 Mg Capsule) 0.4 mg PO QDAY [facility] Last Admin: 07/21/22 08:47 Dose: 0.4 mg Vancomycin HCl (Vancomycin 125 Mg Capsule) 125 mg PO QID [facility]; Protocol Last Admin: 07/21/22 21:38 Dose: 125 mg A/P Narrative A/P Narrative: Assessment: 71-year-old male with a history of hypertension, chronic anemia, 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 difficile colitis, chronic kidney disease stage V, COPD, bronchiectasis, GERD, depression, anxiety, BPH, dementia admitted for a septic shock probably secondary to aspiration pneumonia and complicated by acute hypoxic respiratory failure and acute kidney injury. Hypoxia resolved, the patient's acute kidney injury resolved. The patient's hospital course was further complicated by recurrent C. difficile colitis which has responded to oral vancomycin. The patient is currently clinically stable and awaiting placement for low intensity rehab. *Resolved septic shock: vs pneumonia *Treated possible aspiration pneumonia *Covid illness: on room air *Resolved acute hypoxic respiratory failure: *C. dfficile colitis: 2nd recurrence this year *Resolved encephalopathy *Resolved ONEIL on CKD V: *Improved metabolic acidosis *COPD/Bronchiectasis: Stable *h/o CVA w/left hemiplegia: *Dementia, likely vascular: *Anemia, chronic: *HTN: *GERD: *BPH: cont home meds *Depression/anxiety: cont SSRI *Diarrhea: previously treated for c. diff *Wounds on bilateral hips and left forearm, present on admission *Insomnia: Seroquel HS P: -Awaiting placement. -PO Vanco for 10 days followed by tapered and pulsed regimen and bezlotoxumab if available outpatient and covered by insurance. -Monitor renal function periodically, avoid nephrotoxic medications -Sodium bicarbonate tablets for metabolic acidosis associated with CKD. -Continue metoprolol, home Lasix, isosorbide dinitrate, Protonix. -Hold Norvasc 10 mg daily. -hold arb for recent ONEIL on CKD. -hold hctz for recent ONEIL on CKD. -PT/OT, ST eval -Wound care team following. -Nicotine replacement. -CM for placement needs -Consideration of fecal gnosticism therapy after completing treatment for C. difficile to reduce the risk of recurrent infection. -ppx: Heparin / ppi -CODE STATUS: DNR/DNI -Disposition: Currently inpatient MedSurg status, awaiting placement for low intensity rehab. Time Spent With Patient Time: Total time spent is greater than 50% in coordination of care (as documented) at patient's floor/unit and/or counseling patient: Subsequent: Total time with patient: 25 - 34 minutes QUALITY VTE Deep Vein Thrombosis/Pulmonary Embolism Present on Admission: No
[2022-07-22] MEDS: TAMSULOSIN 0.4 MG CAPSULE PO SCH (08:42)
[2022-07-22] MEDS: ISOSORBIDE DINITRATE 10 MG TABLET PO SCH ×3 (08:42→20:44)
[2022-07-22] MEDS: amLODIPine 10 MG TABLET PO SCH (08:42)
[2022-07-22] MEDS: SODIUM BICARBONATE 650 MG TABLET PO SCH ×2 (08:42→20:44)
[2022-07-22] MEDS: VANCOMYCIN 125 MG CAPSULE PO SCH ×4 (08:42→20:45)
[2022-07-22] MEDS: FUROSEMIDE 40 MG TABLET PO SCH (08:42)
[2022-07-22] MEDS: HEPARIN 5,000 UNIT/ML VIAL SQ SCH ×2 (08:42→20:44)
[2022-07-22] MEDS: FLUoxetine HCL 20 MG CAPSULE PO SCH (08:42)
[2022-07-22] MEDS: METOPROLOL TARTRATE 25 MG TABLET PO SCH ×2 (08:42→20:44)
[2022-07-22] MEDS: PANTOPRAZOLE 40 MG TABLET PO SCH (08:43)
[2022-07-22] MEDS: DOCUSATE SODIUM 100 MG CAPSULE PO SCH ×2 (10:33→20:18)
[2022-07-22] MEDS: NICOTINE 21 MG PATCH TOPICAL SCH (12:50)
[2022-07-22] MEDS: ACETAMINOPHEN 325 MG TABLET PO PRN ×2 (12:54→20:44)
--- NOTE | 2022-07-22 13:24 | Internal Med Progress Note ---
SUBJECTIVE Subjective Patient information: Note initiated : 07/22/22 at 1:19 pm Service Date, if different from initiated Date: [] Patient: Priyank Dueñas a 71 y/o M admitted on 07/11/22 for Hypotension, weakness. Chief Complaint: [] Principal diagnosis: Sepsis Interval history: History of present illness: Mr. Dueñas is a 71 year old M Presents from home with weakness generalized as well as hypotension. Patient was released from a rehab tuesday after being admitted for a broken hip repair. History is obtained from the chart as patient has confusion at baseline. Patient became increasingly weak and family unable to care for the patient. Patient was found sleeping on the floor. However other than seeming more fatigued than usual he otherwise acted normal. Patient also had diarrhea and he says had it for about a month. He denies any coughing. He has chronic shortness of breath and unable to tell if it is any worse than usual. Patient says has been in bed for 2 months since he had a stroke. Patient is a poor historian. Patient states that he has had discussions about getting on hemodialysis in the past but he refuses. In ED he is found have a blood pressure of 63/47 and oxygen saturation of 86% on room air. In the ED patient was started on IV fluids and Levophed. Bedside ultrasound showed no fluid overload. The patient was wanting to go home but it was explained to him and the family that he was too critical to go home. Patient was afebrile and other vital signs were stable as well, with the exception of the blood pressure as previously discussed. White blood cell count was borderline high and manual differential is pending. Lactate okay. Chemistry shows a hyponatremia as well as a acute on chronic kidney injury with a BUN of 4.5. Procalcitonin mildly elevated 0.36 Urinalysis suspected source of infection CT chest abdomen pelvis with lower lobe infiltrates versus atelectasis. There is bronchiectasis as well, moderate emphysema. Venous ultrasound lower extremities revealed no DVTs. Patient was able to nearly be weaned off oxygen. Continued on Levophed. 3/6 tmax 100.1 o/n. Found to be COVID-positive. pt off/on oxygen, suspect component of aspiration C. difficile positive Patient says he just wants to sleep. Hyponatremia, metabolic acidosis. Renal function slowly improving. Off Levophed since yesterday. Oral vancomycin started yesterday. Complains of chills but other no other complaints. 07/13 No significant events overnight, on room air. Diarrhea appears to be improving with oral vancomycin. Plan is to complete 5 days of antibiotic treat for pneumonia then 10 days of oral vancomycin followed by a taper for recurrent C. difficile colitis. Wound care following for right and left hip wounds that were present on admission. 07/14 No significant events overnight, continues to be on room air. Completing IV antibiotic treatment today, continues on oral vancomycin. Transition to MedSur status. Resume home Lasix, isosorbide dinitrate, Protonix. 07/15 Vital stable overnight. The patient got upset last night because he wanted to go home, he called the police for that reason. Discharge to home at this point does not appear to be safe as the patient will require significant assistance and is requiring 2 for maximum assistance currently to get to sitting at the edge of the bed. Remove Romero catheter today. Dr. Kendalled following for the patient's chronic wounds. Case management following to assist with discharge planning. 07/16 Vital stable overnight, no significant agitation issues overnight. Blood pressure elevated this morning, added Norvasc 10 mg daily. Renal function at baseline now. Case management working on placement. 07/17 Vitals stable overnight. Seroquel added yesterday evening to good effect overnight. The patient feels like he slept better. Continues on QID oral vancomycin for C diff. Awaiting placement. 07/18 No significant events overnight, the patient's behaviors have improved since adding Seroquel at bedtime a couple nights ago. Awaiting placement. 07/20 Interval history: Clinically stable awaiting safe discharge plan per Case management and social work. 07/22 Patient is clinically status quo and is still awaiting insurance authorization per my discussion with social work today. 07/23 Review of Systems: Denies headache/fever/chills/nausea/vomiting/chest or abdominal pain. Otherwise as above PHYSICAL EXAM General: Awake, No acute Distress Eyes/N/T: EOMI, no scleral icterus, Head/Neck: neck supple, full ROM, CV: RRR, No murmurs, normal s1/s2 Pulm:clearl b/l, no wheezing, no respiratory distress Abd: soft, nontender, +BS x4 Ext: no clubbing/cyanosis/edema, nontender Neuro: Alert, left hemiplegia, sensations intact b/l upper/lower, follows commands Psychiatric: Skin: warm/dry, normal color Constitutional Vitals: Vital Signs Temp Pulse Resp BP Pulse Ox O2 Del Method O2 Flow Rate 98.3 F 78 12 134/74 96 Room Air 0 07/22/22 11:00 07/22/22 11:00 07/22/22 11:00 07/22/22 11:00 07/22/22 11:00 07/22/22 11:00 07/20/22 04:00 Period Temp Pulse Resp BP Sys/Paiz Pulse Ox O2 Del Method O2 Flow Rate Last 24 Hr 96.8 F-98.3 F 62-78 12-18 105-150/70-101 95-100 Room Air-Room Air Intake and Output 07/22/22 07/22/22 07/22/22 03:59 11:59 19:59 Intake Total 960 Output Total 200 250 Balance -200 710 Intake & Output: Intake & Output 07/22/22 07/22/22 07/22/22 03:59 11:59 19:59 Intake Total 960 Output Total 200 250 Balance -200 710 Intake: Oral 960 Output: Void Amount 200 250 Other: Meal Breakfast Percent of Meal Consumed 100% Feeding Ability Independent Urine Appearance Clear Clear Urine Color Yellow Yellow Urine Odor Normal Stool Size Small Moderate Stool Color Brown Brown Yellow Stool Consistency Loose Loose # Bowel Movements 1 # of times incontinent of 1 1 Bowels OBJ DATA Labs 07/19/22 05:38 07/19/22 05:43 Meds: Medications Acetaminophen (Acetaminophen 325 Mg Tablet) 650 mg PO Q6HP PRN; Protocol PRN Reason: Per Pain Protocol/Fever > 101 Last Admin: 07/22/22 12:54 Dose: 650 mg Albuterol/Ipratropium (Ipratropium/Albuterol 3 Ml Ampul.Neb) 3 ml NEB Q4HP PRN PRN Reason: Shortness Of Breath Amlodipine Besylate (Amlodipine 10 Mg Tablet) 10 mg PO DAILY [facility] Last Admin: 07/22/22 08:42 Dose: 10 mg Docusate Sodium (Docusate Sodium 100 Mg Capsule) 100 mg PO BID [facility] Last Admin: 07/22/22 10:33 Dose: Not Given Fluoxetine HCl (Fluoxetine Hcl 20 Mg Capsule) 40 mg PO DAILY [facility] Last Admin: 07/22/22 08:42 Dose: 40 mg Furosemide (Furosemide 40 Mg Tablet) 40 mg PO QAM [facility] Last Admin: 07/22/22 08:42 Dose: 40 mg Heparin Sodium (Porcine) (Heparin 5,000 Unit/Ml Vial) 5,000 unit SQ Q12 [facility] Last Admin: 07/22/22 08:42 Dose: 5,000 unit Potassium Chloride 40 meq/ (Dextrose) 520 mls @ 130 mls/hr IV UD PRN PRN Reason: Potassium < 3 Magnesium Sulfate (Magnesium Sulfate) 2 gm in 50 mls @ 50 mls/hr IV UD PRN PRN Reason: Magnesium </= 1.6 Last Infusion: 07/19/22 09:27 Dose: Infused Isosorbide Dinitrate (Isosorbide Dinitrate 10 Mg Tablet) 10 mg PO TID [facility] Last Admin: 07/22/22 08:42 Dose: 10 mg Metoprolol Tartrate (Metoprolol Tartrate 25 Mg Tablet) 25 mg PO BID [facility] Last Admin: 07/22/22 08:42 Dose: 25 mg Nicotine (Nicotine 21 Mg Patch) 21 mg TOPICAL DAILY@1000 [facility] Last Admin: 07/22/22 12:50 Dose: 21 mg Ondansetron HCl (Ondansetron 4 Mg/2 Ml Vial) 4 mg IV Q4HP PRN PRN Reason: Nausea And Vomiting Pantoprazole Sodium (Pantoprazole 40 Mg Tablet) 40 mg PO DAILY [facility] Last Admin: 07/22/22 08:43 Dose: 40 mg Polyethylene Glycol (Polyethylene Glycol 3350 17 Gm Packet) 17 gm PO DAILYP PRN PRN Reason: Constipation Potassium Chloride (Potassium Chloride 20 Meq Tablet) 40 meq PO UD PRN PRN Reason: Potssium is 3-3.5 Last Admin: 07/12/22 15:53 Dose: 40 meq Potassium Chloride (Potassium Chloride 20 Meq Tablet) 40 meq PO UD PRN PRN Reason: Potassium < 3 Quetiapine Fumarate (Quetiapine 25 Mg Tablet) 25 mg PO HS [facility] Last Admin: 07/21/22 21:38 Dose: 25 mg Senna (Sennosides 1 Tablet) 2 tab PO DAILYP PRN PRN Reason: Constipation Sodium Bicarbonate (Sodium Bicarbonate 650 Mg Tablet) 650 mg PO BID [facility] Last Admin: 07/22/22 08:42 Dose: 650 mg Sodium Chloride (0.9 % Sodium Chloride 10 Ml Syringe) 10 ml IV Q8 [facility] Last Admin: 07/22/22 05:32 Dose: 10 ml Tamsulosin HCl (Tamsulosin 0.4 Mg Capsule) 0.4 mg PO QDAY [facility] Last Admin: 07/22/22 08:42 Dose: 0.4 mg Vancomycin HCl (Vancomycin 125 Mg Capsule) 125 mg PO QID [facility]; Protocol Last Admin: 07/22/22 12:49 Dose: 125 mg A/P Narrative A/P Narrative: A: *Septic Shock: vs Pulm -resolved *PNA,Aspiration): *Covid(+): on room air *Acute hypoxic respiratory failure: -now on room air *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 -PO Vanco for 10 days followed by tapered and pulsed regimen and bezlotoxumab if available outpatient and covered by insurance. -Monitor renal function periodically, avoid nephrotoxic medications -Sodium bicarbonate tablets for metabolic acidosis associated with CKD. -Continue metoprolol, home Lasix, isosorbide dinitrate -Hold Norvasc 10 mg daily -hold arb/hctz for recent ONEIL on CKD. -PT/OT, ST eval -Wound care team following -Nicotine replacement -CM for placement needs -Consideration of fecal hoahaoism therapy after completing treatment for C. difficile to reduce the risk of recurrent infection. -ppx: Heparin / ppi CODE STATUS: DNR/DNI Time Spent With Patient Time: Total time spent is greater than 50% in coordination of care (as documented) at patient's floor/unit and/or counseling patient: QUALITY VTE Deep Vein Thrombosis/Pulmonary Embolism Present on Admission: No
[2022-07-22] MEDS: QUEtiapine 25 MG TABLET PO SCH (20:44)
[2022-07-23] MEDS: 0.9 % SODIUM CHLORIDE 10 ML SYRINGE IV SCH ×3 (04:31→20:26)
--- NOTE | 2022-07-23 07:25 | Internal Med Progress Note ---
SUBJECTIVE Subjective Patient information: Note initiated : 07/23/22 at 7:21 am Service Date, if different from initiated Date: [] Patient: Priyank Dueñas a 71 y/o M admitted on 07/11/22 for Hypotension, weakness. Chief Complaint: [] Principal diagnosis: Sepsis Interval history: History of present illness: Mr. Dueñas is a 71 year old M Presents from home with weakness generalized as well as hypotension. Patient was released from a rehab tuesday after being admitted for a broken hip repair. History is obtained from the chart as patient has confusion at baseline. Patient became increasingly weak and family unable to care for the patient. Patient was found sleeping on the floor. However other than seeming more fatigued than usual he otherwise acted normal. Patient also had diarrhea and he says had it for about a month. He denies any coughing. He has chronic shortness of breath and unable to tell if it is any worse than usual. Patient says has been in bed for 2 months since he had a stroke. Patient is a poor historian. Patient states that he has had discussions about getting on hemodialysis in the past but he refuses. In ED he is found have a blood pressure of 63/47 and oxygen saturation of 86% on room air. In the ED patient was started on IV fluids and Levophed. Bedside ultrasound showed no fluid overload. The patient was wanting to go home but it was explained to him and the family that he was too critical to go home. Patient was afebrile and other vital signs were stable as well, with the exception of the blood pressure as previously discussed. White blood cell count was borderline high and manual differential is pending. Lactate okay. Chemistry shows a hyponatremia as well as a acute on chronic kidney injury with a BUN of 4.5. Procalcitonin mildly elevated 0.36 Urinalysis suspected source of infection CT chest abdomen pelvis with lower lobe infiltrates versus atelectasis. There is bronchiectasis as well, moderate emphysema. Venous ultrasound lower extremities revealed no DVTs. Patient was able to nearly be weaned off oxygen. Continued on Levophed. 3/6 tmax 100.1 o/n. Found to be COVID-positive. pt off/on oxygen, suspect component of aspiration C. difficile positive Patient says he just wants to sleep. Hyponatremia, metabolic acidosis. Renal function slowly improving. Off Levophed since yesterday. Oral vancomycin started yesterday. Complains of chills but other no other complaints. 07/13 No significant events overnight, on room air. Diarrhea appears to be improving with oral vancomycin. Plan is to complete 5 days of antibiotic treat for pneumonia then 10 days of oral vancomycin followed by a taper for recurrent C. difficile colitis. Wound care following for right and left hip wounds that were present on admission. 07/14 No significant events overnight, continues to be on room air. Completing IV antibiotic treatment today, continues on oral vancomycin. Transition to MedSur status. Resume home Lasix, isosorbide dinitrate, Protonix. 07/15 Vital stable overnight. The patient got upset last night because he wanted to go home, he called the police for that reason. Discharge to home at this point does not appear to be safe as the patient will require significant assistance and is requiring 2 for maximum assistance currently to get to sitting at the edge of the bed. Remove Romero catheter today. Dr. Kendalled following for the patient's chronic wounds. Case management following to assist with discharge planning. 07/16 Vital stable overnight, no significant agitation issues overnight. Blood pressure elevated this morning, added Norvasc 10 mg daily. Renal function at baseline now. Case management working on placement. 07/17 Vitals stable overnight. Seroquel added yesterday evening to good effect overnight. The patient feels like he slept better. Continues on QID oral vancomycin for C diff. Awaiting placement. 07/18 No significant events overnight, the patient's behaviors have improved since adding Seroquel at bedtime a couple nights ago. Awaiting placement. 07/20 Interval history: Clinically stable awaiting safe discharge plan per Case management and social work. 07/22 Patient is clinically status quo and is still awaiting insurance authorization per my discussion with social work today. 07/23 No overnight event or new complaints. Blood pressure little soft this morning we will hold Norvasc.pt still has diarrhea. Review of Systems: Denies headache/fever/chills/nausea/vomiting/chest or abdominal pain. Otherwise as above PHYSICAL EXAM General: Awake, No acute Distress Eyes/N/T: EOMI, no scleral icterus, Head/Neck: neck supple, full ROM, CV: RRR, No murmurs, normal s1/s2 Pulm:clearl b/l, no wheezing, no respiratory distress Abd: soft, nontender, +BS x4 Ext: no clubbing/cyanosis/edema, nontender Neuro: Alert, left hemiplegia, sensations intact b/l upper/lower, follows commands Psychiatric: Skin: warm/dry, normal color Constitutional Vitals: Vital Signs Temp Pulse Resp BP Pulse Ox O2 Del Method O2 Flow Rate 97.6 F 60 18 99/69 93 Room Air 0 07/23/22 04:31 07/23/22 00:13 07/23/22 04:31 07/23/22 00:13 07/23/22 00:13 07/23/22 00:13 07/20/22 04:00 Period Temp Pulse Resp BP Sys/Paiz Pulse Ox O2 Del Method O2 Flow Rate Last 24 Hr 97 F-98.3 F 60-78 12-20 99-134/69-92 93-97 Room Air-Room Air Intake and Output 07/22/22 07/23/22 07/23/22 19:59 03:59 11:59 Output Total 2 50 Balance -2 -50 Weight 69.899 kg Intake & Output: Intake & Output 07/22/22 07/23/22 07/23/22 19:59 03:59 11:59 Output Total 2 50 Balance -2 -50 Weight 69.899 kg Output: Void Amount 50 # of times incontinent of urine 2 Other: Meal Lunch Percent of Meal Consumed 75% Feeding Ability Independent Urine Appearance Clear Urine Color Yellow Dark Yellow Urine Odor Normal Normal Stool Size Moderate Stool Color Yellow Green Stool Consistency Liquid Loose # Bowel Movements 1 # of times incontinent of 1 Bowels OBJ DATA Labs 07/19/22 05:38 07/19/22 05:43 Meds: Medications Acetaminophen (Acetaminophen 325 Mg Tablet) 650 mg PO Q6HP PRN; Protocol PRN Reason: Per Pain Protocol/Fever > 101 Last Admin: 07/22/22 20:44 Dose: 650 mg Albuterol/Ipratropium (Ipratropium/Albuterol 3 Ml Ampul.Neb) 3 ml NEB Q4HP PRN PRN Reason: Shortness Of Breath Amlodipine Besylate (Amlodipine 10 Mg Tablet) 10 mg PO DAILY [facility] Last Admin: 07/22/22 08:42 Dose: 10 mg Docusate Sodium (Docusate Sodium 100 Mg Capsule) 100 mg PO BID [facility] Last Admin: 07/22/22 20:18 Dose: Not Given Fluoxetine HCl (Fluoxetine Hcl 20 Mg Capsule) 40 mg PO DAILY [facility] Last Admin: 07/22/22 08:42 Dose: 40 mg Furosemide (Furosemide 40 Mg Tablet) 40 mg PO QAM [facility] Last Admin: 07/22/22 08:42 Dose: 40 mg Heparin Sodium (Porcine) (Heparin 5,000 Unit/Ml Vial) 5,000 unit SQ Q12 [facility] Last Admin: 07/22/22 20:44 Dose: 5,000 unit Potassium Chloride 40 meq/ (Dextrose) 520 mls @ 130 mls/hr IV UD PRN PRN Reason: Potassium < 3 Magnesium Sulfate (Magnesium Sulfate) 2 gm in 50 mls @ 50 mls/hr IV UD PRN PRN Reason: Magnesium </= 1.6 Last Infusion: 07/19/22 09:27 Dose: Infused Isosorbide Dinitrate (Isosorbide Dinitrate 10 Mg Tablet) 10 mg PO TID [facility] Last Admin: 07/22/22 20:44 Dose: 10 mg Metoprolol Tartrate (Metoprolol Tartrate 25 Mg Tablet) 25 mg PO BID [facility] Last Admin: 07/22/22 20:44 Dose: 25 mg Nicotine (Nicotine 21 Mg Patch) 21 mg TOPICAL DAILY@1000 [facility] Last Admin: 07/22/22 12:50 Dose: 21 mg Ondansetron HCl (Ondansetron 4 Mg/2 Ml Vial) 4 mg IV Q4HP PRN PRN Reason: Nausea And Vomiting Pantoprazole Sodium (Pantoprazole 40 Mg Tablet) 40 mg PO DAILY [facility] Last Admin: 07/22/22 08:43 Dose: 40 mg Polyethylene Glycol (Polyethylene Glycol 3350 17 Gm Packet) 17 gm PO DAILYP PRN PRN Reason: Constipation Potassium Chloride (Potassium Chloride 20 Meq Tablet) 40 meq PO UD PRN PRN Reason: Potssium is 3-3.5 Last Admin: 07/12/22 15:53 Dose: 40 meq Potassium Chloride (Potassium Chloride 20 Meq Tablet) 40 meq PO UD PRN PRN Reason: Potassium < 3 Quetiapine Fumarate (Quetiapine 25 Mg Tablet) 25 mg PO HS [facility] Last Admin: 07/22/22 20:44 Dose: 25 mg Senna (Sennosides 1 Tablet) 2 tab PO DAILYP PRN PRN Reason: Constipation Sodium Bicarbonate (Sodium Bicarbonate 650 Mg Tablet) 650 mg PO BID [facility] Last Admin: 07/22/22 20:44 Dose: 650 mg Sodium Chloride (0.9 % Sodium Chloride 10 Ml Syringe) 10 ml IV Q8 [facility] Last Admin: 07/23/22 04:31 Dose: 10 ml Tamsulosin HCl (Tamsulosin 0.4 Mg Capsule) 0.4 mg PO QDAY [facility] Last Admin: 07/22/22 08:42 Dose: 0.4 mg Vancomycin HCl (Vancomycin 125 Mg Capsule) 125 mg PO QID [facility]; Protocol Last Admin: 07/22/22 20:45 Dose: 125 mg A/P Narrative A/P Narrative: A: *Septic Shock: -resolved *PNA,Aspiration): *Covid(+): on room air *Acute hypoxic respiratory failure: -now on room air *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 -PO Vanco for 10 days followed by tapered and pulsed regimen and bezlotoxumab if available outpatient and covered by insurance. -Monitor renal function periodically, avoid nephrotoxic medications -Sodium bicarbonate tablets for metabolic acidosis associated with CKD. -Continue metoprolol, home Lasix, isosorbide dinitrate -decrease Norvasc to 5mg for soft bp, cont BB -cont BB,lasix -hold arb/hctz for recent ONEIL on CKD. -PT/OT, ST eval -Wound care team following -Nicotine replacement -CM for placement needs -Consideration of fecal alevism therapy after completing treatment for C. difficile to reduce the risk of recurrent infection. -ppx: Heparin / ppi CODE STATUS: DNR/DNI Time Spent With Patient Time: Total time spent is greater than 50% in coordination of care (as documented) at patient's floor/unit and/or counseling patient: Subsequent: Total time with patient: 35 - 49 minutes QUALITY VTE Deep Vein Thrombosis/Pulmonary Embolism Present on Admission: No
[2022-07-23] MEDS: METOPROLOL TARTRATE 25 MG TABLET PO SCH ×2 (08:44→20:26)
[2022-07-23] MEDS: FUROSEMIDE 40 MG TABLET PO SCH (08:44)
[2022-07-23] MEDS: FLUoxetine HCL 20 MG CAPSULE PO SCH (08:44)
[2022-07-23] MEDS: DOCUSATE SODIUM 100 MG CAPSULE PO SCH ×3 (08:44→20:25)
[2022-07-23] MEDS: TAMSULOSIN 0.4 MG CAPSULE PO SCH (08:44)
[2022-07-23] MEDS: ISOSORBIDE DINITRATE 10 MG TABLET PO SCH ×3 (08:44→20:26)
[2022-07-23] MEDS: SODIUM BICARBONATE 650 MG TABLET PO SCH ×2 (08:44→20:26)
[2022-07-23] MEDS: PANTOPRAZOLE 40 MG TABLET PO SCH (08:44)
[2022-07-23] MEDS: VANCOMYCIN 125 MG CAPSULE PO SCH ×3 (08:44→20:26)
[2022-07-23] MEDS: HEPARIN 5,000 UNIT/ML VIAL SQ SCH ×3 (08:45→20:27)
--- NOTE | 2022-07-23 09:55 | Discharge Summary ---
Discharge Provider Provider IMPORTANT FOLLOW-UP INFORMATION FOR PCP: P: -PO Vanco for 10 days followed by tapered and pulsed regimen -Consideration of fecal jain therapy if another recurrent episode -hctz held for hyponatremia -ARB held for recent ONEIL and soft BP Patient information: Note initiated : 07/23/22 at 9:52 am Service Date, if different from initiated Date: [] Patient: Priyank Dueñas 71 y/o M admitted on 07/11/22 for Hypotension, weakness . Chief Complaint: [] Date of admission: 07/11/22 01:41 Discharge date: 07/27/22 Primary care physician: Mindy Green Consults: 07/10/22 Consult to Physician [CONS] Stat Comment: Consulting Provider: Samuel Harding Reason For Exam: Physician to Consult Consult to Physician [CONS] Stat Comment: Consulting Provider: Samuel Harding Reason For Exam: Physician to Consult 07/14/22 07:45 Consult to Physician [CONS] Routine Comment: Consulting Provider: Chong Ramos Reason For Exam: Physician to Consult COURSE Hospital Course Hospital course: History of present illness: Mr. Dueñas is a 71 year old M Presents from home with weakness generalized as well as hypotension. Patient w as released from a rehab tuesday after being admitted for a broken hip repair. History is obtained from the chart as patient has confusion at baseline. Patient became increasingly weak and family unable to care for the patient. Patient was found sleeping on the floor. However other than seeming more fatigued than usual he otherwise acted normal. Patient also had diarrhea and he says had it for about a month. He denies any coughing. He has chronic shortness of breath and unable to tell if it is any worse than usual. Patient says has been in bed for 2 months since he had a stroke. Patient is a poor historian. Patient states that he has had discussions about getting on hemodialysis in the past but he refuses. In ED he is found have a blood pressure of 63/47 and oxygen saturation of 86% on room air. In the ED patient was started on IV fluids and Levophed. Bedside ultrasound showed no fluid overload. The patient was wanting to go home but it was explained to him and the family that he was too critical to go home. Patient was afebrile and other vital signs were stable as well, with the exception of the blood pressure as previously discussed. White blood cell count was borderline high and manual differential is pending. Lactate okay. Chemistry shows a hyponatremia as well as a acute on chronic kidney injury with a BUN of 4.5. Procalcitonin mildly elevated 0.36 Urinalysis suspected source of infection CT chest abdomen pelvis with lower lobe infiltrates versus atelectasis. There is bronchiectasis as well, moderate emphysema. Venous ultrasound lower extremities revealed no DVTs. Patient was able to nearly be weaned off oxygen. Continued on Levophed. 07/12 tmax 100.1 o/n. Found to be COVID-positive. pt off/on oxygen, suspect component of aspiration C. difficile positive Patient says he just wants to sleep. Hyponatremia, metabolic acidosis. Renal function slowly improving. Off Levophed since yesterday. Oral vancomycin started yesterday. Complains of chi lls but other no other complaints. 07/13 No significant events overnight, on room air. Diarrhea appears to be improving with oral vancomycin. Plan is to complete 5 days of antibiotic treat for pneumo darlin then 10 days of oral vancomycin followed by a taper for recurrent C. difficile colitis. Wound care following for right and left hip wounds that were present on admission. 07/14 No significant events overnight, continues to be on room air. Completing IV antibiotic treatment today, continues on oral vancomycin. Transition to MedSurg status. Resume home Lasix, isosorbide dinitrate, Protonix. 07/15 Vital stable overnight. The patient got upset last night because he wanted to go home, he called the police for that reason. Discharge to home at this point does not appear to be safe as the patient will require significant assistance and is requiring 2 for maximum assistance currently to get to sitting at the edge of the bed. Remove Romero catheter today. Dr. Syed following for the patient's chronic wounds. Case management following to assist with discharge planning. 07/16 Vital stable overnight, no significant agitation issues overnight. Blood pressure elevated this morning, added Norvasc 10 mg daily. Renal function at baseline now. Case management working on placement. 07/17 Vitals stable overnight. Seroquel added yesterday evening to good effect overnight. The patient feels like he slept better. Continues on QID oral vancomycin for C diff. Awaiting placement. 07/18 No significant events overnight, the patient's behaviors have improved since adding Seroquel at bedtime a couple nights ago. Awaiting placement. 07/20 Interval history: Clinically stable awaiting safe discharge plan per Case management and social work. 07/22 Patient is clinically status quo and is still awaiting insurance authorization per my discussion with social work today. 07/23 No overnight event or new complaints. Blood pressure little soft this morning we will hold Norvasc.pt still has diarrhea. 07/24 Patient seems to feel little bit better today. Blood pressure better. Notes on the higher side. Evaluate BP meds and add some IV as needed. 07/25 No overnight event or new complaints. Just asking for [id number]. 07/26 No new complaints other than he says he is wants solid food, he is on a dysphagia diet. 07/27 Doing well, no new complaints other than not wanting any stool softeners. Pending placement. 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 *Encephalopathy: improved *ONEIL on CKD V: *Metabolic acidosis: resolved *Volume depletion: improved *Hyponatremia/hypomagnesemia: *COPD ( )/Bronchiectasis: *h/o CVA w/left hemiplegia: *Dementia, likely vascular: *Anemia, chronic: *HTN: *GERD: *BPH: cont home meds *Depression/anxiety: cont SSRI *Wounds on bilateral hips and left forearm, present on admission *Insomnia: Seroquel HS P: -PO Vanco for 10 days followed by tapered and pulsed regimen -Consideration of fecal jain therapy if another recurrent episode -hctz held for hyponatremia Discharge diagnosis: Septic shock aspiration pneumonia COVID positive C. difficile colitis Secondary discharge diagnosis: Acute hypoxic respite failure Encephalopathy acute kidney injury on chronic kidney disease metabolic acidosis fine depletion electrolyte disturbance COPD bronchiectasis history of stroke dementia chronic anemia pretension GERD BPH depression anxiety chronic wounds Time Spent with Patient Time attestation: Total time spent providing and/or coordinating discharge services: Time spent: Greater than 30 minutes EXAM Constitutional Vitals: Temp Pulse Resp BP Pulse Ox O2 Del Method O2 Flow Rate 97.6 F 66 18 167/82 96 Room Air 0 07/23/22 08:00 07/23/22 08:00 07/23/22 08:00 07/23/22 08:00 07/23/22 08:00 07/23/22 08:00 07/20/22 04:00 Discharge Plan Patient/Caregiver Discharge Instructions Activity: increase activity as tolerated Diet: Dysphagia Level 5 Minced & Moist Foods Prescriptions: New losartan 100 mg tablet 100 mg PO QDAY Qty: 1 0RF Continued vitamin B complex tablet 1 tab PO QDAY fluoxetine 40 mg capsule 40 mg PO QDAY furosemide 40 mg tablet 40 mg PO QAM ipratropium-albuterol 0.5 mg-3 mg(2.5 mg base)/3 mL Solution For Nebulization 3 ml INHALATION Q4H metoprolol tartrate 50 mg Tablet 50 mg PO BID isosorbide dinitrate 10 mg tablet 10 mg PO TID pantoprazole 40 mg Tablet,Delayed Release (Dr/Ec) 40 mg PO DAILY Multiple Vitamins Daily 1 tab PO DAILY aspirin 325 mg Tablet 325 mg PO DAILY hydrocodone-acetaminophen 5-325 mg Tablet 1 tab PO Q4H PRN (Reason: Pain) Qty: 10 0RF tamsulosin 0.4 mg capsule 0.4 mg PO QDAY Qty: 90 3RF Discontinued hydrochlorothiazide 25 mg tablet 25 mg PO QDAY losartan 100 mg Tablet 100 mg PO QDAY Follow Up Plan Follow up with: Mindy Green MD [Primary Care Provider] - (as needed.) Chong Ramos MD [Physician] - (F/U in clinic in 1 week. Please call to schedule appointment.) Patient Disposition: Xfer SNF Prognosis: Fair Rehab Potential: Fair I certify that the patient requires SNF services: Yes Overall status at discharge: patient is progressing back to baseline Discharge Orders: Discharge Order (Routine); Ordered 07/27/22 [facility] Thrombosis/Pulmonary Embolism Present on Admission: No
[2022-07-23] MEDS ORDERED: amLODIPine 10 MG TABLET PO SCH (10:00)
[2022-07-23] MEDS: NICOTINE 21 MG PATCH TOPICAL SCH (10:05)
[2022-07-23] MEDS: QUEtiapine 25 MG TABLET PO SCH (20:26)
[2022-07-23] MEDS: ACETAMINOPHEN 325 MG TABLET PO PRN (20:26)
[2022-07-24] MEDS: 0.9 % SODIUM CHLORIDE 10 ML SYRINGE IV SCH ×3 (05:12→20:14)
--- NOTE | 2022-07-24 07:37 | Internal Med Progress Note ---
SUBJECTIVE Subjective Patient information: Note initiated : 07/24/22 at 7:35 am Service Date, if different from initiated Date: [] Patient: Priyank Dueñas 71 y/o M admitted on 07/11/22 for Hypotension, weakness. Chief Complaint: [] Principal diagnosis: Sepsis Interval history: History of present illness: Mr. Dueñas is a 71 year old M Presents from home with weakness generalized as well as hypotension. Patient was released from a rehab tuesday after being admitted for a broken hip repair. History is obtained from the chart as patient has confusion at baseline. Patient became increasingly weak and family unable to care for the patient. Patient was found sleeping on the floor. However other than seeming more fatigued than usual he otherwise acted normal. Patient also had diarrhea and he says had it for about a month. He denies any coughing. He has chronic shortness of breath and unable to tell if it is any worse than usual. Patient says has been in bed for 2 months since he had a stroke. Patient is a poor historian. Patient states that he has had discussions about getting on hemodialysis in the past but he refuses. In ED he is found have a blood pressure of 63/47 and oxygen saturation of 86% on room air. In the ED patient was started on IV fluids and Levophed. Bedside ultrasound showed no fluid overload. The patient was wanting to go home but it was explained to him and the family that he was too critical to go home. Patient was afebrile and other vital signs were stable as well, with the exception of the blood pressure as previously discussed. White blood cell count was borderline high and manual differential is pending. Lactate okay. Chemistry shows a hyponatremia as well as a acute on chronic kidney injury with a BUN of 4.5. Procalcitonin mildly elevated 0.36 Urinalysis suspected source of infection CT chest abdomen pelvis with lower lobe infiltrates versus atelectasis. There is bronchiectasis as well, moderate emphysema. Venous ultrasound lower extremities revealed no DVTs. Patient was able to nearly be weaned off oxygen. Continued on Levophed. 3/6 tmax 100.1 o/n. Found to be COVID-positive. pt off/on oxygen, suspect component of aspiration C. difficile positive Patient says he just wants to sleep. Hyponatremia, metabolic acidosis. Renal function slowly improving. Off Levophed since yesterday. Oral vancomycin started yesterday. Complains of chills but other no other complaints. 07/13 No significant events overnight, on room air. Diarrhea appears to be improving with oral vancomycin. Plan is to complete 5 days of antibiotic treat for pneumonia then 10 days of oral vancomycin followed by a taper for recurrent C. difficile colitis. Wound care following for right and left hip wounds that were present on admission. 07/14 No significant events overnight, continues to be on room air. Completing IV antibiotic treatment today, continues on oral vancomycin. Transition to MedSurg status. Resume home Lasix, isosorbide dinitrate, Protonix. 07/15 Vital stable overnight. The patient got upset last night because he wanted to go home, he called the police for that reason. Discharge to home at this point does not appear to be safe as the patient will require significant assistance and is requiring 2 for maximum assistance currently to get to sitting at the edge of the bed. Remove Romero catheter today. Dr. Syed following for the patient's chronic wounds. Case management following to assist with discharge planning. 07/16 Vital stable overnight, no significant agitation issues overnight. Blood pressure elevated this morning, added Norvasc 10 mg daily. Renal function at baseline now. Case management working on placement. 07/17 Vitals stable overnight. Seroquel added yesterday evening to good effect overnight. The patient feels like he slept better. Continues on QID oral vancomycin for C diff. Awaiting placement. 07/18 No significant events overnight, the patient's behaviors have improved since adding Seroquel at bedtime a couple nights ago. Awaiting placement. 07/20 Interval history: Clinically stable awaiting safe discharge plan per Case management and social work. 07/22 Patient is clinically status quo and is still awaiting insurance authorization per my discussion with social work today. 07/23 No overnight event or new complaints. Blood pressure little soft this morning we will hold Norvasc.pt still has diarrhea. 07/24 Patient seems to feel little bit better today. Blood pressure better. Notes on the higher side. Evaluate BP meds and add some IV as needed. Review of Systems: Denies headache/fever/chills/nausea/vomiting/chest or abdominal pain. Otherwise as above PHYSICAL EXAM General: Awake, No acute Distress Eyes/N/T: EOMI, no scleral icterus, Head/Neck: neck supple, full ROM, CV: RRR, No murmurs, normal s1/s2 Pulm:clearl b/l, no wheezing, no respiratory distress Abd: soft, nontender, +BS x4 Ext: no clubbing/cyanosis/edema, nontender Neuro: Alert, left hemiplegia, sensations intact b/l upper/lower, follows commands Psychiatric: Skin: warm/dry, normal color Constitutional Vitals: Vital Signs Temp Pulse Resp BP Pulse Ox O2 Del Method O2 Flow Rate 97 F 72 16 143/87 99 Room Air 0 07/24/22 04:52 07/24/22 04:52 07/24/22 04:52 07/24/22 04:52 07/24/22 04:52 07/24/22 04:52 07/20/22 04:00 Period Temp Pulse Resp BP Sys/Paiz Pulse Ox O2 Del Method O2 Flow Rate Last 24 Hr 97 F-97.6 F 66-83 14-18 106-167/67-89 94-100 Room Air-Room Air Intake and Output 07/23/22 07/24/22 07/24/22 19:59 03:59 11:59 Intake Total 600 100 Output Total 201 125 100 Balance 399 -125 0 Weight 71.033 kg Intake & Output: Intake & Output 07/23/22 07/24/22 07/24/22 19:59 03:59 11:59 Intake Total 600 100 Output Total 201 125 100 Balance 399 -125 0 Weight 71.033 kg Intake: Oral 600 100 Output: Void Amount 200 125 100 # of times incontinent of urine 1 Other: Meal Dinner Percent of Meal Consumed 75% Feeding Ability Assist with Tray Set Up Urine Appearance Clear Clear Clear Urine Color Dark Yellow Dark Yellow Dark Yellow Urine Odor Normal Normal Stool Size Moderate Small Moderate Stool Color Yellow Brown Brown Stool Consistency Liquid Loose Loose # Bowel Movements 1 1 # of times incontinent of 1 1 Bowels OBJ DATA Labs 07/19/22 05:38 07/19/22 05:43 Meds: Medications Acetaminophen (Acetaminophen 325 Mg Tablet) 650 mg PO Q6HP PRN; Protocol PRN Reason: Per Pain Protocol/Fever > 101 Last Admin: 07/23/22 20:26 Dose: 650 mg Albuterol/Ipratropium (Ipratropium/Albuterol 3 Ml Ampul.Neb) 3 ml NEB Q4HP PRN PRN Reason: Shortness Of Breath Amlodipine Besylate (Amlodipine 5 Mg Tablet) 5 mg PO DAILY [facility] Docusate Sodium (Docusate Sodium 100 Mg Capsule) 100 mg PO BID [facility] Last Admin: 07/23/22 20:25 Dose: Not Given Fluoxetine HCl (Fluoxetine Hcl 20 Mg Capsule) 40 mg PO DAILY [facility] Last Admin: 07/23/22 08:44 Dose: 40 mg Furosemide (Furosemide 40 Mg Tablet) 40 mg PO QAM [facility] Last Admin: 07/23/22 08:44 Dose: 40 mg Heparin Sodium (Porcine) (Heparin 5,000 Unit/Ml Vial) 5,000 unit SQ Q12 [facility] Last Admin: 07/23/22 20:27 Dose: Not Given Potassium Chloride 40 meq/ (Dextrose) 520 mls @ 130 mls/hr IV UD PRN PRN Reason: Potassium < 3 Magnesium Sulfate (Magnesium Sulfate) 2 gm in 50 mls @ 50 mls/hr IV UD PRN PRN Reason: Magnesium </= 1.6 Last Infusion: 07/19/22 09:27 Dose: Infused Isosorbide Dinitrate (Isosorbide Dinitrate 10 Mg Tablet) 10 mg PO TID [facility] Last Admin: 07/23/22 20:26 Dose: 10 mg Metoprolol Tartrate (Metoprolol Tartrate 25 Mg Tablet) 25 mg PO BID [facility] Last Admin: 07/23/22 20:26 Dose: 25 mg Nicotine (Nicotine 21 Mg Patch) 21 mg TOPICAL DAILY@1000 [facility] Last Admin: 07/23/22 10:05 Dose: 21 mg Ondansetron HCl (Ondansetron 4 Mg/2 Ml Vial) 4 mg IV Q4HP PRN PRN Reason: Nausea And Vomiting Pantoprazole Sodium (Pantoprazole 40 Mg Tablet) 40 mg PO DAILY [facility] Last Admin: 07/23/22 08:44 Dose: 40 mg Polyethylene Glycol (Polyethylene Glycol 3350 17 Gm Packet) 17 gm PO DAILYP PRN PRN Reason: Constipation Potassium Chloride (Potassium Chloride 20 Meq Tablet) 40 meq PO UD PRN PRN Reason: Potssium is 3-3.5 Last Admin: 07/12/22 15:53 Dose: 40 meq Potassium Chloride (Potassium Chloride 20 Meq Tablet) 40 meq PO UD PRN PRN Reason: Potassium < 3 Quetiapine Fumarate (Quetiapine 25 Mg Tablet) 25 mg PO HS [facility] Last Admin: 07/23/22 20:26 Dose: 25 mg Senna (Sennosides 1 Tablet) 2 tab PO DAILYP PRN PRN Reason: Constipation Sodium Bicarbonate (Sodium Bicarbonate 650 Mg Tablet) 650 mg PO BID [facility] Last Admin: 07/23/22 20:26 Dose: 650 mg Sodium Chloride (0.9 % Sodium Chloride 10 Ml Syringe) 10 ml IV Q8 [facility] Last Admin: 07/24/22 05:12 Dose: 10 ml Tamsulosin HCl (Tamsulosin 0.4 Mg Capsule) 0.4 mg PO QDAY [facility] Last Admin: 07/23/22 08:44 Dose: 0.4 mg Vancomycin HCl (Vancomycin 125 Mg Capsule) 125 mg PO TID [facility]; Protocol Stop: 07/29/22 21:01 Last Admin: 07/23/22 20:26 Dose: 125 mg Vancomycin HCl (Vancomycin 125 Mg Capsule) 125 mg PO BID [facility] Stop: 08/05/22 21:01 Vancomycin HCl (Vancomycin 125 Mg Capsule) 125 mg PO DAILY [facility] Stop: 08/12/22 09:01 Vancomycin HCl (Vancomycin 125 Mg Capsule) 125 mg PO Q48H [facility] Stop: 08/20/22 11:00 Vancomycin HCl (Vancomycin 125 Mg Capsule) 125 mg PO Q72H [facility] Stop: 08/28/22 11:00 A/P Narrative A/P Narrative: A: *Septic Shock: -resolved *PNA,Aspiration): *Covid(+): on room air *Acute hypoxic respiratory failure: -now on room air *C. dfficile colitis: 2nd recurrence this year *Encephalopathy: improved *ONEIL on CKD V: *Metabolic acidosis: resolved *Volume depletion: improved *Hyponatremia/hypomagnesemia: *COPD ( )/Bronchiectasis: *h/o CVA w/left hemiplegia: *Dementia, likely vascular: *Anemia, chronic: *HTN: now elevated *GERD: *BPH: cont home meds *Depression/anxiety: cont SSRI *Wounds on bilateral hips and left forearm, present on admission *Insomnia: Seroquel P: -Awaiting placement. -PO Vanco tapered and pulsed regimen -Monitor renal function periodically, avoid nephrotoxic medications -Sodium bicarbonate tablets for metabolic acidosis associated with CKD. -Continue metoprolol, home Lasix, isosorbide dinitrate -norvasc started -hold arb/hctz for recent ONEIL on CKD. -PT/OT, ST eval -Wound care team following -Nicotine replacement -CM for placement needs -ppx: Heparin / ppi CODE STATUS: DNR/DNI Time Spent With Patient Time: Total time spent is greater than 50% in coordination of care (as documented) at patient's floor/unit and/or counseling patient: Subsequent: Total time with patient: 35 - 49 minutes QUALITY VTE Deep Vein Thrombosis/Pulmonary Embolism Present on Admission: No
[2022-07-24] MEDS: DOCUSATE SODIUM 100 MG CAPSULE PO SCH ×2 (08:28→19:10)
[2022-07-24] MEDS: ISOSORBIDE DINITRATE 10 MG TABLET PO SCH ×3 (08:28→20:13)
[2022-07-24] MEDS: HEPARIN 5,000 UNIT/ML VIAL SQ SCH ×2 (08:28→19:10)
[2022-07-24] MEDS: TAMSULOSIN 0.4 MG CAPSULE PO SCH (08:28)
[2022-07-24] MEDS: FUROSEMIDE 40 MG TABLET PO SCH (08:29)
[2022-07-24] MEDS: VANCOMYCIN 125 MG CAPSULE PO SCH ×3 (08:29→20:13)
[2022-07-24] MEDS: METOPROLOL TARTRATE 25 MG TABLET PO SCH ×2 (08:29→20:13)
[2022-07-24] MEDS: PANTOPRAZOLE 40 MG TABLET PO SCH (08:29)
[2022-07-24] MEDS: SODIUM BICARBONATE 650 MG TABLET PO SCH ×2 (08:29→20:13)
[2022-07-24] MEDS: FLUoxetine HCL 20 MG CAPSULE PO SCH (08:29)
[2022-07-24] MEDS ORDERED: amLODIPine 5 MG TABLET PO SCH (09:00)
[2022-07-24] MEDS ORDERED: LABETALOL 5 MG/ML ML IV PRN (09:02)
[2022-07-24] MEDS ORDERED: hydrALAZINE 20 MG/ML VIAL IV PRN (09:02)
[2022-07-24] MEDS ORDERED: amLODIPine 5 MG TABLET PO ONE (09:04)
[2022-07-24] MEDS: NICOTINE 21 MG PATCH TOPICAL SCH (09:27)
[2022-07-24] MEDS: ACETAMINOPHEN 325 MG TABLET PO PRN (10:28)
[2022-07-24] MEDS: QUEtiapine 25 MG TABLET PO SCH (20:13)
[2022-07-25] MEDS: 0.9 % SODIUM CHLORIDE 10 ML SYRINGE IV SCH ×3 (04:56→20:49)
--- NOTE | 2022-07-25 07:37 | Internal Med Progress Note ---
SUBJECTIVE Subjective Patient information: Note initiated : 07/25/22 at 7:36 am Service Date, if different from initiated Date: [] Patient: Priyank Dueñas 71 y/o M admitted on 07/11/22 for Hypotension, weakness. Chief Complaint: [] Principal diagnosis: Sepsis Interval history: History of present illness: Mr. Dueñas is a 71 year old M Presents from home with weakness generalized as well as hypotension. Patient was released from a rehab tuesday after being admitted for a broken hip repair. History is obtained from the chart as patient has confusion at baseline. Patient became increasingly weak and family unable to care for the patient. Patient was found sleeping on the floor. However other than seeming more fatigued than usual he otherwise acted normal. Patient also had diarrhea and he says had it for about a month. He denies any coughing. He has chronic shortness of breath and unable to tell if it is any worse than usual. Patient says has been in bed for 2 months since he had a stroke. Patient is a poor historian. Patient states that he has had discussions about getting on hemodialysis in the past but he refuses. In ED he is found have a blood pressure of 63/47 and oxygen saturation of 86% on room air. In the ED patient was started on IV fluids and Levophed. Bedside ultrasound showed no fluid overload. The patient was wanting to go home but it was explained to him and the family that he was too critical to go home. Patient was afebrile and other vital signs were stable as well, with the exception of the blood pressure as previously discussed. White blood cell count was borderline high and manual differential is pending. Lactate okay. Chemistry shows a hyponatremia as well as a acute on chronic kidney injury with a BUN of 4.5. Procalcitonin mildly elevated 0.36 Urinalysis suspected source of infection CT chest abdomen pelvis with lower lobe infiltrates versus atelectasis. There is bronchiectasis as well, moderate emphysema. Venous ultrasound lower extremities revealed no DVTs. Patient was able to nearly be weaned off oxygen. Continued on Levophed. 3/ tmax 100.1 o/n. Found to be COVID-positive. pt off/on oxygen, suspect component of aspiration C. difficile positive Patient says he just wants to sleep. Hyponatremia, metabolic acidosis. Renal function slowly improving. Off Levophed since yesterday. Oral vancomycin started yesterday. Complains of chills but other no other complaints. 07/13 No significant events overnight, on room air. Diarrhea appears to be improving with oral vancomycin. Plan is to complete 5 days of antibiotic treat for pneumonia then 10 days of oral vancomycin followed by a taper for recurrent C. difficile colitis. Wound care following for right and left hip wounds that were present on admission. 07/14 No significant events overnight, continues to be on room air. Completing IV antibiotic treatment today, continues on oral vancomycin. Transition to MedSurg status. Resume home Lasix, isosorbide dinitrate, Protonix. 07/15 Vital stable overnight. The patient got upset last night because he wanted to go home, he called the police for that reason. Discharge to home at this point does not appear to be safe as the patient will require significant assistance and is requiring 2 for maximum assistance currently to get to sitting at the edge of the bed. Remove Romero catheter today. Dr. Syed following for the patient's chronic wounds. Case management following to assist with discharge planning. 07/16 Vital stable overnight, no significant agitation issues overnight. Blood pressure elevated this morning, added Norvasc 10 mg daily. Renal function at baseline now. Case management working on placement. 07/17 Vitals stable overnight. Seroquel added yesterday evening to good effect overnight. The patient feels like he slept better. Continues on QID oral vancomycin for C diff. Awaiting placement. 07/18 No significant events overnight, the patient's behaviors have improved since adding Seroquel at bedtime a couple nights ago. Awaiting placement. 07/20 Interval history: Clinically stable awaiting safe discharge plan per Case management and social work. 07/22 Patient is clinically status quo and is still awaiting insurance authorization per my discussion with social work today. 07/23 No overnight event or new complaints. Blood pressure little soft this morning we will hold Norvasc.pt still has diarrhea. 07/24 Patient seems to feel little bit better today. Blood pressure better. Notes on the higher side. Evaluate BP meds and add some IV as needed. 07/25 No overnight event or new complaints. Just asking for [id number]. Review of Systems: Denies headache/fever/chills/nausea/vomiting/chest or abdominal pain. Otherwise as above PHYSICAL EXAM General: Awake, No acute Distress Eyes/N/T: EOMI, no scleral icterus, Head/Neck: neck supple, full ROM, CV: RRR, No murmurs, normal s1/s2 Pulm:clearl b/l, no wheezing, no respiratory distress Abd: soft, nontender, +BS x4 Ext: no clubbing/cyanosis/edema, nontender Neuro: Alert, left hemiplegia, sensations intact b/l upper/lower, follows commands Psychiatric: Skin: warm/dry, normal color Constitutional Vitals: Vital Signs Temp Pulse Resp BP Pulse Ox O2 Del Method O2 Flow Rate 97.1 F 67 18 149/73 94 Room Air 0 07/25/22 04:06 07/25/22 04:06 07/25/22 04:06 07/25/22 04:06 07/25/22 04:06 07/25/22 04:06 07/20/22 04:00 Period Temp Pulse Resp BP Sys/Paiz Pulse Ox O2 Del Method O2 Flow Rate Last 24 Hr 97.1 F-97.7 F 63-72 16-18 120-172/70-78 92-99 Room Air-Room Air Intake and Output 07/24/22 07/25/22 07/25/22 19:59 03:59 11:59 Intake Total 480 Output Total 101 176 Balance 379 -176 Weight 71.078 kg Intake & Output: Intake & Output 07/24/22 07/25/22 07/25/22 19:59 03:59 11:59 Intake Total 480 Output Total 101 176 Balance 379 -176 Weight 71.078 kg Intake: Oral 480 Output: Void Amount 100 175 # of times incontinent of urine 1 1 Other: Meal Dinner Percent of Meal Consumed 75% Feeding Ability Independent Urine Appearance Clear Clear Urine Color Bright Yellow Dark Yellow Urine Odor Normal Stool Size Small Moderate Stool Color Brown Brown Stool Consistency Loose Loose # Bowel Movements 1 1 # of times incontinent of 1 1 Bowels OBJ DATA Labs 07/19/22 05:38 07/19/22 05:43 Meds: Medications Acetaminophen (Acetaminophen 325 Mg Tablet) 650 mg PO Q6HP PRN; Protocol PRN Reason: Per Pain Protocol/Fever > 101 Last Admin: 07/24/22 10:28 Dose: 650 mg Albuterol/Ipratropium (Ipratropium/Albuterol 3 Ml Ampul.Neb) 3 ml NEB Q4HP PRN PRN Reason: Shortness Of Breath Amlodipine Besylate (Amlodipine 5 Mg Tablet) 10 mg PO DAILY [facility] Docusate Sodium (Docusate Sodium 100 Mg Capsule) 100 mg PO BID [facility] Last Admin: 07/24/22 19:10 Dose: Not Given Fluoxetine HCl (Fluoxetine Hcl 20 Mg Capsule) 40 mg PO DAILY [facility] Last Admin: 07/24/22 08:29 Dose: 40 mg Furosemide (Furosemide 40 Mg Tablet) 40 mg PO QAM [facility] Last Admin: 07/24/22 08:29 Dose: 40 mg Heparin Sodium (Porcine) (Heparin 5,000 Unit/Ml Vial) 5,000 unit SQ Q12 [facility] Last Admin: 07/24/22 19:10 Dose: Not Given Hydralazine HCl (Hydralazine 20 Mg/Ml Vial) 0 mg IV Q2HP PRN PRN Reason: Hypertension Potassium Chloride 40 meq/ (Dextrose) 520 mls @ 130 mls/hr IV UD PRN PRN Reason: Potassium < 3 Magnesium Sulfate (Magnesium Sulfate) 2 gm in 50 mls @ 50 mls/hr IV UD PRN PRN Reason: Magnesium </= 1.6 Last Infusion: 07/19/22 09:27 Dose: Infused Isosorbide Dinitrate (Isosorbide Dinitrate 10 Mg Tablet) 10 mg PO TID [facility] Last Admin: 07/24/22 20:13 Dose: 10 mg Labetalol HCl (Labetalol 5 Mg/Ml Ml) 0 mg IV Q2HP PRN PRN Reason: Hypertension Metoprolol Tartrate (Metoprolol Tartrate 25 Mg Tablet) 25 mg PO BID [facility] Last Admin: 07/24/22 20:13 Dose: 25 mg Nicotine (Nicotine 21 Mg Patch) 21 mg TOPICAL DAILY@1000 [facility] Last Admin: 07/24/22 09:27 Dose: 21 mg Ondansetron HCl (Ondansetron 4 Mg/2 Ml Vial) 4 mg IV Q4HP PRN PRN Reason: Nausea And Vomiting Pantoprazole Sodium (Pantoprazole 40 Mg Tablet) 40 mg PO DAILY [facility] Last Admin: 07/24/22 08:29 Dose: 40 mg Polyethylene Glycol (Polyethylene Glycol 3350 17 Gm Packet) 17 gm PO DAILYP PRN PRN Reason: Constipation Potassium Chloride (Potassium Chloride 20 Meq Tablet) 40 meq PO UD PRN PRN Reason: Potssium is 3-3.5 Last Admin: 07/12/22 15:53 Dose: 40 meq Potassium Chloride (Potassium Chloride 20 Meq Tablet) 40 meq PO UD PRN PRN Reason: Potassium < 3 Quetiapine Fumarate (Quetiapine 25 Mg Tablet) 25 mg PO HS [facility] Last Admin: 07/24/22 20:13 Dose: 25 mg Senna (Sennosides 1 Tablet) 2 tab PO DAILYP PRN PRN Reason: Constipation Sodium Bicarbonate (Sodium Bicarbonate 650 Mg Tablet) 650 mg PO BID [facility] Last Admin: 07/24/22 20:13 Dose: 650 mg Sodium Chloride (0.9 % Sodium Chloride 10 Ml Syringe) 10 ml IV Q8 [facility] Last Admin: 07/25/22 04:56 Dose: 10 ml Tamsulosin HCl (Tamsulosin 0.4 Mg Capsule) 0.4 mg PO QDAY [facility] Last Admin: 07/24/22 08:28 Dose: 0.4 mg Vancomycin HCl (Vancomycin 125 Mg Capsule) 125 mg PO TID [facility]; Protocol Stop: 07/29/22 21:01 Last Admin: 07/24/22 20:13 Dose: 125 mg Vancomycin HCl (Vancomycin 125 Mg Capsule) 125 mg PO BID [facility] Stop: 08/05/22 21:01 Vancomycin HCl (Vancomycin 125 Mg Capsule) 125 mg PO DAILY [facility] Stop: 08/12/22 09:01 Vancomycin HCl (Vancomycin 125 Mg Capsule) 125 mg PO Q48H [facility] Stop: 08/20/22 11:00 Vancomycin HCl (Vancomycin 125 Mg Capsule) 125 mg PO Q72H [facility] Stop: 08/28/22 11:00 A/P Narrative A/P Narrative: A: *Septic Shock: -resolved *PNA,Aspiration): treated *Covid(+): on room air *Acute hypoxic respiratory failure: -now on room air *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 -PO Vanco tapered and pulsed regimen -Monitor renal function periodically, avoid nephrotoxic medications -Continue metoprolol, home Lasix, isosorbide dinitrate -norvasc started -hold arb/hctz for recent ONEIL on CKD. -PT/OT, ST eval -Wound care team following -Nicotine replacement -CM for placement needs -ppx: Heparin / ppi CODE STATUS: DNR/DNI Time Spent With Patient Time: Total time spent is greater than 50% in coordination of care (as documented) at patient's floor/unit and/or counseling patient: Subsequent: Total time with patient: 35 - 49 minutes QUALITY VTE Deep Vein Thrombosis/Pulmonary Embolism Present on Admission: No
[2022-07-25] MEDS: DOCUSATE SODIUM 100 MG CAPSULE PO SCH ×2 (08:03→20:29)
[2022-07-25] MEDS: HEPARIN 5,000 UNIT/ML VIAL SQ SCH ×2 (08:03→20:47)
[2022-07-25] MEDS: METOPROLOL TARTRATE 25 MG TABLET PO SCH ×2 (08:04→20:53)
[2022-07-25] MEDS: ISOSORBIDE DINITRATE 10 MG TABLET PO SCH ×3 (08:04→20:48)
[2022-07-25] MEDS: FUROSEMIDE 40 MG TABLET PO SCH (08:04)
[2022-07-25] MEDS: amLODIPine 5 MG TABLET PO SCH (08:04)
[2022-07-25] MEDS: TAMSULOSIN 0.4 MG CAPSULE PO SCH (08:04)
[2022-07-25] MEDS: PANTOPRAZOLE 40 MG TABLET PO SCH (08:05)
[2022-07-25] MEDS: VANCOMYCIN 125 MG CAPSULE PO SCH ×3 (08:05→20:48)
[2022-07-25] MEDS: FLUoxetine HCL 20 MG CAPSULE PO SCH (08:05)
[2022-07-25] MEDS: NICOTINE 21 MG PATCH TOPICAL SCH (10:41)
[2022-07-25] MEDS: QUEtiapine 25 MG TABLET PO SCH (20:48)
[2022-07-26] MEDS: 0.9 % SODIUM CHLORIDE 10 ML SYRINGE IV SCH ×3 (04:53→20:43)
--- NOTE | 2022-07-26 07:16 | Internal Med Progress Note ---
SUBJECTIVE Subjective Patient information: Note initiated : 07/26/22 at 7:16 am Service Date, if different from initiated Date: [] Patient: Priyank Dueñas a 71 y/o M admitted on 07/11/22 for Hypotension, weakness. Chief Complaint: [] Principal diagnosis: Sepsis Interval history: History of present illness: Mr. Dueñas is a 71 year old M Presents from home with weakness generalized as well as hypotension. Patient was released from a rehab tuesday after being admitted for a broken hip repair. History is obtained from the chart as patient has confusion at baseline. Patient became increasingly weak and family unable to care for the patient. Patient was found sleeping on the floor. However other than seeming more fatigued than usual he otherwise acted normal. Patient also had diarrhea and he says had it for about a month. He denies any coughing. He has chronic shortness of breath and unable to tell if it is any worse than usual. Patient says has been in bed for 2 months since he had a stroke. Patient is a poor historian. Patient states that he has had discussions about getting on hemodialysis in the past but he refuses. In ED he is found have a blood pressure of 63/47 and oxygen saturation of 86% on room air. In the ED patient was started on IV fluids and Levophed. Bedside ultrasound showed no fluid overload. The patient was wanting to go home but it was explained to him and the family that he was too critical to go home. Patient was afebrile and other vital signs were stable as well, with the exception of the blood pressure as previously discussed. White blood cell count was borderline high and manual differential is pending. Lactate okay. Chemistry shows a hyponatremia as well as a acute on chronic kidney injury with a BUN of 4.5. Procalcitonin mildly elevated 0.36 Urinalysis suspected source of infection CT chest abdomen pelvis with lower lobe infiltrates versus atelectasis. There is bronchiectasis as well, moderate emphysema. Venous ultrasound lower extremities revealed no DVTs. Patient was able to nearly be weaned off oxygen. Continued on Levophed. 3/6 tmax 100.1 o/n. Found to be COVID-positive. pt off/on oxygen, suspect component of aspiration C. difficile positive Patient says he just wants to sleep. Hyponatremia, metabolic acidosis. Renal function slowly improving. Off Levophed since yesterday. Oral vancomycin started yesterday. Complains of chills but other no other complaints. 07/13 No significant events overnight, on room air. Diarrhea appears to be improving with oral vancomycin. Plan is to complete 5 days of antibiotic treat for pneumonia then 10 days of oral vancomycin followed by a taper for recurrent C. difficile colitis. Wound care following for right and left hip wounds that were present on admission. 07/14 No significant events overnight, continues to be on room air. Completing IV antibiotic treatment today, continues on oral vancomycin. Transition to MedSurg status. Resume home Lasix, isosorbide dinitrate, Protonix. 07/15 Vital stable overnight. The patient got upset last night because he wanted to go home, he called the police for that reason. Discharge to home at this point does not appear to be safe as the patient will require significant assistance and is requiring 2 for maximum assistance currently to get to sitting at the edge of the bed. Remove Romero catheter today. Dr. Syed following for the patient's chronic wounds. Case management following to assist with discharge planning. 07/16 Vital stable overnight, no significant agitation issues overnight. Blood pressure elevated this morning, added Norvasc 10 mg daily. Renal function at baseline now. Case management working on placement. 07/17 Vitals stable overnight. Seroquel added yesterday evening to good effect overnight. The patient feels like he slept better. Continues on QID oral vancomycin for C diff. Awaiting placement. 07/18 No significant events overnight, the patient's behaviors have improved since adding Seroquel at bedtime a couple nights ago. Awaiting placement. 07/20 Interval history: Clinically stable awaiting safe discharge plan per Case management and social work. 07/22 Patient is clinically status quo and is still awaiting insurance authorization per my discussion with social work today. 07/23 No overnight event or new complaints. Blood pressure little soft this morning we will hold Norvasc.pt still has diarrhea. 07/24 Patient seems to feel little bit better today. Blood pressure better. Notes on the higher side. Evaluate BP meds and add some IV as needed. 07/25 No overnight event or new complaints. Just asking for [id number]. 07/26 No new complaints other than he says he is wants solid food, he is on a dysphagia diet. Review of Systems: Denies headache/fever/chills/nausea/vomiting/chest or abdominal pain. Otherwise as above PHYSICAL EXAM General: Awake, No acute Distress Eyes/N/T: EOMI, no scleral icterus, Head/Neck: neck supple, full ROM, CV: RRR, No murmurs, normal s1/s2 Pulm:clearl b/l, no wheezing, no respiratory distress Abd: soft, nontender, +BS x4 Ext: no clubbing/cyanosis/edema, nontender Neuro: Alert, left hemiplegia, sensations intact b/l upper/lower, follows commands Psychiatric: Skin: warm/dry, normal color Constitutional Vitals: Vital Signs Temp Pulse Resp BP Pulse Ox O2 Del Method O2 Flow Rate 97.5 F 72 20 137/86 96 Room Air 0 07/26/22 04:00 07/26/22 04:00 07/26/22 04:00 07/26/22 04:00 07/26/22 04:00 07/26/22 04:00 07/20/22 04:00 Period Temp Pulse Resp BP Sys/Paiz Pulse Ox O2 Del Method O2 Flow Rate Last 24 Hr 97.3 F-98.5 F 60-73 18-20 117-142/62-86 94-97 Room Air-Room Air Intake and Output 07/25/22 07/26/22 07/26/22 19:59 03:59 11:59 Intake Total 240 360 Output Total 101 227 Balance 139 133 Weight 71.412 kg Intake & Output: Intake & Output 07/25/22 07/26/22 07/26/22 19:59 03:59 11:59 Intake Total 240 360 Output Total 101 227 Balance 139 133 Weight 71.412 kg Intake: Oral 240 360 Output: Void Amount 100 225 # of times incontinent of urine 1 2 Other: Meal Dinner Percent of Meal Consumed 100% Feeding Ability Assist with Tray Set Up Urine Appearance Clear Clear Urine Color Yellow Dark Yellow Urine Odor Normal Stool Size Moderate Stool Color Brown Yellow Stool Consistency Soft # of times incontinent of 1 Bowels OBJ DATA Labs 07/19/22 05:38 07/19/22 05:43 Meds: Medications Acetaminophen (Acetaminophen 325 Mg Tablet) 650 mg PO Q6HP PRN; Protocol PRN Reason: Per Pain Protocol/Fever > 101 Last Admin: 07/24/22 10:28 Dose: 650 mg Albuterol/Ipratropium (Ipratropium/Albuterol 3 Ml Ampul.Neb) 3 ml NEB Q4HP PRN PRN Reason: Shortness Of Breath Amlodipine Besylate (Amlodipine 5 Mg Tablet) 10 mg PO DAILY [facility] Last Admin: 07/25/22 08:04 Dose: 10 mg Docusate Sodium (Docusate Sodium 100 Mg Capsule) 100 mg PO BID [facility] Last Admin: 07/25/22 20:29 Dose: Not Given Fluoxetine HCl (Fluoxetine Hcl 20 Mg Capsule) 40 mg PO DAILY [facility] Last Admin: 07/25/22 08:05 Dose: 40 mg Furosemide (Furosemide 40 Mg Tablet) 40 mg PO QAM [facility] Last Admin: 07/25/22 08:04 Dose: 40 mg Heparin Sodium (Porcine) (Heparin 5,000 Unit/Ml Vial) 5,000 unit SQ Q12 [facility] Last Admin: 07/25/22 20:47 Dose: 5,000 unit Hydralazine HCl (Hydralazine 20 Mg/Ml Vial) 0 mg IV Q2HP PRN PRN Reason: Hypertension Potassium Chloride 40 meq/ (Dextrose) 520 mls @ 130 mls/hr IV UD PRN PRN Reason: Potassium < 3 Magnesium Sulfate (Magnesium Sulfate) 2 gm in 50 mls @ 50 mls/hr IV UD PRN PRN Reason: Magnesium </= 1.6 Last Infusion: 07/19/22 09:27 Dose: Infused Isosorbide Dinitrate (Isosorbide Dinitrate 10 Mg Tablet) 10 mg PO TID [facility] Last Admin: 07/25/22 20:48 Dose: 10 mg Labetalol HCl (Labetalol 5 Mg/Ml Ml) 0 mg IV Q2HP PRN PRN Reason: Hypertension Metoprolol Tartrate (Metoprolol Tartrate 25 Mg Tablet) 25 mg PO BID [facility] Last Admin: 07/25/22 20:53 Dose: 25 mg Nicotine (Nicotine 21 Mg Patch) 21 mg TOPICAL DAILY@1000 [facility] Last Admin: 07/25/22 10:41 Dose: 21 mg Ondansetron HCl (Ondansetron 4 Mg/2 Ml Vial) 4 mg IV Q4HP PRN PRN Reason: Nausea And Vomiting Pantoprazole Sodium (Pantoprazole 40 Mg Tablet) 40 mg PO DAILY [facility] Last Admin: 07/25/22 08:05 Dose: 40 mg Polyethylene Glycol (Polyethylene Glycol 3350 17 Gm Packet) 17 gm PO DAILYP PRN PRN Reason: Constipation Potassium Chloride (Potassium Chloride 20 Meq Tablet) 40 meq PO UD PRN PRN Reason: Potssium is 3-3.5 Last Admin: 07/12/22 15:53 Dose: 40 meq Potassium Chloride (Potassium Chloride 20 Meq Tablet) 40 meq PO UD PRN PRN Reason: Potassium < 3 Quetiapine Fumarate (Quetiapine 25 Mg Tablet) 25 mg PO HS [facility] Last Admin: 07/25/22 20:48 Dose: 25 mg Senna (Sennosides 1 Tablet) 2 tab PO DAILYP PRN PRN Reason: Constipation Sodium Chloride (0.9 % Sodium Chloride 10 Ml Syringe) 10 ml IV Q8 [facility] Last Admin: 07/26/22 04:53 Dose: 10 ml Tamsulosin HCl (Tamsulosin 0.4 Mg Capsule) 0.4 mg PO QDAY [facility] Last Admin: 07/25/22 08:04 Dose: 0.4 mg Vancomycin HCl (Vancomycin 125 Mg Capsule) 125 mg PO TID [facility]; Protocol Stop: 07/29/22 21:01 Last Admin: 07/25/22 20:48 Dose: 125 mg Vancomycin HCl (Vancomycin 125 Mg Capsule) 125 mg PO BID [facility] Stop: 08/05/22 21:01 Vancomycin HCl (Vancomycin 125 Mg Capsule) 125 mg PO DAILY [facility] Stop: 08/12/22 09:01 Vancomycin HCl (Vancomycin 125 Mg Capsule) 125 mg PO Q48H [facility] Stop: 08/20/22 11:00 Vancomycin HCl (Vancomycin 125 Mg Capsule) 125 mg PO Q72H [facility] Stop: 08/28/22 11:00 A/P Narrative A/P Narrative: A: *Septic Shock: -resolved *PNA,Aspiration): treated *Covid(+): on room air *Acute hypoxic respiratory failure: -now on room air *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 -PO Vanco tapered and pulsed regimen -Monitor renal function periodically, avoid nephrotoxic medications -Continue metoprolol, home Lasix, isosorbide dinitrate -norvasc started -hold arb/hctz for recent ONEIL on CKD. -PT/OT, ST eval -Wound care team following -Nicotine replacement -CM for placement -ppx: Heparin / ppi CODE STATUS: DNR/DNI Time Spent With Patient Time: Total time spent is greater than 50% in coordination of care (as documented) at patient's floor/unit and/or counseling patient: QUALITY VTE Deep Vein Thrombosis/Pulmonary Embolism Present on Admission: No
[2022-07-26] MEDS: ISOSORBIDE DINITRATE 10 MG TABLET PO SCH ×3 (09:30→20:43)
[2022-07-26] MEDS: amLODIPine 5 MG TABLET PO SCH (09:30)
[2022-07-26] MEDS: FLUoxetine HCL 20 MG CAPSULE PO SCH (09:30)
[2022-07-26] MEDS: METOPROLOL TARTRATE 25 MG TABLET PO SCH ×2 (09:30→20:43)
[2022-07-26] MEDS: FUROSEMIDE 40 MG TABLET PO SCH (09:31)
[2022-07-26] MEDS: TAMSULOSIN 0.4 MG CAPSULE PO SCH (09:31)
[2022-07-26] MEDS: PANTOPRAZOLE 40 MG TABLET PO SCH (09:31)
[2022-07-26] MEDS: HEPARIN 5,000 UNIT/ML VIAL SQ SCH ×2 (09:32→20:42)
[2022-07-26] MEDS: VANCOMYCIN 125 MG CAPSULE PO SCH ×3 (09:32→20:43)
[2022-07-26] MEDS: DOCUSATE SODIUM 100 MG CAPSULE PO SCH ×2 (09:39→20:43)
[2022-07-26] MEDS: NICOTINE 21 MG PATCH TOPICAL SCH (14:58)
[2022-07-26] MEDS: QUEtiapine 25 MG TABLET PO SCH (20:43)
[2022-07-27] MEDS: 0.9 % SODIUM CHLORIDE 10 ML SYRINGE IV SCH (05:48)
--- NOTE | 2022-07-27 07:27 | Internal Med Progress Note ---
SUBJECTIVE Subjective Patient information: Note initiated : 07/27/22 at 7:27 am Service Date, if different from initiated Date: [] Patient: Priyank Dueñas 71 y/o M admitted on 07/11/22 for Hypotension, weakness. Chief Complaint: [] Principal diagnosis: Sepsis Interval history: History of present illness: Mr. Dueñas is a 71 year old M Presents from home with weakness generalized as well as hypotension. Patient was released from a rehab tuesday after being admitted for a broken hip repair. History is obtained from the chart as patient has confusion at baseline. Patient became increasingly weak and family unable to care for the patient. Patient was found sleeping on the floor. However other than seeming more fatigued than usual he otherwise acted normal. Patient also had diarrhea and he says had it for about a month. He denies any coughing. He has chronic shortness of breath and unable to tell if it is any worse than usual. Patient says has been in bed for 2 months since he had a stroke. Patient is a poor historian. Patient states that he has had discussions about getting on hemodialysis in the past but he refuses. In ED he is found have a blood pressure of 63/47 and oxygen saturation of 86% on room air. In the ED patient was started on IV fluids and Levophed. Bedside ultrasound showed no fluid overload. The patient was wanting to go home but it was explained to him and the family that he was too critical to go home. Patient was afebrile and other vital signs were stable as well, with the exception of the blood pressure as previously discussed. White blood cell count was borderline high and manual differential is pending. Lactate okay. Chemistry shows a hyponatremia as well as a acute on chronic kidney injury with a BUN of 4.5. Procalcitonin mildly elevated 0.36 Urinalysis suspected source of infection CT chest abdomen pelvis with lower lobe infiltrates versus atelectasis. There is bronchiectasis as well, moderate emphysema. Venous ultrasound lower extremities revealed no DVTs. Patient was able to nearly be weaned off oxygen. Continued on Levophed. 3/6 tmax 100.1 o/n. Found to be COVID-positive. pt off/on oxygen, suspect component of aspiration C. difficile positive Patient says he just wants to sleep. Hyponatremia, metabolic acidosis. Renal function slowly improving. Off Levophed since yesterday. Oral vancomycin started yesterday. Complains of chills but other no other complaints. 07/13 No significant events overnight, on room air. Diarrhea appears to be improving with oral vancomycin. Plan is to complete 5 days of antibiotic treat for pneumonia then 10 days of oral vancomycin followed by a taper for recurrent C. difficile colitis. Wound care following for right and left hip wounds that were present on admission. 07/14 No significant events overnight, continues to be on room air. Completing IV antibiotic treatment today, continues on oral vancomycin. Transition to MedSurg status. Resume home Lasix, isosorbide dinitrate, Protonix. 07/15 Vital stable overnight. The patient got upset last night because he wanted to go home, he called the police for that reason. Discharge to home at this point does not appear to be safe as the patient will require significant assistance and is requiring 2 for maximum assistance currently to get to sitting at the edge of the bed. Remove Romero catheter today. Dr. Syed following for the patient's chronic wounds. Case management following to assist with discharge planning. 07/16 Vital stable overnight, no significant agitation issues overnight. Blood pressure elevated this morning, added Norvasc 10 mg daily. Renal function at baseline now. Case management working on placement. 07/17 Vitals stable overnight. Seroquel added yesterday evening to good effect overnight. The patient feels like he slept better. Continues on QID oral vancomycin for C diff. Awaiting placement. 07/18 No significant events overnight, the patient's behaviors have improved since adding Seroquel at bedtime a couple nights ago. Awaiting placement. 07/20 Interval history: Clinically stable awaiting safe discharge plan per Case management and social work. 07/22 Patient is clinically status quo and is still awaiting insurance authorization per my discussion with social work today. 07/23 No overnight event or new complaints. Blood pressure little soft this morning we will hold Norvasc.pt still has diarrhea. 07/24 Patient seems to feel little bit better today. Blood pressure better. Notes on the higher side. Evaluate BP meds and add some IV as needed. 07/25 No overnight event or new complaints. Just asking for [id number]. 07/26 No new complaints other than he says he is wants solid food, he is on a dysphagia diet. 07/27 Doing well, no new complaints other than not wanting any stool softeners. Pending placement. Review of Systems: Denies headache/fever/chills/nausea/vomiting/chest or abdominal pain. Otherwise as above PHYSICAL EXAM General: Awake, No acute Distress Eyes/N/T: EOMI, no scleral icterus, Head/Neck: neck supple, full ROM, CV: RRR, No murmurs, normal s1/s2 Pulm:clearl b/l, no wheezing, no respiratory distress Abd: soft, nontender, +BS x4 Ext: no clubbing/cyanosis/edema, nontender Neuro: Alert, left hemiplegia, sensations intact b/l upper/lower, follows commands Psychiatric: Skin: warm/dry, normal color Constitutional Vitals: Vital Signs Temp Pulse Resp BP Pulse Ox O2 Del Method O2 Flow Rate 97.0 F 66 16 140/79 96 Room Air 0 07/27/22 04:33 07/27/22 04:33 07/27/22 04:33 07/27/22 04:33 07/27/22 04:33 07/27/22 04:33 07/20/22 04:00 Period Temp Pulse Resp BP Sys/Paiz Pulse Ox O2 Del Method O2 Flow Rate Last 24 Hr 97 F-98.5 F 66-76 16-18 105-140/69-99 96-98 Room Air-Room Air Intake and Output 07/26/22 07/27/22 07/27/22 19:59 03:59 11:59 Intake Total 320 480 300 Output Total 202 401 Balance 118 79 300 Weight 70.715 kg Intake & Output: Intake & Output 07/26/22 07/27/22 07/27/22 19:59 03:59 11:59 Intake Total 320 480 300 Output Total 202 401 Balance 118 79 300 Weight 70.715 kg Intake: Oral 320 480 300 Output: Void Amount 200 400 # of times incontinent of urine 2 1 Other: Meal Dinner Percent of Meal Consumed 75% Feeding Ability Assist with Tray Set Up Urine Appearance Clear Clear Urine Color Yellow Dark Yellow Urine Odor Normal Strong Stool Size Moderate Moderate Stool Color Yellow Stool Consistency Soft Soft Formed # Bowel Movements 2 OBJ DATA Labs 07/19/22 05:38 07/19/22 05:43 Meds: Medications Acetaminophen (Acetaminophen 325 Mg Tablet) 650 mg PO Q6HP PRN; Protocol PRN Reason: Per Pain Protocol/Fever > 101 Last Admin: 07/24/22 10:28 Dose: 650 mg Albuterol/Ipratropium (Ipratropium/Albuterol 3 Ml Ampul.Neb) 3 ml NEB Q4HP PRN PRN Reason: Shortness Of Breath Amlodipine Besylate (Amlodipine 5 Mg Tablet) 10 mg PO DAILY [facility] Last Admin: 07/26/22 09:30 Dose: 10 mg Docusate Sodium (Docusate Sodium 100 Mg Capsule) 100 mg PO BID [facility] Last Admin: 07/26/22 20:43 Dose: Not Given Fluoxetine HCl (Fluoxetine Hcl 20 Mg Capsule) 40 mg PO DAILY [facility] Last Admin: 07/26/22 09:30 Dose: 40 mg Furosemide (Furosemide 40 Mg Tablet) 40 mg PO QAM [facility] Last Admin: 07/26/22 09:31 Dose: 40 mg Heparin Sodium (Porcine) (Heparin 5,000 Unit/Ml Vial) 5,000 unit SQ Q12 [facility] Last Admin: 07/26/22 20:42 Dose: 5,000 unit Hydralazine HCl (Hydralazine 20 Mg/Ml Vial) 0 mg IV Q2HP PRN PRN Reason: Hypertension Potassium Chloride 40 meq/ (Dextrose) 520 mls @ 130 mls/hr IV UD PRN PRN Reason: Potassium < 3 Magnesium Sulfate (Magnesium Sulfate) 2 gm in 50 mls @ 50 mls/hr IV UD PRN PRN Reason: Magnesium </= 1.6 Last Infusion: 07/19/22 09:27 Dose: Infused Isosorbide Dinitrate (Isosorbide Dinitrate 10 Mg Tablet) 10 mg PO TID [facility] Last Admin: 07/26/22 20:43 Dose: 10 mg Labetalol HCl (Labetalol 5 Mg/Ml Ml) 0 mg IV Q2HP PRN PRN Reason: Hypertension Metoprolol Tartrate (Metoprolol Tartrate 25 Mg Tablet) 25 mg PO BID [facility] Last Admin: 07/26/22 20:43 Dose: 25 mg Nicotine (Nicotine 21 Mg Patch) 21 mg TOPICAL DAILY@1000 [facility] Last Admin: 07/26/22 14:58 Dose: 21 mg Ondansetron HCl (Ondansetron 4 Mg/2 Ml Vial) 4 mg IV Q4HP PRN PRN Reason: Nausea And Vomiting Pantoprazole Sodium (Pantoprazole 40 Mg Tablet) 40 mg PO DAILY [facility] Last Admin: 07/26/22 09:31 Dose: 40 mg Polyethylene Glycol (Polyethylene Glycol 3350 17 Gm Packet) 17 gm PO DAILYP PRN PRN Reason: Constipation Potassium Chloride (Potassium Chloride 20 Meq Tablet) 40 meq PO UD PRN PRN Reason: Potssium is 3-3.5 Last Admin: 07/12/22 15:53 Dose: 40 meq Potassium Chloride (Potassium Chloride 20 Meq Tablet) 40 meq PO UD PRN PRN Reason: Potassium < 3 Quetiapine Fumarate (Quetiapine 25 Mg Tablet) 25 mg PO HS [facility] Last Admin: 07/26/22 20:43 Dose: 25 mg Senna (Sennosides 1 Tablet) 2 tab PO DAILYP PRN PRN Reason: Constipation Sodium Chloride (0.9 % Sodium Chloride 10 Ml Syringe) 10 ml IV Q8 [facility] Last Admin: 07/27/22 05:48 Dose: 10 ml Tamsulosin HCl (Tamsulosin 0.4 Mg Capsule) 0.4 mg PO QDAY [facility] Last Admin: 07/26/22 09:31 Dose: 0.4 mg Vancomycin HCl (Vancomycin 125 Mg Capsule) 125 mg PO TID [facility]; Protocol Stop: 07/29/22 21:01 Last Admin: 07/26/22 20:43 Dose: 125 mg Vancomycin HCl (Vancomycin 125 Mg Capsule) 125 mg PO BID [facility] Stop: 08/05/22 21:01 Vancomycin HCl (Vancomycin 125 Mg Capsule) 125 mg PO DAILY [facility] Stop: 08/12/22 09:01 Vancomycin HCl (Vancomycin 125 Mg Capsule) 125 mg PO Q48H [facility] Stop: 08/20/22 11:00 Vancomycin HCl (Vancomycin 125 Mg Capsule) 125 mg PO Q72H [facility] Stop: 08/28/22 11:00 A/P Narrative A/P Narrative: A: *Septic Shock: -resolved *PNA,Aspiration): treated *Covid(+): on room air *Acute hypoxic respiratory failure: -now on room air *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 -PO Vanco tapered and pulsed regimen -Monitor renal function periodically, avoid nephrotoxic medications -Continue metoprolol, home Lasix, isosorbide dinitrate -norvasc started -hold arb/hctz for recent ONEIL on CKD. -PT/OT, ST eval -Wound care team following -Nicotine replacement -CM for placement -ppx: Heparin / ppi CODE STATUS: DNR/DNI Time Spent With Patient Time: Total time spent is greater than 50% in coordination of care (as documented) at patient's floor/unit and/or counseling patient: QUALITY VTE Deep Vein Thrombosis/Pulmonary Embolism Present on Admission: No
[2022-07-27] MEDS: DOCUSATE SODIUM 100 MG CAPSULE PO SCH (10:52)
[2022-07-27] MEDS: NICOTINE 21 MG PATCH TOPICAL SCH (11:05)
[2022-07-27] MEDS: HEPARIN 5,000 UNIT/ML VIAL SQ SCH (11:07)
[2022-07-27] MEDS: VANCOMYCIN 125 MG CAPSULE PO SCH (11:10)
[2022-07-27] MEDS: amLODIPine 5 MG TABLET PO SCH (11:10)
[2022-07-27] MEDS: TAMSULOSIN 0.4 MG CAPSULE PO SCH (11:11)
[2022-07-27] MEDS: PANTOPRAZOLE 40 MG TABLET PO SCH (11:11)
[2022-07-27] MEDS: METOPROLOL TARTRATE 25 MG TABLET PO SCH (11:11)
[2022-07-27] MEDS: FUROSEMIDE 40 MG TABLET PO SCH (11:11)
[2022-07-27] MEDS: ISOSORBIDE DINITRATE 10 MG TABLET PO SCH (11:11)
[2022-07-27] MEDS: FLUoxetine HCL 20 MG CAPSULE PO SCH (11:11)
--- NOTE | 2022-07-27 12:09 | Event Note ---
Event Note Event Note: Briefly saw patient along with Aracelis Flores RNaircraft loadmaster superintendent Nurse Facilities Custodian. Examined wounds and POC after discharge. Agreed. Will see patient at wound care clinic in a week after discharge. Re: Continuity of care. Patient concurs.
[2022-07-30] MEDS ORDERED: VANCOMYCIN 125 MG CAPSULE PO SCH (09:00)
[2022-08-06] MEDS ORDERED: VANCOMYCIN 125 MG CAPSULE PO SCH (09:00)
[2022-08-13] MEDS ORDERED: VANCOMYCIN 125 MG CAPSULE PO SCH (09:00)
[2022-08-21] MEDS ORDERED: VANCOMYCIN 125 MG CAPSULE PO SCH (09:00)
== END 2022-07-27 13:45 | DRG 871 ==
LOC: ED 17:41 → ICU 07-11 01:41 → MEDSUR 07-17 14:00
PROVIDERS: ADMIT Internal Medicine; ATTEND Internal Medicine

== ENCOUNTER 2024-10-16 12:27 | Inpatient (IN) ==
[2024-10-16] MEDS: HALOPERIDOL LACTATE 5 MG/ML VIAL IM ONE (13:11)
[2024-10-16 13:57] LABS: Basophils # (Auto) 0.03 K/mcL (0.00-0.30); Basophils % (Auto) 0.3 % (0.0-2.0); Eosinophils # (Auto) 0 K/mcL (0.00-0.70); Eosinophils % (Auto) 0 % (0.0-7.0); Hematocrit 20.5 % (40.1-51.0); Hemoglobin 6.3 g/dL (13.7-17.5); Lymphocytes # (Auto) 0.22 K/mcL (1.50-4.80); Lymphocytes % (Auto) 2.4 % (15.5-49.0); Mean Cell Volume 98.1 fL (80.0-100.0); Mean Corpuscular HGB Conc 30.7 g/dL (31.0-36.0); Mean Platelet Volume 9.8 fL (8.8-12.5); Monocytes # (Auto) 0.34 K/mcL (0.10-0.90); Monocytes % (Auto) 3.7 % (1.0-12.0); Neutrophils % (Auto) 93.2 % (38.0-78.0); Platelet Count 197 K/mcL (140-440); RBC 2.09 M/mcL (4.63-6.08); Red Cell Distribution Width 15.9 % (11.5-14.5); WBC 9.2 K/mcL (4.5-11.0)
[2024-10-16] MEDS: cefTRIAXone 2 GM in DEXTROSE 5% IN WATER 50 ML IV ONE (14:24)
[2024-10-16] MEDS: 0.9 % SODIUM CHLORIDE 250 ML IV SCH (14:25)
[2024-10-16 14:38] LABS: ALT/SGPT 12 U/L (<40); AST/SGOT 15 U/L (<40); Albumin 3.5 gm/dL (3.2-5.2); Albumin/Globulin Ratio 1.1 (1.0-2.3); Alkaline Phosphatase 80 U/L (39-117); Bilirubin,Total 0.2 mg/dL (0.1-1.0); Blood Urea Nitrogen 61 mg/dL (8-23); Calcium 7.8 mg/dL (8.6-10.4); Carbon Dioxide 13 mmol/L (22-30); Chloride 104 mmol/L (96-108); Globulin 3.3 gm/dL (2.2-3.7); Glomerular Filtration Rate 8; Glucose 138 mg/dL (70-105); Potassium 5.1 mmol/L (3.3-5.1); Sodium 137 mmol/L (133-145)
[2024-10-16 14:51] LABS: INR 1.1 (0.9-1.1); Prothrombin Time 15.5 sec (11.9-14.5)
[2024-10-16] MEDS: AZITHROMYCIN 500 MG in 0.9 % SODIUM CHLORIDE 250 ML IV ONE (15:11)
[2024-10-16] MEDS ORDERED: morphine 4 MG/ML VIAL NEB PRN (20:28)
[2024-10-16] MEDS ORDERED: LACTOPEROXI/GLUC OXID/POT THIO 1 EACH GEL..EA. TOPICAL PRN (20:28)
[2024-10-16] MEDS ORDERED: DIAZEPAM 10 MG/2 ML SYRINGE IV PRN (20:28)
[2024-10-16] MEDS ORDERED: ONDANSETRON 4 MG/2 ML VIAL IV PRN (20:28)
[2024-10-16] MEDS: 0.9 % SODIUM CHLORIDE 10 ML SYRINGE IV SCH (20:58)
[2024-10-16] MEDS: DOCUSATE SODIUM 100 MG CAPSULE PO SCH (20:58)
[2024-10-17] MEDS: HYDROmorphone 1 MG/ML SYRINGE IV PRN (04:10)
[2024-10-18 08:28] VITALS: O2SAT 96
[2024-10-18 14:13] VITALS: TEMP 98
== END 2024-10-18 14:31 | DRG 951 ==
LOC: ED 12:27 → MEDSUR 20:03
PROVIDERS: ADMIT Internal Medicine; ATTEND Internal Medicine